=== PATIENT | female | born 1960 | race Caucasian/White ===

== ENCOUNTER 2021-06-16 12:15 | Outpatient (CLI) | payer MEDICARE, MEDICAID, SELFPAY ==
--- NOTE | 2021-06-16 | ECG_ITS ---
Measurements Intervals [place] Rate: 64 P: 33 MS: 177 QRS: -11 QRSD: 85 T: 49 QT: 413 QTc: 428 Interpretive Statements SINUS RHYTHM BORDERLINE ST ABNORMALITY- HIGH LATERAL LEADS BASELINE ARTIFACT- V6 BORDERLINE ECG Electronically Signed On 06-16-2021 13:31:46 CDT by Moncho Hidalgo D.O.
[2021-06-16 13:38] LABS: Albumin Level 4.3 g/dL (3.5-5.1); Estimated Glomerular Filt Rate 45
[2021-06-16 13:58] LABS: Urine Cotinine NEGATIVE
== END 2021-06-16 12:16 | disposition home or self-care (01) ==
PROVIDERS: PCP Family Medicine; Visit Provider Orthopaedic Surgery
DX: Z01.818 Encounter for other preprocedural examination (principal); M17.12 Unilateral primary osteoarthritis, left knee; I11.9 Hypertensive heart disease without heart failure; D64.9 Anemia, unspecified; J45.909 Unspecified asthma, uncomplicated
CPT/HCPCS: 80307; 82040; 82565; 85014; 85018; 93005

== ENCOUNTER 2021-09-06 14:18 | Outpatient (CLI) | payer MEDICARE, MEDICAID, SELFPAY ==
[2021-09-06 15:52] LABS: Basophils Percent Auto 0.4 % (0.2-1.2); Eosinophils Absolute Auto 0.1 K/mm3 (0-0.3); Eosinophils Percent Auto 1.8 % (0-4.4); Hematocrit 43.5 % (37.0-47.0); Hemoglobin 13.9 g/dL (12.0-15.0); Lymphocytes Absolute Auto 1.46 K/mm3 (0.9-3.2); Lymphocytes Percent Auto 26.1 % (18.3-44.2); Mean Corpuscular Hemoglobin 31.1 pg (26-34); Mean Corpuscular Volume 97.3 fl (80-100); Mean Platelet Volume 12.5 fl (7.4-10.4); Monocytes Absolute Auto 0.5 K/mm3 (0.1-0.6); Monocytes Percent Auto 8.2 % (2.6-8.5); Neutrophils Absolute Auto 3.6 K/mm3 (1.3-6.7); Neutrophils Percent Auto 63.5 % (45.5-73.1); Platelet Count Result 162 k/mm3 (150-375); Red Blood Count 4.47 M/mm3 (4.2-5.4); Red Cell Distribution Width 14.8 % (11.5-14.5); White Blood Count 5.6 K/mm3 (4.5-10.0)
[2021-09-06 16:00] LABS: Urine Cotinine NEGATIVE
[2021-09-06 16:07] LABS: Albumin Level 4.7 g/dL (3.5-5.1)
[2021-09-06 16:11] LABS: Anion Gap 8 mmol/L (8-16); Blood Urea Nitrogen 16 mg/dL (7-17); Calcium 9.4 mg/dL (8.4-10.2); Carbon Dioxide 30 mmol/L (22-30); Chloride 105 mmol/L (98-107); Estimated Glomerular Filt Rate 56; Glucose 136 mg/dL (65-110); Potassium 4.1 mmol/L (3.4-5.0); Sodium 143 mmol/L (137-145)
[2021-09-06 17:28] LABS: Hemoglobin A1C 6.4 % (<5.7)
== END 2021-09-06 14:19 | disposition home or self-care (01) ==
LOC: ANHSURGERY 14:24
PROVIDERS: Anesthesiology; PCP Family Medicine; Visit Provider Orthopaedic Surgery
DX: Z01.812 Encounter for preprocedural laboratory examination (principal); M17.12 Unilateral primary osteoarthritis, left knee; E11.9 Type 2 diabetes mellitus without complications; Z51.81 Encounter for therapeutic drug level monitoring; Z79.899 Other long term (current) drug therapy
CPT/HCPCS: 36415; 80048; 80307; 82040; 83036; 85025; 87081

== ENCOUNTER 2021-12-16 10:26 | Outpatient (CLI) | payer MEDICARE, MEDICAID, SELFPAY ==
[2021-12-16 15:48] LABS: Urine Cotinine NEGATIVE
[2021-12-16 15:53] LABS: Hemoglobin A1C 6.6 % (<5.7)
== END 2021-12-16 10:27 | disposition home or self-care (01) ==
PROVIDERS: PCP Family Medicine; Visit Provider Orthopaedic Surgery
DX: Z01.812 Encounter for preprocedural laboratory examination (principal); M17.12 Unilateral primary osteoarthritis, left knee; Z51.81 Encounter for therapeutic drug level monitoring; Z79.899 Other long term (current) drug therapy
CPT/HCPCS: 80307; 83036; 86850; 86900; 86901; 87081

== ENCOUNTER 2021-12-22 15:45 | Observation (INO) | payer MEDICARE, MEDICAID, SELFPAY ==
[2021-09-06 14:30] VITALS: BMI 34.0
[2021-09-06 15:21] VITALS: BP 127/79; PULSE 76; RESP 16; TEMP 36.7; O2SAT 100
[2021-12-14 10:29] VITALS: BMI 34.0
--- NOTE | 2021-12-14 10:47 | PC.NURSE ---
Report to the Outpatient Waiting Room, entrance under the green pavilion located off [facility], at time _0600_ on date _12/21/21__. OR Time: _0730__. - You and your visitor will be asked a series of questions to screen for COVID 19 for your protection. - A mask is required within the hospital. - NO visitors are allowed at this time. Patient visitors will be guided where to wait when not with patient. Preoperative COVID Testing Requirements: No COVID Test needed if: (proof is required; if not received patient will have Rapid Test prior to entry) - Patient has received COVID Vaccine at least 14 days prior to procedure date or - Patient has positive COVID test result within last 90 days of surgery date. COVID Test needed if above criteria is not met If not COVID vaccinated a COVID test must be conducted within 72 hours of surgery and patient is asked to isolate self from time of testing until procedure. You will go to the [facility] for your COVID testing. The [facility] is located at the corner of [address] [facility]. You will only be called if COVID results are positive and your surgeon may reschedule your elective surgery date. Patients may have clear liquids (water, carbonated beverages, clear teas, apple juice) until 3 hours prior to surgery with a maximum of 20 ounces. (0430 AM) - No food from midnight until time of surgery - Infants may have breast milk until 4 hours before surgery, formula 6 hours prior to surgery. - Children will be allowed to drink immediately following surgery. If applicable, please bring a bottle or sippy cup to assist with drinking. Juice, water, soda, and popsicles are readily available. For infants on formula, please bring formula the day of surgery. Pacifiers are allowed. Take the following medications with a SIP of water the morning of surgery: _GABAPENTIN, ISOSORBIDE, METOPROLOL, SERTRALINE & INHALER_ Medications to discontinue per physician _XELJANZ LAST DOSE 12/14/21, ASPIRIN LAST DOSE 12/15/21, ALL VITAMINS & SUPPLEMENTS LAST DOSE 12/17/21__ Please no make-up, nail irish, hairspray, perfume, deodorant, or body powder the day of surgery. No jewelry (including any body piercings) or valuables the day of surgery, leave them at home. Please take a shower or bath the night before, or the morning of, surgery with an antibacterial soap. Wear comfortable, loose fitting clothing. Children are encouraged to wear pajamas. - Jewelry must be removed prior to entering the operating room. Rings and piercings that are not removed may be cut off. - The hospital will not accept responsibility for valuables. - Please leave all valuables, including medications, at home the day of surgery. If you are going home after surgery, a licensed hazardous materials driver must drive you home. - NO public transportation without another adult. - We recommend that an adult stay with you for 24 hours following discharge. - We also recommend that you do not drive, make important decision, drink alcoholic beverages, or take any drugs that were not prescribed by your health care provider for at least 24 hours after your discharge time. For Pediatric surgeries, we recommend two adults accompany the child home (only one inside the building at this time). Follow any additional instructions given to you from your surgeon. Telephone instructions given to ___PT and asked if any additional questions and then verbalized understanding. Patient advised to call surgeon office or pre surgery nurse liaison [phone] if any additional questions.
--- NOTE | 2021-12-20 09:18 | PCCCNOTE ---
Addendum entered by Tennille Koenig RN 12/20/21 15:38: Late entry: Original note, Madison had confirmed IP status with Dr. Santamaria and patient had pain control issues with previous surgery and reaction with anesthesia. Plan for Inpatient. Per Madison CPT no precert required. Addendum entered by Tennille Koenig RN 12/20/21 12:39: Return call received from Madison from Dr. Santamaria's office, she states that she called [facility] and spoke with Breanna, per rep Breanna at [facility] only has [employer] plan that includes home health and transportation only. Patient states that she had the chance to switch to managed medicare/medicaid plan but declined. Patient reports the same thing as the rep from [facility]/ Breanna. Original Note: Per registration notes, patient is eligible for [facility] and pre-auth is required for CPT [address]. Called to Dr. Santamaria's office and spoke with Madison, confirmed that patient will be Inpatient. Read all the pre-auth notes and asked if they had received pre-auth. Per Madison pt states that she only has [facility] for home health and transportation and has standard Medicaid, advised that per notes traditional Medicaid has been removed. Madison requesting screenshot of notes being referred to. Faxed screenshots of insurance order, and pre-reg notes to [phone], requested call back to ER wild animal caretaker phone.
[2021-12-21] VITALS (17 sets, daily range): BP systolic 107–141; BP diastolic 53–81; PULSE 65–99; RESP 10–19; TEMP 36–36.6; O2SAT 93–99
[2021-12-21] MEDS: LACTATED RINGERS 1,000 ML 30 ML IV CONT ×2 (06:45→09:20)
[2021-12-21] MEDS: ACETAMINOPHEN 500 MG TABLET 1000 MG PO (06:49)
[2021-12-21] MEDS: TRANEXAMIC ACID 1,000MG/ISO100 1,000 MG/100 ML BAG 200 MG IVPB (06:50)
[2021-12-21 06:56] LABS: Glucose Point of Care 145 mg/dl (65-105)
--- NOTE | 2021-12-21 07:05 | WPDANESEPPF ---
Anes - Initial Pre Proc Eval Procedure: Operation Date: 12/21/21 07:30 Proposed Procedures p Left Total Knee Arthroplasty - Travis Santamaria MD Date/Time: 12/21/21 07:05 Surgeon: Travis Santamaria MD Pre Op Diagnosis: Primary OA left knee Patient Data Age: 61 Gender: F Height: 1.66 m Weight: 97.2 kg Last Vital Signs Temp 36.7 C 09/06/21 15: Pulse 76 09/06/21 15:21 Resp 16 09/06/21 15:21 BP 127/79 09/06/21 15:21 Pulse Ox 100 09/06/21 15:21 Allergies Allergy/AdvReac Type Severity Reaction Status Date / Time dihydrocodeine Allergy Hives Verified 12/21/21 06:34 [From Synalgos-DC] nabumetone [From Relafen] Allergy Anaphylaxis Verified 12/21/21 06:34 caffeine AdvReac Unknown Jittery Verified 12/21/21 06:34 hydrocodone AdvReac Nausea and Verified 12/21/21 06:34 Vomiting Home Medications Medication Instructions Recorded Confirmed Type aspirin 81 mg tablet,delayed 81 mg PO DAILY 03/29/21 12/21/21 History release atorvastatin 10 mg tablet 40 mg PO DAILY 03/29/21 12/21/21 History folic acid 1 mg tablet 1 mg PO DAILY 03/29/21 12/21/21 History furosemide 20 mg tablet 20 mg PO QAM 03/29/21 12/21/21 History gabapentin 300 mg capsule 300 mg PO TID 03/29/21 12/21/21 History leucovorin calcium 5 mg tablet 5 mg PO WEEKLY 03/29/21 12/21/21 History miscellaneous medical supply 03/29/21 12/14/21 History multivitamin 1 tablet PO DAILY 03/29/21 12/21/21 History omeprazole 20 mg tablet,delayed 20 mg PO DAILY tablet 03/29/21 12/21/21 History release oxybutynin chloride 5 mg tablet 5 mg PO DAILY 03/29/21 12/21/21 History acetaminophen 300 mg-codeine 60 mg 1 tablet PO BID PRN 07/28/21 12/21/21 History tablet doxepin 10 mg capsule 10 mg PO PRN PRN 07/28/21 12/14/21 History fluticasone furoate 100 2 inh INHALATION DAILY 07/28/21 12/21/21 History mcg-vilanterol 25 mcg/dose inhalation powder glipizide 5 mg tablet 5 mg PO DAILY 07/28/21 12/21/21 History sertraline 100 mg tablet 150 mg PO DAILY tablet 07/28/21 12/21/21 History vit C,E,zinc,copper-toeae8j 250 1 cap PO DAILY 07/28/21 12/21/21 History mg-lutein 5 mg-zeaxanthin 1 mg capsule carboxymethylcellulose sodium 1 drp EACH EYE DAILY 09/06/21 12/21/21 History [Refresh Liquigel] cholecalciferol (vitamin D3) 1,250 mcg PO MONTHLY 09/06/21 12/21/21 History cyclobenzaprine 10 mg PO PRN PRN 09/06/21 12/14/21 History fluticasone propionate 1 spray INTRANASAL PRN PRN 09/06/21 12/21/21 History isosorbide mononitrate 60 mg PO DAILY 09/06/21 12/21/21 History methotrexate sodium 20 mg WEEKLY 09/06/21 12/21/21 History metoprolol succinate 25 mg PO DAILY 09/06/21 12/21/21 History montelukast 10 mg PO DAILY 09/06/21 12/21/21 History tofacitinib [Xeljanz XR] 11 mg PO DAILY 12/14/21 12/21/21 History Laboratory Tests 12/21/21 06:48 POC Capillary Glucose 145 mg/dl H mg/dl (65-105) Patient hx anesthesia problems: post op nausea/vomiting Family hx anesthesia problems: none Results Review: All pre-operative results and documents have been reviewed as part of the pre-operative evaluation. [facility] Past Medical History Medical History Anemia Anxiety Asthma Fibromyalgia GERD (gastroesophageal reflux disease) Heart disease Hypertension Migraine Neuropathy Rheumatoid arthritis involving left knee Surgical History Surgical History History of arthroscopic knee surgery (~08/25/14) Partial Lateral Menisectomy w/Synovectomy History of cataract extraction (~2014) History of tubal ligation (~1983) Status post total right knee replacement (~01/06/15) Family History Family History Other Diabetes mellitus Family history of heart disease in male family member before age 55 Family history of malignant neoplasm Hypertension Social History Socia
--- NOTE | 2021-12-21 07:17 | WPDHPUPDATE1 ---
History and Physical Update Update Date/Time: 12/21/21 07:17 History and Physical has been reviewed, including an updated exam of the patient. There are NO changes in the patient's condition. Risks, benefits, and alternatives have been discussed and questions answered. Patient agrees to proceed with procedure.
[2021-12-21] MEDS: SCOPOLAMINE 1.5 MG PATCH TRANSDERM (07:20)
[2021-12-21] MEDS: ceFAZolin 2 GM/D5W 50 ML 2 GM/50 ML BAG IVPB ×2 (07:26→14:55)
[2021-12-21] MEDS: fentaNYL CITRATE INJ (*CRX) 100 MCG/2 ML VIAL 25 MCG IV PUSH ×5 (09:50→10:45)
--- NOTE | 2021-12-21 09:51 | P.OP_ITS ---
Procedure Note - Detailed Date of Procedure 12/21/21 Pre-op Diagnosis Rheumatoid arthritis left knee Post-op Diagnosis same Procedure Performed Left total knee arthroplasty. Surgeon Travis Santamaria MD Stick Inserter Denise Ocampo PA-C Anesthesia general Indications Severe systemic rheumatoid arthritis. Progressive knee pain and dysfunction, despite conservative treatment. Findings Bone quality was quite good. No significant releases required. PCL remained intact. Standard bony resections. Femur placed at 6? valgus. Description of Procedure The patient was given a nerve block preoperatively, and then brought to the operating room. A general anesthetic was administered. The leg was prepped and draped in the usual sterile fashion. The limb was elevated and the tourniquet inflated to 300 mmHg during initial exposure. A longitudinal incision was created along the medial border of the patella and patellar tendon, and a trivector approach to the knee was performed. No significant medial release was taken. The knee was then flexed. The osteophytes were carefully removed. The intramedullary guide was placed in the femoral canal. The distal femoral resection was then taken with the oscillating saw. The collateral ligaments were carefully protected. The tibia was carefully exposed. The jig was applied, and the proximal tibia was resected according to preoperative plan. The pain really anesthetic mixture was injected into the periarticular tissues. The knee was balanced in extension, and appropriate releases were taken where needed. The anterior cruciate ligament and meniscal remnants were removed. The posterior cruciate ligament was preserved. The patella was measured. Patellar resection was carried out with the oscillating saw. The lug holes drilled. The femur was sized and rotation assessed using a combination of gap balancing, posterior referencing, and the AP axis. The 4 in 1 cutting block was used to finish the femoral cuts after equal gaps were assured. The lug holes were drilled. No osteophytes were found at the back of the knee. The knee was copiously irrigated with antibiotic solution periodically throughout the procedure. The meniscal remnants were removed. The spacer block was used to confirm equal flexion and extension gaps. Further releases were performed as needed. The tibia was sized and broached. The bony surfaces were prepared for cementing with pulsatile lavage. The real tibial component and femoral components were cemented into position. Excess cement was carefully removed. The polyethylene insert was placed. The patella component was subsequently cemented. Patellar tracking was carefully assessed. No additional releases were required. The wound was closed with #1 Vicryl suture, #2 Quill suture, 0-Strat a-fix suture, and 2-0 Strata-fix suture followed by Steri-Strips. A sterile bulky dressing was applied. Meticulous hemostasis was maintained throughout the procedure. The Aquamantys device was used. There were no complications. The patient was extubated and brought to the recovery room in stable condition after the application of sterile dressing with Lamine bandage. Implants TwinStrata Triathlon knee system, low profile cemented tibia size 3, cemented cruciate-retaining femoral component size 3 ,and an 9 mm cruciate stabilizing polyethylene insert. 35 mm asymmetric cemented patella component. Estimated Blood Loss -200.0 Drains No Pathology none sent Complications No immediate complications Condition stable Disposition PACU
--- NOTE | 2021-12-21 11:00 | SUR.PHASEI ---
1045- spoke with pt daughter earlier to update on how pt was doing.
--- NOTE | 2021-12-21 11:37 | PC.NURSE ---
This patient, Stephy Amaya, was admitted to [facility]. Patient oriented to hospital policies and general routines including ID bracelet, bed and alarms, visiting hours, pain management, procedures, bathroom and other care routines, personal items, smoking policy, room service/diet, and visiting hours. Information on how to activate the Rapid Response Team has been discussed. Patient are encouraged to report perceived risks to care and to ask questions if they do not understand what they are told or what they should do.
[2021-12-21] MEDS: SODIUM CHLORIDE 0.9% IV 1,000 ML 125 ML IV CONT (12:20)
--- NOTE | 2021-12-21 13:00 | WPDCN ---
Assessment and Plan Assessment and plan (1) Rheumatoid arthritis involving left knee: Qualifiers: Rheumatoid factor presence: with rheumatoid factor Qualified Code(s): M05.762 - Rheumatoid arthritis with rheumatoid factor of left knee without organ or systems involvement Code(s): M06.9 - Rheumatoid arthritis, unspecified Status: Acute Assessment and Plan: Postoperative day 0 status post left total knee arthroplasty. Wound care, pain control, DVT prophylaxis deferred to primary service. PT/OT consulted. (2) Rheumatoid arthritis: Code(s): M06.9 - Rheumatoid arthritis, unspecified Status: Acute Assessment and Plan: Resume methotrexate and tofacitinib when okay with primary service. (3) Type 2 diabetes mellitus: Code(s): E11.9 - Type 2 diabetes mellitus without complications Status: Acute Assessment and Plan: Well controlled with a recent hemoglobin A1c of 6.6%. Resume glipizide tomorrow morning as long as patient is tolerating diet. Initiate sliding scale insulin, Accu-Cheks, and hypoglycemic protocol. (4) Hypertension: Code(s): I10 - Essential (primary) hypertension Status: Chronic Assessment and Plan: Blood pressures were reviewed and they have been stable postoperatively. Antihypertensives will be resumed and blood pressures will be monitored daily. (5) Hyperlipidemia: Code(s): E78.5 - Hyperlipidemia, unspecified Status: Acute Assessment and Plan: Continue statin and check LFTs. (6) Gastroesophageal reflux disease: Code(s): K21.9 - Gastro-esophageal reflux disease without esophagitis Status: Acute Assessment and Plan: No current issues. Continue PPI. (7) Asthma: Code(s): J45.909 - Unspecified asthma, uncomplicated Status: Chronic Assessment and Plan: No acute issues. Continue maintenance inhalers and montelukast. Additional Plan Thank you for allowing us to participate in this patient's care. Please do not hesitate to contact us with any questions. Supervising physician for this medical consultation is Dr. Esmer Alicia. The patient was considered same day surgery at the time of consultation. HPI Data of Consult Date/Time: 12/21/21 13:00 Requesting Physician: Travis Santamaria MD Primary Care Provider: Singh LozaMD Consult Narrative Narrative: This is a 61-year-old female with rheumatoid arthritis, type 2 diabetes mellitus, hyperlipidemia, and asthma whom the hospitalist service has been consulted for help managing her medical conditions postoperatively. She has been followed by Dr. Santamaria for her left knee pain which has become worse and progressive despite conservative outpatient treatment. Due to ongoing pain with activities of daily living, she elected for replacement today. Her surgery was performed under general anesthesia with no immediate complications documented an estimated blood loss of 200 mL. At the time of my evaluation, she is sitting in a chair at the side of the bed eating lunch. She reports stabbing pain at the incision site and occasional spasms behind the knee. She denies fever, chills, sweats, nausea, vomiting, chest pain, and shortness of breath. She also denies paresthesias, skin color, and temperature changes distal to the surgical site. Review of Systems Review of Systems: Twelve systems were reviewed. No recent cold or flu symptoms. The patient lives in her own home but her daughter Leilani
[2021-12-21 13:32] LABS: Glucose Point of Care 241 mg/dl (65-105)
[2021-12-21] MEDS: GABAPENTIN 300 MG CAPSULE PO ×2 (13:52→16:58)
[2021-12-21] MEDS: oxyCODONE HCL (*CRX) 5 MG TAB IR PO ×2 (14:56→20:14)
[2021-12-21] MEDS: SENNA/DOCUSATE SODIUM TABLET 2 TAB PO (16:58)
[2021-12-21] MEDS: ASPIRIN 81 MG ENTERIC TABLET PO (16:58)
[2021-12-21 17:28] LABS: Glucose Point of Care 195 mg/dl (65-105)
[2021-12-21 20:41] LABS: Glucose Point of Care 193 mg/dl (65-105)
[2021-12-22] VITALS (7 sets, daily range): BP systolic 104–129; BP diastolic 53–79; PULSE 66–87; RESP 12–16; TEMP 36.1–36.9; O2SAT 94–98
--- NOTE | ~2021-12-22 | XR_ITS ---
EXAMINATION: XR knee LT 2V DATE: 12/21/2021 09:33 INDICATION: Total left knee arthroplasty. Postop. TECHNIQUE: 2 views of left knee were obtained. COMPARISON: Left knee radiographs 07/28/2021 FINDINGS: There is a total left knee arthroplasty without patellar resurfacing in near-anatomic align ment. No fracture. There is gas in the knee joint and soft tissues, consistent with recent surgery. T here is a small knee joint effusion. IMPRESSION: 1. Total left knee arthroplasty in near-anatomic alignment. Reviewed, dictated and finalized at location A. E SHOE RAGGER
[2021-12-22] MEDS: ceFAZolin 2 GM/D5W 50 ML 2 GM/50 ML BAG IVPB ×2 (00:11→05:57)
[2021-12-22 05:59] LABS: Hematocrit 35.9 % (37.0-47.0); Hemoglobin 11.6 g/dL (12.0-15.0); Mean Corpuscular HGB Conc 32.3 g/dl (32-36); Mean Corpuscular Hemoglobin 31.1 pg (26-34); Mean Corpuscular Volume 96.2 fl (80-100); Mean Platelet Volume 11.8 fl (7.4-10.4); Platelet Count Result 141 k/mm3 (150-375); Red Blood Count 3.73 M/mm3 (4.2-5.4); Red Cell Distribution Width 14.9 % (11.5-14.5); White Blood Count 11.5 K/mm3 (4.5-10.0)
[2021-12-22 06:22] LABS: Alanine Aminotransferase 38 U/L (4-35); Albumin Level 4.1 g/dL (3.5-5.1); Alkaline Phosphatase 78 U/L (38-126); Anion Gap 9 mmol/L (8-16); Aspartate Amino Transferase 44 U/L (14-36); Bilirubin,Total 0.7 mg/dL (0.2-1.3); Blood Urea Nitrogen 15 mg/dL (7-17); Calcium 8.7 mg/dL (8.4-10.2); Carbon Dioxide 26 mmol/L (22-30); Chloride 103 mmol/L (98-107); Estimated CRCL calculation 60 ml/min; Estimated Glomerular Filt Rate 56; Glucose 182 mg/dL (65-110); Sodium 138 mmol/L (137-145)
[2021-12-22 07:44] LABS: Glucose Point of Care 178 mg/dl (65-105)
[2021-12-22] MEDS: glipiZIDE 5 MG TABLET PO ×2 (08:36→11:07)
[2021-12-22] MEDS: oxyCODONE HCL (*CRX) 5 MG TAB IR PO (08:36)
[2021-12-22] MEDS: SENNA/DOCUSATE SODIUM TABLET 2 TAB PO ×2 (09:49→19:16)
[2021-12-22] MEDS: PANTOPRAZOLE 40 MG TABLET PO (09:49)
[2021-12-22] MEDS: ASPIRIN 81 MG ENTERIC TABLET PO ×2 (09:49→19:19)
[2021-12-22] MEDS: METOPROLOL SUCCINATE EXT REL 25 MG TABCR PO (09:49)
[2021-12-22] MEDS: polyethylene glycoL 3350 17 GM POWD.PACK PO (09:49)
[2021-12-22] MEDS: MONTELUKAST SODIUM 10 MG TABLET PO (09:50)
[2021-12-22] MEDS: GABAPENTIN 300 MG CAPSULE PO ×3 (09:50→19:19)
[2021-12-22] MEDS: ATORVASTATIN 40 MG TABLET PO (09:50)
--- NOTE | 2021-12-22 11:00 | PM.IMPN ---
Progress Note: A&P Assessment and Plan (1) Rheumatoid arthritis involving left knee: Qualifiers: Rheumatoid factor presence: with rheumatoid factor Qualified Code(s): M05.762 - Rheumatoid arthritis with rheumatoid factor of left knee without organ or systems involvement Code(s): M06.9 - Rheumatoid arthritis, unspecified Status: Acute Assessment and Plan: Postoperative day 1 status post left total knee arthroplasty. Wound care, pain control, DVT prophylaxis deferred to primary service. PT/OT consulted. (2) Rheumatoid arthritis: Code(s): M06.9 - Rheumatoid arthritis, unspecified Status: Acute Assessment and Plan: Resume methotrexate and tofacitinib when okay with primary service. (3) Type 2 diabetes mellitus: Code(s): E11.9 - Type 2 diabetes mellitus without complications Status: Acute Assessment and Plan: Well controlled with a recent hemoglobin A1c of 6.6%. Resume glipizide tomorrow morning as long as patient is tolerating diet. Initiate sliding scale insulin, Accu-Cheks, and hypoglycemic protocol. (4) Hypertension: Code(s): I10 - Essential (primary) hypertension Status: Chronic Assessment and Plan: Blood pressures were reviewed and they have been stable postoperatively. Antihypertensives have been resumed by primary service BP currently 122/79 (5) Hyperlipidemia: Code(s): E78.5 - Hyperlipidemia, unspecified Status: Acute Assessment and Plan: Continue statin and check LFTs. (6) Gastroesophageal reflux disease: Code(s): K21.9 - Gastro-esophageal reflux disease without esophagitis Status: Acute Assessment and Plan: No current issues. Continue PPI. (7) Asthma: Code(s): J45.909 - Unspecified asthma, uncomplicated Status: Chronic Assessment and Plan: No acute issues. Continue maintenance inhalers and montelukast. Time Spent With Patient Time with patient: Greater than 35 minutes Subjective Date/time seen: 12/22/21 11:00 Interval history: Date/Time: 12/21/21 13:00 Narrative: This is a 61-year-old female with rheumatoid arthritis, type 2 diabetes mellitus, hyperlipidemia, and asthma whom the hospitalist service has been consulted for help managing her medical conditions postoperatively. She has been followed by Dr. Santamaria for her left knee pain which has become worse and progressive despite conservative outpatient treatment. Due to ongoing pain with activities of daily living, she elected for replacement today. Her surgery was performed under general anesthesia with no immediate complications documented an estimated blood loss of 200 mL. At the time of my evaluation, she is sitting in a chair at the side of the bed eating lunch. She reports stabbing pain at the incision site and occasional spasms behind the knee. She denies fever, chills, sweats, nausea, vomiting, chest pain, and shortness of breath. She also denies paresthesias, skin color, and temperature changes distal to the surgical site. Date/Time 12/22/21 1100 Patient is having a lot of pain. She stated that this is a general pain. She is stating that most of this pain is from her rheumatoid arthritis. She is currently rating her pain a 10/10. She also stated that she had different kind of chest pain however she said her heel sprayer first nose because she went to a cardiology appointment and let him know. Patient denies any new findings including shortness of breath, nausea, vomiting, diarrhea, constipation, weakness, fatigue. Isabel
[2021-12-22] MEDS: SERTRALINE HCL 50 MG TABLET 150 MG PO (11:06)
[2021-12-22] MEDS: ISOSORBIDE MONONITRATE 60 MG TAB.ER.24H PO (11:07)
[2021-12-22] MEDS: FUROSEMIDE 20 MG TABLET PO (11:07)
[2021-12-22] MEDS: OXYBUTYNIN CHLORIDE 5 MG TABLET PO (11:07)
[2021-12-22] MEDS: FOLIC ACID 1 MG TABLET PO (11:07)
[2021-12-22 13:05] LABS: Glucose Point of Care 137 mg/dl (65-105)
--- NOTE | 2021-12-22 14:27 | PM.PNORT ---
Subjective Subjective Date/Time Seen: 12/22/21 8:00 Patient confused this AM stating she thought she was at [facility]. She was able to tell me a conversation she had with Dr. Santamaria prior to surgery. States this has happened her her after anesthesia in the past. She was able to tell me the year, month, and day. Patient having increased pain and difficultly ambulating. Objective Data Vital Signs Vital Signs: Vital Signs - 24 hr 12/21/21 17:09 12/21/21 20:00 12/22/21 00:00 Temperature 98 F 97.3 F L 97.4 F L Pulse Rate 65 68 66 Respiratory Rate 18 16 14 Blood Pressure 141/68 H 131/76 129/63 Pulse Oximetry 93 96 97 12/22/21 04:00 12/22/21 08:15 12/22/21 09:49 Temperature 97.8 F 98.4 F Pulse Rate 68 84 84 Respiratory Rate 14 16 Blood Pressure 123/74 104/78 Pulse Oximetry 98 94 12/22/21 14:05 Temperature 98.0 F Pulse Rate 77 Respiratory Rate 14 Blood Pressure 122/79 Pulse Oximetry 97 Intake/Output Intake/Output: Intake & Output 12/19/21 12/20/21 12/21/21 12/22/21 23:59 23:59 23:59 23:59 Intake Total 1804 150 Balance 1804 150 Meds/Results Medications: Active Medications Generic Name Dose Route Start Last Admin Trade Name Freq PRN Reason Stop Dose Admin Aspirin 81 mg 12/21/21 17:00 12/22/21 09:49 Aspirin 81 Mg Enteric Tablet PO 81 mg BID JIMMIE Administration Atorvastatin Calcium 40 mg 12/22/21 09:00 12/22/21 09:50 Atorvastatin 40 Mg Tablet PO 40 mg DAILY JIMMIE Administration Cyclobenzaprine HCl 10 mg 12/21/21 11:35 Cyclobenzaprine Hcl 10 Mg Tablet PO PRN PRN Muscle Spasm Dextrose 12.5 gm 12/21/21 13:35 Dextrose 50% 25 Gm/50 Ml Syringe IV PUSH PRN PRN Hypoglycemia Protocol Diphenhydramine HCl 25 mg 12/21/21 11:35 Diphenhydramine Hcl Inj 50 Mg/Ml Vial IV PUSH Q6H PRN Itching Doxepin HCl 10 mg 12/21/21 11:35 Doxepin Hcl 10 Mg Capsule PO PRN PRN Insomnia Fluticasone Propionate 1 spray 12/21/21 11:35 Fluticasone Propionate 0.05% Na Spr 16 Gm Btl (*Bkc) NASAL PRN PRN Allergy Symptoms Folic Acid 1 mg 12/22/21 09:00 12/22/21 11:07 Folic Acid 1 Mg Tablet PO 1 mg DAILY JIMMIE Administration Furosemide 20 mg 12/22/21 09:00 12/22/21 11:07 Furosemide 20 Mg Tablet PO 20 mg QAM JIMMIE Administration Gabapentin 300 mg 12/21/21 13:00 12/22/21 14:16 Gabapentin 300 Mg Capsule PO 300 mg TID JIMMIE Administration Glipizide 5 mg 12/22/21 08:00 12/22/21 11:07 Glipizide 5 Mg Tablet PO 5 mg DAILY@0800 JIMMIE Administration Glucagon 1 mg 12/21/21 13:35 Glucagon For Inj 1 Mg Vial IM PRN PRN Hypoglycemia Protocol Glucose 15 gm 12/21/21 13:35 Glucose Oral Gel 15 Gm Of Glucse In 37.5 Gm Tube PO PRN PRN Hypoglycemia Protocol Dextrose 1,000 mls @ 100 mls/hr 12/21/21 13:35 Dextrose 5% 1,000 Ml IVPB PRN PRN Hypoglycemia Protocol Insulin Aspart 2 - 5 units 12/21/21 17:00 12/22/21 14:11 Insulin Aspart (*Bkc) 100 Units/Ml SUB-Q Not Given TIDWM [facility] Protocol Isosorbide Mononitrate 60 mg 12/22/21 09:00 12/22/21 11:07 Isosorbide Mononitrate 60 Mg Tab.Er.24h PO 60 mg DAILY JIMMIE Administration Metoprolol Succinate 25 mg 12/22/21 09:00 12/22/21 09:49 Metoprolol Succinate Ext Rel 25 Mg Tabcr PO 25 mg DAILY JIMMIE Administration Miscellaneous Information 1 each 12/21/21 00:01 Leucovorin Nonformulary. Takes Weekly On 01/20/22 00:00 CLARIFY JIMMIE Montelukast Sodium 10 mg 12/22/21 09:00 12/22/21 09:50 Montelukast Sodium 10 Mg Tablet PO 10 mg DAILY JIMMIE Administration Naloxone HCl 0.1 mg 12/21/21 11:35 Naloxone Hcl 0.4 Mg/Ml Vial IV PUSH Q2M PRN Opiate Reversal Non-Formulary Medication 5 mg 12/28/21 09:00 Leucovorin Calcium PO 01/27/22 08:59 WEEKLY [facility] Ondansetron HCl 4 mg 12/21/21 11:35 Ondansetron Inj 4 Mg/2 Ml Vial
--- NOTE | 2021-12-22 14:54 | PM.DS ---
DS: Admitting Diagnosis Discharge Date 12/22/21 Admitting Diagnosis OA knee Left DS: Discharge Diagnosis Discharge Diagnosis (1) Status post total left knee replacement: Code(s): Z96.652 - Presence of left artificial knee joint Status: Acute Assessment and Plan: Postop day 1: Left total knee arthroplasty. Patient tolerated procedure well. Difficulty with ambulating and PT today. Will need to be discharged to SNF. Pain manageable with pain medication. No numbness or tingling. Slight confusion. States this happens to her postoperatively. We had a lengthy discussion regarding postoperative wound care, limitations, expectations, and exercises. Patient shows good understanding. He has had initial physical therapy and is tolerating it well. DVT prophylaxis: 81 mg baby aspirin b.i.d. for 14 days. Pain medication: Percocet. Patient has followup appointment with Dr. Santamaria in 3 weeks. DS: Summary Hospital Course Reason for hospitalization: Total knee arthroplasty Hospital Course: Patient tolerated procedure well. Has had initial PT/OT. Had trouble with ambulating. Status at Discharge Functional status at discharge: uses cane/walker Overall status at discharge: patient is progressing back to baseline Time Spent with Patient Time attestation: Total time spent providing and/or coordinating discharge services: Exam Narrative: 61-year-old overweight female. Resting comfortably in bed. Alert and oriented x3. No acute distress. Wearing compression socks bilaterally. Dressing intact without drainage. Moderate swelling. No ecchymosis. No erythema. No hematoma. Range of motion limited due to pain. Calf nontender. Neurologic status intact. No varicosities. Distal pulses palpable. DS: Data Data Completed and Pending Labs on day of discharge: Labs from last 24 hours 12/22/21 12/22/21 12/22/21 14:30 12:48 07:41 WBC RBC Hgb Hct MCV MCH MCHC RDW Plt Count MPV Sodium Potassium Chloride Carbon Dioxide Anion Gap BUN Creatinine Estim Creat Clear Calc Estimated GFR Glucose POC Capillary Glucose 137 H 178 H Calcium Magnesium Total Bilirubin AST ALT Alkaline Phosphatase Total Protein Albumin SARS-CoV-2 IgG/IgM Ag?Rapid Pending 12/22/21 12/22/21 12/21/21 05:38 05:38 20:04 WBC 11.5 H RBC 3.73 L Hgb 11.6 L Hct 35.9 L MCV 96.2 MCH 31.1 MCHC 32.3 RDW 14.9 H Plt Count 141 L MPV 11.8 H Sodium 138 Potassium 4.0 Chloride 103 Carbon Dioxide 26 Anion Gap 9 BUN 15 Creatinine 1.00 Estim Creat Clear Calc 60 Estimated GFR 56 L Glucose 182 H POC Capillary Glucose 193 H Calcium 8.7 Magnesium 2.0 Total Bilirubin 0.7 AST 44 H ALT 38 H Alkaline Phosphatase 78 Total Protein 7.0 Albumin 4.1 SARS-CoV-2 IgG/IgM Ag?Rapid 12/21/21 17:02 WBC RBC Hgb Hct MCV MCH MCHC RDW Plt Count MPV Sodium Potassium Chloride Carbon Dioxide Anion Gap BUN Creatinine Estim Creat Clear Calc Estimated GFR Glucose POC Capillary Glucose 195 H Calcium Magnesium Total Bilirubin AST ALT Alkaline Phosphatase Total Protein Albumin SARS-CoV-2 IgG/IgM Ag?Rapid Discharge Plan Discharge Patient Disposition: SNF Discharge Instructions: Remove the Scopolamine patch that was placed behind your ear in 72 hours or less. Wash your hands after touching. See green instruction sheet for orthopaedic instructions. Patient Instructions: Pain Management (DC), Precautions after Total Joint Replacement Surgery (DC), Knee Replacement (DC) Stand Alone Forms: General Discharge Instructions Follow-up/Referrals: Denise Ocampo PA [Physician Race Steward] - Discharge Medications: New aspirin 81 mg tablet,delayed release (DR/EC) 81 mg PO BID 14 Days Qty: 28 RF: 0
[2021-12-22 14:55] LABS: EDCOVIDSCREEN Positive (Negative)
[2021-12-22] MEDS: oxyCODONE HCL (*CRX) 5 MG TAB IR 10 MG PO (20:10)
[2021-12-22] MEDS: FLUTICASONE/SALMETEROL 115-21 MCG INHALER 1 PUFF 2 PUFF INHALATION (22:03)
[2021-12-23 02:00] VITALS: BP 124/73; PULSE 90; RESP 15; TEMP 37.3; O2SAT 91
[2021-12-23] MEDS: oxyCODONE HCL (*CRX) 5 MG TAB IR 10 MG PO (02:57)
[2021-12-23 05:50] VITALS: BP 124/66; PULSE 90; RESP 14; TEMP 37.4; O2SAT 96
[2021-12-23 06:53] LABS: Basophils Percent Auto 0.1 % (0.2-1.2); Hematocrit 30.8 % (37.0-47.0); Hemoglobin 9.8 g/dL (12.0-15.0); Immature Granulocyte Absolute 0.06 K/mm3 (0.00-0.031); Immature Granulocyte Percent A 0.7 % (0-0.5); Lymphocytes Absolute Auto 1.07 K/mm3 (0.9-3.2); Lymphocytes Percent Auto 11.8 % (18.3-44.2); Mean Corpuscular HGB Conc 31.8 g/dl (32-36); Mean Corpuscular Volume 94.2 fl (80-100); Mean Platelet Volume 12.1 fl (7.4-10.4); Monocytes Absolute Auto 0.9 K/mm3 (0.1-0.6); Monocytes Percent Auto 9.5 % (2.6-8.5); Neutrophils Absolute Auto 7.1 K/mm3 (1.3-6.7); Neutrophils Percent Auto 77.9 % (45.5-73.1); Platelet Count Result 120 k/mm3 (150-375); Red Blood Count 3.27 M/mm3 (4.2-5.4); White Blood Count 9.1 K/mm3 (4.5-10.0)
[2021-12-23 07:34] LABS: Alanine Aminotransferase 25 U/L (4-35); Albumin Level 3.6 g/dL (3.5-5.1); Alkaline Phosphatase 70 U/L (38-126); Anion Gap 7 mmol/L (8-16); Aspartate Amino Transferase 40 U/L (14-36); Bilirubin,Total 0.9 mg/dL (0.2-1.3); Blood Urea Nitrogen 12 mg/dL (7-17); Calcium 8.4 mg/dL (8.4-10.2); Carbon Dioxide 27 mmol/L (22-30); Chloride 100 mmol/L (98-107); Estimated CRCL calculation 60 ml/min; Estimated Glomerular Filt Rate 56; Glucose 145 mg/dL (65-110); Magnesium 2.2 mg/dL (1.6-2.3); Potassium 3.5 mmol/L (3.4-5.0); Sodium 134 mmol/L (137-145)
--- NOTE | 2021-12-23 07:45 | PM.IMPN ---
Progress Note: A&P Assessment and Plan (1) Rheumatoid arthritis involving left knee: Qualifiers: Rheumatoid factor presence: with rheumatoid factor Qualified Code(s): M05.762 - Rheumatoid arthritis with rheumatoid factor of left knee without organ or systems involvement Code(s): M06.9 - Rheumatoid arthritis, unspecified Status: Acute Assessment and Plan: Postoperative day 2 status post left total knee arthroplasty. Wound care, pain control, DVT prophylaxis deferred to primary service. PT/OT consulted. (2) Rheumatoid arthritis: Code(s): M06.9 - Rheumatoid arthritis, unspecified Status: Acute Assessment and Plan: Resume methotrexate and tofacitinib when okay with primary service. (3) Type 2 diabetes mellitus: Code(s): E11.9 - Type 2 diabetes mellitus without complications Status: Acute Assessment and Plan: Well controlled with a recent hemoglobin A1c of 6.6%. Resume glipizide tomorrow morning as long as patient is tolerating diet. Initiate sliding scale insulin, Accu-Cheks, and hypoglycemic protocol. (4) Hypertension: Code(s): I10 - Essential (primary) hypertension Status: Chronic Assessment and Plan: Blood pressures were reviewed and they have been stable postoperatively. Antihypertensives have been resumed by primary service BP currently 124/66 (5) Hyperlipidemia: Code(s): E78.5 - Hyperlipidemia, unspecified Status: Acute Assessment and Plan: Continue statin and check LFTs. (6) Gastroesophageal reflux disease: Code(s): K21.9 - Gastro-esophageal reflux disease without esophagitis Status: Acute Assessment and Plan: No current issues. Continue PPI. (7) Asthma: Code(s): J45.909 - Unspecified asthma, uncomplicated Status: Chronic Assessment and Plan: No acute issues. Continue maintenance inhalers and montelukast. Time Spent With Patient Time with patient: Greater than 35 minutes Subjective Date/time seen: 12/23/21 0745 Interval history: Date/Time: 12/21/21 13:00 Narrative: This is a 61-year-old female with rheumatoid arthritis, type 2 diabetes mellitus, hyperlipidemia, and asthma whom the hospitalist service has been consulted for help managing her medical conditions postoperatively. She has been followed by Dr. Santamaria for her left knee pain which has become worse and progressive despite conservative outpatient treatment. Due to ongoing pain with activities of daily living, she elected for replacement today. Her surgery was performed under general anesthesia with no immediate complications documented an estimated blood loss of 200 mL. At the time of my evaluation, she is sitting in a chair at the side of the bed eating lunch. She reports stabbing pain at the incision site and occasional spasms behind the knee. She denies fever, chills, sweats, nausea, vomiting, chest pain, and shortness of breath. She also denies paresthesias, skin color, and temperature changes distal to the surgical site. Date/Time 12/22/21 1100 Patient is having a lot of pain. She stated that this is a general pain. She is stating that most of this pain is from her rheumatoid arthritis. She is currently rating her pain a 10/10. She also stated that she had different kind of chest pain however she said her service electrician nose because she went to a cardiology appointment and let him know. Patient denies any new findings including shortness of breath, nausea, vomiting, diarrhea, constipation, weakness, fatigue. Date/t
[2021-12-23 07:53] LABS: SARS-CoV-2 RNA PCR Negative
[2021-12-23] MEDS: ASPIRIN 81 MG ENTERIC TABLET PO (09:35)
[2021-12-23] MEDS: PANTOPRAZOLE 40 MG TABLET PO (09:36)
[2021-12-23] MEDS: MONTELUKAST SODIUM 10 MG TABLET PO (09:36)
[2021-12-23] MEDS: polyethylene glycoL 3350 17 GM POWD.PACK PO (09:36)
[2021-12-23] MEDS: SENNA/DOCUSATE SODIUM TABLET 2 TAB PO (09:37)
[2021-12-23] MEDS: GABAPENTIN 300 MG CAPSULE PO (09:37)
[2021-12-23] MEDS: ATORVASTATIN 40 MG TABLET PO (09:37)
[2021-12-23 09:50] VITALS: PULSE 90
[2021-12-23] MEDS: METOPROLOL SUCCINATE EXT REL 25 MG TABCR PO (09:50)
[2021-12-23] MEDS: FLUTICASONE/SALMETEROL 115-21 MCG INHALER 1 PUFF 2 PUFF INHALATION (10:23)
[2021-12-23] MEDS: ISOSORBIDE MONONITRATE 60 MG TAB.ER.24H PO (10:28)
[2021-12-23] MEDS: SERTRALINE HCL 50 MG TABLET 150 MG PO (10:28)
[2021-12-23] MEDS: FUROSEMIDE 20 MG TABLET PO (10:28)
[2021-12-23] MEDS: FOLIC ACID 1 MG TABLET PO (10:29)
[2021-12-23] MEDS: OXYBUTYNIN CHLORIDE 5 MG TABLET PO (10:29)
[2021-12-23 14:19] LABS: Glucose Point of Care 137 mg/dl (65-105)
[2021-12-29 14:28] LABS: Glucose Point of Care 148 mg/dl (65-105)
== END 2021-12-23 14:10 | disposition home health service (06) ==
LOC: ANHSURGERY 16:19 → ANHSUROVER 16:20
PROVIDERS: Nurse Practitioner; Physician Assistant; Admitting Provider Orthopaedic Surgery; PCP Family Medicine; Visit Provider Orthopaedic Surgery
PROC: (CPT 27447; principal; 2021-12-21 07:30)
DX: M17.12 Unilateral primary osteoarthritis, left knee (principal); Z96.651 Presence of right artificial knee joint; I10 Essential (primary) hypertension; K21.9 Gastro-esophageal reflux disease without esophagitis; M06.9 Rheumatoid arthritis, unspecified; E11.9 Type 2 diabetes mellitus without complications; E78.5 Hyperlipidemia, unspecified; J45.909 Unspecified asthma, uncomplicated; Z79.82 Long term (current) use of aspirin; Z79.84 Long term (current) use of oral hypoglycemic drugs; Z20.822 Contact with and (suspected) exposure to COVID-19
CPT/HCPCS: 27447; 36415; 73560; 80053; 82948; 83735; 85025; 85027; 87426; 94640; 97110; 97116; 97161; 97165; 97530; 97535; A9270; C1713; C1776; C9803; G0378; G0379; J0131; J0171; J0690; J1100; J2250; J2270; J2405; J2704; J2795; J3010; J7030; J7120; U0003; U0005

== ENCOUNTER 2023-12-22 10:25 | Outpatient (CLI) | payer MEDICARE, MEDICAID, SELFPAY ==
--- NOTE | ~2023-12-22 | XR_ITS ---
XR knee LT 3V 12/22/2023 11:03 Indication: Left knee pain Procedure: 3 views left knee Comparison: Comparison to multiple prior studies sequentially, with oldest reviewed study dated 07/27. Findings: There is anatomic alignment. There is a left total knee arthroplasty, well seated. No fract ure or traumatic malalignment. No significant joint effusion. Impression: 1: No acute bone or joint abnormality. Reviewed, dictated and finalized at location B. EL PILE DRIVER OPERATOR Impression: 1: No acute bone or joint abnormality.
--- NOTE | ~2023-12-22 | XR_ITS ---
EXAMINATION: XR shoulder RT min 2V DATE: 12/22/2023 11:03 INDICATION: Right shoulder pain TECHNIQUE: AP internally and externally rotated, AP oblique externally rotated and transscapular Y vi ews of the right shoulder were obtained. COMPARISON: None FINDINGS: Normal alignment. No fracture. Glenohumeral joint is normal. Mild acromioclavicular osteoarthritis. Small subacromial spurs. Soft tissues are unremarkable. /Portions of the right lung are clear. IMPRESSION: Mild acromioclavicular osteoarthritis and small subacromial spurs. Reviewed, dictated and finalized at location A. RAFT ASSEMBLER
== END 2023-12-22 10:26 | disposition home or self-care (01) ==
PROVIDERS: PCP Family Medicine; Visit Provider Orthopaedic Surgery
DX: M19.011 Primary osteoarthritis, right shoulder (principal); M25.711 Osteophyte, right shoulder; Z47.1 Aftercare following joint replacement surgery
CPT/HCPCS: 73030; 73562

== ENCOUNTER 2024-12-21 15:05 | Emergency (ER) | payer MEDICARE, MEDICAID, SELFPAY ==
--- NOTE | ~2024-12-21 | XR_ITS ---
CHEST RADIOGRAPH, PA AND LATERAL CLINICAL HISTORY: cough . COMPARISON: None available TECHNIQUE: PA and lateral views of the chest. FINDINGS The cardiomediastinal silhouette is unremarkable. The lungs are clear. Visualized osseous structures and soft tissues are unremarkable. IMPRESSION: No focal infiltrate or effusion. Reviewed, dictated and finalized at location [facility]. [facility]
--- OUTSIDE RECORDS SUMMARY | 2024-12-21 15:10 | XMS_ITS | Encounter Summary ---
Author Organization [facility] Address [address] [place] [address] Phone Care Team Providers Care Department Chairperson Name Role Phone Singh Loza MD Primary Care Provider [phone] Jose Kumar MD Unavailable [phone] Lucita Patterson APRN, EXHIBITIONS AND COLLECTIONS MANAGER Unavailable Romeo Dolan DPM Unavailable [phone] Melissa Rogers APRN, EXHIBITIONS AND COLLECTIONS MANAGER Unavailable Nessa Reid MD Unavailable [phone] Reason for Visit * Reason Comments Medication Refill Encounter Details Date Type Department Care Team (Late st Contact Info) Description 05/20/2024 Refill [facility] - Gastroenterology [facility] [address] [place] [address] Melissa Rogers APRN, EXHIBITIONS AND COLLECTIONS MANAGER [address] [place] [address] Medication Refill Social History Tobacco Use Types Packs/Day Years Used Date Smoking Tobacco: Never Smokeless Tobacco: Never Alcohol Use Standard Drinks/Week Comments No 0 (1 standard drink = 0.6 oz pur e alcohol) Sexually Active Control Partners Comments Not Currently Comments No Sex and Gender Information Value Date Recorded Sex Assigned at Not on file Legal Sex Female 8:40 PM CDT Gender Identity Not on file Sexual Orientation Not on file Occupation Industry Job Start Date Job End Date disabled Not on file Not on file Not on file documented as of this encounter Miscellaneous Notes * Telephone Encounter - Karlene Zaldivar RN - 05/21/2024 2:59 PM CDT Medication refilled and signed [facility] medication standing order for pediatric and adult patients. documented in this encounter Plan of Treatment Not on file documented as of this encounter Visit Diagnoses Not on filedocumented in this encounter Additional Health Concerns Infection Onset Date Last Indicated Resolved Time COVID - 19 08/23/2024 08/23/2024 08/23/2024 8:09 PM CDT Assessment Noted Time PHQ-9 Depression Total Score: 0 04/18/20 17 10:00 AM CDT documented as of this encounter Care Teams Department Chairperson Relationship Specialty Start Date End Date Singh Loza MD [address] [place] [address] [place] [address] PCP - General Family Medicine 04/18/16 Jose Kumar MD [address] [place] [address] [place] [address] General Surgery 04/13/17 Lucita Patterson APRN, EXHIBITIONS AND COLLECTIONS MANAGER [address] [place] [address] [place] [address] Nurse Practitioner Advanced Practice Nurse 04/18/17 Romeo Dolan DPM [address] [place] [address] [place] [address] Consulting Physician Podiatry 05/18/17 Melissa Rogers APRN, EXHIBITIONS AND COLLECTIONS MANAGER [address] [place] [address] Nurse Practitioner Advanced Practice Nurse 01/11/23 Nessa Reid MD [address] [place] [address] Consulting Physician Gastroenterology 03/15/24 documented as of this encounter
--- OUTSIDE RECORDS SUMMARY | 2024-12-21 15:10 | XMS_ITS | Clinical Summary ---
Author Organization [facility] Medical Office Building B Address [address] [place] [address] Care Team Providers Care Computer Science Intern Name Role Phone Singh Loza MD Primary Care Provider [phone] Allergies Active Allergy Reactions Criticality Noted Date Comments Aspirin Unknown Low Jvywril-Ariapgxw-Zsgahynceohvi Swelling Medium 02/19 With hives Caffeine Dihydrocodeine Bitartrate Unknown Hydrocodone-Acetaminophen Nabumetone Anaphylaxis High 04/22/2016 Medications aspirin 81 mg tablet Take 1 tablet (81 mg total) by mouth 7 Active folic acid (FOLVITE) 400 mcg tablet Take 1,500 mcg by mouth daily Active gabapentin (NEURONTIN) 300 mg capsule Take 1 capsule (300 mg total) by mouth 3 (three) times a day 8 Active montelukast (SINGULAIR) 10 mg tablet Take 1 tablet (10 mg total) by mouth 7 Active omeprazole (PriLOSEC) 20 mg capsule Take 1 capsule (20 mg total) by mouth daily 8 Active oxybutynin (DITROPAN) 5 mg tablet Take 1 tablet (5 mg total) by mouth daily 7 Active sertraline (ZOLOFT) 100 mg tablet Take 2 tablets (200 mg total) by mouth daily 100mg PO BID 7 Active mv,Ca,min-iron- FA-lycopene 8 mg iron- 200 mcg-600 mcg tablet Take by mouth daily Active cholecalciferol (VITAMIN D-3) 23363 unit capsule Take 1 capsule (50,000 Units total) by mouth every 30 (thirty) days Active fluticasone propionate (FLONASE) 50 mcg/actuation nasal spray USE 1 SPRAY IN EACH NOSTRIL EVERY DAY 16 g 1 0 Active methotrexate 2.5 mg tablet Take 7 tablets (17.5 mg total) by mouth every 7 days Active glipiZIDE (GLUCOTROL) 5 mg tabletIndicatio ns:type 2 diabetes mellitus Take 2 tablets (10 mg total) by mouth daily Active vit C/vit E/lutein/min/om ega-3 (OCUVITE ORAL) Take by mouth Active oxygenIndicatio ns:Dyspnea Administer 2 L/min into each nostril nightly Active SUMAtriptan (IMITREX) 100 mg tablet Take 1 tablet (100 mg total) by mouth once as needed Active baclofen (LIORESAL) 10 mg tablet Take 1 tablet (10 mg total) by mouth 3 (three) times a day 3 Active isosorbide mononitrate ER (IMDUR) 60 mg 24 hr tablet TAKE 1 TABLET (60 MG TOTAL) BY MOUTH DAILY 90 tablet 3 4 Active Xtampza ER 9 mg capsule,sprinkl e,ER 12hr tmprr 4 Active traMADoL (ULTRAM) 50 mg tablet Take 1-2 tablets (50-100 mg total) by mouth every 6 (six) hours as needed 4 Active atorvastatin (LIPITOR) 80 mg tablet Take 1 tablet (80 mg total) by mouth daily 90 tablet 3 4 06/19/20 25 Active evolocumab (Repatha SureClick) 140 mg/mL pen injector Inject 1 mL (140 mg total) under the skin every 2 (two) weeks 6 mL 3 4 06/19/20 25 Active albuterol HFA (PROVENTIL HFA,VENTOLIN HFA,PROAIR HFA) 90 mcg/actuation inhaler Inhale 2 puffs every 6 (six) hours as needed for wheezing or shortness of breath 1 each 4 Active furosemide (LASIX) 20 mg tablet TAKE ONE (1) TABLET BY MOUTH EVERY DAY 90 tablet 3 4 Active hydrOXYzine (ATARAX) 25 mg tablet Take 1 tablet (25 mg total) by mouth 2 (two) times a day as needed Active budesonide (PULMICORT) 0.5 mg/2 mL nebulizer solution Take 2 mL (0.5 mg total) by nebulization daily Rinse mouth with water after use. Do not swallow. 120 mL 3 4 Active arformoteroL (BROVANA) 15 mcg/2 mL nebulizer solution Take 2 mL (15 mcg total) by nebulization 2 (two) times a day 120 mL 3 4 Active Active Problems Problem Noted Date Diagnosed Date Chest pain 03/25/2022 SOB (shortness of breath) 06/10/2020 Atherosclerosis of elim ira ar teries of extremities with intermittent claudication, bilateral legs 06/10/2020 Overview (06/10/2020): Cath 03/09/2015 mild-moderate LAD disease Chronic cough 03/11/2020 Assessment & Plan (03/11/2020 11:52 AM CDT): Cough for several weeks without fever. 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 ([facility]) 02/15/201601/2021 Vitamin D deficiency 02/15/2016 021 Encounters Date Type Department Care Team Description 09/24/2024 Telephone [facility] at [address] [place] [address] Danisha Meraz LPN 09/24/2024 Orders Only [facility] at [address] [place] [address] Danisha Meraz LPN from Last 3 Months Immunizations Name Administration Dates Next Due Influenza, Quadrivalent, Spl it, Intramuscular 12/10/2018,08/22/2017,08/10/2016 Pneumococcal Conjugate PCV 13 10/04/2017 Surgical History Surgery Date Site/Laterality Comments TUBAL LIGATION Bilateral tubal ligation REPLACEMENT TOTAL KNEE 12/21/2021 Left Medical History Medical History Date Comments Hx Other Medical Headache, migra ine Anxiety disorder Anxiety Diabetes mellitus (HCC) Diabetes Depression Depression Anemia Anemia Migraine Headache, tension-type Shortness of breath Chest pain Hyperlipidemia Family History Medical History Relation Name Comments Rheum arthritis Mother Heart disease Other 1 Family history of Heart disease; Osteoarthritis Other 2 Family histor y of Osteoarthritis; Other Other 3 Family history of Cancer, cervical; Stroke Other 4 Family history of Stroke; Other Other 5 Family history of Cancer - stomach; Colon cancer Other 6 Family history of Cancer, colon; Relation Name Status Comments Mother Alive Other 1 Other 2 Other 3 Other 4 Other 5 Other 6 Social History Tobacco Use Types Packs/Day Years Used Date Smoking Tobacco: Never Smokeless Tobacco: Never Tobacco Cessation:Counseling Given: Not Answered Alcohol Use Standard Drinks/Week Comments No 0 (1 standard drink = 0.6 oz pur e alcohol) Comments Unknown Sex and Gender Information Value Date Recorded Sex Assigned at Not on file Legal Sex Female 7:58 PM WILL CALL ORDER CLERK Gender Identity Female 09/16/2021 4:34 PM CDT Sexual Orientation Not on file Obstetrics History Last Filed Vital Signs Vital Sign Reading Time Taken Comments Blood Pressure 118/73 09/12/2024 1:38 PM CDT Pulse 95 09/12/2024 1:38 PM CDT Temperature 36.3 ??C (97.3 ??F) 09/12/2024 1:38 PM CD T Respiratory Rate 18 09/12/2024 1:38 PM CDT Oxygen Saturation 98% 09/12/2024 1:38 PM CDT Inhaled Oxygen Concentration - - Weight 86.4 kg (190 lb 8 oz) 09/12/2024 1:38 PM CDT Height 166.4 cm (5' 5.5 ) 09/12/2024 1:38 PM CDT Body Mass Index 31.22 09/12/2024 1:38 PM CDT Plan of Treatment Health Maintenance Due Date Last Done Comments Albumin Creatinine Ratio, Urine 1958 Colon Cancer Screening-Colonoscopy 1958 Depression Screening 1958 Fall Risk Assessment 1958 Hemoglobin A1C 1958 eGFR 1958 Dilated Eye Exam 1958 Foot Exam 1958 DTaP/Tdap/Td Vaccine (1 - Tdap) 1969 Hepatitis B Screening 1976 Zoster Vaccine (1 of 2) 1977 Pneumococcal vaccine 65+ (2 of 2 - PPSV23 or PCV20) 11/29/2017 10/04/2017 Covid-19 Vaccine (3 - Modern a risk series) 04/05/2021 03/08/2021, 02/08/2021 Breast Cancer Screening-Mammogram 06/15/2022 06/15/2021, 06/15/2021, 05/28/2020, Additional history exists Well Visit 65+ 2023 Influenza Vaccine (#1) 2024 , 10/07/2020, 11/05/2019, Additional history exists Lipid Panel 06/18/2025 06/18/2024, 03/27/2023 Osteoporosis Screening-Bone Density Scan 06/22/2025 06/22/2023, 06/22/2023 Hepatitis C Screening Completed 07/10/2013 Procedures Procedure Name Priority Date/Time Associated Diagnosis Comments LIPID PANEL Routine 06/18/2024 3:11 PM CDT Dyslipidemia DEXA AXIAL SKELETON BONE DENSITY 1 OR MORE SITES Schedule Routine, Read Routine (OP Routine) 06/22/2023 2:03 PM CDT 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 Estee et al. J. of Clin. Lipidol. 2015;9:129-169. LDL 174(H) mg/dL (calc) [facility] Comment: Reference range: <100 Desirable range <100 mg/dL for primary prevention; ?? <70 mg/dL for patients with CHD or diabetic patients with > or = 2 CHD risk factors. LDL-C is now calculated using the Jimmie-Adamson calculation, which is a validated novel method providing better accuracy than the Friedewald equation in the estimation of LDL-C. Jimmie BUNCH et al. PAIGE. 2013;310(19): 0728-3504 (http://[employer]/faq/VEB936) Chol/HDL ratio 5.5(H) <5.0 (calc) [facility] Non-HDL, (LDL+VLDL) 216(H) <130 mg/dL (calc) [facility] Comment: For patients with diabetes plus 1 major ASCVD risk factor, treating to a non-HDL-C goal of <100 mg/dL (LDL-C of <70 mg/dL) is considered a therapeutic option. Blood 06/18/2024 3:11 PM CDT 06/18/2024 3:11 PM CDT Narrative [facility] - 06/19/2024 5:11 AM CDT FASTING:YES FASTING: YES Nguyen Puente NP LAB BLOOD ORDERABLES nal Result [facility] [address] [place] [id number] * Dexa Axial Skeleton Bone Density 1 or 2 Site (06/22/2023 2:03 PM CDT) Anatomical Region Laterality Modality Body N/A Other 06/24/2023 12:1 5 AM CDT Narrative 06/24/2023 12:16 AM CDT EXAM DESCRIPTION: DEXA AXIAL SKELETON BONE DENSITY 1 OR MORE SITES REASON FOR STUDY: 63 y/o ?? year old ??F ??with given history of: ??rheumatoid arthritis of multiple sites ?? Osteoporosis screening ??Post menopausal ? 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 Maximum height: ??66 ??inches ? Weight: ??193 ??pounds Risk factors: ??Postmenopausal, rheumatoid arthritis, asthma or emphysema COMPARISON: None available FINDINGS: AP LUMBAR SPINE L1-L4: Total BMD is 0.986 g/cm2 T-score is -0.6 LEFT HIP: Total BMD is 0.829 g/cm2 T-score is -0.9 Femoral neck BMD is 0.640 g/cm2 T-score is -1.9 ?? FRAX: 10 year risk for a major osteoporotic fracture is 12 %, 10 year risk for a hip fracture is 1.8 % IMPRESSION: Low Bone Mass. REFERENCE: Bone mineral density: ? Normal (T-score above or = -1.0) ? Low bone mass ??(T-score between -1.0 and -2.5) replaces the previously used term osteopenia ? Osteoporosis (T-score = or below -2.5) Medical evaluation for secondary causes of low bone mineral density may be appropriate. FRAX is a World Health Organization validated fracture risk assessment tool that calculates a person's 10 year probability of a major osteoporosis related fracture and hip fracture. ??According to the National Osteoporosis Foundation guidelines, postmenopausal women and men age 50 or older with low bone mass and a 10 year probability of a major osteoporosis related fracture = or greater than 20% or a 10 year probability of a hip fracture = or greater than 3% should be considered for treatment. For further information, including treatment recommendations, please refer to the 2019 ISCD Official Positions (http://www.iscd.org) and the NOF's Clinician's Guide to Prevention and Treatment of Osteoporosis (http://www.nof.org/professionals/clinical-guidelines) THIS IS AN ELECTRONICALLY VERIFIED FINAL REPORT 06/24/2023 12:16 AM - Electronically signed by ??Choco Bradley M.D. 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 REFERENCE: Bone mineral density: Normal (T-score above or = -1.0) Low bone mass (T-score between -1.0 and -2.5) replaces thepreviously used term osteopenia Osteoporosis (T-score = or below -2.5) Medical evaluation for secondary causes of low bone mineral density may be appropriate. FRAX is a World Health Organization validated fracture risk assessmenttool that calculates a person's 10 year probability of a major osteoporosisrelated fracture and hip fracture. According to the National OsteoporosisFoundation guidelines, postmenopausal women and men age 50 or older with low bonemass and a 10 year probability of a major osteoporosis related fracture = or greater than 20% or a 10 year probability of a hip fracture = or greaterthan 3% should be considered for treatment. For further information, including treatment recommendations, please referto the 2019 ISCD Official Positions (http://www.iscd.org) and the NOF's Clinician's Guide to Prevention and Treatment of Osteoporosis (http://www.nof.org/professionals/clinical-guidelines) THIS IS AN ELECTRONICALLY VERIFIED FINAL REPORT 06/24/2023 12:16 AM - Electronically signed by Choco Bradley M.D. MF: DOMINIC Report ID: [id number] Reading Location: [place] [address] [place] Dl Jones MD IMG DXA PROCEDURES Final Result * Serum Hepatitis C ab (07/10/2013 3:34 PM CDT) HCV ab Negative Negative HISTORICAL RESULTS Serum 07/10/2013 3:34 PM CDT us Tatyana Basurto MD LAB BLOOD ORDERABLES Yvonne l Result HISTORICAL RESULTS from Last 3 Months or Most Recently Relevant to Health Maintenance Insurance IDPA [facility] MEDICARE SOLUTIONS MEDICARE SOLUTIONS IDPA Care Teams Computer Science Intern Relationship Specialty Start Date End Date Singh Loza MD PCP - General 07/16/13
--- OUTSIDE RECORDS SUMMARY | 2024-12-21 15:10 | XMS_ITS | Patient Health Summary ---
Author Organization [facility] Address [address] [place] [address] Care Team Providers Care Elementary Secretary Name Role Phone Singh Singh MD Primary Care Provider [phone] [facility],non-owned Affiliates and Associated Physician Practices is amultiple site organization consisting of ambulatory clinics and hospital sitesin [place], [place], [place] and [place]. This disclosure is being madepursuant to the Care Everywhere program and may not contain all information available regarding this patient. Last updated 18.[facility] Allergies * Buprenorphine(Itching,Rash) -Medium Criticality * Nabumetone(Anaphylaxis) -High Criticality * Ondansetron(Nausea and/or Vomiting,Vomiting) -Medium Criticality * Synalgos-Dc(Swelling) -Low Criticality * Aspirin(Unknown) -Low Criticality,Inactive Medications * Be aware that medications may not be up to date on this document. Alwaysverify current medications with the patient. * atorvastatin (LIPITOR) 40 MG tablet(Started 06/13/2018) Take 2 (two) tablets by mouth once daily * isosorbide mononitrate CR 24hr (IMDUR) 60 MG tablet(Started 06/15/2018) Take 1 (one) tablet by mouth once daily * montelukast (SINGULAIR) 10 MG tablet(Started 04/24/2018) Take 1 (one) tablet by mouth once daily * aspirin EC (Ecotrin) 81 MG tablet(Started 12/19/2016) Take 1 (one) tablet by mouth * gabapentin (NEURONTIN) 300 MG capsule Take 1 (one) capsule by mouth 3 times daily * oxybutynin (DITROPAN) 5 MG tablet(Started 12/19/2016) Take 2 (two) tablets by mouth once daily Reasons: Urinary Incontinence * sertraline (ZOLOFT) 100 MG tablet(Started 12/19/2016) Take 2 (two) tablets by mouth once daily * furosemide (LASIX) 20 MG tablet(Started 07/27/2021) Take 1 (one) tablet by mouth once daily * glipiZIDE (GLUCOTROL) 5 MG tablet(Started 07/27/2021) Take 1 (one) tablet by mouth 2 times daily with morning and evening meal Reasons: Type 2 Diabetes * cyclobenzaprine (FLEXERIL) 10 MG tablet(Started 09/13/2021) Take 1 (one) tablet by mouth 3 times daily as needed * prochlorperazine (COMPAZINE) 10 MG tablet(Started 11/23/2021) Take 1 (one) tablet by mouth every 8 hours as needed * albuterol HFA (PROVENTIL; VENTOLIN; PROAIR) 108 (90 Base) MCG/ACT inhaler (Started 02/21/2022) Inhale 1 (one) puff to 2 (two) puffs by mouth every 6 hours as needed * SUMAtriptan (Imitrex) 100 MG tablet(Started 09/19/2022) Take 1 (one) tablet by mouth once as needed * [facility](Started 09/05/2022) * OneTouch Verio test strip(Started 09/05/2022) * Blood Glucose Monitoring Suppl (OneTouch Verio) w/Device KIT(Started 07/10/2022) * Oxygen Queen 2 L/min into the nose at bedtime * Symbicort 160-4.5 MCG/ACT inhaler(Started 01/31/2023) * folic acid (Folvite) 1 MG tablet(Started 02/01/2023) Take 1 (one) tablet by mouth once daily 4 refills by 02/01/2024 * Multiple Vitamins-Minerals (EQL Vision Formula) TABS Take 1 (one) tablet by mouth once daily Reasons: VISION VITAMIN * Kunxkffstky-Ipfxbour-Jstvwjfm (REFRESH OPTIVE RICA-3 OP) Instill 2 drops into both eyes once daily. Indications: MACULAR DEGENERATION * fluticasone propionate (Flonase) 50 MCG/ACT nasal spray(Started 02/15/2023) Queen 1 (one) spray into the nose once daily as needed * polyethylene glycol 3350 (Miralax) 17 GM/SCOOP powder(Started 02/15/2023) Take 17 (seventeen) g by mouth as needed for Constipation (as needed) * baclofen (Lioresal) 10 MG tablet(Started 03/19/2024) Take 1 (one) tablet by mouth 3 times daily as needed * lidocaine (Xylocaine) 5 % ointment(Started 02/14/2024) Apply to affected area 4 times daily as needed * omeprazole (PriLOSEC) 40 MG capsule(Started 03/19/2024) Take 1 (one) capsule by mouth once daily * traMADol (Ultram) 50 MG tablet Take 1 (one) tablet by mouth every 6 hours as needed for Pain * Xtampza ER 9 MG capsule(Started 05/21/2024) * Cholecalciferol 1.25 MG (79964 UT) Take 50,000 Units by mouth * evolocumab (Repatha SureClick) 140 MG/ML auto-injector(Started 06/19/2024) Inject 140 (one hundred forty) mg subcutaneously every 14 days * hydrOXYzine pamoate (Vistaril) 25 MG capsule(Started 07/24/2024) * methotrexate 2.5 MG tablet(Started 07/31/2024) Take 7 (seven) tablets by mouth every 7 days 3 refills by 07/31/2025 * predniSONE (Deltasone) 5 MG tablet(Started 12/06/2024) Take 1 (one) tablet by mouth as directed for 30 days For flare take 3 pills for 1 day, then 2 pillsfor 1 day, then 1 pill for 1 day, then stop Ended Medications* predniSONE (Deltasone) 5 MG tablet(Started 06/27/2024) (Discontinued) Take 1 (one) tablet by mouth once daily for 90 days 2 refills by 06/27/2025 Active Problems Problem Noted Date Diagnosed Date SOB (shortness of breath) 12/04/2017 Encounter for long-term (current) drug use 02/14 [facility] (current) drug therapy 03/21/201 6 Rheumatoid arthritis 02/15/2016 Fibromyalgia 02/15/2016 Vitamin D deficiency 02/15/2016 Immunizations * FLU VACCINE QUAD IIV4 SPLIT 0.25 ML IM(Given 11/05/2019, 12/10/2018, 08/22/2017, 08/10/2016, 09/22/2014) * INFLUENZA VACCINE(Given 10/12/2021) * INFLUENZA VACCINE, QUADR. (FLUZONE; FLULAVAL; FLUARIX; AFLURIA QUADRIVALENT; 6MO+), 0.5 ML (IIV4)(Given 10/07/2020) * Pneumococcal Pcv13 Conj(Given 10/04/2017) Social History Tobacco Use Types Packs/Day Years Used Date Smoking Tobacco: Never Smokeless Tobacco: Never Tobacco Cessation:Counseling Given: Not Answered Alcohol Use Standard Drinks/Week Comments No 0 (1 standard drink = 0.6 oz pur e alcohol) OASIS D0700: Social Isolation Answer Da te Recorded Frequency of experiencing loneliness or isolatio n Never 03/21/2023 OASIS A1250: Transportation Answer Date Recorded Lack of Transportation (Medical) No 03/21/2023 Lack of Transportation (Non-Medical) No 03/21/2023 Patient Unable or Declines to Respond No 03/21/2023 OASIS B1300: Health Literacy Answer Gaetano e Recorded Frequency of needing help to read materials from doctor or pharmacy Rarely 03/21/2023 PHQ-2 Answer Date Recorded Patient Health Questionnaire-2 Score 2 07/31/2024 Sex and Gender Information Value Date Recorded Sex Assigned at Not on file Gender Identity Female 05/29/2024 2:11 PM CDT Sexual Orientation Not on file Last Filed Vital Signs Vital Sign Reading Time Taken Comments Blood Pressure 124/85 08/28/2024 11:49 AM CDT Pulse 95 08/28/2024 11:49 AM CDT Temperature 36.4 ??C (97.5 ??F) 08/28/2024 11:49 AM C DT Respiratory Rate 20 07/31/2024 2:34 PM CDT Oxygen Saturation 99% 08/28/2024 11:49 AM CDT Inhaled Oxygen Concentration - - Weight 85.5 kg (188 lb 9.6 oz) 08/28/2024 11:49 AM CDT Height 165.1 cm (5' 5 ) 07/31/2024 2:34 PM CDT Body Mass Index 31.38 07/31/2024 2:34 PM CDT Procedures * COMPREHENSIVE METABOLIC PANEL(Performed 07/31/2024) Performed for 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), Therapeutic drug monitoring * CBC W AUTO DIFFERENTIAL(Performed 07/31/2024) Performed for 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), Therapeutic drug monitoring * COMPREHENSIVE METABOLIC PANEL(Performed 07/03/2024) Performed for 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), Therapeutic drug monitoring * CBC W AUTO DIFFERENTIAL(Performed 07/03/2024) Performed for 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), Therapeutic drug monitoring * CBC W AUTO DIFFERENTIAL(Performed 06/18/2024) * COMPREHENSIVE METABOLIC PANEL(Performed 06/18/2024) * COMPREHENSIVE METABOLIC PANEL(Performed 06/05/2024) Performed for 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), Therapeutic drug monitoring * CBC W AUTO DIFFERENTIAL(Performed 06/05/2024) Performed for 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), Therapeutic drug monitoring * CBC W AUTO DIFFERENTIAL(Performed 05/08/2024) * COMPREHENSIVE METABOLIC PANEL(Performed 05/08/2024) * COMPREHENSIVE METABOLIC PANEL(Performed 03/27/2024) Performed for 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), Therapeutic drug monitoring * CBC W AUTO DIFFERENTIAL(Performed 03/27/2024) Performed for 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), Therapeutic drug monitoring * GGT(Performed 03/27/2024) Performed for Therapeutic drug monitoring * CBC W AUTO DIFFERENTIAL(Performed 03/06/2024) * COMPREHENSIVE METABOLIC PANEL(Performed 03/06/2024) * C-REACTIVE PROTEIN(Performed 02/09/2024) * CBC W AUTO DIFFERENTIAL(Performed 02/09/2024) * ERYTHROCYTE SEDIMENTATION RATE(Performed 02/09/2024) * COMPREHENSIVE METABOLIC PANEL(Performed 02/09/2024) * QUANTIFERON-TB GOLD PLUS 4-TUBE(Performed 02/02/2024) Performed for 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), Tuberculosis screening * COMPREHENSIVE METABOLIC PANEL(Performed 02/02/2024) Performed for 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), Therapeutic drug monitoring * CBC W AUTO DIFFERENTIAL(Performed 02/02/2024) Performed for 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), Therapeutic drug monitoring * COMPREHENSIVE METABOLIC PANEL(Performed 12/28/2023) Performed for Immunosuppression due to drug therapy (HCC) * CBC W AUTO DIFFERENTIAL(Performed 12/28/2023) Performed for Immunosuppression due to drug therapy (HCC) * COMPREHENSIVE METABOLIC PANEL(Performed 11/02/2023) Performed for Immunosuppression due to drug therapy (HCC) * CBC W AUTO DIFFERENTIAL(Performed 11/02/2023) Performed for Immunosuppression due to drug therapy (HCC) * COMPREHENSIVE METABOLIC PANEL(Performed 08/10/2023) Performed for Immunosuppression due to drug therapy (HCC) * CBC W AUTO DIFFERENTIAL(Performed 08/10/2023) Performed for Immunosuppression due to drug therapy (HCC) * URINALYSIS W/MICROSCOPIC REFLEX TO CULTURE(Performed 07/13/2023) Performed for 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), Encounter for therapeutic drug level monitoring, Therapeutic drug monitoring * COMPREHENSIVE METABOLIC PANEL(Performed 07/13/2023) Performed for 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), Encounter for therapeutic drug level monitoring, Therapeutic drug monitoring * ERYTHROCYTE SEDIMENTATION RATE(Performed 07/13/2023) Performed for 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), Encounter for therapeutic drug level monitoring, Therapeutic drug monitoring * C-REACTIVE PROTEIN(Performed 07/13/2023) Performed for 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), Encounter for therapeutic drug level monitoring, Therapeutic drug monitoring * CBC W AUTO DIFFERENTIAL(Performed 07/13/2023) Performed for 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), Encounter for therapeutic drug level monitoring, Therapeutic drug monitoring * REF LAB-REQUEST PROBLEM(Performed 05/19/2023) * URINALYSIS W/MICROSCOPIC REFLEX TO CULTURE(Performed 05/19/2023) Performed for 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), Encounter for therapeutic drug level monitoring, Therapeutic drug monitoring * COMPREHENSIVE METABOLIC PANEL(Performed 05/19/2023) Performed for 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), Encounter for therapeutic drug level monitoring, Therapeutic drug monitoring * ERYTHROCYTE SEDIMENTATION RATE(Performed 05/19/2023) Performed for 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), Encounter for therapeutic drug level monitoring, Therapeutic drug monitoring * C-REACTIVE PROTEIN(Performed 05/19/2023) Performed for 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), Encounter for therapeutic drug level monitoring, Therapeutic drug monitoring * CBC W AUTO DIFFERENTIAL(Performed 05/19/2023) Performed for 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), Encounter for therapeutic drug level monitoring, Therapeutic drug monitoring * CULTURE URINE REFLEXED III(Performed 05/19/2023) * LAB RESULTS ORDER(Performed 02/24/2023) * US EXTREMITY RIGHT COMP JOINT(Performed 12/01/2022) Performed for 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) * US EXTREMITY LEFT COMP JOINT(Performed 12/01/2022) Performed for 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) * QUANTIFERON-TB GOLD PLUS 1-TUBE(Performed 10/03/2022) * CBC W AUTO DIFFERENTIAL(Performed 10/03/2022) Performed for 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), Therapeutic drug monitoring, Immunosuppression due to drug therapy (HCC) * COMPREHENSIVE METABOLIC PANEL(Performed 10/03/2022) Performed for 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), Therapeutic drug monitoring, Immunosuppression due to drug therapy (HCC) * HEPATITIS C AB W/RFLX TO HCV RNA QN PCR(Performed 10/03/2022) Performed for 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), Therapeutic drug monitoring, Immunosuppression due to drug therapy (HCC), Need for hepatitis C screening test * HEPATITIS B CORE ANTIBODY TOTAL(Performed 10/03/2022) Performed for 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), Therapeutic drug monitoring, Immunosuppression due to drug therapy (HCC), Need for hepatitis B screening test * HEPATITIS B SURFACE ANTIBODY(Performed 10/03/2022) Performed for 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), Therapeutic drug monitoring, Immunosuppression due to drug therapy (HCC), Need for hepatitis B screening test * HEPATITIS B SURFACE ANTIGEN W RFLX CONFIRMATION(Performed 10/03/2022) Performed for 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), Therapeutic drug monitoring, Immunosuppression due to drug therapy (HCC), Need for hepatitis B screening test * XR CERVICAL SPINE 4 OR 5VW(Performed 09/28/2022) Performed for 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), Therapeutic drug monitoring, Immunosuppression due to drug therapy (HCC) * XR FOOT LEFT 3VW OR MORE(Performed 09/28/2022) Performed for 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), Therapeutic drug monitoring, Immunosuppression due to drug therapy (HCC) * XR FOOT RIGHT 3VW OR MORE(Performed 09/28/2022) Performed for 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), Therapeutic drug monitoring, Immunosuppression due to drug therapy (HCC) * XR HAND RIGHT 3VW OR MORE(Performed 09/28/2022) Performed for 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), Therapeutic drug monitoring, Immunosuppression due to drug therapy (HCC) * XR HAND LEFT 3VW OR MORE(Performed 09/28/2022) Performed for 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), Therapeutic drug monitoring, Immunosuppression due to drug therapy (HCC) * XR WRIST LEFT 3VW OR MORE(Performed 09/28/2022) Performed for 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), Therapeutic drug monitoring, Immunosuppression due to drug therapy (HCC) * XR WRIST RIGHT 3VW OR MORE(Performed 09/28/2022) Performed for 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), Therapeutic drug monitoring, Immunosuppression due to drug therapy (HCC) * URINALYSIS W/MICROSCOPIC REFLEX TO CULTURE(Performed 06/14/2022) Performed for 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), 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, Encounter for therapeutic drug level monitoring, High risk medications (not anticoagulants) long-term use * ERYTHROCYTE SEDIMENTATION RATE(Performed 06/14/2022) Performed for 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), [facility] methotrexate user, Encounter for therapeutic drug level monitoring, High risk medications (not anticoagulants) long-term use * C-REACTIVE PROTEIN(Performed 06/14/2022) Performed for 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), [facility] methotrexate user, Encounter for therapeutic drug level monitoring, High risk medications (not anticoagulants) long-term use * COMPREHENSIVE METABOLIC PANEL(Performed 06/14/2022) Performed for 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), [facility] methotrexate user, Encounter for therapeutic drug level monitoring, High risk medications (not anticoagulants) long-term use * CBC W AUTO DIFFERENTIAL(Performed 06/14/2022) Performed for 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), [facility] methotrexate user, Encounter for therapeutic drug level monitoring, High risk medications (not anticoagulants) long-term use * CULTURE URINE REFLEXED III(Performed 06/14/2022) * C-REACTIVE PROTEIN(Performed 12/09/2021) * CBC W AUTO DIFFERENTIAL(Performed 12/09/2021) * URINALYSIS W/MICROSCOPIC REFLEX TO CULTURE(Performed 12/09/2021) * ERYTHROCYTE SEDIMENTATION RATE(Performed 12/09/2021) * COMPREHENSIVE METABOLIC PANEL(Performed 12/09/2021) * CULTURE URINE(Performed 12/09/2021) * CULTURE URINE REFLEXED(Performed 12/09/2021) * QUANTIFERON-TB GOLD PLUS 1-TUBE(Performed 07/15/2021) * C-REACTIVE PROTEIN(Performed 07/15/2021) * CBC W AUTO DIFFERENTIAL(Performed 07/15/2021) * ERYTHROCYTE SEDIMENTATION RATE(Performed 07/15/2021) * COMPREHENSIVE METABOLIC PANEL(Performed 07/15/2021) * IMAGING/RADIOLOGY/XRAY RESULTS ORDER(Performed 04/01/2021) * ERYTHROCYTE SEDIMENTATION RATE(Performed 12/30/2020) Performed for 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), Encounter for therapeutic drug level monitoring * C-REACTIVE PROTEIN(Performed 12/30/2020) Performed for 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), Encounter for therapeutic drug level monitoring * COMPREHENSIVE METABOLIC PANEL(Performed 12/30/2020) Performed for 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), Encounter for therapeutic drug level monitoring * CBC W AUTO DIFFERENTIAL(Performed 12/30/2020) Performed for 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), Encounter for therapeutic drug level monitoring * QUANTIFERON-TB GOLD PLUS 1-TUBE(Performed 08/10/2020) * C-REACTIVE PROTEIN(Performed 08/10/2020) * CBC W AUTO DIFFERENTIAL(Performed 08/10/2020) * URINALYSIS W/MICROSCOPIC NO CULTURE(Performed 08/10/2020) * ERYTHROCYTE SEDIMENTATION RATE(Performed 08/10/2020) * COMPREHENSIVE METABOLIC PANEL(Performed 08/10/2020) * LAB RESULTS ORDER(Performed 11/18/2019) * LAB RESULTS ORDER(Performed 03/21/2019) * LAB RESULTS ORDER(Performed 10/04/2018) * LAB RESULTS ORDER(Performed 09/03/2018) * LAB RESULTS ORDER(Performed 07/03/2018) * C-REACTIVE PROTEIN(Performed 12/05/2017) * ALDOLASE(Performed 12/05/2017) * B-TYPE NATRIURETIC PEPTIDE(Performed 12/05/2017) * ERYTHROCYTE SEDIMENTATION RATE(Performed 12/05/2017) * URINALYSIS W/MICROSCOPIC REFLEX TO CULTURE(Performed 12/05/2017) * URINALYSIS W/MICROSCOPIC REFLEX TO CULTURE(Performed 12/05/2017) * VITAMIN D 25-HYDROXY(Performed 12/05/2017) * LDH BLOOD(Performed 12/05/2017) * CK BLOOD(Performed 12/05/2017) * COMPREHENSIVE METABOLIC PANEL(Performed 12/05/2017) * CBC W AUTO DIFFERENTIAL(Performed 12/05/2017) * URINALYSIS W/MICROSCOPIC REFLEX TO CULTURE(Performed 01/19/2017) * COMPREHENSIVE METABOLIC PANEL(Performed 01/19/2017) * QUANTIFERON TB-GOLD(Performed 01/19/2017) * C-REACTIVE PROTEIN(Performed 01/19/2017) * ERYTHROCYTE SEDIMENTATION RATE(Performed 01/19/2017) * CBC W AUTO DIFFERENTIAL(Performed 01/19/2017) * C-REACTIVE PROTEIN(Performed 01/19/2017) * ERYTHROCYTE SEDIMENTATION RATE(Performed 01/19/2017) * CBC W AUTO DIFFERENTIAL(Performed 01/19/2017) * URINALYSIS W/MICROSCOPIC REFLEX TO CULTURE(Performed 01/19/2017) * COMPREHENSIVE METABOLIC PANEL(Performed 01/19/2017) * ERYTHROCYTE SEDIMENTATION RATE(Performed 01/19/2017) * CBC W AUTO DIFFERENTIAL(Performed 01/19/2017) * URINALYSIS W/MICROSCOPIC REFLEX TO CULTURE(Performed 01/19/2017) * COMPREHENSIVE METABOLIC PANEL(Performed 01/19/2017) * ERYTHROCYTE SEDIMENTATION RATE(Performed 01/19/2017) * CBC W AUTO DIFFERENTIAL(Performed 01/19/2017) * URINALYSIS W/MICROSCOPIC REFLEX TO CULTURE(Performed 01/19/2017) * COMPREHENSIVE METABOLIC PANEL(Performed 01/19/2017) * ERYTHROCYTE SEDIMENTATION RATE(Performed 01/19/2017) * CBC W AUTO DIFFERENTIAL(Performed 01/19/2017) * URINALYSIS W/MICROSCOPIC REFLEX TO CULTURE(Performed 01/19/2017) * ERYTHROCYTE SEDIMENTATION RATE(Performed 01/19/2017) * CBC W AUTO DIFFERENTIAL(Performed 01/19/2017) * ERYTHROCYTE SEDIMENTATION RATE(Performed 01/19/2017) * VITAMIN D 25-HYDROXY(Performed 10/11/2016) * QUANTIFERON TB-GOLD(Performed 10/11/2016) * CBC W/O DIFFERENTIAL(Performed 10/11/2016) * C-REACTIVE PROTEIN(Performed 10/11/2016) * URINALYSIS W/MICROSCOPIC REFLEX TO CULTURE(Performed 10/11/2016) * ERYTHROCYTE SEDIMENTATION RATE(Performed 10/11/2016) * COMPREHENSIVE METABOLIC PANEL(Performed 10/11/2016) * ERYTHROCYTE SEDIMENTATION RATE(Performed 10/11/2016) * URINALYSIS W/MICROSCOPIC REFLEX TO CULTURE(Performed 10/11/2016) * URINALYSIS W/MICROSCOPIC REFLEX TO CULTURE(Performed 10/11/2016) * COMPREHENSIVE METABOLIC PANEL(Performed 10/11/2016) * URINALYSIS W/MICROSCOPIC REFLEX TO CULTURE(Performed 04/19/2016) * C-REACTIVE PROTEIN(Performed 04/19/2016) * CBC W AUTO DIFFERENTIAL(Performed 04/19/2016) * URINALYSIS W/MICROSCOPIC REFLEX TO CULTURE(Performed 04/19/2016) * ERYTHROCYTE SEDIMENTATION RATE(Performed 04/19/2016) * COMPREHENSIVE METABOLIC PANEL(Performed 04/19/2016) * URINALYSIS W/MICROSCOPIC REFLEX TO CULTURE(Performed 04/19/2016) * COMPREHENSIVE METABOLIC PANEL(Performed 04/19/2016) * ERYTHROCYTE SEDIMENTATION RATE(Performed 04/19/2016) * CBC W AUTO DIFFERENTIAL(Performed 04/19/2016) * URINALYSIS W/MICROSCOPIC REFLEX TO CULTURE(Performed 04/19/2016) * XR FOOT LEFT 3VW OR MORE(Performed 02/15/2016) * XR FOOT RIGHT 3VW OR MORE(Performed 02/15/2016) * XR HAND LEFT 3VW OR MORE(Performed 02/15/2016) * XR HAND RIGHT 3VW OR MORE(Performed 02/15/2016) * QUANTIFERON TB-GOLD (CLIENT INCUBATED)(Performed 02/15/2016) * LORAINE W/REFLEX IFA PATTERN(Performed 02/15/2016) * SS-B (SJOGREN'S) ANTIBODY(Performed 02/15/2016) * SS-A (SJOGREN'S) ANTIBODY(Performed 02/15/2016) * ALDOLASE(Performed 02/15/2016) * HEPATITIS C ANTIBODY(Performed 02/15/2016) * VITAMIN D 25-HYDROXY(Performed 02/15/2016) * TSH(Performed 02/15/2016) * T4 FREE(Performed 02/15/2016) * CYCLIC CITRULLINATED PEPTIDE(CCP) AB IGG(Performed 02/15/2016) * FERRITIN(Performed 02/15/2016) * ERYTHROCYTE SEDIMENTATION RATE(Performed 02/15/2016) * CK BLOOD(Performed 02/15/2016) * COMPREHENSIVE METABOLIC PANEL(Performed 02/15/2016) * LDH BLOOD(Performed 02/15/2016) * RHEUMATOID FACTOR BLOOD QUANTITATIVE(Performed 02/15/2016) * IRON BLOOD(Performed 02/15/2016) * C-REACTIVE PROTEIN(Performed 02/15/2016) * CBC W AUTO DIFFERENTIAL(Performed 02/15/2016) * CBC W AUTO DIFFERENTIAL(Performed 02/15/2016) Results * (ABNORMAL) CBC WITH DIFFERENTIAL (07/31/2024 12:02 PM CDT) Only the most recent of31 resultswithin the time period is included. WBC 7.1 4.0 - 10.7 x10E9/L 07/31/2024 12:31 PM CDT [facility] RBC Count 4.12 3.90 - 5.20 x10E12/L 07/31/2024 12:31 PM [facility] Hemoglobin 12.4 11.9 - 15.8 g/dL 07/31/2024 12:31 PM [facility] Hematocrit 38.2 34.8 - 46.1 % 07/31/2024 12:31 PM [facility] MCV 92.7 80.0 - 98.0 fL 07/31/2024 12:31 PM [facility] MCH 30.1 26.7 - 33.6 pg 07/31/2024 12:31 PM [facility] MCHC 32.5 31.7 - 36.3 g/dL 07/31/2024 12:31 PM [facility] RDW-CV 14.8 11.3 - 14.8 % 07/31/2024 12:31 PM [facility] Platelet Count 192 150 - 420 x10E9/L 07/31/2024 12:31 PM [facility] MPV 12.7(H) 7.8 - 11.4 fL 07/31/2024 12:31 PM [facility] Preliminary Absolute Neutrophil 5.03 1.60 - 7.50 x10E9/L 07/31/2024 12:31 PM [facility] Neutrophil % 70.9 41.0 - 74.0 % 07/31/2024 12:31 PM [facility] Lymphocyte % 22.2 17.0 - 47.0 % 07/31/2024 12:31 PM [facility] Monocyte % 4.0 3.0 - 11.0 % 07/31/2024 12:31 PM [facility] Eosinophil % 2.0 0.0 - 7.0 % 07/31/2024 12:31 PM [facility] Basophil % 0.6 0.0 - 1.6 % 07/31/2024 12:31 PM [facility] Immature Granulocytes % 0.3 0.0 - 1.0 % 07/31/2024 12:31 PM [facility] Neutrophil Absolute 5.03 1.60 - 7.50 x10E9/L 07/31/2024 12:31 PM [facility] Lymphocyte Absolute 1.57 1.00 - 4.40 x10E9/L 07/31/2024 12:31 PM [facility] Monocyte Absolute 0.28 0.15 - 1.00 x10E9/L 07/31/2024 12:31 PM [facility] Eosinophil Absolute 0.14 0.00 - 0.60 x10E9/L 07/31/2024 12:31 PM [facility] Basophil Absolute 0.04 0.00 - 0.13 x10E9/L 07/31/2024 12:31 PM [facility] Blood BLOOD SPECIMEN / Unknown Venipuncture / Unknown 07/31/2024 12:02 PM CDT 07/31/2024 12:21 PM CDT Dl Jones MD LAB - HEMATOLOGY ORD ERABLES [facility] [address] [phone], [facility] [phone] * (ABNORMAL) COMPREHENSIVE METABOLIC PANEL (07/31/2024 12:02 PM CDT) Only the most recent of30 resultswithin the time period is included. BUN 17 7 - 26 mg/dL 07/31/2024 1:23 PM [facility] Creatinine 0.90 0.56 - 0.96 mg/dL 07/31/2024 1:23 PM [facility] Sodium 137 136 - 145 mmol/L 07/31/2024 1:23 PM [facility] Potassium 3.9 3.5 - 4.5 mmol/L 07/31/2024 1:23 PM [facility] Chloride 106 98 - 107 mmol/L 07/31/2024 1:23 PM [facility] CO2 25 22 - 29 mmol/L 07/31/2024 1:23 PM [facility] Glucose 227(H) 70 - 115 mg/dL 07/31/2024 1:23 PM [facility] Calcium 9.0 8.4 - 10.2 mg/dL 07/31/2024 1:23 PM [facility] Protein Total 7.4 6.0 - 8.3 g/dL 07/31/2024 1:23 PM [facility] Albumin 3.4 3.4 - 5.0 g/dL 07/31/2024 1:23 PM [facility] Bilirubin Total 0.6 0.2 - 1.2 mg/dL 07/31/2024 1:23 PM [facility] Alkaline Phosphatase 91 40 - 150 U/L 07/31/2024 1:23 PM [facility] ALT 39 5 - 55 U/L 07/31/2024 1:23 PM [facility] AST 33 5 - 34 U/L 07/31/2024 1:23 PM [facility] Anion Gap 6 6 - 16 07/31/2024 1:23 PM [facility] BUN/Creatinine Ratio 19 7 - 23 07/31/2024 1:23 PM [facility] Osmolality Calculated 293 275 - 295 mOsm/kg 07/31/2024 1:23 PM [facility] Albumin/Globulin Ratio 0.9(L) 1.1 - 2.3 07/31/2024 1:23 PM [facility] eGFR by CKD-EPI 71(L) >=90 mL/min/1.7 3 m2 07/31/2024 1:23 PM [facility] Blood BLOOD SPECIMEN / Unknown Venipuncture / Unknown 07/31/2024 12:02 PM CDT 07/31/2024 12:20 PM [facility] Dl Jones MD LAB - CHEMISTRY ANGUS CERVANTES [facility] Organization Address City/State/ZIP Co de Phone Number [facility] [address] [place] [phone], [facility] [phone] * GGT (03/27/2024 11:28 AM CDT) GGT 19 9 - 64 Units/L 03/27/2024 12:10 PM [facility] Blood BLOOD SPECIMEN / Unknown Lab Venipuncture / Unknown 03/27/2024 11:28 AM CDT 03/27/2024 11:44 AM CDT Dl Jones MD LAB - CHEMISTRY ANGUS CERVANTES Performing Organization Address City/[facility]/ZIP Co de Phone Number [place] [phone] [place] [address], [facility] [phone] * C-REACTIVE PROTEIN (02/09/2024 2:26 PM CDT) Only the most recent of14 resultswithin the time period is included. Pathologist [facility] C-Reactive Protein 4.1 <8.0 mg/L [facility] Comment: REPORT COMMENT: FASTING:NO PATIENT UNABLE TO VOID; ADVISED TO RETURN FOR COLLECTION. Test Performed at: [employer] [address] [place], [place] ??[phone] HAILEY GROSS MD 02/09/2024 2:26 PM CDT 02/09/2024 2:31 PM CDT Jayant Villa MD LAB - CHEMISTRY ANGUS CERVANTES Performing Organization Address [facility] Co de Phone Number [facility] [phone] [place] [address] * (ABNORMAL) ERYTHROCYTE SEDIMENTATION RATE (02/09/2024 2:26 PM CDT) Only the most recent of21 resultswithin the time period is included. [facility] Erythrocyte Sedimentation Rate Westergren 41(H) < OR = 30 mm/h [facility] Comment: Test Performed at: [employer] [address] [place], [place] ??[phone] HAILEY GROSS MD 02/09/2024 2:26 PM CDT 02/09/2024 2:31 PM CDT Jayant Villa MD LAB - HEMATOLOGY ASTON RENTERIA Performing Organization Address [facility] Co de Phone Number [facility] [address] [place] [address] * QUANTIFERON-TB GOLD PLUS 4-TUBE (02/02/2024 1:43 PM STAMP REDEMPTION CLERK) [facility] QuantiFERON NIL 0.01 IU/mL 3:28 AM CDT [facility]) Comment: Performed By: [email or web address] [address] [place] [id number] Teaching Aide: Jesus Pham MD, PhD CLIA Number: [id number] QuantiFERON TB Gold Plus Negative Negative 02/07/2024 3:28 AM CDT [facility]) Comment: Interpretive Data: Quantiferon TB Gold Plus Interferon gamma release is measured for specimens from each of the four collection tubes. A qualitative result (Negative, Positive, or Indeterminate) is based on interpretation of the four values, NIL, MITOGEN minus NIL (MITOGEN-NIL), TB1 minus NIL (TB1-NIL), and TB2 minus NIL (TB2-NIL). The NIL value represents nonspecific reactivity produced by the patient specimen. The MITOGEN-NIL value serves as the positive control for the patient specimen, demonstrating successful lymphocyte activity. The TB1-NIL tube specifically detects CD4+ lymphocyte reactivity, specifically stimulated by the TB1 antigens. The TB2-NIL tube detects both CD4+ and CD8+ lymphocyte reactivity, stimulated by TB2 antigens. An overall Negative result does not completely rule out TB infection. A false-positive result in the absence of other clinical evidence of TB infection is not uncommon. Refer to: Updated Guidelines for Using Interferon Gamma Release Assays to Detect Mycobacterium tuberculosis Infection --- [place], 2010 (http://www.cdc.gov/mmwr/preview/mmwrhtml/lc9573u8.htm), for more information concerning test performance in low-prevalence populations and use in occupational screening. QuantiFERON Plus TB1 Minus NIL 0.00 0.00 - 0.34 IU/mL 02/07/2024 3:28 AM CDT [facility]) QuantiFERON Plus TB2 Minus NIL 0.00 0.00 - 0.34 IU/mL 02/07/2024 3:28 AM CDT [facility]) QuantiFERON Mitogen Minus NIL >10.00 IU/mL 02/07/2024 3:28 AM CD[facility]) Blood BLOOD SPECIMEN / Unknown Venipuncture / Unknown 02/02/2024 1:43 PM STAMP REDEMPTION CLERK 02/02/2024 2:01 PM STAMP REDEMPTION CLERK Dl Jones MD LAB - CHEMISTRY ANGUS CERVANTES COUNT INCLUDES THE [facility] ([facility]) [address] [place] [phone], [facility] * (ABNORMAL) URINALYSIS W/MICROSCOPIC REFLEX TO CULTURE (07/13/2023 11:50 AM CDT) Only the most recent of18 resultswithin the time period is included. Color UA Yellow Straw, Yellow 07/13/2023 12:13 PM [facility] Clarity UA Clear Clear 07/13/2023 12:13 PM [facility] Specific [place] UA 1.014 1.005 - 1.030 07/13/2023 12:13 PM [facility] pH UA 5.0 5.0 - 8.0 pH 07/13/2023 12:13 PM [facility] Protein UA Negative Negative 07/13/2023 12:13 PM [facility] Glucose UA Negative Negative 07/13/2023 12:13 PM [facility] Ketone UA Negative Negative 07/13/2023 12:13 PM [facility] Bilirubin UA Negative Negative 07/13/2023 12:13 PM [facility] Blood UA 1+(A) Negative 07/13/2023 12:13 PM [facility] Nitrite UA Negative Negative 07/13/2023 12:13 PM [facility] Leukocyte Esterase Negative Negative 07/13/2023 12:13 PM [facility] Urobilinogen UA Negative Negative mg/dL 07/13/2023 12:13 PM [facility] RBC UA 0-2 None Seen, 0-2, 3-5 /HPF 07/13/2023 12:13 PM [facility] WBC UA 0-5 None Seen, 0-5 /HPF 07/13/2023 12:13 PM [facility] Squamous Epithelial Cells UA 0-2 None Seen, 0-2, 3-5 /HPF 07/13/2023 12:13 PM [facility] Mucus UA 1+ /LPF 07/13/2023 12:13 PM [facility] Hyaline Casts UA 0-2 None Seen, 0-2 /LPF 07/13/2023 12:13 PM CDT [facility] Urine URINE SPECIMEN OBTAINED BY CLEAN CATCH PROCEDURE / Unknown Collection / Unknown 07/13/2023 11:50 AM CDT 07/13/2023 12:07 PM CDT Narrative [facility] - 07/13/2023 12:13 PM CDT Culture Not Indicated Jayant Villa MD LAB - URINALYSIS ORD ERABLES Performing Organization Address City/[facility]/ZIP Co de Phone Number [facility] [address] [place] [address], [facility] [phone] * CULTURE URINE REFLEXED III (05/19/2023 11:09 AM CDT) Only the most recent of2 resultswithin the time period is included. Reflexive Urine Culture See Below [facility] Comment: NO CULTURE INDICATED Test Performed at: [employer] ??[phone] HAILEY GROSS MD 05/19/2023 11:0 9 AM CDT 05/19/2023 11:09 AM CDT Jayant Villa MD LAB - MICROBIOLOGY O RDERABLES Performing Organization Address [facility] Co de Phone Number [address] [address] * REF LAB-REQUEST PROBLEM (05/19/2023 11:09 AM CDT) Specimen Integrity Compromised See Below [facility] Comment: Whole blood, unspun or partially spun gel barrier tube was received more than 6 hours since collection. A false elevation of K, Phos and LD as well as a false decrease in glucose may occur due to prolonged contact with red cells. REPORT COMMENT: FASTING:YES Test Performed at: [employer] [facility] [address] [place], [place] ??[phone] HAILEY GROSS MD 05/19/2023 11:0 9 AM CDT 05/19/2023 11:09 AM CDT Jayant Villa MD LAB - CHEMISTRY ANGUS CERVANTES [facility] Organization Address City/State/ZIP Co de Phone Number [facility] [address] [place] [address] * LAB RESULTS ORDER (02/24/2023) Only the most recent of6 resultswithin the time period is included. 02/24/2023 Narrative 02/24/2023 Ordered by an unspecified provider. Scanned Document LAB - THERAPEUTIC DR JOSEPH MONITORING ORDERABLES * US EXTREMITY RIGHT COMP JOINT (12/01/2022 9:51 AM STAMP REDEMPTION CLERK) Anatomical Region Laterality Modality Upper Extremity, Lower Extremity Ultrasound 12/01/2022 1:34 PM STAMP REDEMPTION CLERK Impressions 12/01/2022 1:49 PM STAMP REDEMPTION CLERK IMPRESSION: ACTIVE SYNOVITIS INVOLVING MULTIPLE BILATERAL METACARPOPHALANGEAL JOINTS DESCRIBED ABOVE. JOINT SUBLUXATIONS RIGHT SECOND AND THIRD METACARPOPHALANGEAL JOINTS AND LEFT FIRST AND SECOND METACARPOPHALANGEAL JOINTS. Edited by Antonia Chagn on 12/01/2022 1:49 PM > Interpreting Provider: Rhett Johnson MD on 12/01/2022 1:49 PM Narrative 12/01/2022 1:49 PM STAMP REDEMPTION CLERK ULTRASOUND RIGHT HAND ULTRASOUND LEFT HAND CLINICAL INDICATION: Chronic bilateral hand pain, swelling, stiffness, and limited range of motion. COMPARISON: None available. TECHNIQUE: Multiple longitudinal and transverse grayscale and color Doppler sonographic images of the right and left hand were obtained. FINDINGS: ULTRASOUND RIGHT HAND: Abnormal synovial hypertrophy and hyperemia noted within the second metacarpophalangeal joint, third metacarpophalangeal joint, and fifth metacarpophalangeal joint. No evidence of tendon pathology or tenosynovitis. No joint effusions. Joint subluxations noted at the second and third metacarpophalangeal joints. No evidence of acute capsular or ligamentous pathology. ULTRASOUND LEFT HAND: Synovial hypertrophy and hyperemia present within the first metacarpophalangeal joint, second metacarpophalangeal joint, third metacarpophalangeal joint, fourth metacarpophalangeal joint, and fifth metacarpophalangeal joint. No tendon pathology or tenosynovitis. No joint effusions. Joint subluxations noted at the first and second metacarpophalangeal joints. No evidence of acute capsular or ligamentous pathology. Procedure Note Rhett Johnson MD - 12/01/2022 ULTRASOUND RIGHT HAND ULTRASOUND LEFT HAND CLINICAL INDICATION: Chronic bilateral hand pain, swelling, stiffness,and limited range of motion. COMPARISON: None available. TECHNIQUE: Multiple longitudinal and transverse grayscale and colorDoppler sonographic images of the right and left hand were obtained. FINDINGS: ULTRASOUND RIGHT HAND: Abnormal synovial hypertrophy and hyperemia noted within the second metacarpophalangeal joint, third metacarpophalangeal joint, and fifth metacarpophalangeal joint. No evidence of tendon pathology or tenosynovitis. No joint effusions. Joint subluxations noted at the second and third metacarpophalangeal joints. No evidence of acute capsular or ligamentous pathology. ULTRASOUND LEFT HAND: Synovial hypertrophy and hyperemia present within the first metacarpophalangeal joint, second metacarpophalangeal joint, third metacarpophalangeal joint, fourth metacarpophalangeal joint, and fifth metacarpophalangeal joint. No tendon pathology or tenosynovitis. No joint effusions. Joint subluxations noted at the first and second metacarpophalangeal joints. No evidence of acute capsular or ligamentous pathology. IMPRESSION: ACTIVE SYNOVITIS INVOLVING MULTIPLE BILATERAL METACARPOPHALANGEAL JOINTSAS DESCRIBED ABOVE. JOINT SUBLUXATIONS RIGHT SECOND AND THIRD METACARPOPHALANGEAL JOINTS AND LEFT FIRST AND SECOND METACARPOPHALANGEAL JOINTS. Edited by Antonia Chang on 12/01/2022 1:49 PM > Interpreting Provider: Rhett Johnson MD on 12/01/2022 1:49 PM Dl Jones MD US ORDERABLES * US EXTREMITY LEFT COMP JOINT (12/01/2022 9:51 AM STAMP REDEMPTION CLERK) Anatomical Region Laterality Modality Lower Extremity, Upper Extremity Ultrasound 12/01/2022 1:34 PM STAMP REDEMPTION CLERK Impressions 12/01/2022 1:49 PM STAMP REDEMPTION CLERK IMPRESSION: ACTIVE SYNOVITIS INVOLVING MULTIPLE BILATERAL METACARPOPHALANGEAL JOINTS DESCRIBED ABOVE. JOINT SUBLUXATIONS RIGHT SECOND AND THIRD METACARPOPHALANGEAL JOINTS AND LEFT FIRST AND SECOND METACARPOPHALANGEAL JOINTS. Edited by Antonia Chang on 12/01/2022 1:49 PM > Interpreting Provider: Rhett Johnson MD on 12/01/2022 1:49 PM Narrative 12/01/2022 1:49 PM STAMP REDEMPTION CLERK ULTRASOUND RIGHT HAND ULTRASOUND LEFT HAND CLINICAL INDICATION: Chronic bilateral hand pain, swelling, stiffness, and limited range of motion. COMPARISON: None available. TECHNIQUE: Multiple longitudinal and transverse grayscale and color Doppler sonographic images of the right and left hand were obtained. FINDINGS: ULTRASOUND RIGHT HAND: Abnormal synovial hypertrophy and hyperemia noted within the second metacarpophalangeal joint, third metacarpophalangeal joint, and fifth metacarpophalangeal joint. No evidence of tendon pathology or tenosynovitis. No joint effusions. Joint subluxations noted at the second and third metacarpophalangeal joints. No evidence of acute capsular or ligamentous pathology. ULTRASOUND LEFT HAND: Synovial hypertrophy and hyperemia present within the first metacarpophalangeal joint, second metacarpophalangeal joint, third metacarpophalangeal joint, fourth metacarpophalangeal joint, and fifth metacarpophalangeal joint. No tendon pathology or tenosynovitis. No joint effusions. Joint subluxations noted at the first and second metacarpophalangeal joints. No evidence of acute capsular or ligamentous pathology. Procedure Note Rhett Johnson MD - 12/01/2022 ULTRASOUND RIGHT HAND ULTRASOUND LEFT HAND CLINICAL INDICATION: Chronic bilateral hand pain, swelling, stiffness,and limited range of motion. COMPARISON: None available. TECHNIQUE: Multiple longitudinal and transverse grayscale and colorDoppler sonographic images of the right and left hand were obtained. FINDINGS: ULTRASOUND RIGHT HAND: Abnormal synovial hypertrophy and hyperemia noted within the second metacarpophalangeal joint, third metacarpophalangeal joint, and fifth metacarpophalangeal joint. No evidence of tendon pathology or tenosynovitis. No joint effusions. Joint subluxations noted at the second and third metacarpophalangeal joints. No evidence of acute capsular or ligamentous pathology. ULTRASOUND LEFT HAND: Synovial hypertrophy and hyperemia present within the first metacarpophalangeal joint, second metacarpophalangeal joint, third metacarpophalangeal joint, fourth metacarpophalangeal joint, and fifth metacarpophalangeal joint. No tendon pathology or tenosynovitis. No joint effusions. Joint subluxations noted at the first and second metacarpophalangeal joints. No evidence of acute capsular or ligamentous pathology. IMPRESSION: ACTIVE SYNOVITIS INVOLVING MULTIPLE BILATERAL METACARPOPHALANGEAL JOINTSAS DESCRIBED ABOVE. JOINT SUBLUXATIONS RIGHT SECOND AND THIRD METACARPOPHALANGEAL JOINTS AND LEFT FIRST AND SECOND METACARPOPHALANGEAL JOINTS. Edited by Antonia Chang on 12/01/2022 1:49 PM > Interpreting Provider: Rhett Johnson MD on 12/01/2022 1:49 PM Dl Jones MD ORDERABLES * QUANTIFERON-TB GOLD PLUS 1-TUBE (10/03/2022 12:44 PM STAMP REDEMPTION CLERK) Only the most recent of3 resultswithin the time period is included. [facility] QuantiFERON TB Gold Plus NEGATIVE NEGATIVE [facility] Comment: Negative test result. M. tuberculosis complex infection unlikely. NIL 0.01 IU/mL [facility] MITOGEN MINUS NIL RESULT 7.69 IU/mL [facility] TB1-NIL 0.00 IU/mL [facility] TB2-NIL 0.00 IU/mL [facility] Comment: The Nil tube value reflects the background interferon gamma immune response of the patient's blood sample. This value has been subtracted from the patient's displayed TB and Mitogen results. Lower than expected results with the Mitogen tube prevent false-negative Quantiferon readings by detecting a patient with a potential immune suppressive condition and/or suboptimal pre-analytical specimen handling. The TB1 Antigen tube is coated with the M. tuberculosis-specific antigens designed to elicit responses from TB antigen primed CD4+ helper T-lymphocytes. The TB2 Antigen tube is coated with the M. tuberculosis-specific antigens designed to elicit responses from TB antigen primed CD4+ helper and CD8+ cytotoxic T-lymphocytes. For additional information, please refer to https://education.Volance/faq/XRG162 (This link is being provided for informational/ educational purposes only.) Test Performed at: [employer] [address] [place], [place] ??[phone] CHAVA MILLS DO,MPH 10/03/2022 12:4 4 PM STAMP REDEMPTION CLERK 10/03/2022 12:44 PM STAMP REDEMPTION CLERK Dl Jones MD LAB - CHEMISTRY ANGUS CERVANTES Performing Organization Address [facility] Co de Phone Number [facility] [phone] [place] [address] * HEPATITIS C AB W/RFLX TO HCV RNA QN PCR (10/03/2022 12:44 PM STAMP REDEMPTION CLERK) Hepatitis C Antibody NON-REACTI VE NON-REACT ZULY [facility] Signal to Cut-Off 0.02 <1.00 [facility] Comment: HCV antibody was non-reactive. There is no laboratory evidence of HCV infection. In most cases, no further action is required. However, if recent HCV exposure is suspected, a test for HCV RNA (test code 68252) is suggested. For additional information please refer to http://education.Volance/faq/RPE22w6 (This link is being provided for informational/ educational purposes only.) Test Performed at: [employer] [place], [place] ??[phone] CHAVA MILLS DO,MPH Blood BLOOD SPECIMEN / Unknown 10/03/2022 12:44 PM STAMP REDEMPTION CLERK 10/03/2022 12:44 PM STAMP REDEMPTION CLERK Dl Jones MD LAB - CHEMISTRY ANGUS CERVANTES Performing Organization Address [facility] de Phone Number [facility] [address] [place] [address] * HEPATITIS B SURFACE ANTIBODY (10/03/2022 12:44 PM STAMP REDEMPTION CLERK) Hepatitis B Virus Surface Antibody NON-REACTI VE NON-REACT ZULY [facility] Comment: Test Performed at: [employer] [address] [place], [place] ??[phone] CHAVA MILLS DO,MPH Blood BLOOD SPECIMEN / Unknown 10/03/2022 12:44 PM STAMP REDEMPTION CLERK 10/03/2022 12:44 PM STAMP REDEMPTION CLERK Dl Jones MD LAB - CHEMISTRY ANGUS CERVANTES Performing Organization Address [facility] Co de Phone Number [facility] [address] [place] [address] * HEPATITIS B CORE ANTIBODY TOTAL (10/03/2022 12:44 PM STAMP REDEMPTION CLERK) Hepatitis B Core Virus Antibody Total NON-REACTI VE NON-REACT ZULY [facility] Comment: Test Performed at: [employer] [place] [address] [place], [place] ??[phone] CHAVA MILLS DO,MPH Blood BLOOD SPECIMEN / Unknown 10/03/2022 12:44 PM STAMP REDEMPTION CLERK 10/03/2022 12:44 PM STAMP REDEMPTION CLERK Dl Jones MD LAB - CHEMISTRY ANGUS CERVANTES Performing Organization Address [facility] de Phone Number [facility] [address] [place] [address] * HEPATITIS B SURFACE ANTIGEN W RFLX CONFIRMATION (10/03/2022 12:44 PM STAMP REDEMPTION CLERK) Hepatitis B Virus Surface Antigen NON-REACT ZULY NON-REACT ZULY [facility] Comment: Test Performed at: [employer] [address] [place], [place] ??[phone] CHAVA MILLS DO,MPH Confirmation [facility] Comment: Test Performed at: [employer] [address] [place], [place] ??[phone] CHAVA MILLS DO,MPH Blood BLOOD SPECIMEN / Unknown 10/03/2022 12:44 PM STAMP REDEMPTION CLERK 10/03/2022 12:44 PM STAMP REDEMPTION CLERK Dl Jones MD LAB - CHEMISTRY ANGUS CERVANTES Performing Organization Address [facility] de Phone Number [facility] [address] [place] [address] * XR FOOT RIGHT 3VW OR MORE (09/28/2022 12:50 PM CDT) Only the most recent of2 resultswithin the time period is included. Anatomical Region Laterality Modality Ankle / Foot Radiographic Sindhu ging 09/28/2022 1:11 PM CDT Impressions 09/28/2022 1:53 PM CDT IMPRESSION: 1.Hands: Erosive arthritis primarily affecting the second and third metacarpophalangeal joints with severe joint space narrowing and subluxation of the second joint. Findings are compatible with patient's known rheumatoid arthritis. 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 The arthritis has progressed compared to 02/15/2016. 2.Wrists: Moderate polyarticular arthritis bilaterally. 3.Feet: Erosive arthritis primarily affecting the first and fifth metatarsal heads. 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 Report dictated by Susi James DO (radiology rn). I, Arjun Carrillo MD have personally reviewed and interpreted this examination/study. > Interpreting Provider: Arjun Carrillo MD on 09/28/2022 1:53 PM Narrative 09/28/2022 1:53 PM CDT PROCEDURE: ??XR WRIST RIGHT 3VW OR MORE, XR FOOT LEFT 3VW OR MORE, XR HAND RIGHT 3VW OR MORE, XR HAND LEFT 3VW OR MORE, XR FOOT RIGHT 3VW OR MORE, XR WRIST LEFT 3VW OR MORE, DATE/TIME OF EXAM: ??09/28/2022 12:50 PM, LOCATION [facility] INDICATION: M05.79: 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 ([facility]) Z51.81: Therapeutic drug monitoring D84.821: Immunosuppression due to drug therapy (CMS/[facility]) Z79.899: Immunosuppression due to drug therapy ([facility]) COMPARISON: Bilateral foot and hand radiographs dated 02/15/2016 FINDINGS: Right hand: There is no fracture. Ulnar subluxation of the second proximal phalanx with respect to the metacarpal. Ulnar deviation of the second through fifth metacarpophalangeal joints is noted. Erosive changes and joint space narrowing of the second and to a lesser extent third metacarpophalangeal joints are present. Polyarticular arthritic changes with periarticular osteophytosis are most prominent in the distal interphalangeal joints and first digit interphalangeal joint. Diffuse osteopenia. Left hand: There is no fracture. Ulnar subluxation of the second proximal phalanx with respect to the metacarpal. Ulnar deviation of the second through fifth metacarpophalangeal joints is noted. Erosive changes and joint space narrowing of the second and to a lesser extent third metacarpal metacarpophalangeal joints is present. Additional erosions of the head of the first metacarpal and head of the second digit middle phalanx. Polyarticular arthritic changes with periarticular osteophytosis most prominent in the distal interphalangeal joints and first digit interphalangeal joint. Diffuse osteopenia. Right wrist: There is no fracture or dislocation. Diffuse joint space narrowing and sclerosis in the distal radioulnar, intercarpal, radiocarpal and ulnocarpal joint spaces. A cyst or erosion is noted in the scaphoid measuring 6 mm. An additional cyst or erosion is noted in the radial aspect of the lunate. Large distal radial and ulnar osteophytes are present. Narrowing and subchondral sclerosis of the first carpometacarpal joint is also noted. Left wrist: There is no fracture or dislocation. Diffuse joint space narrowing and sclerosis of the distal radioulnar, intercarpal, radiocarpal and ulnocarpal joint spaces. A cyst or erosion is noted in the scaphoid measuring 5 mm. Large distal radial and ulnar osteophytes are present. Narrowing and subchondral sclerosis at the first carpometacarpal joint is also noted. Right foot: There is no fracture. Osseous erosions of the first and fifth metatarsal heads. Polyarticular arthritic changes with asymmetric joint space narrowing most prominent in the first metatarsophalangeal and interphalangeal joints. Calcaneal spur is present. Diffuse osteopenia. Left foot: There is no fracture. Osseous erosions of the first and fifth metatarsal heads. Polyarticular arthritic changes with asymmetric joint space narrowing most prominent in the first and fifth metatarsophalangeal joints. Osteophytes of the medial cuneiform and navicular are noted. A calcaneal spur is present. Diffuse osteopenia. Procedure Note Arjun Carrillo MD - 09/28/2022 PROCEDURE: XR WRIST RIGHT 3VW OR MORE, XR FOOT LEFT 3VW OR MORE, XRHAND RIGHT 3VW OR MORE, XR HAND LEFT 3VW OR MORE, XR FOOT RIGHT 3VW OR MORE,XR WRIST LEFT 3VW OR MORE, DATE/TIME OF EXAM: 09/28/2022 12:50 PM, LOCATION [facility] INDICATION: M05.79: 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 ([facility]) Z51.81: Therapeutic drug monitoring D84.821: Immunosuppression due to drug therapy (CMS/HCC) Z79.899: Immunosuppression due to drug therapy (CMS/[facility]) COMPARISON: Bilateral foot and hand radiographs dated 02/15/2016 FINDINGS: Right hand: There is no fracture. Ulnar subluxation of the second proximal phalanxwith respect to the metacarpal. Ulnar deviation of the second through fifth metacarpophalangeal joints is noted. Erosive changes and joint space narrowing of the second and to a lesser extent third metacarpophalangeal joints are present. Polyarticular arthritic changes with periarticular osteophytosis are most prominent in the distal interphalangeal jointsand first digit interphalangeal joint. Diffuse osteopenia. Left hand: There is no fracture. Ulnar subluxation of the second proximal phalanxwith respect to the metacarpal. Ulnar deviation of the second through fifth metacarpophalangeal joints is noted. Erosive changes and joint space narrowing of the second and to a lesser extent third metacarpal metacarpophalangeal joints is present. Additional erosions of the headof the first metacarpal and head of the second digit middle phalanx. Polyarticular arthritic changes with periarticular osteophytosis most prominent in the distal interphalangeal joints and first digit interphalangeal joint. Diffuse osteopenia. Right wrist: There is no fracture or dislocation. Diffuse joint space narrowing and sclerosis in the distal radioulnar, intercarpal, radiocarpal andulnocarpal joint spaces. A cyst or erosion is noted in the scaphoid measuring 6 mm.An additional cyst or erosion is noted in the radial aspect of the lunate. Large distal radial and ulnar osteophytes are present. Narrowing and subchondral sclerosis of the first carpometacarpal joint is also noted. Left wrist: There is no fracture or dislocation. Diffuse joint space narrowing and sclerosis of the distal radioulnar, intercarpal, radiocarpal andulnocarpal joint spaces. A cyst or erosion is noted in the scaphoid measuring 5 mm. Large distal radial and ulnar osteophytes are present. Narrowing and subchondral sclerosis at the first carpometacarpal joint is also noted. Right foot: There is no fracture. Osseous erosions of the first and fifth metatarsal heads. Polyarticular arthritic changes with asymmetric joint space narrowing most prominent in the first metatarsophalangeal and interphalangeal joints. Calcaneal spur is present. Diffuse osteopenia. Left foot: There is no fracture. Osseous erosions of the first and fifth metatarsal heads. Polyarticular arthritic changes with asymmetric joint space narrowing most prominent in the first and fifth metatarsophalangealjoints. Osteophytes of the medial cuneiform and navicular are noted. A calcaneal spur is present. Diffuse osteopenia. IMPRESSION: 1.Hands: Erosive arthritis primarily affecting the second and third metacarpophalangeal joints with severe joint space narrowing and subluxation of the second joint. Findings are compatible with patient's known rheumatoid arthritis. 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 The arthritis has progressed compared to 02/15/2016. 2.Wrists: Moderate polyarticular arthritis bilaterally. 3.Feet: Erosive arthritis primarily affecting the first and fifth metatarsal heads. 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 Report dictated by Susi James DO (radiology rn). Arjun Okeefe MD have personally reviewed and interpreted this examination/study. > Interpreting Provider: Arjun Carrillo MD on 09/28/2022 1:53 PM Dl Jones MD DIAGNOSTIC IMAGING O RDERABLES * XR FOOT LEFT 3VW OR MORE (09/28/2022 12:50 PM CDT) Only the most recent of2 resultswithin the time period is included. Anatomical Region Laterality Modality Ankle / Foot Radiographic Sindhu ging 09/28/2022 1:11 PM CDT Impressions 09/28/2022 1:53 PM CDT IMPRESSION: 1.Hands: Erosive arthritis primarily affecting the second and third metacarpophalangeal joints with severe joint space narrowing and subluxation of the second joint. Findings are compatible with patient's known rheumatoid arthritis. 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 The arthritis has progressed compared to 02/15/2016. 2.Wrists: Moderate polyarticular arthritis bilaterally. 3.Feet: Erosive arthritis primarily affecting the first and fifth metatarsal heads. 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 Report dictated by Susi James DO (radiology rn). Arjun Okeefe MD have personally reviewed and interpreted this examination/study. > Interpreting Provider: Arjun Carrillo MD on 09/28/2022 1:53 PM Narrative 09/28/2022 1:53 PM CDT PROCEDURE: ??XR WRIST RIGHT 3VW OR MORE, XR FOOT LEFT 3VW OR MORE, XR HAND RIGHT 3VW OR MORE, XR HAND LEFT 3VW OR MORE, XR FOOT RIGHT 3VW OR MORE, XR WRIST LEFT 3VW OR MORE, DATE/TIME OF EXAM: ??09/28/2022 12:50 PM, LOCATION [facility] INDICATION: M05.79: 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 (CMS/HCC) Z51.81: Therapeutic drug monitoring D84.821: Immunosuppression due to drug therapy (CMS/HCC) Z79.899: Immunosuppression due to drug therapy (CMS/HCC) COMPARISON: Bilateral foot and hand radiographs dated 02/15/2016 FINDINGS: Right hand: There is no fracture. Ulnar subluxation of the second proximal phalanx with respect to the metacarpal. Ulnar deviation of the second through fifth metacarpophalangeal joints is noted. Erosive changes and joint space narrowing of the second and to a lesser extent third metacarpophalangeal joints are present. Polyarticular arthritic changes with periarticular osteophytosis are most prominent in the distal interphalangeal joints and first digit interphalangeal joint. Diffuse osteopenia. Left hand: There is no fracture. Ulnar subluxation of the second proximal phalanx with respect to the metacarpal. Ulnar deviation of the second through fifth metacarpophalangeal joints is noted. Erosive changes and joint space narrowing of the second and to a lesser extent third metacarpal metacarpophalangeal joints is present. Additional erosions of the head of the first metacarpal and head of the second digit middle phalanx. Polyarticular arthritic changes with periarticular osteophytosis most prominent in the distal interphalangeal joints and first digit interphalangeal joint. Diffuse osteopenia. Right wrist: There is no fracture or dislocation. Diffuse joint space narrowing and sclerosis in the distal radioulnar, intercarpal, radiocarpal and ulnocarpal joint spaces. A cyst or erosion is noted in the scaphoid measuring 6 mm. An additional cyst or erosion is noted in the radial aspect of the lunate. Large distal radial and ulnar osteophytes are present. Narrowing and subchondral sclerosis of the first carpometacarpal joint is also noted. Left wrist: There is no fracture or dislocation. Diffuse joint space narrowing and sclerosis of the distal radioulnar, intercarpal, radiocarpal and ulnocarpal joint spaces. A cyst or erosion is noted in the scaphoid measuring 5 mm. Large distal radial and ulnar osteophytes are present. Narrowing and subchondral sclerosis at the first carpometacarpal joint is also noted. Right foot: There is no fracture. Osseous erosions of the first and fifth metatarsal heads. Polyarticular arthritic changes with asymmetric joint space narrowing most prominent in the first metatarsophalangeal and interphalangeal joints. Calcaneal spur is present. Diffuse osteopenia. Left foot: There is no fracture. Osseous erosions of the first and fifth metatarsal heads. Polyarticular arthritic changes with asymmetric joint space narrowing most prominent in the first and fifth metatarsophalangeal joints. Osteophytes of the medial cuneiform and navicular are noted. A calcaneal spur is present. Diffuse osteopenia. Procedure Note Arjun Carrillo MD - 09/28/2022 PROCEDURE: XR WRIST RIGHT 3VW OR MORE, XR FOOT LEFT 3VW OR MORE, XRHAND RIGHT 3VW OR MORE, XR HAND LEFT 3VW OR MORE, XR FOOT RIGHT 3VW OR MORE,XR WRIST LEFT 3VW OR MORE, DATE/TIME OF EXAM: 09/28/2022 12:50 PM, LOCATION [facility] INDICATION: M05.79: 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 (CMS/HCC) Z51.81: Therapeutic drug monitoring D84.821: Immunosuppression due to drug therapy (CMS/HCC) Z79.899: Immunosuppression due to drug therapy (CMS/HCC) COMPARISON: Bilateral foot and hand radiographs dated 02/15/2016 FINDINGS: Right hand: There is no fracture. Ulnar subluxation of the second proximal phalanxwith respect to the metacarpal. Ulnar deviation of the second through fifth metacarpophalangeal joints is noted. Erosive changes and joint space narrowing of the second and to a lesser extent third metacarpophalangeal joints are present. Polyarticular arthritic changes with periarticular osteophytosis are most prominent in the distal interphalangeal jointsand first digit interphalangeal joint. Diffuse osteopenia. Left hand: There is no fracture. Ulnar subluxation of the second proximal phalanxwith respect to the metacarpal. Ulnar deviation of the second through fifth metacarpophalangeal joints is noted. Erosive changes and joint space narrowing of the second and to a lesser extent third metacarpal metacarpophalangeal joints is present. Additional erosions of the headof the first metacarpal and head of the second digit middle phalanx. Polyarticular arthritic changes with periarticular osteophytosis most prominent in the distal interphalangeal joints and first digit interphalangeal joint. Diffuse osteopenia. Right wrist: There is no fracture or dislocation. Diffuse joint space narrowing and sclerosis in the distal radioulnar, intercarpal, radiocarpal andulnocarpal joint spaces. A cyst or erosion is noted in the scaphoid measuring 6 mm.An additional cyst or erosion is noted in the radial aspect of the lunate. Large distal radial and ulnar osteophytes are present. Narrowing and subchondral sclerosis of the first carpometacarpal joint is also noted. Left wrist: There is no fracture or dislocation. Diffuse joint space narrowing and sclerosis of the distal radioulnar, intercarpal, radiocarpal andulnocarpal joint spaces. A cyst or erosion is noted in the scaphoid measuring 5 mm. Large distal radial and ulnar osteophytes are present. Narrowing and subchondral sclerosis at the first carpometacarpal joint is also noted. Right foot: There is no fracture. Osseous erosions of the first and fifth metatarsal heads. Polyarticular arthritic changes with asymmetric joint space narrowing most prominent in the first metatarsophalangeal and interphalangeal joints. Calcaneal spur is present. Diffuse osteopenia. Left foot: There is no fracture. Osseous erosions of the first and fifth metatarsal heads. Polyarticular arthritic changes with asymmetric joint space narrowing most prominent in the first and fifth metatarsophalangealjoints. Osteophytes of the medial cuneiform and navicular are noted. A calcaneal spur is present. Diffuse osteopenia. IMPRESSION: 1.Hands: Erosive arthritis primarily affecting the second and third metacarpophalangeal joints with severe joint space narrowing and subluxation of the second joint. Findings are compatible with patient's known rheumatoid arthritis. 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 The arthritis has progressed compared to 02/15/2016. 2.Wrists: Moderate polyarticular arthritis bilaterally. 3.Feet: Erosive arthritis primarily affecting the first and fifth metatarsal heads. 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 Report dictated by Susi James DO (radiology rn). Arjun Okeefe MD have personally reviewed and interpreted this examination/study. > Interpreting Provider: Arjun Carrillo MD on 09/28/2022 1:53 PM Dl Jones MD DIAGNOSTIC IMAGING O RDERABLES * XR HAND RIGHT 3VW OR MORE (09/28/2022 12:50 PM CDT) Only the most recent of2 resultswithin the time period is included. Anatomical Region Laterality Modality Wrist / Hand Radiographic Sindhu ging 09/28/2022 1:11 PM CDT Impressions 09/28/2022 1:53 PM CDT IMPRESSION: 1.Hands: Erosive arthritis primarily affecting the second and third metacarpophalangeal joints with severe joint space narrowing and subluxation of the second joint. Findings are compatible with patient's known rheumatoid arthritis. 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 The arthritis has progressed compared to 02/15/2016. 2.Wrists: Moderate polyarticular arthritis bilaterally. 3.Feet: Erosive arthritis primarily affecting the first and fifth metatarsal heads. 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 Report dictated by Susi James DO (radiology rn). Arjun Okeefe MD have personally reviewed and interpreted this examination/study. > Interpreting Provider: Arjun Carrillo MD on 09/28/2022 1:53 PM Narrative 09/28/2022 1:53 PM CDT PROCEDURE: ??XR WRIST RIGHT 3VW OR MORE, XR FOOT LEFT 3VW OR MORE, XR HAND RIGHT 3VW OR MORE, XR HAND LEFT 3VW OR MORE, XR FOOT RIGHT 3VW OR MORE, XR WRIST LEFT 3VW OR MORE, DATE/TIME OF EXAM: ??09/28/2022 12:50 PM, LOCATION [facility] INDICATION: M05.79: 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 (CMS/HCC) Z51.81: Therapeutic drug monitoring D84.821: Immunosuppression due to drug therapy (CMS/HCC) Z79.899: Immunosuppression due to drug therapy (CMS/HCC) COMPARISON: Bilateral foot and hand radiographs dated 02/15/2016 FINDINGS: Right hand: There is no fracture. Ulnar subluxation of the second proximal phalanx with respect to the metacarpal. Ulnar deviation of the second through fifth metacarpophalangeal joints is noted. Erosive changes and joint space narrowing of the second and to a lesser extent third metacarpophalangeal joints are present. Polyarticular arthritic changes with periarticular osteophytosis are most prominent in the distal interphalangeal joints and first digit interphalangeal joint. Diffuse osteopenia. Left hand: There is no fracture. Ulnar subluxation of the second proximal phalanx with respect to the metacarpal. Ulnar deviation of the second through fifth metacarpophalangeal joints is noted. Erosive changes and joint space narrowing of the second and to a lesser extent third metacarpal metacarpophalangeal joints is present. Additional erosions of the head of the first metacarpal and head of the second digit middle phalanx. Polyarticular arthritic changes with periarticular osteophytosis most prominent in the distal interphalangeal joints and first digit interphalangeal joint. Diffuse osteopenia. Right wrist: There is no fracture or dislocation. Diffuse joint space narrowing and sclerosis in the distal radioulnar, intercarpal, radiocarpal and ulnocarpal joint spaces. A cyst or erosion is noted in the scaphoid measuring 6 mm. An additional cyst or erosion is noted in the radial aspect of the lunate. Large distal radial and ulnar osteophytes are present. Narrowing and subchondral sclerosis of the first carpometacarpal joint is also noted. Left wrist: There is no fracture or dislocation. Diffuse joint space narrowing and sclerosis of the distal radioulnar, intercarpal, radiocarpal and ulnocarpal joint spaces. A cyst or erosion is noted in the scaphoid measuring 5 mm. Large distal radial and ulnar osteophytes are present. Narrowing and subchondral sclerosis at the first carpometacarpal joint is also noted. Right foot: There is no fracture. Osseous erosions of the first and fifth metatarsal heads. Polyarticular arthritic changes with asymmetric joint space narrowing most prominent in the first metatarsophalangeal and interphalangeal joints. Calcaneal spur is present. Diffuse osteopenia. Left foot: There is no fracture. Osseous erosions of the first and fifth metatarsal heads. Polyarticular arthritic changes with asymmetric joint space narrowing most prominent in the first and fifth metatarsophalangeal joints. Osteophytes of the medial cuneiform and navicular are noted. A calcaneal spur is present. Diffuse osteopenia. Procedure Note Arjun Carrillo MD - 09/28/2022 PROCEDURE: XR WRIST RIGHT 3VW OR MORE, XR FOOT LEFT 3VW OR MORE, XRHAND RIGHT 3VW OR MORE, XR HAND LEFT 3VW OR MORE, XR FOOT RIGHT 3VW OR MORE,XR WRIST LEFT 3VW OR MORE, DATE/TIME OF EXAM: 09/28/2022 12:50 PM, LOCATION [facility] INDICATION: M05.79: 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 ([facility]) Z51.81: Therapeutic drug monitoring D84.821: Immunosuppression due to drug therapy (CMS/HCC) Z79.899: Immunosuppression due to drug therapy (CMS/[facility]) COMPARISON: Bilateral foot and hand radiographs dated 02/15/2016 FINDINGS: Right hand: There is no fracture. Ulnar subluxation of the second proximal phalanxwith respect to the metacarpal. Ulnar deviation of the second through fifth metacarpophalangeal joints is noted. Erosive changes and joint space narrowing of the second and to a lesser extent third metacarpophalangeal joints are present. Polyarticular arthritic changes with periarticular osteophytosis are most prominent in the distal interphalangeal jointsand first digit interphalangeal joint. Diffuse osteopenia. Left hand: There is no fracture. Ulnar subluxation of the second proximal phalanxwith respect to the metacarpal. Ulnar deviation of the second through fifth metacarpophalangeal joints is noted. Erosive changes and joint space narrowing of the second and to a lesser extent third metacarpal metacarpophalangeal joints is present. Additional erosions of the headof the first metacarpal and head of the second digit middle phalanx. Polyarticular arthritic changes with periarticular osteophytosis most prominent in the distal interphalangeal joints and first digit interphalangeal joint. Diffuse osteopenia. Right wrist: There is no fracture or dislocation. Diffuse joint space narrowing and sclerosis in the distal radioulnar, intercarpal, radiocarpal andulnocarpal joint spaces. A cyst or erosion is noted in the scaphoid measuring 6 mm.An additional cyst or erosion is noted in the radial aspect of the lunate. Large distal radial and ulnar osteophytes are present. Narrowing and subchondral sclerosis of the first carpometacarpal joint is also noted. Left wrist: There is no fracture or dislocation. Diffuse joint space narrowing and sclerosis of the distal radioulnar, intercarpal, radiocarpal andulnocarpal joint spaces. A cyst or erosion is noted in the scaphoid measuring 5 mm. Large distal radial and ulnar osteophytes are present. Narrowing and subchondral sclerosis at the first carpometacarpal joint is also noted. Right foot: There is no fracture. Osseous erosions of the first and fifth metatarsal heads. Polyarticular arthritic changes with asymmetric joint space narrowing most prominent in the first metatarsophalangeal and interphalangeal joints. Calcaneal spur is present. Diffuse osteopenia. Left foot: There is no fracture. Osseous erosions of the first and fifth metatarsal heads. Polyarticular arthritic changes with asymmetric joint space narrowing most prominent in the first and fifth metatarsophalangealjoints. Osteophytes of the medial cuneiform and navicular are noted. A calcaneal spur is present. Diffuse osteopenia. IMPRESSION: 1.Hands: Erosive arthritis primarily affecting the second and third metacarpophalangeal joints with severe joint space narrowing and subluxation of the second joint. Findings are compatible with patient's known rheumatoid arthritis. 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 The arthritis has progressed compared to 02/15/2016. 2.Wrists: Moderate polyarticular arthritis bilaterally. 3.Feet: Erosive arthritis primarily affecting the first and fifth metatarsal heads. 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 Report dictated by Susi James DO (radiology rn). I, Arjun Carrillo MD have personally reviewed and interpreted this examination/study. > Interpreting Provider: Arjun Carrillo MD on 09/28/2022 1:53 PM Dl Jones MD DIAGNOSTIC IMAGING O RDERABLES * XR HAND LEFT 3VW OR MORE (09/28/2022 12:50 PM CDT) Only the most recent of2 resultswithin the time period is included. Anatomical Region Laterality Modality Wrist / Hand Radiographic Sindhu ging 09/28/2022 1:11 PM CDT Impressions 09/28/2022 1:53 PM CDT IMPRESSION: 1.Hands: Erosive arthritis primarily affecting the second and third metacarpophalangeal joints with severe joint space narrowing and subluxation of the second joint. Findings are compatible with patient's known rheumatoid arthritis. 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 The arthritis has progressed compared to 02/15/2016. 2.Wrists: Moderate polyarticular arthritis bilaterally. 3.Feet: Erosive arthritis primarily affecting the first and fifth metatarsal heads. 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 Report dictated by Susi James DO (radiology rn). IArjun MD have personally reviewed and interpreted this examination/study. > Interpreting Provider: Arjun Carrillo MD on 09/28/2022 1:53 PM Narrative 09/28/2022 1:53 PM CDT PROCEDURE: ??XR WRIST RIGHT 3VW OR MORE, XR FOOT LEFT 3VW OR MORE, XR HAND RIGHT 3VW OR MORE, XR HAND LEFT 3VW OR MORE, XR FOOT RIGHT 3VW OR MORE, XR WRIST LEFT 3VW OR MORE, DATE/TIME OF EXAM: ??09/28/2022 12:50 PM, LOCATION [facility] INDICATION: M05.79: 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 (CMS/HCC) Z51.81: Therapeutic drug monitoring D84.821: Immunosuppression due to drug therapy (CMS/HCC) Z79.899: Immunosuppression due to drug therapy (CMS/HCC) COMPARISON: Bilateral foot and hand radiographs dated 02/15/2016 FINDINGS: Right hand: There is no fracture. Ulnar subluxation of the second proximal phalanx with respect to the metacarpal. Ulnar deviation of the second through fifth metacarpophalangeal joints is noted. Erosive changes and joint space narrowing of the second and to a lesser extent third metacarpophalangeal joints are present. Polyarticular arthritic changes with periarticular osteophytosis are most prominent in the distal interphalangeal joints and first digit interphalangeal joint. Diffuse osteopenia. Left hand: There is no fracture. Ulnar subluxation of the second proximal phalanx with respect to the metacarpal. Ulnar deviation of the second through fifth metacarpophalangeal joints is noted. Erosive changes and joint space narrowing of the second and to a lesser extent third metacarpal metacarpophalangeal joints is present. Additional erosions of the head of the first metacarpal and head of the second digit middle phalanx. Polyarticular arthritic changes with periarticular osteophytosis most prominent in the distal interphalangeal joints and first digit interphalangeal joint. Diffuse osteopenia. Right wrist: There is no fracture or dislocation. Diffuse joint space narrowing and sclerosis in the distal radioulnar, intercarpal, radiocarpal and ulnocarpal joint spaces. A cyst or erosion is noted in the scaphoid measuring 6 mm. An additional cyst or erosion is noted in the radial aspect of the lunate. Large distal radial and ulnar osteophytes are present. Narrowing and subchondral sclerosis of the first carpometacarpal joint is also noted. Left wrist: There is no fracture or dislocation. Diffuse joint space narrowing and sclerosis of the distal radioulnar, intercarpal, radiocarpal and ulnocarpal joint spaces. A cyst or erosion is noted in the scaphoid measuring 5 mm. Large distal radial and ulnar osteophytes are present. Narrowing and subchondral sclerosis at the first carpometacarpal joint is also noted. Right foot: There is no fracture. Osseous erosions of the first and fifth metatarsal heads. Polyarticular arthritic changes with asymmetric joint space narrowing most prominent in the first metatarsophalangeal and interphalangeal joints. Calcaneal spur is present. Diffuse osteopenia. Left foot: There is no fracture. Osseous erosions of the first and fifth metatarsal heads. Polyarticular arthritic changes with asymmetric joint space narrowing most prominent in the first and fifth metatarsophalangeal joints. Osteophytes of the medial cuneiform and navicular are noted. A calcaneal spur is present. Diffuse osteopenia. Procedure Note Arjun Carrillo MD - 09/28/2022 PROCEDURE: XR WRIST RIGHT 3VW OR MORE, XR FOOT LEFT 3VW OR MORE, XRHAND RIGHT 3VW OR MORE, XR HAND LEFT 3VW OR MORE, XR FOOT RIGHT 3VW OR MORE,XR WRIST LEFT 3VW OR MORE, DATE/TIME OF EXAM: 09/28/2022 12:50 PM, LOCATION [facility] INDICATION: M05.79: 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 ([facility]) Z51.81: Therapeutic drug monitoring D84.821: Immunosuppression due to drug therapy (CMS/HCC) Z79.899: Immunosuppression due to drug therapy ([facility]) COMPARISON: Bilateral foot and hand radiographs dated 02/15/2016 FINDINGS: Right hand: There is no fracture. Ulnar subluxation of the second proximal phalanxwith respect to the metacarpal. Ulnar deviation of the second through fifth metacarpophalangeal joints is noted. Erosive changes and joint space narrowing of the second and to a lesser extent third metacarpophalangeal joints are present. Polyarticular arthritic changes with periarticular osteophytosis are most prominent in the distal interphalangeal jointsand first digit interphalangeal joint. Diffuse osteopenia. Left hand: There is no fracture. Ulnar subluxation of the second proximal phalanxwith respect to the metacarpal. Ulnar deviation of the second through fifth metacarpophalangeal joints is noted. Erosive changes and joint space narrowing of the second and to a lesser extent third metacarpal metacarpophalangeal joints is present. Additional erosions of the headof the first metacarpal and head of the second digit middle phalanx. Polyarticular arthritic changes with periarticular osteophytosis most prominent in the distal interphalangeal joints and first digit interphalangeal joint. Diffuse osteopenia. Right wrist: There is no fracture or dislocation. Diffuse joint space narrowing and sclerosis in the distal radioulnar, intercarpal, radiocarpal andulnocarpal joint spaces. A cyst or erosion is noted in the scaphoid measuring 6 mm.An additional cyst or erosion is noted in the radial aspect of the lunate. Large distal radial and ulnar osteophytes are present. Narrowing and subchondral sclerosis of the first carpometacarpal joint is also noted. Left wrist: There is no fracture or dislocation. Diffuse joint space narrowing and sclerosis of the distal radioulnar, intercarpal, radiocarpal andulnocarpal joint spaces. A cyst or erosion is noted in the scaphoid measuring 5 mm. Large distal radial and ulnar osteophytes are present. Narrowing and subchondral sclerosis at the first carpometacarpal joint is also noted. Right foot: There is no fracture. Osseous erosions of the first and fifth metatarsal heads. Polyarticular arthritic changes with asymmetric joint space narrowing most prominent in the first metatarsophalangeal and interphalangeal joints. Calcaneal spur is present. Diffuse osteopenia. Left foot: There is no fracture. Osseous erosions of the first and fifth metatarsal heads. Polyarticular arthritic changes with asymmetric joint space narrowing most prominent in the first and fifth metatarsophalangealjoints. Osteophytes of the medial cuneiform and navicular are noted. A calcaneal spur is present. Diffuse osteopenia. IMPRESSION: 1.Hands: Erosive arthritis primarily affecting the second and third metacarpophalangeal joints with severe joint space narrowing and subluxation of the second joint. Findings are compatible with patient's known rheumatoid arthritis. 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 The arthritis has progressed compared to 02/15/2016. 2.Wrists: Moderate polyarticular arthritis bilaterally. 3.Feet: Erosive arthritis primarily affecting the first and fifth metatarsal heads. 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 Report dictated by Susi James DO (radiology rn). I, Arjun Carrillo MD have personally reviewed and interpreted this examination/study. > Interpreting Provider: Arjun Carrillo MD on 09/28/2022 1:53 PM Dl Jones MD DIAGNOSTIC IMAGING O RDERABLES * XR WRIST RIGHT 3VW OR MORE (09/28/2022 12:50 PM CDT) Anatomical Region Laterality Modality Wrist / Hand Radiographic Sindhu ging 09/28/2022 1:11 PM CDT Impressions 09/28/2022 1:53 PM CDT IMPRESSION: 1.Hands: Erosive arthritis primarily affecting the second and third metacarpophalangeal joints with severe joint space narrowing and subluxation of the second joint. Findings are compatible with patient's known rheumatoid arthritis. 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 The arthritis has progressed compared to 02/15/2016. 2.Wrists: Moderate polyarticular arthritis bilaterally. 3.Feet: Erosive arthritis primarily affecting the first and fifth metatarsal heads. 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 Report dictated by Susi James DO (radiology rn). I, Arjun Carrillo MD have personally reviewed and interpreted this examination/study. > Interpreting Provider: Arjun Carrillo MD on 09/28/2022 1:53 PM Narrative 09/28/2022 1:53 PM CDT PROCEDURE: ??XR WRIST RIGHT 3VW OR MORE, XR FOOT LEFT 3VW OR MORE, XR HAND RIGHT 3VW OR MORE, XR HAND LEFT 3VW OR MORE, XR FOOT RIGHT 3VW OR MORE, XR WRIST LEFT 3VW OR MORE, DATE/TIME OF EXAM: ??09/28/2022 12:50 PM, LOCATION [facility] INDICATION: M05.79: 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 (CMS/[facility]) Z51.81: Therapeutic drug monitoring D84.821: Immunosuppression due to drug therapy (CMS/HCC) Z79.899: Immunosuppression due to drug therapy ([facility]) COMPARISON: Bilateral foot and hand radiographs dated 02/15/2016 FINDINGS: Right hand: There is no fracture. Ulnar subluxation of the second proximal phalanx with respect to the metacarpal. Ulnar deviation of the second through fifth metacarpophalangeal joints is noted. Erosive changes and joint space narrowing of the second and to a lesser extent third metacarpophalangeal joints are present. Polyarticular arthritic changes with periarticular osteophytosis are most prominent in the distal interphalangeal joints and first digit interphalangeal joint. Diffuse osteopenia. Left hand: There is no fracture. Ulnar subluxation of the second proximal phalanx with respect to the metacarpal. Ulnar deviation of the second through fifth metacarpophalangeal joints is noted. Erosive changes and joint space narrowing of the second and to a lesser extent third metacarpal metacarpophalangeal joints is present. Additional erosions of the head of the first metacarpal and head of the second digit middle phalanx. Polyarticular arthritic changes with periarticular osteophytosis most prominent in the distal interphalangeal joints and first digit interphalangeal joint. Diffuse osteopenia. Right wrist: There is no fracture or dislocation. Diffuse joint space narrowing and sclerosis in the distal radioulnar, intercarpal, radiocarpal and ulnocarpal joint spaces. A cyst or erosion is noted in the scaphoid measuring 6 mm. An additional cyst or erosion is noted in the radial aspect of the lunate. Large distal radial and ulnar osteophytes are present. Narrowing and subchondral sclerosis of the first carpometacarpal joint is also noted. Left wrist: There is no fracture or dislocation. Diffuse joint space narrowing and sclerosis of the distal radioulnar, intercarpal, radiocarpal and ulnocarpal joint spaces. A cyst or erosion is noted in the scaphoid measuring 5 mm. Large distal radial and ulnar osteophytes are present. Narrowing and subchondral sclerosis at the first carpometacarpal joint is also noted. Right foot: There is no fracture. Osseous erosions of the first and fifth metatarsal heads. Polyarticular arthritic changes with asymmetric joint space narrowing most prominent in the first metatarsophalangeal and interphalangeal joints. Calcaneal spur is present. Diffuse osteopenia. Left foot: There is no fracture. Osseous erosions of the first and fifth metatarsal heads. Polyarticular arthritic changes with asymmetric joint space narrowing most prominent in the first and fifth metatarsophalangeal joints. Osteophytes of the medial cuneiform and navicular are noted. A calcaneal spur is present. Diffuse osteopenia. Procedure Note Arjun Carrillo MD - 09/28/2022 PROCEDURE: XR WRIST RIGHT 3VW OR MORE, XR FOOT LEFT 3VW OR MORE, XRHAND RIGHT 3VW OR MORE, XR HAND LEFT 3VW OR MORE, XR FOOT RIGHT 3VW OR MORE,XR WRIST LEFT 3VW OR MORE, DATE/TIME OF EXAM: 09/28/2022 12:50 PM, LOCATION [facility] INDICATION: M05.79: 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 (CMS/HCC) Z51.81: Therapeutic drug monitoring D84.821: Immunosuppression due to drug therapy (CMS/HCC) Z79.899: Immunosuppression due to drug therapy (CMS/HCC) COMPARISON: Bilateral foot and hand radiographs dated 02/15/2016 FINDINGS: Right hand: There is no fracture. Ulnar subluxation of the second proximal phalanxwith respect to the metacarpal. Ulnar deviation of the second through fifth metacarpophalangeal joints is noted. Erosive changes and joint space narrowing of the second and to a lesser extent third metacarpophalangeal joints are present. Polyarticular arthritic changes with periarticular osteophytosis are most prominent in the distal interphalangeal jointsand first digit interphalangeal joint. Diffuse osteopenia. Left hand: There is no fracture. Ulnar subluxation of the second proximal phalanxwith respect to the metacarpal. Ulnar deviation of the second through fifth metacarpophalangeal joints is noted. Erosive changes and joint space narrowing of the second and to a lesser extent third metacarpal metacarpophalangeal joints is present. Additional erosions of the headof the first metacarpal and head of the second digit middle phalanx. Polyarticular arthritic changes with periarticular osteophytosis most prominent in the distal interphalangeal joints and first digit interphalangeal joint. Diffuse osteopenia. Right wrist: There is no fracture or dislocation. Diffuse joint space narrowing and sclerosis in the distal radioulnar, intercarpal, radiocarpal andulnocarpal joint spaces. A cyst or erosion is noted in the scaphoid measuring 6 mm.An additional cyst or erosion is noted in the radial aspect of the lunate. Large distal radial and ulnar osteophytes are present. Narrowing and subchondral sclerosis of the first carpometacarpal joint is also noted. Left wrist: There is no fracture or dislocation. Diffuse joint space narrowing and sclerosis of the distal radioulnar, intercarpal, radiocarpal andulnocarpal joint spaces. A cyst or erosion is noted in the scaphoid measuring 5 mm. Large distal radial and ulnar osteophytes are present. Narrowing and subchondral sclerosis at the first carpometacarpal joint is also noted. Right foot: There is no fracture. Osseous erosions of the first and fifth metatarsal heads. Polyarticular arthritic changes with asymmetric joint space narrowing most prominent in the first metatarsophalangeal and interphalangeal joints. Calcaneal spur is present. Diffuse osteopenia. Left foot: There is no fracture. Osseous erosions of the first and fifth metatarsal heads. Polyarticular arthritic changes with asymmetric joint space narrowing most prominent in the first and fifth metatarsophalangealjoints. Osteophytes of the medial cuneiform and navicular are noted. A calcaneal spur is present. Diffuse osteopenia. IMPRESSION: 1.Hands: Erosive arthritis primarily affecting the second and third metacarpophalangeal joints with severe joint space narrowing and subluxation of the second joint. Findings are compatible with patient's known rheumatoid arthritis. 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 The arthritis has progressed compared to 02/15/2016. 2.Wrists: Moderate polyarticular arthritis bilaterally. 3.Feet: Erosive arthritis primarily affecting the first and fifth metatarsal heads. 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 Report dictated by Susi James DO (radiology rn). IArjun MD have personally reviewed and interpreted this examination/study. > Interpreting Provider: Arjun Carrillo MD on 09/28/2022 1:53 PM Dl Jones MD DIAGNOSTIC IMAGING O RDERABLES * XR WRIST LEFT 3VW OR MORE (09/28/2022 12:50 PM CDT) Anatomical Region Laterality Modality Wrist / Hand Radiographic Sindhu ging 09/28/2022 1:11 PM CDT Impressions 09/28/2022 1:53 PM CDT IMPRESSION: 1.Hands: Erosive arthritis primarily affecting the second and third metacarpophalangeal joints with severe joint space narrowing and subluxation of the second joint. Findings are compatible with patient's known rheumatoid arthritis. 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 The arthritis has progressed compared to 02/15/2016. 2.Wrists: Moderate polyarticular arthritis bilaterally. 3.Feet: Erosive arthritis primarily affecting the first and fifth metatarsal heads. 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 Report dictated by Susi James DO (radiology rn). I, Arjun Carrillo MD have personally reviewed and interpreted this examination/study. > Interpreting Provider: Arjun Carrillo MD on 09/28/2022 1:53 PM Narrative 09/28/2022 1:53 PM CDT PROCEDURE: ??XR WRIST RIGHT 3VW OR MORE, XR FOOT LEFT 3VW OR MORE, XR HAND RIGHT 3VW OR MORE, XR HAND LEFT 3VW OR MORE, XR FOOT RIGHT 3VW OR MORE, XR WRIST LEFT 3VW OR MORE, DATE/TIME OF EXAM: ??09/28/2022 12:50 PM, LOCATION [facility] INDICATION: M05.79: 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 (CMS/HCC) Z51.81: Therapeutic drug monitoring D84.821: Immunosuppression due to drug therapy (CMS/HCC) Z79.899: Immunosuppression due to drug therapy (CMS/HCC) COMPARISON: Bilateral foot and hand radiographs dated 02/15/2016 FINDINGS: Right hand: There is no fracture. Ulnar subluxation of the second proximal phalanx with respect to the metacarpal. Ulnar deviation of the second through fifth metacarpophalangeal joints is noted. Erosive changes and joint space narrowing of the second and to a lesser extent third metacarpophalangeal joints are present. Polyarticular arthritic changes with periarticular osteophytosis are most prominent in the distal interphalangeal joints and first digit interphalangeal joint. Diffuse osteopenia. Left hand: There is no fracture. Ulnar subluxation of the second proximal phalanx with respect to the metacarpal. Ulnar deviation of the second through fifth metacarpophalangeal joints is noted. Erosive changes and joint space narrowing of the second and to a lesser extent third metacarpal metacarpophalangeal joints is present. Additional erosions of the head of the first metacarpal and head of the second digit middle phalanx. Polyarticular arthritic changes with periarticular osteophytosis most prominent in the distal interphalangeal joints and first digit interphalangeal joint. Diffuse osteopenia. Right wrist: There is no fracture or dislocation. Diffuse joint space narrowing and sclerosis in the distal radioulnar, intercarpal, radiocarpal and ulnocarpal joint spaces. A cyst or erosion is noted in the scaphoid measuring 6 mm. An additional cyst or erosion is noted in the radial aspect of the lunate. Large distal radial and ulnar osteophytes are present. Narrowing and subchondral sclerosis of the first carpometacarpal joint is also noted. Left wrist: There is no fracture or dislocation. Diffuse joint space narrowing and sclerosis of the distal radioulnar, intercarpal, radiocarpal and ulnocarpal joint spaces. A cyst or erosion is noted in the scaphoid measuring 5 mm. Large distal radial and ulnar osteophytes are present. Narrowing and subchondral sclerosis at the first carpometacarpal joint is also noted. Right foot: There is no fracture. Osseous erosions of the first and fifth metatarsal heads. Polyarticular arthritic changes with asymmetric joint space narrowing most prominent in the first metatarsophalangeal and interphalangeal joints. Calcaneal spur is present. Diffuse osteopenia. Left foot: There is no fracture. Osseous erosions of the first and fifth metatarsal heads. Polyarticular arthritic changes with asymmetric joint space narrowing most prominent in the first and fifth metatarsophalangeal joints. Osteophytes of the medial cuneiform and navicular are noted. A calcaneal spur is present. Diffuse osteopenia. Procedure Note Arjun Carrillo MD - 09/28/2022 PROCEDURE: XR WRIST RIGHT 3VW OR MORE, XR FOOT LEFT 3VW OR MORE, XRHAND RIGHT 3VW OR MORE, XR HAND LEFT 3VW OR MORE, XR FOOT RIGHT 3VW OR MORE,XR WRIST LEFT 3VW OR MORE, DATE/TIME OF EXAM: 09/28/2022 12:50 PM, LOCATION [facility] INDICATION: M05.79: 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 (CMS/HCC) Z51.81: Therapeutic drug monitoring D84.821: Immunosuppression due to drug therapy (CMS/HCC) Z79.899: Immunosuppression due to drug therapy (CMS/HCC) COMPARISON: Bilateral foot and hand radiographs dated 02/15/2016 FINDINGS: Right hand: There is no fracture. Ulnar subluxation of the second proximal phalanxwith respect to the metacarpal. Ulnar deviation of the second through fifth metacarpophalangeal joints is noted. Erosive changes and joint space narrowing of the second and to a lesser extent third metacarpophalangeal joints are present. Polyarticular arthritic changes with periarticular osteophytosis are most prominent in the distal interphalangeal jointsand first digit interphalangeal joint. Diffuse osteopenia. Left hand: There is no fracture. Ulnar subluxation of the second proximal phalanxwith respect to the metacarpal. Ulnar deviation of the second through fifth metacarpophalangeal joints is noted. Erosive changes and joint space narrowing of the second and to a lesser extent third metacarpal metacarpophalangeal joints is present. Additional erosions of the headof the first metacarpal and head of the second digit middle phalanx. Polyarticular arthritic changes with periarticular osteophytosis most prominent in the distal interphalangeal joints and first digit interphalangeal joint. Diffuse osteopenia. Right wrist: There is no fracture or dislocation. Diffuse joint space narrowing and sclerosis in the distal radioulnar, intercarpal, radiocarpal andulnocarpal joint spaces. A cyst or erosion is noted in the scaphoid measuring 6 mm.An additional cyst or erosion is noted in the radial aspect of the lunate. Large distal radial and ulnar osteophytes are present. Narrowing and subchondral sclerosis of the first carpometacarpal joint is also noted. Left wrist: There is no fracture or dislocation. Diffuse joint space narrowing and sclerosis of the distal radioulnar, intercarpal, radiocarpal andulnocarpal joint spaces. A cyst or erosion is noted in the scaphoid measuring 5 mm. Large distal radial and ulnar osteophytes are present. Narrowing and subchondral sclerosis at the first carpometacarpal joint is also noted. Right foot: There is no fracture. Osseous erosions of the first and fifth metatarsal heads. Polyarticular arthritic changes with asymmetric joint space narrowing most prominent in the first metatarsophalangeal and interphalangeal joints. Calcaneal spur is present. Diffuse osteopenia. Left foot: There is no fracture. Osseous erosions of the first and fifth metatarsal heads. Polyarticular arthritic changes with asymmetric joint space narrowing most prominent in the first and fifth metatarsophalangealjoints. Osteophytes of the medial cuneiform and navicular are noted. A calcaneal spur is present. Diffuse osteopenia. IMPRESSION: 1.Hands: Erosive arthritis primarily affecting the second and third metacarpophalangeal joints with severe joint space narrowing and subluxation of the second joint. Findings are compatible with patient's known rheumatoid arthritis. 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 The arthritis has progressed compared to 02/15/2016. 2.Wrists: Moderate polyarticular arthritis bilaterally. 3.Feet: Erosive arthritis primarily affecting the first and fifth metatarsal heads. 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 Report dictated by Susi James DO (radiology rn). I, Arjun Carrillo MD have personally reviewed and interpreted this examination/study. > Interpreting Provider: Arjun Carrillo MD on 09/28/2022 1:53 PM Dl Jones MD DIAGNOSTIC IMAGING O RDERABLES * XR CERVICAL SPINE 4 OR 5VW (09/28/2022 12:50 PM CDT) Anatomical Region Laterality Modality Spine Radiographic Sindhu ging 09/28/2022 2:30 PM CDT Impressions 09/28/2022 3:58 PM CDT IMPRESSION: No significant abnormality of the predental interval or the C1 process. No acute fracture or subluxation. No atlantoaxial stability. > Dictated by Pascual Mullins MD I, Arsh Iqbal MD have personally reviewed and interpreted this examination/study. > Interpreting Provider: Arsh Iqbal MD on 09/28/2022 3:58 PM Narrative 09/28/2022 3:58 PM CDT PROCEDURE: ??XR CERVICAL SPINE 4 OR 5VW, DATE/TIME OF EXAM: ??09/28/2022 12:50 PM, LOCATION ??[facility] INDICATION: M05.79: 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 (CMS/HCC) Z51.81: Therapeutic drug monitoring D84.821: Immunosuppression due to drug therapy (CMS/HCC) Z79.899: Immunosuppression due to drug therapy (CMS/HCC) COMPARISON: None. TECHNIQUE: AP, lateral and lateral flexion and lateral extension views are obtained FINDINGS: The vertebral height and alignment is normal. There is no fracture or subluxation. The disc spaces are maintained. 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 No abnormal prevertebral soft tissue swelling is seen. No significant widening of the predental interval. 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 TECHNIQUE: AP, lateral and lateral flexion and lateral extension viewsare obtained FINDINGS: The vertebral height and alignment is normal. There is no fracture or subluxation. The disc spaces are maintained. 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 No abnormal prevertebral soft tissue swelling is seen. No significant widening of the predental interval. IMPRESSION: No significant abnormality of the predental interval or the C1 process. No acute fracture or subluxation. No atlantoaxial stability. > Dictated by Pascual Mullins MD I, Arsh Iqbal MD have personally reviewed and interpreted this examination/study. > Interpreting Provider: Arsh Iqbal MD on 09/28/2022 3:58 PM Dl Jones MD DIAGNOSTIC IMAGING O RDERABLES * CULTURE URINE REFLEXED (12/09/2021 11:13 AM STAMP REDEMPTION CLERK) Reflexive Urine Culture See Below [facility] Comment: CULTURE INDICATED - RESULTS TO FOLLOW Test Performed at: [facility] [place] [address] [place] [address] ??[phone] CHAVA MILLS DO,MPH 12/09/2021 11:1 3 AM STAMP REDEMPTION CLERK 12/09/2021 11:15 AM STAMP REDEMPTION CLERK Jayant Villa MD LAB - MICROBIOLOGY O RDERABLES [facility] [address] [place] [address] * CULTURE URINE (12/09/2021 11:13 AM STAMP REDEMPTION CLERK) Culture [facility] Comment: ??CULTURE, URINE, ROUTINE ?Micro Number: ?[id number] ??Test Status: ? Final ??Specimen Source: ?? Urine ??Specimen Quality: ??Adequate ??Result: ?Less than 10,000 CFU/mL of single Gram positive ? organism isolated. No further testing will be ? performed. If clinically indicated, recollection ? using a method to minimize contamination, with ? prompt transfer to Urine Culture Transport Tube, ? is recommended. REPORT COMMENT: SPLIT 07/15/2021 FROM [id number] Test Performed at: [facility] ??[phone] CHAVA MILLS DO,MPH 12/09/2021 11:1 3 AM STAMP REDEMPTION CLERK 12/09/2021 11:15 AM STAMP REDEMPTION CLERK Jayant Villa MD LAB - MICROBIOLOGY O RDERABLES [facility] [address] [place] [address] * IMAGING RADIOLOGY XRAY RESULTS ORDER (04/01/2021) Anatomical Region Laterality Modality Other 04/01/2021 Narrative 04/01/2021 Ordered by an unspecified provider. Scanned Document IMAGING * (ABNORMAL) URINALYSIS W/MICROSCOPIC NO CULTURE (08/10/2020 1:25 PM CDT) Color UA DARK YELLOW YELLOW [facility] Appearance CLOUDY(A) CLEAR [facility] Specific [place] UA 1.021 1.001 - 1.035 [facility] pH UA 5.5 5.0 - 8.0 [facility] Glucose UA NEGATIVE NEGATIVE [facility] Bilirubin UA NEGATIVE NEGATIVE [facility] Ketone UA TRACE(A) NEGATIVE [facility] Blood UA NEGATIVE NEGATIVE [facility] Protein UA NEGATIVE NEGATIVE [facility] Nitrite UA NEGATIVE NEGATIVE [facility] Leukocyte UA 1+(A) NEGATIVE [facility] WBC UA 0-5 < OR = 5 /HPF [facility] RBC UA 0-2 < OR = 2 /HPF [facility] Epithelial Cell UA 10-20(A) < OR = 5 /HPF [facility] Bacteria UA MODERATE(A) NONE SEEN /HPF [facility] Calcium Oxalate Crystals MANY(A) NONE OR FEW /HPF [facility] Hyaline Casts 6-10(A) NONE SEEN /LPF [facility] Comment: Test Performed at: [facility] [address] [place], [place] ??[address] CHAVA MILLS DO,MPH 08/10/2020 1:25 PM CDT 08/10/2020 1:28 PM CDT Dallas Wilson MD LAB - URINALYSIS ORD ERABLES [facility] [address] [place] [address] * (ABNORMAL) VITAMIN D 25-HYDROXY (12/05/2017 11:02 AM STAMP REDEMPTION CLERK) Only the most recent of3 resultswithin the time period is included. Vitamin D, 25 Hydroxy Total 21(L) 30 - 100 ng/mL [facility] ([facility]) Comment: Vitamin D Status ? 25-OH Vitamin D: Deficiency: ?<20 ng/mL Insufficiency: ? 20 - 29 ng/mL Optimal: ? > or = 30 ng/mL For 25-OH Vitamin D testing on patients on D2-supplementation and patients for whom quantitation of D2 and D3 fractions is required, the QuestAssureD(TM) 25-OH VIT D, (D2,D3), LC/MS/MS is recommended: order code 08649 (patients >2yrs). For more information on this test, go to: http://education.Volance/faq/ZYF279 (This link is being provided for informational/educational purposes only.) REPORT COMMENT: COPY TO PCP, SINGH SINGH, FAX:[phone]; COPY TO Test Performed at: [facility] [place] ??[address] CHAVA MILLS DO,MPH 12/05/2017 11:0 2 AM STAMP REDEMPTION CLERK 12/05/2017 11:03 AM STAMP REDEMPTION CLERK Una Barillas MD LAB - CHEMISTRY ANGUS CERVANTES Performing Organization Address [facility] Co de Phone Number [facility] ([facility]) [id number] [place] [address] * ALDOLASE (12/05/2017 11:02 AM STAMP REDEMPTION CLERK) Only the most recent of2 resultswithin the time period is included. Aldolase 5.3 < OR = 8.1 U/L [facility] ([facility]) Comment: REPORT COMMENT: COPY TO PCP, SINGH SINGH, FAX:[phone]; COPY TO Test Performed at: [facility] [address] ??[address] CHAVA MILLS DO,MPH Blood specimen (specimen) BLOOD SPECIMEN / Unknown 12/05/2017 11:02 AM STAMP REDEMPTION CLERK 12/05/2017 11:03 AM STAMP REDEMPTION CLERK Narrative [facility] ([facility]) - 12/06/2017 11:00 AM STAMP REDEMPTION CLERK Copy to PCPSingh, fax:[phone] Una Barillas MD LAB - CHEMISTRY ANGUS CERVANTES Performing Organization Address [facility] Co de Phone Number [facility] ([facility]) [id number] [place] [address] * B-TYPE NATRIURETIC PEPTIDE (12/05/2017 11:02 AM STAMP REDEMPTION CLERK) BNP 17 <100 pg/mL [facility] ([facility]) Comment: BNP levels increase with age in the general population with the highest values seen in individuals greater than 75 years of age. Reference: J. Am. Amelia. Cardiol. 2002; 40:976-982. REPORT COMMENT: COPY TO SINGH HERR, FAX:[phone]; COPY TO Test Performed at: [facility] [address] [place] ??[address] CHAVA MILLS DO,MPH Blood specimen (specimen) BLOOD SPECIMEN / Unknown 12/05/2017 11:02 AM STAMP REDEMPTION CLERK 12/05/2017 11:03 AM STAMP REDEMPTION CLERK Narrative [facility] ([facility]) - 12/06/2017 9:00 AM STAMP REDEMPTION CLERK Copy to Singh HERR, fax:[phone] Una Barillas MD LAB - CHEMISTRY ANGUS CERVANTES Performing Organization Address [facility] de Phone Number [facility] ([facility]) [address] [place] [address] * LDH BLOOD (12/05/2017 11:02 AM STAMP REDEMPTION CLERK) Only the most recent of2 resultswithin the time period is included. LDH Total 153 120 - 250 U/L [facility] ([facility]) Comment: Test Performed at: [facility] [address] [address] [place] ??[address] CHAVA MILLS DO,MPH Blood specimen (specimen) BLOOD SPECIMEN / Unknown 12/05/2017 11:02 AM STAMP REDEMPTION CLERK 12/05/2017 11:03 AM STAMP REDEMPTION CLERK Narrative [facility] ([facility]) - 12/06/2017 4:00 AM STAMP REDEMPTION CLERK Copy to Singh HERR, fax:[phone] Una Barillas MD LAB - CHEMISTRY ANGUS CERVANTES Performing Organization Address [facility] Co de Phone Number [facility] ([facility]) [address] [place] [address] * CK BLOOD (12/05/2017 11:02 AM STAMP REDEMPTION CLERK) Only the most recent of2 resultswithin the time period is included. CK Total 56 29 - 143 U/L [facility] ([facility]) Comment: REPORT COMMENT: COPY TO SINGH HERR, FAX:[phone]; COPY TO Test Performed at: [facility] [place] [address] [place], [place] ??[address] CHAVA MILLS DO,MPH Blood specimen (specimen) BLOOD SPECIMEN / Unknown 12/05/2017 11:02 AM STAMP REDEMPTION CLERK 12/05/2017 11:03 AM STAMP REDEMPTION CLERK Narrative [facility] ([facility]) - 12/06/2017 4:00 AM STAMP REDEMPTION CLERK Copy to PCP, Singh Singh, fax:[phone] Una Nargis ACE LAB - CHEMISTRY ANGUS CERVANTES [facility] ([facility]) [address] * (ABNORMAL) QUANTIFERON TB-GOLD (01/19/2017 9:30 AM STAMP REDEMPTION CLERK) Only the most recent of2 resultswithin the time period is included. [facility] QuantiFERON TB Gold INDETERMI CIARRA(A) NEGATIVE [facility] ([facility]) Comment: Results are indeterminate for response to ESAT-6,TB7.7 and/or CFP-10 test antigens. QuantiFERON Nil Value 0.00 IU/mL [facility] ([facility]) QuantiFERON Mitogen Value 0.07 IU/mL [facility] ([facility]) QuantiFERON TB Antigen minus Nil value 0.00 IU/mL [facility] ([facility]) Comment: The Nil tube value is used to determine if the patient has a preexisting immune response which could cause a false-positive reading on the test. In order for a test to be valid, the Nil tube must have a value of less than or equal to 8.0 IU/mL. The mitogen control tube is used to assure the patient has a healthy immune status and also serves as a control for correct blood handling and incubation. It is used to detect false-negative readings. The mitogen tube must have a gamma interferon value of greater than or equal to 0.5 IU/mL higher than the value of the Nil tube. The TB antigen tube is coated with the M. tuberculosis specific antigens. For a test to be considered positive, the TB antigen tube value minus the Nil tube value must be greater than or equal to 0.35 IU/mL. For additional information, please refer to http://education.Volance/faq/QFT (This link is being provided for informational/ educational purposes only.) REPORT COMMENT: FASTING:YES Test Performed at: [facility] [employer] [facility] [address] [place] ??[address] CHAVA MILLS DO,MPH 01/19/2017 9:30 AM STAMP REDEMPTION CLERK 01/19/2017 9:19 AM STAMP REDEMPTION CLERK Una Barillas MD LAB - CHEMISTRY ORDE RABLONDON [facility] ([facility]) * (ABNORMAL) CBC W/O DIFFERENTIAL (10/11/2016 10:57 AM STAMP REDEMPTION CLERK) WBC 7.4 3.8 - 10.8 Thousand/u L [facility] ([facility]) RBC 4.30 3.80 - 5.10 Million/uL [facility] ([facility]) Hemoglobin 12.1 11.7 - 15.5 g/dL [facility] ([facility]) Hematocrit 37.2 35.0 - 45.0 % [facility] ([facility]) MCV 86.5 80.0 - 100.0 fL [facility] (H) MCH 28.2 27.0 - 33.0 pg [facility] ([facility]) MCHC 32.6 32.0 - 36.0 g/dL [facility] ([facility]) RDW-CV 16.5(H) 11.0 - 15.0 % [facility] ([facility]) Platelet 222 140 - 400 Thousand/u L [facility] ([facility]) MPV 9.8 7.5 - 11.5 fL [facility] ([facility]) Comment: Test Performed at: [employer] [facility] [address] [place], [place] ??[address] CHAVA MILLS DO,MPH Blood specimen (specimen) BLOOD SPECIMEN / Unknown 10/11/2016 10:57 AM STAMP REDEMPTION CLERK 10/11/2016 11:00 AM STAMP REDEMPTION CLERK Una Barillas MD LAB - HEMATOLOGY ORD ERABLES [facility] ([facility]) * LORAINE W/REFLEX IFA PATTERN (02/15/2016 1:41 PM CDT) LORAINE None Detected None Detected [facility] Blood specimen (specimen) BLOOD SPECIMEN / Unknown 02/15/2016 1:41 PM CDT 02/15/2016 2:14 PM CDT Una Nargis ACE LAB - SEROLOGY ORDER RAYNA [facility] [address] [phone] * QUANTIFERON TB-GOLD INC (02/15/2016 1:41 PM CDT) QuantiFERON TB Gold Negative Negative [facility] ([facility]) Comment: The specimen received for QuantiFERON testing was incubated by the ordering institution. ??Specific procedures outlined in our Directory of Services and in the package insert for the QuantiFERON Gold (In Tube) test must be followed to enable for proper stimulation of cells for the production of interferon gamma. QuantiFERON Criteria Comment [facility] ([facility]) Comment: To be considered positive a specimen should have a TB Ag minus Nil value greater than or equal to 0.35 IU/mL and in addition the TB Ag minus Nil value must be greater than or equal to 25% of the Nil value. There may be insufficient information in these values to differentiate between some negative and some indeterminate test values. QuantiFERON TB Antigen Value 0.03 IU/mL [facility] ([facility]) QuantiFERON Nil Value 0.03 IU/mL [facility] ([facility]) QuantiFERON Mitogen Value 7.48 IU/mL [facility] ([facility]) QFT TB Ag minus Nil Value 0.00 IU/mL [facility] ([facility]AKER) Interpretation Comment [facility] ([facility]) Comment: The QuantiFERON TB Gold (in Tube) assay is intended for use as an aid in the diagnosis of TB infection. Negative results suggest that there is no TB infection. In patients with high suspicion of exposure, a negative test should be repeated. A positive test indicates infection with Mycobacterium tuberculosis. Among individuals without tuberculosis infection, a positive test may be due to exposure to M. kansasii, M. szulgai or M. marinum. On the Internet, go to cdc.gov/tb for further details. Blood specimen (specimen) BLOOD SPECIMEN / Unknown 02/15/2016 1:41 PM CDT 02/15/2016 2:15 PM CDT Narrative [facility] ([place]) - 02/19/2016 6:15 AM CDT Performed at: ??[address] - [facility] ??[id number] [employer] Head Inspector And Adjuster: Lamberto Fair PhD, Phone: ??[phone] Una Barillas MD LAB - SEROLOGY ORDER RAYNA Performing Organization Address City/[facility]/ZIP Co de Phone Number [facility] ([place]) * (ABNORMAL) RHEUMATOID FACTOR BLOOD QUANTITATIVE (02/15/2016 1:41 PM CDT) Rheumatoid Factor 117(H) <30 IU/mL [facility] Blood specimen (specimen) BLOOD SPECIMEN / Unknown 02/15/2016 1:41 PM CDT 02/15/2016 2:14 PM CDT Una Barillas MD LAB - CHEMISTRY ORDE HELEN Performing Organization Address [facility]/ZIP Co de Phone Number [address] [phone] * SS-B (SJOGRENS'S) ANTIBODY (02/15/2016 1:41 PM CDT) SS-B LA Antibody 1.4 0.0 - 19.9 Units [facility] Comment: BAO Antibody Numeric Result Interpretation: ?<20.0 Units: ??Negative ?20.0 - 39.0 Units: ??Weakly Positive ?>39.0 Units: ??Positive ? Blood specimen (specimen) BLOOD SPECIMEN / Unknown 02/15/2016 1:41 PM CDT 02/15/2016 2:14 PM CDT Una Barillas MD LAB - CHEMISTRY ANGUS CERVANTES [address] [phone] * SS-A (SJOGREN'S) ANTIBODY (02/15/2016 1:41 PM CDT) [facility] SS-A (Ro) Antibody 2.1 0.0 - 19.9 Units [facility] Comment: BAO Antibody Numeric Result Interpretation: ?<20.0 Units: ??Negative ?20.0 - 39.0 Units: ??Weakly Positive ?>39.0 Units: ??Positive ? Blood specimen (specimen) BLOOD SPECIMEN / Unknown 02/15/2016 1:41 PM CDT 02/15/2016 2:14 PM CDT Una Barillas MD LAB - CHEMISTRY ANGUS CERVANTES Performing Organization Address [facility]/ZIP Co de Phone Number [address] [phone] * (ABNORMAL) CYCLIC CITRUL PEPTIDE AB IGG (CCP) (02/15/2016 1:41 PM CDT) [facility] CCP Antibody IgG 36.7(H) <5.0 U/mL [facility] Blood specimen (specimen) BLOOD SPECIMEN / Unknown 02/15/2016 1:41 PM CDT 02/15/2016 2:14 PM CDT Una Barillas MD LAB - CHEMISTRY ANGUS CERVANTES Performing Organization Address City/[facility]/ZIP Co de Phone Number [address] [phone] * IRON BLOOD (02/15/2016 1:41 PM CDT) [facility] Iron 63 40 - 150 mcg/dL [facility] Blood specimen (specimen) BLOOD SPECIMEN / Unknown 02/15/2016 1:41 PM CDT 02/15/2016 2:14 PM CDT Una Barillas MD LAB - CHEMISTRY ANGUS CERVANTES Performing Organization Address City/[facility]/ZIP Co de Phone Number [address] [phone] * TSH (02/15/2016 1:41 PM CDT) Pathologist [facility] TSH 2.289 0.350 - 4.940 uIU/mL [facility] Blood specimen (specimen) BLOOD SPECIMEN / Unknown 02/15/2016 1:41 PM CDT 02/15/2016 2:14 PM CDT Una Barillas MD LAB - CHEMISTRY ANGUS CERVANTES Performing Organization Address [facility]/ZIP Co de Phone Number [address] [phone] * T4 FREE (02/15/2016 1:41 PM CDT) Pathologist [facility] T4 Free 0.9 0.7 - 1.5 ng/dL [facility] Blood specimen (specimen) BLOOD SPECIMEN / Unknown 02/15/2016 1:41 PM CDT 02/15/2016 2:14 PM CDT Una Barillas MD LAB - CHEMISTRY ANGUS CERVANTES Performing Organization Address City/[facility]/ZIP Co de Phone Number [address] [phone] * HEPATITIS C ANTIBODY (02/15/2016 1:41 PM CDT) Pathologist [facility] Hepatitis C Antibody [facility] Comment: Hepatitis C Antibody screen indicates no serologic evidence of past or current infection with Hepatitis C Virus. Patients with unexplained liver disease who are immunocompromised or suspected of having acute Hepatitis C infection may benefit from Nucleic Acid Test (GABI) for Hepatitis C Viral RNA to confirm Hepatitis C status. Blood specimen (specimen) BLOOD SPECIMEN / Unknown 02/15/2016 1:41 PM CDT 02/15/2016 2:14 PM CDT Una Barillas MD LAB - CHEMISTRY ANGUS CERVANTES [facility] [address] [place] [address] * FERRITIN (02/15/2016 1:41 PM CDT) Ferritin 117 13 - 204 ng/mL [facility] Blood specimen (specimen) BLOOD SPECIMEN / Unknown 02/15/2016 1:41 PM CDT 02/15/2016 2:14 PM CDT Una Barillas MD LAB - CHEMISTRY ANGUS CERVANTES Performing Organization Address City/[facility]/ZIP Co de Phone Number [address] [phone] Care Teams Elementary Secretary Relationship Specialty Start Date End Date Singh Singh MD [address] [place] [phone] PCP - General 02/12/16
--- OUTSIDE RECORDS SUMMARY | 2024-12-21 15:10 | XMS_ITS | Encounter Summary ---
Author Organization [facility] Address [address] [place] [address] Care Team Providers Care [place] [employer] Lieutenant Name Role Phone Singh Loza MD Primary Care Provider [phone] Encounter Details Date Type Department Care Team (Late st Contact Info) Description 03/15/2023 Telephone [facility] [address] [place] [address] Sánchez Buitrago MD [facility] [place] [address] Social History Tobacco Use Types Packs/Day Years Used Date Smoking Tobacco: Never Smokeless Tobacco: Never Alcohol Use Standard Drinks/Week Comments No 0 (1 standard drink = 0.6 oz pur e alcohol) PHQ-2 Answer Date Recorded PHQ2 TOTAL SCORE 3 02/01/2023 Sex and Gender Information Value Date Recorded Sex Assigned at Not on file Gender Identity Female 05/29/2024 2:11 PM CDT Sexual Orientation Not on file COVID-19 Exposure Response Date Recorded In the last 10 days, have yo u been in contact with someone who was confirmed or suspected to have Coronavirus/COVID-19? No / Unsure 03/14/2023 8:15 AM CDT documented as of this encounter Miscellaneous Notes * Telephone Encounter - Bart Angel - 03/15/2023 12:45 PM CDT FYI PT'S INFUSION WENT LONG. THE INFUSION CENTER IS GETTING HER ASSISTANCE TO GET HER TO HER APPT. documented in this encounter Plan of Treatment Upcoming Encounters Date Type Department Care Team (Late st Contact Info) Description 01/01/2025 12:30 PM DATA ANALYTICS CHIEF SCIENTIST Appointment [facility] [address] [place] [address] 01/29/2025 1:30 PM DATA ANALYTICS CHIEF SCIENTIST Office Visit [facility] - Rheumatology [address] [place] [address], [place] [phone] Hu Ybarra MD [address] [place] [address] [place] [phone] documented as of this encounter Visit Diagnoses Not on filedocumented in this encounter Care Teams [place] [employer] Lieutenant Relationship Specialty Start Date End Date Singh Loza MD [address] [place] [phone] PCP - General 02/12/16 documented as of this encounter
--- OUTSIDE RECORDS SUMMARY | 2024-12-21 15:10 | XMS_ITS | Clinical Summary ---
Author Organization [facility] Address [address] [place] [address] Phone Care Team Providers Care Application Support Administrator Name Role Phone Singh Loza MD Primary Care Provider [phone] Jose Kumar MD Unavailable [phone] Lucita Patterson IN CLASSROOM TUTOR, COUNTER INTELLIGENCE AGENT Unavailable Romeo Dolan DPM Unavailable [phone] Melissa Rogers IN CLASSROOM TUTOR, COUNTER INTELLIGENCE AGENT Unavailable Nessa Reid MD Unavailable [phone] Allergies Active Allergy Reactions Criticality Noted Date Comments Aspirin Unknown Low 03/14/2024 Uncoated Buprenorphine Rash,Itching 06/14/2024 Patch Hydrocodone Nausea 02/12/2023 Nabumetone Anaphylaxis 04/22/2016 Ogaqrlo-Vyvb-Inppfvafyzykbm Unknown 03/20/20 17 Ondansetron Hcl Nausea,Vomiting 01/07/2019 Medications ASPIRIN LOW DOSE 81 MG Tablet Delayed Response Take 81 mg by mouth daily. 7 Active atorvastatin (LIPITOR) 40 MG Tablet Take 80 mg by mouth daily. 7 Active SERTRALINE HCL PO Take 200 mg by mouth daily. 7 Active metoprolol Succinate (TOPROL-XL) 25 MG TABLET SR 24 HR Take 25 mg by mouth every evening. Active gabapentin (NEURONTIN) 300 MG Capsule Take 300 mg by mouth 3 times daily. Active Multiple Vitamins-Mineral s (MULTIVITAMIN PO) Take 1 Tab by mouth daily. Active promethazine (PHENERGAN) 25 MG Tablet Take 12.5 mg by mouth 4 times daily as needed for Nausea - 1st line. Active ISOSORBIDE MONONITRATE PO Take 60 mg by mouth every evening. 9 Active montelukast (SINGULAIR) 10 MG Tablet Take 10 mg by mouth daily. Active doxepin (SINEQUAN) 10 MG Capsule Take 10 mg by mouth nightly as needed. Active glipiZIDE (GLUCOTROL) 5 MG Tablet Take 2.5 mg by mouth 2 times daily. Active furosemide (LASIX) 20 MG Tablet Take 20 mg by mouth daily. Active Carboxymeth-Glyc gerald-Polysorb (REFRESH OPTIVE RICA-3 OP) Place in affected eye(s) daily. Active methotrexate 2.5 MG Tablet Take 15 mg by mouth every 7 days Takes 6 tabs every Monday Active Multiple Vitamins-Mineral s (EQL VISION FORMULA PO) Take by mouth daily. Generic Ocuvite Active SUMAtriptan (IMITREX) 100 MG Tablet Take 100 mg by mouth once as needed. 3 Active cyclobenzaprine (FLEXERIL) 10 MG Tablet Take 10 mg by mouth 3 times daily as needed. 3 Active prochlorperazine (COMPAZINE) 10 MG Tablet Take 10 mg by mouth as needed. 3 Active OXYGEN CONCENTRATOR 2 L/min by Nasal route nightly. Active acetaminophen-co deine (TYLENOL #4) 300-60 MG Tablet Take 1 Tablet by mouth 2 times daily as needed. 3 Active albuterol 108 (90 Base) MCG/ACT Aerosol Solution take 2 Puffs by inhalation. 2 Active Blood Glucose Monitoring Suppl (OneTouch Verio) w/Device Kit 2 Active OneTouch Verio Strip 50 Strips. 3 Active TRUEplus Lancets 28G Misc 3 Active oxybutynin (DITROPAN) 5 MG Tablet Take 5 mg by mouth daily. 7 Active Tofacitinib Citrate ER (Xeljanz XR) 11 MG TABLET SR 24 HR Take 11 mg by mouth daily. 1 Active fluticasone (FLONASE) 50 MCG/ACT Suspension 1 [place] by Nasal route daily as needed for Rhinitis or Allergies. 18.2 g 3 Active Additional Information Patient taking differently:1 [place] NasalDAILY, Reported on 06/14/2024 HYDROcodone-acet aminophen (NORCO) 5-325 MG TabletIndication s:COVID-19 Take 1 Tablet by mouth every 4 hours as needed for Moderate or more severe pain. 12 Tablet 3 Active Additional Information Patient not taking.Reported on 03/14/2024 insulin detemir (Levemir) 100 UNIT/ML Solution 15 Units by Subcutaneous route nightly. 15 mL 2 3 Active Additional Information Patient not taking.Reported on 03/14/2024 ondansetron (ZOFRAN-ODT) 4 MG TABLET DISPERSIBLE Take 1 Tablet by mouth every 6 hours as needed for Nausea - 1st line. 10 Tablet 3 Active Additional Information Patient not taking.Reported on 03/14/2024 polyethylene glycol (GLYCOLAX, MIRALAX) 17 g PackIndications: Constipation Take 1 Packet by mouth 2 times daily as needed for Constipation - 1st line. Dissolve in 4-8 oz of liquid. Indications: Constipation 90 Packet 3 Active senna (SENOKOT) 8.6 MG Tablet Take 1 Tablet by mouth 2 times daily as needed for Constipation - 2nd line. 30 Tablet 3 Active Additional Information Patient not taking.Reported on 03/14/2024 traMADol (ULTRAM) 50 MG TabletIndication s:Chest wall pain Take 1-2 Tablets by mouth every 6 hours as needed for Moderate or more severe pain. 20 Tablet 4 Active Additional Information Patient taking differently: 50 mgOralPRN, Moderate or more severe pain, Reported on 06/14/2024 lidocaine (XYLOCAINE) 5 % Ointment as needed. 4 Active predniSONE (DELTASONE) 5 MG Tablet as needed. 3 Active baclofen (LIORESAL) 10 MG Tablet Take 10 mg by mouth as needed. 3 Active Symbicort 160-4.5 MCG/ACT Aerosol 2 times daily. 4 Active abatacept (ORENCIA) 125 MG/ML Solution Prefilled Syringe 125 mg by Subcutaneous route every 30 days. IVPB Active buprenorphine 7.5 MCG/HR PATCH WEEKLY 7.5 mcg by Transdermal route. 4 Active Cholecalciferol (D3-50) 84668 UNIT Capsule Take 50,000 Units by mouth once a week. Active folic acid (FOLVITE) 400 MCG Tablet Take 1,500 mcg by mouth daily. Active omeprazole (PriLOSEC) 40 MG CAPSULE DELAYED RELEASE TAKE 1 CAPSULE BY MOUTH DAILY. 90 Capsule 3 4 Active oxyCODONE ER 9 MG Capsule Extended Release 12 hour Abuse-Deterrent Take by mouth 2 times daily. Active Evolocumab (Repatha) 140 MG/ML Solution Prefilled Syringe by Subcutaneous route every 14 days. Monday Active hydrOXYzine (ATARAX) 25 MG Tablet Take 25 mg by mouth 2 times daily as needed. Active Active Problems Problem Noted Date Diagnosed Date Acute respiratory failure with hypoxia 3 Sepsis 02/13/2023 Hyponatremia 02/13/2023 Hypertension 02/13/2023 Hyperlipidemia 02/13/2023 Pneumonia due to COVID-19 virus 02/12/2023 Esophageal stenosis 03/31/2021 Gastroesophageal reflux disease 03/31/2021 Diabetic polyneuropathy asso ciated with type 2 diabetes mellitus 05/18/2017 Equinus contracture of left ankle 05/18/2017 Equinus contracture of right ankle 05/18/2017 Rheumatoid arthritis(714.0) 05/18/2017 Primary osteoarthritis of both feet 05/18/2017 Hiatal hernia 04/25/2017 Immunizations Immunization Administration Dates Next Due Covid-19, Mrna, Lnp-s, PF, 1 00 mcg/0.5 mL Dose (Moderna) 03/08/2021,02/08/2021 Influenza Vaccine, Quadrivalent, PF 10/07/2020 Influenza, Injectable, Quadrivalent 10/27,12/10/2018,08/22/2017,2015,09/22/2014 Pneumococcal Vaccine - 13 Valent 10/04/2017 Family History Medical History Relation Name Comments Heart Attack Brother Heart Disease Brother Other-comment Brother HEART MURMUR Kidney Disease Maternal Aunt Cancer Maternal Grandmother colon Colon Cancer Maternal Grandmother Cancer Mother Colon Cancer Mother Alzheimer's Disease Sister Cancer Sister Heart Attack Sister Heart Disease Sister Relation Name Status Comments Brother Father Other Maternal Aunt Maternal Grandmother Mother Alive Sister Social History Tobacco Use Types Packs/Day Years [...] file Not on file Not on file Last Filed Vital Signs Vital Sign Reading Time Taken Comments Blood Pressure 115/53 08/23/2024 8:45 PM CDT Pulse 70 08/23/2024 8:45 PM CDT Temperature 36.8 ??C (98.3 ??F) 08/23/2024 8:56 PM CD T Respiratory Rate 20 08/23/2024 8:45 PM CDT Oxygen Saturation 92% 08/23/2024 8:45 PM CDT Inhaled Oxygen Concentration - - Weight 86.2 kg (190 lb) 08/23/2024 8:56 PM CDT Height 165.1 cm (5' 5 ) 08/23/2024 8:56 PM CDT Body Mass Index 31.62 08/23/2024 8:56 PM CDT Plan of Treatment Health Maintenance Due Date Last Done Comments Diabetes: Eye Exam 1958 Diabetes: Foot Exam 1960 Hepatitis C Virus (HCV) Screening 1960 TdaP Immunization 1960 Cologuard 2008 Immunochemical Fecal Occult Blood 2008 Respiratory Syncytial Virus (RSV) Immunization (Adult) (1 - Risk 60-74 years 1-dose series) 2018 Mammogram 06/15/2023 06/15/2021, 0712/2019, 02/06/2019 Diabetes: Hemoglobin A1c 08/15/2023 02/12/2023 Influenza Immunization (#1) 2024 11/0 05/2023, 09/19/2022, 10/12/2021, Additional history exists SARS-COV-2 Immunization ( season) 2024 08/10/2022, 03/25/2022, 10/12/2021, Additional history exists DEXA Bone Density 06/22/2025 06/22/2023 Diabetes: Nephropathy Screening 08/23/2025 08/23/2024, 12/06/2023, 02/15/2023, Additional history exists Colonoscopy 05/03/2026 05/03/2021, 03/22/2017 Colorectal Cancer Screening 05/03/2026 05/03/2021, 03/22/2017 Zoster Immunization Completed 03/25/2022, Pneumococcal Immunization (50+ years) Completed 09/19/2022, 10/04/2017, 12/26/2013 Pneumococcal Immunization Combined Discontinued 09/19/2022, 10/04/2017, 12/26/2013 Hepatitis B Immunization Aged Out No longer eligible based on patient's age to complete this topic Meningococcal Immunization (ACWY) Aged Out No longer eligible based on patient's age to complete this topic Rotavirus Immunization Aged Out No lo nger eligible based on patient's age to complete this topic Procedures Procedure Name Priority Date/Time Associated Diagnosis Comments CMP (COMPREHENSIVE METABOLIC PANEL) STAT 08/23/2024 7:02 PM CDT HEMOGLOBIN A1C W/ ESTIMATED GLUCOSE Routine 02/12/2023 4:00 PM CDT OZZY SCREENING BILATERAL DIGITAL W CAD W OBDULIO Routine 06/15/2021 11:41 AM CDT Encounter for screening mammogram for malignant neoplasm of breast from Last 3 Months or Most Recently Relevant to Health Maintenance Results * (ABNORMAL) CMP (08/23/2024 7:02 PM CDT) SODIUM 139 136 - 145 mmol/L 08/23/2024 7:52 PM CDT [facility] POTASSIUM 3.8 3.5 - 5.1 mmol/L 08/23/2024 7:52 PM CDT [facility] CHLORIDE 106 98 - 107 mmol/L 08/23/2024 7:52 PM CDT [facility] CO2, VENOUS 26 22 - 30 mmol/L 08/23/2024 7:52 PM CDT [facility] ANION GAP 10.8 <18.0 mmol/L 08/23/2024 7:52 PM CDT [facility] GLUCOSE 108(H) 70 - 99 mg/dL 08/23/2024 7:52 PM CDT [facility] BUN 12 10 - 20 mg/dL 08/23/2024 7:52 PM CDT [facility] CREATININE, BLOOD 0.89 0.60 - 1.00 mg/dL 08/23/2024 7:52 PM CDT [facility] BUN/CREATININE RATIO 13 12 - 20 ratio 08/23/2024 7:52 PM CDT [facility] TOTAL PROTEIN 7.0 6.3 - 8.2 g/dL 08/23/2024 7:52 PM CDT [facility] ALBUMIN 3.6 3.5 - 5.0 g/dL 08/23/2024 7:52 PM CDT [facility] A/G RATIO 1.1 1.0 - 2.2 08/23/2024 7:52 PM CDT [facility] CALCIUM 8.8 8.7 - 10.5 mg/dL 08/23/2024 7:52 PM CDT [facility] T BILI 0.4 0.2 - 1.2 mg/dL 08/23/2024 7:52 PM CDT [facility] SGOT (AST) 22 5 - 34 U/L 08/23/2024 7:52 PM CDT [facility] SGPT (ALT) 24 0 - 55 U/L 08/23/2024 7:52 PM CDT [facility] ALKALINE PHOSPHATASE 100 40 - 150 U/L 08/23/2024 7:52 PM CDT [facility] GFR, ESTIMATED >60 >=60 08/23/2024 7:52 PM CDT [facility] Comment: Creatinine Clearance is the preferred criteria for selecting drug dose adjustments in renally impaired patients. ??The GFR is provided as additional pertinent clinical information. GFR is reported in mL/min/1.73 sq m. Calculation based on the Chronic Kidney Disease Epidemiology Collaboration (CKD- EPI) equation refit without adjustment for race. GFR, EST. >60 >=60 024 7:52 PM CDT [facility] GFR, EST. NONAFRICAN >60 >=60 08/23/2024 7:52 PM CDT [facility] Blood Venipuncture / Unknown 08/23/2024 7:02 PM CDT 08/23/2024 7:17 PM CDT us Fortino Roberts MD CHEMISTRY ORDERABLES Final Result Performing Organization Address City/[facility]/ZIP Co de Phone Number [facility] [address] [place] [address] * (ABNORMAL) Hemoglobin A1C (if indicated) (02/12/2023 4:00 PM CDT) HGB-A1C 6.8(H) 4.0 - 6.0 % 02/13/2023 6:41 AM CDT [facility] Est Average Glucose 148.5 mg/dL 02/13/2023 6:41 AM CDT [facility] Blood Venipuncture / Unknown 02/12/2023 4:00 PM CDT 02/12/2023 4:07 PM CDT Narrative [facility] - 02/13/2023 6:41 AM CDT HEMOGLOBIN A1C: DIABETIC PATIENTS: WELL-CONTROLLED: ?? 6.2 - 7.0 INTERMEDIATE WELL-CONTROLLED: ??7.0 - 9.0 POORLY-CONTROLLED: ??>9.0 us Ciara Fraga IN CLASSROOM TUTOR, COUNTER INTELLIGENCE AGENT CHEMISTRY ORDERABLES Fi nal Result [facility] [address] [place] [address] * OZZY SCREENING BILATERAL DIGITAL W CAD W OBDULIO (06/15/2021 11:41 AM CDT) Anatomical Region Laterality Modality breast Bilateral Mammography 06/15/2021 10:5 4 AM CDT Narrative 06/15/2021 1:27 PM CDT - OZZY SCREENING BILATERAL DIGITAL W CAD W OBDULIO BILATERAL DIGITAL SCREENING MAMMOGRAM 3D/2D WITH CAD WITH MEDIOLATERAL OBLIQUE CRANIOCAUDAL: 06/15/2021 The study was acquired using digital technology and interpreted from soft copy. Current study was also evaluated with [employer] version 7.2. 2D digital mammographic views, as well as 3D digital tomosynthesis were performed in the CC and MLO projections. ?? CLINICAL: Routine screening. Patient has no complaints. No personal history of cancer. No family history of breast cancer. Exam performed in a wheelchair. ?? COMPARISONS: Comparison is made to exams dated: ??05/28/2020, 02/06/2019, and 05/27/2015 [facility]. ?? BREAST TISSUE:There are scattered fibroglandular densities in both breasts. ?? FINDINGS: There is an asymmetry in the right breast anterior depth superior region seen on the mediolateral oblique view only. ?? No other significant masses, calcifications, or other findings are seen in either breast. ?? IMPRESSION: BI-RAD 0 ADDITIONAL IMAGING EVALUATION NEEDED The asymmetry in the right breast is indeterminate. ??Additional views with possible ultrasound are recommended. ?? An immediate follow-up is recommended. ?? The patient has been or will be contacted. ?? Electronically signed by: Kimberly Kang M.D. ? ts/penrad:06/15/2021 13:08:52 ?? Pie Dough Roller(s): Jeanne ?? GIGI Cotto)(Nael), [facility]: [facility] ?? Reading [facility] BI-RADS: 0 Additional Imaging Evaluation Needed Procedure Note Kimberly Kang MD - 06/15/2021 - OZZY SCREENING BILATERAL DIGITAL W CAD W OBDULIO BILATERAL DIGITAL SCREENING MAMMOGRAM 3D/2D WITH CAD WITH MEDIOLATERAL OBLIQUE CRANIOCAUDAL: 06/15/2021 The study was acquired using digital technology and interpreted from soft copy. Current study was also evaluated with ICAD version 7.2. 2D digital mammographic views, as well as 3D digital tomosynthesis were performed in the CC and MLO projections. CLINICAL: Routine screening. Patient has no complaints. No personal history of cancer. No family history of breast cancer. Exam performed in a wheelchair. COMPARISONS: Comparison is made to exams dated: 05/28/2020, 02/06/2019, and 05/27/2015 [facility]. BREAST TISSUE:There are scattered fibroglandular densities in both breasts. FINDINGS: There is an asymmetry in the right breast anterior depth superior region seen on the mediolateral oblique view only. No other significant masses, calcifications, or other findings are seen in either breast. IMPRESSION: BI-RAD 0 ADDITIONAL IMAGING EVALUATION NEEDED The asymmetry in the right breast is indeterminate. Additional views with possible ultrasound are recommended. An immediate follow-up is recommended. The patient has been or will be contacted. Electronically signed by: Kimberly Kang M.D. ts/penrad:06/15/2021 13:08:52 Pie Dough Roller(s): RT Cristino(Shanae)(M), [facility] letter sent: Additional Imaging Reading location: [facility] BI-RADS: 0 Additional Imaging Evaluation Needed Singh Loza MD IMG MAMMO ORDERABLES Final Res ult from Last 3 Months or Most Recently Relevant to Health Maintenance Insurance MEDICAID [place] MEDICARE C [facility] Advance Directives Documents on File Type Date Recorded Patient Parks Recreation Coordinator Expl anation Advance Care Planning Discussion 04/12/2018 8:48 AM ACP COVER SHEET POLST/POST/NM DNR 04/12/2018 8:48 AM POLST 04/10/18 * Full Code (Latest Code Status on File) Date Activated Date Inactivated Comments 02/12/2023 9:20 PM 02/15/2023 6:31 PM CPR-Full [place] atment: FULL ARREST: Attempt Resuscitation/CPR wit intubation and mechanical ventilation. PRE-ARREST: Use entire range of life support measures to stabilize the patient. * Full Code Date Activated Date Inactivated Comments 01/23/2019 12:37 PM 05/03/2021 8:59 AM * Full Code Date Activated Date Inactivated Comments 03/22/2018 12:43 PM 04/10/2018 3:14 PM Care Teams Application Support Administrator Relationship Specialty Start Date End Date Singh Loza MD [address] [facility] [address] [place] [address] PCP - General Family Medicine 04/18/16 Jose Kumar MD [address] [place] [address] [place] [address] General Surgery 04/13/17 Lucita Patterson APRN, COUNTER INTELLIGENCE AGENT [address] [place] [address] Nurse Practitioner Advanced Practice Nurse 04/18/17 Romeo Dolan DPM [address] [place] [address] [address] Consulting Physician Podiatry 05/18/17 Melissa Rogers APRN, COUNTER INTELLIGENCE AGENT [address] [place] [address] Nurse Practitioner Advanced Practice Nurse 01/11/23 Nessa Reid MD [address] [place] [address] Consulting Physician Gastroenterology 03/15/24
--- OUTSIDE RECORDS SUMMARY | 2024-12-21 15:10 | XMS_ITS | Referral Summary ---
Author Organization [facility] Address [address] [place] [address] Care Team Providers Care Channeler Insole Name Role Phone Singh Loza MD Primary Care Provider [phone] Encounters Date Type Department Care Team Description 09/24/2024 Telephone [facility] Pulmonary at [address] [place] [address] Danisha Meraz LPN 09/24/2024 Orders Only [facility] Pulmonary at [address] [place] [address] Danisha Meraz LPN from Last 3 Months Allergies Active Allergy Reactions Criticality Noted Date Comments Aspirin Unknown Low Bcqmvxf-Affercds-Rwvukzlqxkcwg Swelling Medium 02/19 With hives Caffeine Dihydrocodeine [...] by mouth daily Active cholecalciferol (VITAMIN D-3) 80555 unit capsule Take 1 capsule (50,000 Units [...] wheezing or shortness of breath 1 each 11 4 Active furosemide (LASIX) 20 mg tablet [...] SOB (shortness of breath) 06/10/2020 Atherosclerosis of [place] ar teries of extremities with intermittent claudication, bilateral legs 06/10/2020 Overview (06/10/2020): Cath 03/09/2015 mild-moderate LAD disease Chronic cough 03/11/2020 Assessment & Plan (03/11/2020 11:52 AM CDT): Cough for several weeks without fever. Memory loss 09/14/2018 Diabetic polyneuropathy asso ciated with type 2 diabetes mellitus ([facility]) 05/18/2017 Equinus contracture of ankle 05/18/2017 Primary osteoarthritis of both feet 05/18/2017 Hiatal hernia 04/25/2017 Encounter for therapeutic drug level monitoring 01/09/2017 Fibromyalgia 02/15/2016 Other alf (current) drug therapy 6 Resolved Problems Problem Noted Date Diagnosed Date Resolved Date Rheumatoid arthritis of mult iple sites without organ or system involvement with positive rheumatoid factor ([facility]) 02/15/201601/2021 Vitamin D deficiency 02/15/2016 021 Immunizations Name Administration Dates Next Due Influenza, Quadrivalent, Spl it, Intramuscular 12/10/2018,08/22/2017,08/10/2016 Pneumococcal Conjugate PCV 13 10/04/2017 Social History Tobacco Use Types Packs/Day Years Used Date Smoking Tobacco: Never Smokeless Tobacco: Never Tobacco Cessation:Counseling Given: Not Answered Alcohol Use Standard Drinks/Week Comments No 0 (1 standard drink = 0.6 oz pur e alcohol) Comments Unknown Sex and Gender Information Value Date Recorded Sex Assigned at Not on file Legal Sex Female 7:58 PM ACCESS SERVICE REPRESENTATIVE Gender Identity Female 09/16/2021 4:34 PM CDT [...] 09/12/2024 1:38 PM CDT Plan of Treatment Not on file Procedures Procedure Name Priority Date/Time Associated Diagnosis [...] LDL-C. Jimmie BUNCH et al. PAIGE. 2013;310(19): 8033-0043 (http://education.Numerify/faq/NRC319) Chol/HDL ratio 5.5(H) <5.0 (calc) [facility] [...] 06/19/2024 5:11 AM CDT FASTING:YES FASTING: YES us Nguyen Puente NP LAB BLOOD ORDERABLES Fi nal Result [place] [address] [address] [address] * Dexa Axial Skeleton Bone Density 1 [...] sites ?? Osteoporosis screening ??Post menopausal ? Science Specialist/Model: [employer] SL ([id number]/N [id number]) CLINICAL INFORMATION: Current height: ??65.5 ??inches ? [...] AM T: ??06/24/2023 12:16 AM Report ID: [id number] Reading Location: ??[id number] Procedure Note Choco [place] MD - 06/24/2023 EXAM DESCRIPTION: DEXA AXIAL SKELETON BONE DENSITY 1 OR MORE SITES REASON FOR STUDY: 63 y/o year old F with given history of: rheumatoid arthritis of multiple sites Osteoporosis screening Post menopausal Science Specialist/Model: J[employer] SL (S/N [id number]) CLINICAL INFORMATION: Current height: 65.5 inches Maximum [...] Choco [place] M.D. MF: DOMINIC Report ID: [id number] Reading Location: [place] [address] us Dl Jones MD IMG DXA PROCEDURES Final Result * Serum Hepatitis C ab (07/10/2013 3:34 PM CDT) HCV ab Negative Negative HISTORICAL RESULTS Serum 07/10/2013 3:34 PM CDT us Tatyana Basurto MD LAB BLOOD ORDERABLES Yvonne l Result HISTORICAL RESULTS from Last 3 Months or Most Recently Relevant to Health Maintenance Insurance IDPA [facility] MEDICARE SOLUTIONS MEDICARE SOLUTIONS IDPA Care Teams Channeler Insole Relationship Specialty Start Date End Date Singh Lzoa MD PCP - General 07/16/13
--- OUTSIDE RECORDS SUMMARY | 2024-12-21 15:10 | XMS_ITS | Clinical Summary ---
Author Organization [facility] [employer] Address [address] [place] [address] Care Team Providers Care Undraped Artist Model Name Role Phone Singh Loza MD Primary Care Provider [phone] Source Comments [facility] [employer],non-owned Affiliates and Associated Physician Practices is amultiple site organization consisting of ambulatory clinics and hospital sitesin [place], [place], [place] and [place]. This disclosure is being madepursuant to the Care Everywhere program and may not contain all information available regarding this patient. Last updated 18.[facility] [employer] Allergies Active Allergy Reactions Criticality Noted Date Comments Buprenorphine Itching,Rash Medium 06/14/2024 Patch Nabumetone Anaphylaxis High 02/15/2016 Ondansetron Nausea and/or Vomiting,Vomiting Medium 09/2019 Synalgos-Dc Swelling Low 02/19/2018 With hives Medications * Be aware that medications may not be up to date on this document. Alwaysverify current medications with the patient. Medication Sig Dispensed Refills Start Date End Date Status atorvastatin (LIPITOR) 40 MG tablet Take 2 (two) tablets by mouth once daily 06/13/2018 Active isosorbide mononitrate CR 24hr (IMDUR) 60 MG tablet Take 1 (one) tablet by mouth once daily 06/15/2018 Active montelukast (SINGULAIR) 10 MG tablet Take 1 (one) tablet by mouth once daily 04/24/2018 Active aspirin EC (Ecotrin) 81 MG tablet Take 1 (one) tablet by mouth 12/19/2016 Active gabapentin (NEURONTIN) 300 MG capsule Take 1 (one) capsule by mouth 3 times daily Active oxybutynin (DITROPAN) 5 MG tabletIndications :Urinary Incontinence Take 2 (two) tablets by mouth once daily Reasons: Urinary Incontinence 12/19/2016 Active sertraline (ZOLOFT) 100 MG tablet Take 2 (two) tablets by mouth once daily 12/19/2016 Active furosemide (LASIX) 20 MG tablet Take 1 (one) tablet by mouth once daily 07/27/2021 Active glipiZIDE (GLUCOTROL) 5 MG tabletIndications :Type 2 Diabetes Mellitus Take 1 (one) tablet by mouth 2 times daily with morning and evening meal Reasons: Type 2 Diabetes 07/27/2021 Active cyclobenzaprine (FLEXERIL) 10 MG tablet Take 1 (one) tablet by mouth 3 times daily as needed 09/13/2021 Active prochlorperazine (COMPAZINE) 10 MG tablet Take 1 (one) tablet by mouth every 8 hours as needed 11/23/2021 Active albuterol HFA (PROVENTIL; VENTOLIN; PROAIR) 108 (90 Base) MCG/ACT inhaler Inhale 1 (one) puff to 2 (two) puffs by mouth every 6 hours as needed 02/21/2022 Active SUMAtriptan (Imitrex) 100 MG tablet Take 1 (one) tablet by mouth once as needed 09/19/2022 Active TRUEplus Lancets 28G MISC 09/05/2022 Active OneTouch Verio test strip 09/05/2022 Active Blood Glucose Monitoring Suppl (OneTouch Verio) w/Device KIT 07/10/2022 Active Oxygen [place] 2 L/min into the nose at bedtime Active Symbicort 160-4.5 MCG/ACT inhaler 01/31/2023 Active folic acid (Folvite) 1 MG tabletIndications :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 Indications: MACULAR DEGENERATION Active fluticasone propionate (Flonase) 50 MCG/ACT nasal spray [place] 1 (one) spray into the nose once daily as needed 02/15/2023 Active polyethylene glycol 3350 (Miralax) 17 GM/SCOOP powder Take 17 (seventeen) g by mouth as needed for Constipation (as needed) 02/15/2023 Active baclofen (Lioresal) 10 MG tablet Take 1 (one) tablet by mouth 3 times daily as needed 03/19/2024 Active lidocaine (Xylocaine) 5 % ointment Apply to affected area 4 times daily as needed 02/14/2024 Active omeprazole (PriLOSEC) 40 MG capsule Take 1 (one) capsule by mouth once daily 03/19/2024 Active traMADol (Ultram) 50 MG tablet Take 1 (one) tablet by mouth every 6 hours as needed for Pain Active Xtampza ER 9 MG capsule 05/21/2024 Active Cholecalciferol 1.25 MG (28749 UT) Take 50,000 Units by mouth Active evolocumab (Repatha SureClick) 140 MG/ML auto-injector Inject 140 (one hundred forty) mg subcutaneously every 14 days 06/19/2024 5 Active hydrOXYzine pamoate (Vistaril) 25 MG capsule 07/24/2024 Active methotrexate 2.5 MG tabletIndications :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) Take 7 (seven) tablets by mouth every 7 days 84 tablet 3 07/31/2024 5 Active predniSONE (Deltasone) 5 MG tabletIndications :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) Take 1 (one) tablet by mouth as directed for 30 days For flare take 3 pills for 1 day, then 2 pills for 1 day, then 1 pill for 1 day, then stop 60 tablet 12/06/2024 5 Active predniSONE (Deltasone) 5 MG tabletIndications :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) Take 1 (one) tablet by mouth once daily for 90 days 30 tablet 2 06/27/2024 5 Discontinu ed(Reorder ) Active Problems Problem Noted Date Diagnosed Date SOB (shortness of breath) 12/04/2017 Encounter for long-term (current) drug use 02/14 Other pharmacy services representative (current) drug therapy 6 Rheumatoid arthritis 02/15/2016 Fibromyalgia 02/15/2016 Vitamin D deficiency 02/15/2016 Encounters Date Type Department Care Team Description 12/06/2024 Telephone [facility] - Rheumatology [address] [place] [address], [place] [address] Hu Ybarra MD Follow-up 12/06/2024 Orders Only [facility] Rheumatology [address] [place] [address], [place] [address] Hu Ybarra MD 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 (F LUZONE; FLULAVAL; FLUARIX; AFLURIA QUADRIVALENT; 6MO+), 0.5 ML (IIV4) 10/07/2020 Pneumococcal Pcv13 Conj 10/04/2017 Family History Medical History Relation Name Comments Heart Disease Brother Heart Disease Father Status: Deceas ed Diabetes Maternal Grandmother None Known Mother Status: Alive Heart Disease Sister Relation Name Status Comments Brother Father Maternal Grandmother Mother Sister Social History Tobacco Use Types Packs/Day [...] Mass Index 31.38 07/31/2024 2:34 PM CDT Plan of Treatment Upcoming Encounters Date Type Department Care Team (Late st Contact Info) Description 01/01/2025 12:30 PM FRONT END DEVELOPER JAVASCRIPT HTML CSS Appointment [facility] [address] [place] [id number] 01/29/2025 1:30 PM FRONT END DEVELOPER JAVASCRIPT HTML CSS Office Visit [facility] - Rheumatology [address] [place] [address], [place] [phone] Hu Ybarra MD [address] [place] [address] [place] [phone] Health Maintenance Due Date Last Done Comments COLOGUARD (AGES 45-75) - COLON CA SCREENING 1958 COLON MONITORING 1958 COLONOSCOPY - COLON CA SCREENING 1958 CT COLONOGRAPHY - COLON CA SCREENING 1960 Colorectal Cancer Screening 1958 FIT - COLON CA SCREENING 1958 FLEX SIG - COLON CA SCREENING 1958 DTAP/TDAP/TD VACCINES (1 - Tdap) 1977 ZOSTER VACCINE (1 of 2) 1977 PNEUMOCOCCAL VACCINE 50+ (2 of 2 - PPSV23) 11/29/2017 10/04/2017 Respiratory Syncytial Virus (RSV) Vaccine Pt: or over 60 yrs (1 - Risk 60-74 years 1-dose series) 2018 MAMMOGRAM 06/15/2023 06/15/2021, 05/28, 05/28/2020, Additional history exists COVID-19 VACCINE ( season) 2024 08/10/2022, 03/25/2022, 10/12/2021, Additional history exists INFLUENZA VACCINE (#1) 2024 2, 10/12/2021, 10/07/2020, Additional history exists DEPRESSION SCREENING 11/27/2024 07/31/2024, 02/01/2023, 09/28/2022 MEDICARE AWV ? CALENDAR YEAR 2024 SCREENING FOR DIABETES 07/31/2027 4, 07/03/2024, 06/18/2024, Additional history exists HEPATITIS C SCREENING Completed 10/03/2022, 016 BONE DENSITY TESTING Completed 06/22/2023 HEPATITIS B VACCINE Aged Out No longe r eligible based on patient's age to complete this topic HIB VACCINE Aged Out No longer eligi ble based on patient's age to complete this topic HPV VACCINE Aged Out No longer eligi ble based on patient's age to complete this topic MENINGOCOCCAL (Group B) VACCINE Aged Out No longer eligible based on patient's age to complete this topic MENINGOCOCCAL VACCINE Aged Out No divya sebastien eligible based on patient's age to complete this topic Procedures Procedure Name Priority Date/Time Associated Diagnosis Comments COMPREHENSIVE METABOLIC PANEL Routine 07/31/2024 12:02 PM CDT 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) Therapeutic drug monitoring HEPATITIS C AB W/RFLX TO HCV RNA QN PCR Routine 10/03/2022 12:44 PM FRONT END DEVELOPER JAVASCRIPT HTML CSS 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) Therapeutic drug monitoring Immunosuppression due to drug therapy (HCC) Need for hepatitis C screening test from Last 3 Months or Most Recently Relevant to Health Maintenance Results * (ABNORMAL) COMPREHENSIVE METABOLIC PANEL (07/31/2024 12:02 PM T) BUN 17 7 - 26 mg/dL 07/31/2024 1:23 PM [facility] Creatinine 0.90 0.56 - 0.96 mg/dL 07/31/2024 1:23 PM [facility] Sodium 137 136 - 145 mmol/L 07/31/2024 1:23 PM [facility] Potassium 3.9 3.5 - 4.5 mmol/L 07/31/2024 1:23 PM [facility] Chloride 106 98 - 107 mmol/L 07/31/2024 1:23 PM [facility] CO2 25 22 - 29 mmol/L 07/31/2024 1:23 PM [facility] Glucose 227(H) 70 - 115 mg/dL 07/31/2024 1:23 PM [facility] Calcium 9.0 8.4 - 10.2 mg/dL 07/31/2024 1:23 PM [facility] Protein Total 7.4 6.0 - 8.3 g/dL 07/31/2024 1:23 PM [facility] Albumin 3.4 3.4 - 5.0 g/dL 07/31/2024 1:23 PM [facility] Bilirubin Total 0.6 0.2 - 1.2 mg/dL 07/31/2024 1:23 PM [facility] Alkaline Phosphatase 91 40 - 150 U/L 07/31/2024 1:23 PM [facility] ALT 39 5 - 55 U/L 07/31/2024 1:23 PM [facility] AST 33 5 - 34 U/L 07/31/2024 1:23 PM CDT [facility] Anion Gap 6 6 - 16 07/31/2024 1:23 PM CDT [facility] BUN/Creatinine Ratio 19 7 - 23 07/31/2024 1:23 PM CDT [facility] Osmolality Calculated 293 275 - 295 mOsm/kg 07/31/2024 1:23 PM T [facility] Albumin/Globulin Ratio 0.9(L) 1.1 - 2.3 07/31/2024 1:23 PM T [facility] eGFR by CKD-EPI 71(L) >=90 mL/min/1.7 3 m2 07/31/2024 1:23 PM T [facility] Blood BLOOD SPECIMEN / Unknown Venipuncture / Unknown 07/31/2024 12:02 PM CDT 07/31/2024 12:20 PM CDT Dl Jones MD LAB - CHEMISTRY ANGUS CERVANTES Performing Organization Address City/[facility]/ZIP Co de Phone Number [facility] [address] [place] [address], [facility] [phone] * HEPATITIS C AB W/RFLX TO HCV RNA QN PCR (10/03/2022 12:44 PM FRONT END DEVELOPER JAVASCRIPT HTML CSS) Hepatitis C Antibody NON-REACTI VE NON-REACT [facility] Signal to Cut-Off 0.02 <1.00 [facility] Comment: HCV antibody was non-reactive. There is no laboratory evidence of HCV infection. In most cases, no further action is required. However, if recent HCV exposure is suspected, a test for HCV RNA (test code 19179) is suggested. For additional information please refer to http://education.[employer]/faq/ATZ50w5 (This link is being provided for informational/ educational purposes only.) Test Performed at: [facility] [id number] [place] [address] ??[phone] CHAVA MILLS DO,MPH Blood BLOOD SPECIMEN / Unknown 10/03/2022 12:44 PM FRONT END DEVELOPER JAVASCRIPT HTML CSS 10/03/2022 12:44 PM FRONT END DEVELOPER JAVASCRIPT HTML CSS Dl Jones MD LAB - CHEMISTRY ANGUS CERVANTES [facility] [address] [place] [address] from Last 3 Months or Most Recently Relevant to Health Maintenance Advance Directives Documents on File Type Date Recorded Patient Single Wire Saw Operator Expl anation Healthcare Power of Brand Activation Manager 02/17/2023 7:34 AM laure amaya orders [id number] Care Teams Undraped Artist Model Relationship Specialty Start Date End Date Singh Loza MD [address] [place] [phone] PCP - General 02/12/16
--- OUTSIDE RECORDS SUMMARY | 2024-12-21 15:10 | XMS_ITS | Referral Summary ---
Author Organization [facility] Address [address] [place] [address] Care Team Providers Care Robotics Mechanic Name Role Phone Singh Loza MD Primary Care Provider [phone] Source Comments [facility],non-owned Affiliates and Associated Physician Practices is amultiple site organization consisting of ambulatory clinics and hospital sitesin [place], [place], [place] and [place]. This disclosure is being madepursuant to the Care Everywhere program and may not contain all information available regarding this patient. 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] MG capsule 05/21/2024 Active Cholecalciferol 1.25 MG (91278 UT) Take 50,000 Units by mouth Active evolocumab (Repatha SureClick) 140 MG/ML auto-injector Inject 140 (one hundred forty) mg subcutaneously every 14 days 06/19/2024 Active hydrOXYzine pamoate (Vistaril) 25 MG capsule [...] for long-term (current) drug use 02/14 Other retirement (current) drug therapy 6 Rheumatoid arthritis 02/15/2016 Fibromyalgia 02/15/2016 Vitamin D deficiency 02/15/2016 Immunizations Name Administration Dates Next Due FLU VACCINE QUAD IIV4 SPLIT 0.25 ML IM 11/05/2019,12/10/2018,08/22/2017,2015,09/22/2014 INFLUENZA VACCINE 10/12/2021 INFLUENZA VACCINE, QUADR. (F LUZONE; FLULAVAL; FLUARIX; AFLURIA QUADRIVALENT; 6MO+), 0.5 ML (IIV4) 10/07/2020 Pneumococcal Pcv13 Conj 10/04/2017 Social History Tobacco Use Types Packs/Day [...] st Contact Info) Description 01/01/2025 12:30 PM SUGAR BOILER Appointment [facility] [place] [facility] [address] [place] [address] 01/29/2025 1:30 PM SUGAR BOILER Office Visit [facility] - Rheumatology [address] [place] [address], [place] [phone] Hu Ybarra MD [address] [place] [address] [place] [phone] Procedures Procedure Name Priority Date/Time Associated Diagnosis Comments COMPREHENSIVE METABOLIC PANEL Routine 07/31/2024 12:02 PM CDT 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) Therapeutic drug monitoring HEPATITIS C AB W/RFLX TO HCV RNA QN PCR Routine 10/03/2022 12:44 PM SUGAR BOILER 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) Therapeutic drug monitoring Immunosuppression due to drug therapy (HCC) Need for hepatitis C screening test from Last 3 Months or Most Recently Relevant to Health Maintenance Results * (ABNORMAL) COMPREHENSIVE METABOLIC PANEL (07/31/2024 12:02 PM [facility]) BUN 17 7 - 26 mg/dL 07/31/2024 1:23 PM [facility] Creatinine 0.90 0.56 - 0.96 mg/dL 07/31/2024 1:23 PM [facility] Sodium 137 136 - 145 mmol/L 07/31/2024 1:23 PM [facility] Potassium 3.9 3.5 - 4.5 mmol/L 07/31/2024 1:23 PM [facility] Chloride 106 98 - 107 mmol/L 07/31/2024 1:23 PM [facility] CO2 25 22 - 29 mmol/L 07/31/2024 1:23 PM [facility] Glucose 227(H) 70 - 115 mg/dL 07/31/2024 1:23 PM [facility] Calcium 9.0 8.4 - 10.2 mg/dL 07/31/2024 1:23 PM [facility] Protein Total 7.4 6.0 - 8.3 g/dL 07/31/2024 1:23 PM [facility] Albumin 3.4 3.4 - 5.0 g/dL 07/31/2024 1:23 PM [facility] Bilirubin Total 0.6 0.2 - 1.2 mg/dL 07/31/2024 1:23 PM [facility] Alkaline Phosphatase 91 40 - 150 U/L 07/31/2024 1:23 PM [facility] ALT 39 5 - 55 U/L 07/31/2024 1:23 PM [facility] AST 33 5 - 34 U/L 07/31/2024 1:23 PM [facility] Anion Gap 6 6 - 16 07/31/2024 1:23 PM [facility] BUN/Creatinine Ratio 19 7 - 23 07/31/2024 1:23 PM CDT [facility] [place] [facility] Osmolality Calculated 293 275 - 295 mOsm/kg 07/31/2024 1:23 PM T [facility] Albumin/Globulin Ratio 0.9(L) 1.1 - 2.3 07/31/2024 1:23 PM CDT [facility] eGFR by CKD-EPI 71(L) >=90 mL/min/1.7 3 m2 07/31/2024 1:23 PM CDT [facility] Blood BLOOD SPECIMEN / Unknown Venipuncture / Unknown 07/31/2024 12:02 PM CDT 07/31/2024 12:20 PM CDT Dl Jones MD LAB - CHEMISTRY ANGUS CERVANTES [facility] [address] [place] [address], [facility] [phone] * HEPATITIS C AB W/RFLX TO HCV RNA QN PCR (10/03/2022 12:44 PM SUGAR BOILER) Hepatitis C Antibody NON-REACTI VE NON-REACT [facility] Signal to Cut-Off 0.02 <1.00 [facility] Comment: HCV antibody was non-reactive. There is no laboratory evidence of HCV infection. In most cases, no further action is required. However, if recent HCV exposure is suspected, a test for HCV RNA (test code 29359) is suggested. For additional information please refer to http://education.[employer]/faq/TTB03d3 (This link is being provided for informational/ educational purposes only.) Test Performed at: [facility] [address] [place], [place] ??[phone] CHAVA MILLS DO,MPH Blood BLOOD SPECIMEN / Unknown 10/03/2022 12:44 PM SUGAR BOILER 10/03/2022 12:44 PM SUGAR BOILER Dl Jones MD LAB - CHEMISTRY ANGUS CERVANTES [facility] [address] [place] [address] from Last 3 Months or Most Recently Relevant to Health Maintenance Administered Medications Advance Directives Documents on File Type Date Recorded Patient Wharf Builder Expl anation Healthcare Power of Sorter Upholstery Parts 02/17/2023 7:34 AM laure amaya orders [id number] Care Teams Robotics Mechanic Relationship Specialty Start Date End Date Singh Loza MD [address] [facility] [place] [phone] PCP - General 02/12/16
[2024-12-21 15:27] VITALS: BP 111/85; PULSE 92; RESP 16; TEMP 36.4; O2SAT 98
--- NOTE | 2024-12-21 16:15 | ED.GENADULT ---
HPI - General Adult General Chief complaint: Upper Respiratory Infection Stated complaint: chest leatha,vomiting, diahrrea,ears hurting,weak Source: patient Mode of arrival: ambulatory Limitations: no limitations History of Present Illness HPI narrative: Patient presents for evaluation of sick symptoms. She states her symptoms started on 11/21/2024. She reports nausea, vomiting, diarrhea as he initial symptoms. She now has an intermittently productive cough of yellow sputum and SOB. She feels like her ears are going to explode and she has something infesting (her) brain . She lives in [place] and states that several individuals there have COVID. She does not smoke. Related Data Home Medications ?Medication ?Instructions ?Recorded ?Confirmed ?Last Taken ?Type atorvastatin 10 mg tablet 40 mg PO DAILY 03/29/21 12/28/23 12/19/21 History folic acid 1 mg tablet 1 mg PO DAILY 03/29/21 12/28/23 12/18/21 History furosemide 20 mg tablet (Lasix) 20 mg PO QAM 03/29/21 12/28/23 12/19/21 History gabapentin 300 mg capsule 300 mg PO TID 03/29/21 12/28/23 12/19/21 History multivitamin 1 tablet PO DAILY 03/29/21 12/28/23 12/18/21 History omeprazole 20 mg tablet,delayed 20 mg PO DAILY 03/29/21 12/28/23 12/21/21 History release oxybutynin chloride 5 mg tablet 5 mg PO DAILY 03/29/21 12/28/23 12/19/21 History acetaminophen 300 mg-codeine 60 mg 1 tablet PO BID PRN pain 07/28/21 12/28/23 12/19/21 History tablet fluticasone furoate 100 2 inh inhalation DAILY 07/28/21 12/28/23 12/20/21 History mcg-vilanterol 25 mcg/dose inhalation powder (Breo Ellipta) glipizide 5 mg tablet 5 mg PO DAILY 07/28/21 12/28/23 12/19/21 History carboxymethylcellulose sodium 1 % 1 drp EACH EYE DAILY 09/06/21 12/28/23 12/18/21 History eye liquid gel drops (Refresh Liquigel) cholecalciferol (vitamin D3) 1,250 1,250 mcg PO MONTHLY 09/06/21 12/28/23 11/30/21 History mcg (50,000 unit) capsule cyclobenzaprine 10 mg tablet 10 mg PO PRN PRN Muscle Spasm 09/06/21 12/28/23 Unknown History fluticasone propionate 50 1 spray intranasal PRN PRN Allergy 09/06/21 12/28/23 12/19/21 History mcg/actuation nasal Symptoms spray,suspension isosorbide mononitrate 60 mg 60 mg PO DAILY 09/06/21 12/28/23 12/19/21 History tablet,extended release 24 hr montelukast 10 mg tablet 10 mg PO DAILY 09/06/21 12/28/23 12/12/21 History methotrexate (PF) 7.5 mg/0.15 mL 7.5 mg subcut WEEKLY 02/08/23 12/28/23 Unknown History subcutaneous auto-injector abatacept 87.5 mg/0.7 mL mg subcut 12/22/23 12/28/23 Unknown History subcutaneous syringe (Orencia) sertraline 100 mg tablet (Zoloft) 200 mg PO DAILY 12/22/23 12/28/23 Unknown History Allergies Allergy/AdvReac Type Severity Reaction Status Date / Time No Known Drug Allergies Allergy Unknown Unknown Verified 12/22/23 11:44 dihydrocodeine (From Allergy Hives Verified 12/22/23 11:44 Synalgos-DC) nabumetone (From Relafen) Allergy Anaphylaxis Verified 12/22/23 11:44 caffeine AdvReac Unknown Jittery Verified 12/22/23 11:44 hydrocodone AdvReac Nausea and Verified 12/22/23 11:44 Vomiting Review of Systems Review of Systems: CONSTITUTIONAL: Denies fever, chills, or sweats. EYES: Denies visual changes, redness, or discharge. ENT: Reports nasal congestion/drainage, and sensation that her ears are going to explode CARDIOVASCULAR: Denies chest pain, palpitations, or edema. RESPIRATORY: Reports cough and shortness of GASTROINTESTINAL: Denies abdominal pain, nausea, vomiting, or diarrhea. GENITOURINARY: Denies dysuria or hematuria. SKIN: Denies rash or itching. MUSCULOSKELETAL: Denies back pain, joint pain, or myalgia. NEUROLOGIC: Denies headache, numbness, dizziness, or weakness. PSYCHIATRIC: Denies anxiety or depression. COUNTS INCLUDE 234 BEDS AT THE [facility] Past Medical History Medical History Depression Hyperlipidemia Diabetic neuropathy Type 2 diabetes mellitus Rheumatoid arthritis Gastroesophageal reflux disease Fibromyalgia Hypertension Migraine Anxiety Asthma Anemia Surgical History Surgical History History of cardiac catheterization (2015) History of arthroplasty of left knee (12/21/21) History of arthroplasty of right knee (01/06/15) History of arthroscopic knee surgery (08/25/14) Partial lateral meniscectomy with synovectomy. History of cataract extraction (2014) History of tubal ligation (1983) Family History Family History Other Diabetes mellitus Family history of heart disease in male family member before age 55 Family history of malignant neoplasm Hypertension Social History Social History Social History: Surrogate decision maker: Karlene Amaya, daughter. Code status: Full code. Smoking status: Never smoker Alcohol intake: former Substance use: former Do You Feel Safe in your Home?: Yes Lack of Transportation: YES Lack of Food: Never True Current Housing: I Have Housing Concerned About Future Housing: No Difficulty Paying Gas/Electric Bills: No Difficulty Paying for Meds: No Currently Unemployed: No Education: High School Diploma/GED Difficulty w/ Childcare or Family Care: No Living arrangements: alone Additional occupation/education comments: Disabled Exam Narrative: GENERAL: Well-appearing, well-nourished, and in no acute distress. HEAD: Normocephalic, atraumatic. EYES: PERRLA and EOMI. ENT: Nares clear, no rhinorrhea or epistaxis. Mucous membranes moist. Oropharynx without tonsillar hypertrophy exudate or other lesions. Bilateral TMs pearly aden nonbulging NECK: Supple. No adenopathy or masses. No carotid bruits or JVD CHEST: Clear to auscultation. No respiratory distress. No wheezes rales or rhonchi HEART: Regular rate and rhythm. No murmur heard. Normal peripheral pulses. ABDOMEN: Soft, nontender, nondistended, normal active bowel sounds. EXTREMITIES: Normal range of motion. No edema. SKIN: Warm, dry, no rash. NEURO: No focal deficits. Alert and oriented x3. PSYCH: Normal mood and affect. Course Course Emergency Course: This is a 64-year-old female who presented for evaluation of sick symptoms. Chest x-ray was normal. Patient appears well clinically. She feels well enough to be discharged home. She ready has antiemetics. Will discharge with Lomotil. Increase hydration. Mpwv-gao-kpecczy agents for symptom management. Follow up with primary provider. Go to the ER for worsening symptoms. Patient in agreement with plan of care. Level of Care: Express Care Visit Vital Signs Vital signs: Vital Signs Temperature 36.4 C L 12/21/24 15: Pulse Rate 92 12/21/24 15:27 Respiratory Rate 16 12/21/24 15:27 Blood Pressure 111/85 12/21/24 15:27 Pulse Oximetry 98 12/21/24 15:27 Oxygen Delivery Room Air 12/21/24 15:27 Temperature 36.4 C L 12/21/24 15:27 Pulse Rate 92 12/21/24 15:27 Respiratory Rate 16 12/21/24 15:27 Blood Pressure 111/85 12/21/24 15:27 Pulse Oximetry 98 12/21/24 15:27 Oxygen Delivery Room Air 12/21/24 15:27 Medical Decision Making Vital Signs Vital Signs: Vital Signs Temperature 36.4 C L 12/21/24 15:27 Pulse Rate 92 12/21/24 15:27 Respiratory Rate 16 12/21/24 15:27 Blood Pressure 111/85 12/21/24 15:27 Pulse Oximetry 98 12/21/24 15:27 Oxygen Delivery Room Air 12/21/24 15:27 Temperature 36.4 C L 12/21/24 15:27 Pulse Rate 92 12/21/24 15:27 Respiratory Rate 16 12/21/24 15:27 Blood Pressure 111/85 12/21/24 15:27 Pulse Oximetry 98 12/21/24 15:27 Oxygen Delivery Room Air 12/21/24 15:27 Imaging Data Radiologist's impression: CHEST RADIOGRAPH, PA AND LATERAL CLINICAL HISTORY: cough . COMPARISON: None available TECHNIQUE: PA and lateral views of the chest. FINDINGS The cardiomediastinal silhouette is unremarkable. The lungs are clear. Visualized osseous structures and soft tissues are unremarkable. IMPRESSION: No focal infiltrate or effusion. Discharge Plan Discharge Clinical Impression: Acute viral syndrome Patient Disposition: Home, Self-Care Condition: Stable Instructions: Antibiotic Form, Viral Syndrome (ED) Patient Language: Malay Prescriptions: New diphenoxylate-atropine [Lomotil] 2.5-0.025 mg tablet 1 tablet PO TID PRN (Reason: diarrhea) Qty: 15 0RF No Action Orencia 87.5 mg/0.7 mL syringe subcut atorvastatin 10 mg tablet 40 mg PO DAILY gabapentin 300 mg capsule 300 mg PO TID oxybutynin chloride 5 mg tablet 5 mg PO DAILY furosemide [Lasix] 20 mg tablet 20 mg PO QAM omeprazole 20 mg tablet,delayed release (DR/EC) 20 mg PO DAILY folic acid 1 mg tablet 1 mg PO DAILY multivitamin Tablet 1 tablet PO DAILY acetaminophen-codeine 300-60 mg tablet 1 tablet PO BID PRN (Reason: pain) sertraline [Zoloft] 100 mg tablet 200 mg PO DAILY glipizide 5 mg tablet 5 mg PO DAILY Breo Ellipta 100-25 mcg/dose blister with device 2 inh inhalation DAILY oxycodone-acetaminophen 5-325 mg tablet 1 tablet PO Q6H MDD 4 PRN (Reason: pain) Qty: 30 0RF methotrexate (PF) 7.5 mg/0.15 mL auto-injector 7.5 mg subcut WEEKLY cholecalciferol (vitamin D3) 1,250 mcg (50,000 unit) Capsule 1,250 mcg PO MONTHLY Patient Comments: FIRST MONDAY OF THE MONTH isosorbide mononitrate 60 mg Tablet Extended Release 24 Hr 60 mg PO DAILY montelukast 10 mg tablet 10 mg PO DAILY cyclobenzaprine 10 mg tablet 10 mg PO PRN PRN (Reason: Muscle Spasm) fluticasone propionate 50 mcg/actuation spray,suspension 1 spray INTRANASAL PRN PRN (Reason: Allergy Symptoms) Refresh Liquigel 1 % Drops, Liquid Gel 1 drp EACH EYE DAILY aspirin 81 mg tablet,delayed release (DR/EC) 81 mg PO BID 14 Days Qty: 28 0RF Follow-up/Referrals: Dago,Singh West MD [Primary Care Provider] - Time of Disposition: 17:35
== END 2024-12-21 17:46 | disposition home or self-care (01) ==
PROVIDERS: Emergency Provider Nurse Practitioner; PCP Family Medicine
DX: B34.9 Viral infection, unspecified (principal); E11.40 Type 2 diabetes mellitus with diabetic neuropathy, unspecified; Z79.84 Long term (current) use of oral hypoglycemic drugs; E78.5 Hyperlipidemia, unspecified; K21.9 Gastro-esophageal reflux disease without esophagitis; I10 Essential (primary) hypertension; J45.909 Unspecified asthma, uncomplicated; M06.9 Rheumatoid arthritis, unspecified; M79.7 Fibromyalgia; F32.A Depression, unspecified; F41.9 Anxiety disorder, unspecified
CPT/HCPCS: 71046; 99213; G0463

== ENCOUNTER 2025-04-11 13:22 | Outpatient (CLI) | payer MEDICARE, MEDICAID, SELFPAY ==
--- NOTE | ~2025-04-11 | XR_ITS ---
Left Knee Technique: AP, lateral, and sunrise views were obtained. Clinical History: Arthritis Findings: No fracture or dislocation is seen. Left knee arthroplasty in place. No hardware complicati on seen. Soft tissues are unremarkable. No joint effusion is seen. Impression: No acute abnormality. Left knee arthroplasty. Reviewed, dictated and finalized at location . Impression: No acute abnormality. Left knee arthroplasty.
--- OUTSIDE RECORDS SUMMARY | 2025-04-11 13:30 | XMS_ITS | Encounter Summary ---
Author Organization [facility] Address [address] [place] [address] Phone Care Team Providers Care Press Department Manager Name Role Phone Singh Loza MD Primary Care Provider [phone] Jose Kumar MD Unavailable [phone] Lucita Patterson APRN, [employer] Unavailable Romeo Dolan DPM Unavailable [phone] Melissa Rogers APRN, [employer] Unavailable Nessa Reid MD Unavailable [phone] Reason for Visit * Reason Comments Medication Refill Encounter Details Date Type Department Care Team (Late st Contact Info) Description 05/20/2024 Refill [facility] - G[facility]enter[facility] [address] [place] [address] Melissa Rogers APRN, [employer] [address] [place] [address] Medication Refill Social History Tobacco Use Types [...] PM CDT Medication refilled and signed per [facility] chronic medication standing order for pediatric and adult patients. documented in this encounter Plan of Treatment Upcoming Encounters Date Type Department Care Team (Late st Contact Info) Description 04/16/2025 1:45 PM CDT Physical Therapy [facility] at [address], [address] [place] [address] Singh Loza MD [address] [place] [address] Hu Edwards, PT [place] 04/18/2025 11:00 AM CDT Physical Therapy [facility] at [address], [address] [place] [address] Singh Loza MD [address] [place] [address] Britni Sarabia, PT [place] 04/22/2025 2:30 PM CDT Physical [facility] at [address], [address] [place] [address] Singh Loza MD [address] [place] [address] Britni Sarabia, PT [place] 05/13/2025 2:30 PM CDT Appointment [facility] [address] [place] [id number] Melissa Rogers APRN, [employer] [address] [place] [address] Discharge Disposition: Discharged to home or Selfcare documented as of this encounter Visit Diagnoses Not on filedocumented in this encounter Additional Health Concerns Infection Onset Date Last Indicated Resolved Time COVID - 19 08/23/2024 08/23/2024 08/23/2024 8:09 PM CDT Assessment Noted Time PHQ-9 Depression Total Score: 0 04/18/20 10:00 AM CDT documented as of this encounter Care Teams Press Department Manager Relationship Specialty Start Date End Date Singh Loza MD [address] [place] [address] PCP - General Family Medicine 04/18/16 Jose uKmar MD [address] [place] [address] [place] [address] General Surgery 04/13/17 Lucita Patterson APRN, [employer] [address] [place] [address] [place] [address] Nurse Practitioner Advanced Practice Nurse 04/18/17 Romeo Dolan DPM [address] [place] [address] [place] [address] Consulting Physician Podiatry 05/18/17 Melissa Rogers APRN, [place] [place] [address] Nurse Practitioner Advanced Practice Nurse 01/11/23 Nessa Reid MD [address] [place] [address] Consulting Physician Gastroenterology 03/15/24 documented as of this encounter
--- OUTSIDE RECORDS SUMMARY | 2025-04-11 13:31 | XMS_ITS | Encounter Summary ---
Author Organization [facility] Address [address] [place] [address] Care Team Providers Care Financial Counselor Name Role Phone Singh Loza MD Primary Care Provider [phone] Encounter Details Date Type Department Care Team (Late st Contact Info) Description 03/15/2023 Telephone [facility] [address] [place] [address] Sánchez Buitrago MD [address] [place] [address] Social History Tobacco Use Types Packs/Day Years Used Date Smoking Tobacco: Never Smokeless Tobacco: Never Alcohol Use Standard Drinks/Week Comments No 0 (1 standard drink = 0.6 oz pur e alcohol) PHQ-2 Answer Date Recorded PHQ2 TOTAL SCORE 3 02/01/2023 Comments No Sex and Gender Information Value Date Recorded Sex Assigned at Not on file 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 Gender Identity Female 05/29/2024 2:11 PM CDT Sexual Orientation Straight 02/20/2025 11 :36 AM CDT COVID-19 Exposure Response Date Recorded In the [...] Care Team (Late st Contact Info) Description 07/09/2025 2:00 PM CDT Office Visit [facility] - Rheumatology [address] [place] [address], [place] [phone] Hu Ybarra MD [address] [place] [address] [place] [phone] documented as of this encounter Visit Diagnoses Not on filedocumented in this encounter Care Teams Financial Counselor Relationship Specialty Start Date End Date Singh Loza MD [address] [place] [phone] PCP - General 02/12/16 documented as of this encounter
--- OUTSIDE RECORDS SUMMARY | 2025-04-11 13:31 | XMS_ITS | Clinical Summary ---
Author Organization [facility] Address [address] [place] [address] Care Team Providers Care Packing Machine Tender Name Role Phone Singh Loza MD Primary Care Provider [phone] Allergies Active Allergy Reactions Criticality Noted Date Comments Aspirin Unknown Low Mtctznf-Urpfuxzd-Susnyngslbqrg Swelling Medium 02/19 With hives Caffeine Dihydrocodeine [...] by mouth daily Active cholecalciferol (VITAMIN D-3) 19379 unit capsule Take 1 capsule (50,000 Units [...] SOB (shortness of breath) 06/10/2020 Atherosclerosis of [place] of extremities with intermittent claudication, bilateral legs 06/10/2020 Overview (06/10/2020): Cath 03/09/2015 mild-moderate LAD disease Chronic cough 03/11/2020 Assessment & Plan (03/11/2020 11:52 AM CDT): Cough for several weeks without fever. Memory loss 09/14/2018 Diabetic polyneuropathy asso ciated with type 2 diabetes mellitus 05/18/2017 Equinus contracture of ankle 05/18/2017 Primary osteoarthritis of both feet 05/18/2017 Hiatal hernia 04/25/2017 Encounter for therapeutic drug level monitoring 01/09/2017 Fibromyalgia 02/15/2016 Other senior living (current) drug therapy 6 Resolved Problems Problem Noted Date Diagnosed Date Resolved Date Rheumatoid arthritis of mult iple sites without organ or system involvement with positive rheumatoid factor 02/15/2016 12/30/2020 Vitamin D deficiency 02/15/2016 021 Encounters Date Type Department Care Team Description 02/10/2025 1:15 PM CDT Office Visit [facility] Pulmonary at [address] [place] [address] Jose Farooq MD Moderate persistent asthma without complication (Primary Dx); Chronic cough; Seasonal allergic rhinitis, unspecified trigger; Rheumatoid arthritis involving multiple sites, unspecified whether rheumatoid factor present (HCC); Pulmonary nodule 01/13/2025 Telephone [facility] Pulmonary at [address] [place] [address] Zaina Soni LPN Prior Auth (Nebulizer medication ) from Last 3 Months Immunizations Immunization Administration Dates Next Due Influenza, Quadrivalent, Spl [...] drink = 0.6 oz pur e alcohol) AUDIT-C Answer Date Recorded Q1: How often do you have a drink containing alcohol? Patient declined 02/10/2025 Q2: How many drinks containi ng alcohol do you have on a typical day when you are drinking? 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 Gender Identity Female 09/16/2021 4:34 PM CDT Sexual Orientation Not on file Obstetrics History Last Filed Vital Signs Vital Sign Reading Time Taken Comments Blood Pressure 122/74 02/10/2025 1:19 PM CDT Pulse 102 02/10/2025 1:19 PM CDT Temperature 36.3 C (97.4 F) 02/10/2025 1:19 PM CDT Respiratory Rate 18 02/10/2025 1:19 PM CDT Oxygen Saturation 99% 02/10/2025 1:19 PM CDT Inhaled Oxygen Concentration - - Weight 82.6 kg (182 lb) 02/10/2025 1:19 PM CDT Height 166.4 cm (5' 5.5 ) 02/10/2025 1:19 PM CDT Body Mass Index 29.83 02/10/2025 1:19 PM CDT Plan of Treatment Health Maintenance Due Date Last Done Comments Albumin Creatinine Ratio, Urine 1958 Colon Cancer Screening-Colonoscopy 1958 Depression Screening 1958 Fall Risk Assessment 1958 Hemoglobin A1C 1958 eGFR 1958 Dilated Eye Exam 1958 Foot Exam 1958 DTaP/Tdap/Td Vaccine (1 - Tdap) 1969 Hepatitis B Screening 1976 Zoster Vaccine (1 of 2) 1977 Pneumococcal vaccine 65+ (2 of 2 - PPSV23) 11/29/2017 10/04/2017 Covid-19 Vaccine (3 - Modern a risk series) 04/05/2021 03/08/2021, 02/08/2021 Breast Cancer Screening-Mammogram 06/15/2022 06/15/2021, 06/15/2021, 05/28/2020, Additional history exists Well Visit 65+ 2023 Lipid Panel 06/18/2025 06/18/2024, 03/27/2023 Osteoporosis Screening-Bone Density Scan 06/22/2025 06/22/2023, 06/22/2023 Influenza Vaccine (Season Ended) 2025 10/12/2021, 10/07/2020, 11/05/2019, Additional history exists Hepatitis C Screening Completed 07/10/2013 Procedures Procedure Name Priority Date/Time Associated Diagnosis Comments LIPID PANEL Routine 06/18/2024 3:11 PM CDT Dyslipidemia DEXA AXIAL SKELETON BONE DENSITY 1 OR MORE SITES Schedule Routine, Read Routine (OP Routine) 06/22/2023 2:03 PM CDT 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) Adverse effect of corticosteroids, sequela SERUM [...] Desirable range <100 mg/dL for primary prevention; <70 mg/dL for patients with CHD or diabetic patients with > or = 2 CHD risk factors. LDL-C is now calculated using the Jimmie-Adamson calculation, which is a validated novel method providing better accuracy than the Friedewald equation in the estimation of LDL-C. Jimmie SS et al. PAIGE. 2013;310(19): 8595-4642 (http://education.Enevate.Moodswiing/faq/BVV295) Chol/HDL ratio 5.5(H) <5.0 (calc) [facility] [...] NP LAB BLOOD ORDERABLES Fi nal Result [facility] [id number] [id number] * Dexa Axial Skeleton Bone Density 1 or 2 Site (06/22/2023 2:03 PM CDT) Anatomical Region Laterality Modality Body N/A Other 06/24/2023 12:1 5 AM CDT Narrative 06/24/2023 12:16 AM CDT EXAM DESCRIPTION: DEXA AXIAL SKELETON BONE DENSITY 1 OR MORE SITES REASON FOR STUDY: 63 y/o year old F with given history of: rheumatoid arthritis of multiple sites Osteoporosis screening 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 FRAX is a World Health Organization validated fracture risk assessment tool that calculates a person's 10 year probability of a major osteoporosis related fracture and hip fracture. According to the National Osteoporosis Foundation guidelines, postmenopausal [...] Choco Bradley M.D. MF: DOMINIC Report ID: [id number] Reading Location: [place] [address] Procedure Note Choco Bradley MD - 06/24/2023 EXAM DESCRIPTION: DEXA AXIAL SKELETON BONE DENSITY 1 OR MORE SITES REASON FOR STUDY: 63 y/o year old F with given history of: rheumatoid arthritis of multiple sites Osteoporosis screening Post menopausal Communications And Signals Supervisor/Model: [email or web address] SL (S/N [id number]) CLINICAL INFORMATION: Current height: 65.5 inches Maximum [...] Choco Bradley M.D. MF: DOMINIC Report ID: [id number] Reading Location: [place] [address] us Dl Jones MD IMG DXA PROCEDURES Final Result * Serum Hepatitis C ab (07/10/2013 3:34 PM CDT) HCV ab Negative Negative HISTORICAL RESULTS Serum 07/10/2013 3:34 PM CDT us Tatyana Basurto MD LAB BLOOD ORDERABLES Yvonne l Result HISTORICAL RESULTS from Last 3 Months or Most Recently Relevant to Health Maintenance Insurance [facility] MEDICARE ADVANTAGE [facility] MEDICARE ADVANTAGE [employer] Care Teams Packing Machine Tender Relationship Specialty Start Date End Date Singh Loza MD [address] [place] [address] [address] PCP - General Family Medicine 01/02/25
--- OUTSIDE RECORDS SUMMARY | 2025-04-11 13:31 | XMS_ITS | Encounter Summary ---
Author Organization [facility] Address [address] [place] [address] Phone Care Team Providers Care Gang Miner Name Role Phone Singh Loza MD Primary Care Provider [phone] Jose Kumar MD Unavailable [phone] Lucita Patterson CAR DRIVER, INSULATION CUTTER Unavailable Romeo Dolan DPM Unavailable [phone] Melissa Rogers CAR DRIVER, INSULATION CUTTER Unavailable Nessa Reid MD Unavailable [phone] Reason for Referral * PT/OT/ST (Routine) - Authorized Specialty Diagnoses / Procedures Referred By Inez t Referred To Contact Physical Therapy Diagnoses Muscle weakness (generalized) Singh Loza MD [address] [place] [address] [address] [place] [address] Phone: tel: fax: [facility] at [facility] [address] [place] [address] Phone: tel: fax: Referral ID Status Reason Start Date Expiration Date V isits Requested Visits Authorized [id number] Authorized 02/10/2025 50 11 Scheduling Instructions Encounter Details Date Type Department Care Team (Late st Contact Info) Description 02/10/2025 Transcribe Orders [facility] [address] [place] [address] Singh Loza MD [address] [place] [address] [place] [address] Muscle weakness (generalized) (Primary Dx) Social History Tobacco Use Types Packs/Day Years [...] on file documented as of this encounter Plan of Treatment Upcoming Encounters Date Type Department Care Team (Late st Contact Info) Description 04/16/2025 1:45 PM CDT Physical Therapy [facility] [address] [facility], [address] [place] [address] Singh Loza MD [address] [place] [address] [place] [address] Hu Edwards, PT MS 04/18/2025 11:00 AM CDT Physical Therapy [facility] at [facility] [address] [place] [phone] Singh Loza MD [address] [place] [address] [place] [address] Britni Sarabia, PT MS 04/22/2025 2:30 PM CDT Physical Therapy [facility] at [facility] [address], [address] [place] [address] Singh Loza MD [address] [facility] [place] [address] Stu Sarabiaisabelle Nayak, PT MS 05/13/2025 2:30 PM CDT Appointment [facility] Ul[facility]ound [address] [place] [phone] Melissa Rogers APRN, INSULATION CUTTER [address] [place] [address] Discharge Disposition: Discharged to home or Selfcare Scheduled Referrals Name Type Priority Associated Diagnoses Orde r Schedule PHYSICAL THERAPY REFERRAL Outpatient Referral Routine Muscle weakness (generalized) Expected: 02/10/2025, Expires: 02/10/2026 documented as of this encounter Visit Diagnoses Diagnosis Muscle weakness (generalized)- Primary documented in this encounter Additional Health Concerns Assessment Noted Time PHQ-9 Depression Total Score: 0 04/18/20 17 10:00 AM CDT documented as of this encounter Care Teams Gang Miner Relationship Specialty Start Date End Date Singh Loza MD [address] [facility] [address] [place] [address] PCP - General Family Medicine 04/18/16 Jose Kumar MD [address] [place] [address] [place] [address] General Surgery 04/13/17 Lucita Patterson APRN, INSULATION CUTTER [address] [place] [address] Nurse Practitioner Advanced Practice Nurse 04/18/17 Romeo Dolan DPM [address] [place] [address] [place] [address] Consulting Physician Podiatry 05/18/17 Melissa Rogers APRN, INSULATION CUTTER [address] [place] [address] Nurse Practitioner Advanced Practice Nurse 01/11/23 Nessa Reid MD [address] [place] [address] Consulting Physician Gastroenterology 03/15/24 documented as of this encounter
--- OUTSIDE RECORDS SUMMARY | 2025-04-11 13:31 | XMS_ITS | Referral Summary ---
Author Organization [facility] Address [address] [place] [address] Care Team Providers Care Fixed Wing Aircraft Flight Engineer Name Role Phone Singh Loza MD Primary Care Provider [phone] Encounters Date Type Department Care Team Description 02/10/2025 1:15 PM CDT Office Visit [facility] Pulmonary at [address] [place] [address] Jose Farooq MD Moderate persistent asthma without complication (Primary Dx); Chronic cough; Seasonal allergic rhinitis, unspecified trigger; Rheumatoid arthritis involving multiple sites, unspecified whether rheumatoid factor present (HCC); Pulmonary nodule 01/13/2025 Telephone [facility] Pulmonary at [address] [place] [address] Zaina Soni LPN Prior Auth (Nebulizer medication ) from Last 3 Months Allergies Active Allergy Reactions Criticality Noted Date Comments Aspirin Unknown Low Srwaeej-Bpufaxtj-Qdfokhjeabgib Swelling Medium 02/19 With hives Caffeine Dihydrocodeine [...] by mouth daily Active cholecalciferol (VITAMIN D-3) 93272 unit capsule Take 1 capsule (50,000 Units [...] SOB (shortness of breath) 06/10/2020 Atherosclerosis of campo ar teries of extremities with intermittent claudication, [...] drug level monitoring 01/09/2017 Fibromyalgia 02/15/2016 Other half-way (current) drug therapy 6 Resolved Problems Problem Noted Date Diagnosed Date Resolved Date Rheumatoid arthritis of mult iple sites without organ or system involvement with positive rheumatoid factor 02/15/2016 12/30/2020 Vitamin D deficiency 02/15/2016 021 Immunizations Immunization Administration Dates Next Due Influenza, [...] on file Legal Sex Female 7:58 PM MANAGER MEETING Gender Identity Female 09/16/2021 4:34 PM CDT [...] 02/10/2025 1:19 PM CDT Plan of Treatment Not on [...] LDL-C. Jimmie SS et al. PAIGE. 2013;310(19): 8339-3041 (http://education.[employer].Bangcle/faq/QTI593) Chol/HDL ratio 5.5(H) <5.0 (calc) [facility] [...] AM CDT FASTING:YES FASTING: YES us Nguyen Chikis Datillo RELIEF CHARGE NURSE LAB BLOOD ORDERABLES Fi nal Result [facility] [address] [address] * Dexa Axial Skeleton Bone Density 1 or 2 Site (06/22/2023 2:03 PM CDT) Anatomical Region Laterality Modality Body N/A Other 06/24/2023 12:1 5 AM CDT Narrative 06/24/2023 12:16 AM CDT EXAM DESCRIPTION: DEXA AXIAL SKELETON BONE DENSITY 1 OR MORE SITES REASON FOR STUDY: 63 y/o year old F with given history of: rheumatoid arthritis of multiple sites Osteoporosis screening Post menopausal Reforestation Worker/Model: Ryla SL (S/N [id number]) CLINICAL INFORMATION: Current height: 65.5 inches Maximum [...] Choco Bradley M.D. MF: DOMINIC Report ID: [id number] Reading Location: [place] [address] Procedure Note Choco Bradley MD - 06/24/2023 EXAM DESCRIPTION: DEXA AXIAL SKELETON BONE DENSITY 1 OR MORE SITES REASON FOR STUDY: 63 y/o year old F with given history of: rheumatoid arthritis of multiple sites Osteoporosis screening Post menopausal Reforestation Worker/Model: Ryla SL ([id number]/N [id number]) CLINICAL INFORMATION: Current height: 65.5 inches Maximum [...] Choco Bradley M.D. MF: DOMINIC Report ID: [id number] Reading Location: [place] [address] us Dl Jones MD IMG DXA PROCEDURES Final Result * Serum Hepatitis C ab (07/10/2013 3:34 PM CDT) HCV ab Negative Negative HISTORICAL RESULTS Serum 07/10/2013 3:34 PM CDT us Tatyana Basurto MD LAB BLOOD ORDERABLES Yvonne l Result HISTORICAL RESULTS from Last 3 Months or Most Recently Relevant to Health Maintenance Insurance [facility] MEDICARE ADVANTAGE [facility] MEDICARE ADVANTAGE IDPA Care Teams Fixed Wing Aircraft Flight Engineer Relationship Specialty Start Date End Date Singh Loza MD [address] [facility] [address] [place] [address] PCP - General Family Medicine 01/02/25
--- OUTSIDE RECORDS SUMMARY | 2025-04-11 13:31 | XMS_ITS | Clinical Summary ---
Author Organization [facility] Address [address] [place] [address] Phone Care Team Providers Care Rag Washer Name Role Phone Singh Loza MD Primary Care Provider Jose Kumar MD Unavailable [phone] Lucita Patterson COMMERCIAL PROPERTY MANAGER, SENIOR SYSTEMS ANALYST Unavailable Romeo Dolan DPM Unavailable [phone] Melissa Rogers COMMERCIAL PROPERTY MANAGER, SENIOR SYSTEMS ANALYST Unavailable Nessa Reid MD Unavailable [phone] Allergies Active Allergy Reactions Criticality Noted Date Comments Aspirin Unknown Low 03/14/2024 Uncoated Buprenorphine Rash,Itching 06/14/2024 Patch Hydrocodone Nausea 02/12/2023 Nabumetone Anaphylaxis 04/22/2016 Orpfdon-Xcbs-Xxyreqnpdikbyb Unknown 03/20/20 17 Ondansetron Hcl Nausea,Vomiting 01/07/2019 [...] Active fluticasone (FLONASE) 50 MCG/ACT Suspension 1 Gypsum by Nasal route daily as needed for Rhinitis or Allergies. 18.2 g 3 Active Additional Information Patient taking differently:1 Gypsum NasalDAILY, Reported on 06/14/2024 HYDROcodone-acet aminophen (NORCO) [...] by Transdermal route. 4 Active Cholecalciferol (D3-50) 98776 UNIT Capsule Take 50,000 Units by mouth [...] of both feet 05/18/2017 Hiatal hernia 04/25/2017 Encounters Date Type Department Care Team Description 04/09/2025 1:45 PM CDT Physical Therapy [facility] [address] [place] [address], [address] [phone] Singh Loza MD Kutchma, Joshua J, PT Muscle weakness (generalized) (Primary Dx) Discharge Disposition: Discharged to home or Selfcare 04/09/2025 Travel 04/04/2025 Telephone [facility] at [facility] [address], [address] [place] [address] Britni Sarabia, PT Appointment 04/02/2025 1:45 PM CDT Physical Therapy [facility] [address] [place] [address] Singh Loza MD Middleton, Trisha M, PT Muscle weakness (generalized) (Primary Dx) Discharge Disposition: Discharged to home or Selfcare 04/02/2025 Travel 03/28/2025 1:45 PM CDT Physical Therapy [facility] at [address] [place] [address] Singh Loza MD Middleton, Trisha M, PT Muscle weakness (generalized) (Primary Dx) Discharge Disposition: Discharged to home or Selfcare 2025 1:45 PM CDT Physical Therapy [facility] at [address] [place] [address] Singh Loza MD Middleton, Trisha M, PT Muscle weakness (generalized) (Primary Dx) Discharge Disposition: Discharged to home or Selfcare 2025 Travel 03/14/2025 1:45 PM CDT Physical Therapy [facility] [address] [place] [address] Singh Loza MD Middleton, Trisha M, PT Muscle weakness (generalized) (Primary Dx) Discharge Disposition: Discharged to home or Selfcare 03/12/2025 Plan of Care Documentation [facility] at [facility] [address] [place] [address] 03/11/2025 3:15 PM CDT Physical Therapy [facility] at [facility] [address] [place] [address] Singh Loza MD Middleton, Trisha M, PT Muscle weakness (generalized) (Primary Dx) Discharge Disposition: Discharged to home or Selfcare 03/11/2025 Travel 02/26/2025 Telephone [facility] at [facility] [address] [place] [address] [place] [address] Hu Edwards, PT Appointment (Cancel) 02/18/2025 Telephone [facility] [place] [address] [place] [phone] Melissa Rogers APRN, SENIOR SYSTEMS ANALYST Procedure 02/10/2025 Transcribe Orders [facility] [address] [place] [address] Singh Loza MD Muscle weakness (generalized) (Primary Dx) from Last 3 Months Immunizations Immunization Administration Dates Next Due Covid-19, [...] 70 08/23/2024 8:45 PM CDT Temperature 36.8 C (98.3 F) 08/23/2024 8:56 PM CDT Respiratory Rate 20 08/23/2024 8:45 PM CDT Oxygen Saturation 92% 08/23/2024 8:45 PM CDT Inhaled Oxygen Concentration - - Weight 86.2 kg (190 lb) 08/23/2024 8:56 PM CDT Height 165.1 cm (5' 5 ) 08/23/2024 8:56 PM CDT Body Mass Index 31.62 08/23/2024 8:56 PM CDT Plan of Treatment Upcoming Encounters Date Type Department Care Team (Late st Contact Info) Description 04/16/2025 1:45 PM CDT Physical [facility] at [address], [address] [phone] Singh Loza MD [address] [place] [address] [place] [address] Hu Edwards, PT MA 04/18/2025 11:00 AM CDT Physical Therapy [facility] at [address], [place] [address] Singh Loza MD [address] [facility] [place] [address] Britni Sarabia, PT MA 04/22/2025 2:30 PM CDT Physical Therapy [facility] at [facility] [address] [facility], [facility] [address] [place] [phone] Singh Loza MD [address] [facility] [place] [address] Britni Sarabia PT MA 05/13/2025 2:30 PM CDT Appointment [facility] Ultrasound 1 [place] [phone] Melissa Rogers APRN, SENIOR SYSTEMS ANALYST [address] [place] [address] Discharge Disposition: Discharged to home or Selfcare Health Maintenance Due Date Last Done Comments Diabetes: Eye Exam 1958 Diabetes: Foot Exam 1960 Hepatitis C Virus (HCV) Screening 1960 TdaP Immunization 1960 Cologuard 2008 Immunochemical Fecal Occult Blood 2008 Respiratory Syncytial Virus (RSV) Immunization (Adult) (1 - Risk 60-74 years 1-dose series) 2018 Mammogram 06/15/2022 06/15/2021, 0712/2019, 02/06/2019 Diabetes: Hemoglobin A1c 08/15/2023 02/12/2023 SARS-COV-2 Immunization ( season) 2024 08/10/2022, 03/25/2022, 10/12/2021, Additional history exists DEXA Bone Density 06/22/2025 06/22/2023 Diabetes: Nephropathy Screening 08/23/2025 08/23/2024, 12/06/2023, 02/15/2023, Additional history exists Colonoscopy 05/03/2026 05/03/2021, 03/22/2017 Colorectal Cancer Screening 05/03/2026 05/03/2021, 03/22/2017 Zoster Immunization Completed 03/25/2022, Pneumococcal Immunization (50+ years) Completed 09/19/2022, 10/04/2017, 12/26/2013 Pneumococcal Immunization Combined Discontinued 09/19/2022, 10/04/2017, 12/26/2013 Influenza Immunization Completed , 10/03/2023, 09/19/2022, Additional history exists Hepatitis B Immunization Aged Out No longer eligible based on patient's age to complete this topic Human Papillomavirus (HPV) Immunization Aged Out No longer eligible based [...] - 145 mmol/L 08/23/2024 7:52 PM CDT [facility] POTASSIUM 3.8 3.5 - 5.1 mmol/L 08/23/2024 7:52 PM CDT [facility] CHLORIDE 106 98 - 107 mmol/L 08/23/2024 7:52 PM CDT [facility] CO2, VENOUS 26 22 - 30 mmol/L 08/23/2024 7:52 PM CDT [facility] ANION GAP 10.8 <18.0 mmol/L 08/23/2024 7:52 PM CDT [facility] GLUCOSE 108(H) 70 - 99 mg/dL 08/23/2024 7:52 PM CDT [facility] BUN 12 10 - 20 mg/dL 08/23/2024 7:52 PM CDT [facility] CREATININE, BLOOD 0.89 0.60 - 1.00 mg/dL 08/23/2024 7:52 PM CDT [facility] BUN/CREATININE RATIO 13 12 - 20 ratio 08/23/2024 7:52 PM CDT [facility] TOTAL PROTEIN 7.0 6.3 - 8.2 g/dL 08/23/2024 7:52 PM CDT [facility] ALBUMIN 3.6 3.5 - 5.0 g/dL 08/23/2024 7:52 PM CDT [facility] A/G RATIO 1.1 1.0 - 2.2 08/23/2024 7:52 PM CDT [facility] CALCIUM 8.8 8.7 - 10.5 mg/dL 08/23/2024 7:52 PM CDT [facility] T BILI 0.4 0.2 - 1.2 mg/dL 08/23/2024 7:52 PM CDT [facility] SGOT (AST) 22 5 - 34 U/L 08/23/2024 7:52 PM CDT [facility] SGPT (ALT) 24 0 - 55 U/L 08/23/2024 7:52 PM CDT [facility] ALKALINE PHOSPHATASE 100 40 - 150 U/L 08/23/2024 7:52 PM CDT [facility] GFR, ESTIMATED >60 >=60 08/23/2024 7:52 PM CDT [facility] Comment: Creatinine Clearance is the preferred criteria for selecting drug dose adjustments in renally impaired patients. The GFR is provided as additional pertinent clinical information. GFR is reported in mL/min/1.73 sq m. Calculation based on the Chronic Kidney Disease Epidemiology Collaboration (CKD- EPI) equation refit without adjustment for race. GFR, EST. >60 >=60 024 7:52 PM CDT [facility] GFR, EST. NONAFRICAN >60 >=60 08/23/2024 7:52 PM CDT [facility] Blood Venipuncture / Unknown 08/23/2024 7:02 PM CDT 08/23/2024 7:17 PM CDT us Fortino Roberts MD CHEMISTRY ORDERABLES Final Result Performing Organization Address City/[facility]/ZIP Co de Phone Number [facility] [address] [place] [address] * (ABNORMAL) Hemoglobin A1C (if indicated) (02/12/2023 4:00 PM CDT) HGB-A1C 6.8(H) 4.0 - 6.0 % 02/13/2023 6:41 AM CDT [facility] Est Average Glucose 148.5 mg/dL 02/13/2023 6:41 AM CDT [facility] Blood Venipuncture / Unknown 02/12/2023 4:00 PM CDT 02/12/2023 4:07 PM CDT Narrative [facility] - 02/13/2023 6:41 AM CDT HEMOGLOBIN A1C: DIABETIC PATIENTS: WELL-CONTROLLED: 6.2 - 7.0 INTERMEDIATE WELL-CONTROLLED: 7.0 - 9.0 POORLY-CONTROLLED: >9.0 us Ciara Fraga COMMERCIAL PROPERTY MANAGER, SENIOR SYSTEMS ANALYST CHEMISTRY ORDERABLES Fi nal Result Performing Organization Address [facility] Co de Phone Number [facility] [address] [place] [address] * OZZY SCREENING BILATERAL DIGITAL W CAD [...] to exams dated: 05/28/2020, 02/06/2019, and 05/27/2015 [facility]. BREAST TISSUE:There are scattered fibroglandular densities in [...] will be contacted. Electronically signed by: Kimberly silver/aundrea:06/15/2021 13:08:52 Copy Manager(s): RT Cristino(R)(M), [facility] letter sent: Additional Imaging Reading location: [facility] BI-RADS: 0 Additional Imaging Evaluation Needed Procedure [...] to exams dated: 05/28/2020, 02/06/2019, and 05/27/2015 [facility]. BREAST TISSUE:There are scattered fibroglandular densities in [...] signed by: Kimberly Kang M.D. ts/penrad:06/15/2021 13:08:52 Copy Manager(s): RT Cristino(R)(M), [facility] letter sent: Additional Imaging Reading location: [facility] BI-RADS: 0 Additional Imaging Evaluation Needed us Singh Loza MD IMG MAMMO ORDERABLES Final Res ult from Last 3 Months or Most Recently Relevant to Health Maintenance Insurance MEDICAID [place] MEDICARE C [employer] Advance Directives Documents on File Type Date Recorded Patient Sporting Goods Salesperson Expl anation Advance Care Planning Discussion 04/12/2018 8:48 AM ACP COVER SHEET POLST/POST/PA DNR 04/12/2018 8:48 AM POLST 04/10/18 * [...] 12:43 PM 04/10/2018 3:14 PM Care Teams Rag Washer Relationship Specialty Start Date End Date Singh Loza MD [address] [facility] [address] [place] [address] PCP - General Family Medicine 04/18/16 Jose Kumar MD [address] [facility] [address] [place] [address] General Surgery 04/13/17 Lucita Patterson APRN, SENIOR SYSTEMS ANALYST [address] [facility] [address] [place] [address] Nurse Practitioner Advanced Practice Nurse 04/18/17 Romeo Dolan DPM [address] [facility] [address] [place] [address] Consulting Physician Podiatry 05/18/17 Melissa Rogers APRN, SENIOR SYSTEMS ANALYST [address] [place] [address] Nurse Practitioner Advanced Practice Nurse 01/11/23 Nessa Reid MD [address] [place] [address] Consulting Physician Gastroenterology 03/15/24
--- OUTSIDE RECORDS SUMMARY | 2025-04-11 13:32 | XMS_ITS | Clinical Summary ---
Author Organization [facility] Address [address] [place] [address] Care Team Providers Care Sales Office Assistant Name Role Phone Singh Loza MD Primary Care Provider [phone] Source Comments [facility],non-owned Affiliates and Associated Physician Practices is amultiple site organization consisting of ambulatory clinics and hospital sitesin [place], [place] and [place]. This disclosure is being madepursuant to the Care Everywhere program and may not contain all information available regarding this patient. Last updated 18.[facility] Allergies Active Allergy Reactions Criticality Noted Date Comments Buprenorphine Itching,Rash Medium 06/14/2024 Patch Nabumetone Anaphylaxis High 02/15/2016 Ondansetron Nausea and/or Vomiting,Vomiting Medium 09/2019 Synalgos-Dc Swelling Low 02/19/2018 With hives Medications * Be aware that medications may not be up to date on this document. Alwaysverify current medications with the patient. atorvastatin (LIPITOR) 40 MG tablet Take 2 (two) tablets by mouth once daily 06/13/20 18 Active isosorbide mononitrate CR 24hr (IMDUR) 60 MG tablet Take 1 (one) tablet by mouth once daily 06/15/20 18 Active montelukast (SINGULAIR) 10 MG tablet Take 1 (one) tablet by mouth once daily 04/24/20 18 Active aspirin EC (Ecotrin) 81 MG tablet Take 1 (one) tablet by mouth 12/19/19 17 Active gabapentin (NEURONTIN) 300 MG capsule Take 1 (one) capsule by mouth 3 times daily Active oxybutynin (DITROPAN) 5 MG tabletIndication s:Urinary Incontinence Take 2 (two) tablets by mouth once daily Reasons: Urinary Incontinence 12/19/19 17 Active sertraline (ZOLOFT) 100 MG tablet Take 2 (two) tablets by mouth once daily 12/19/19 17 Active furosemide (LASIX) 20 MG tablet Take 1 (one) tablet by mouth once daily 07/27/20 21 Active glipiZIDE (GLUCOTROL) 5 MG tabletIndication s:Type 2 Diabetes Mellitus Take 1 (one) tablet by mouth 2 times daily with morning and evening meal Reasons: Type 2 Diabetes 07/27/20 21 Active cyclobenzaprine (FLEXERIL) 10 MG tablet Take 1 (one) tablet by mouth 3 times daily as needed 09/13/20 21 Active prochlorperazine (COMPAZINE) 10 MG tablet Take 1 (one) tablet by mouth every 8 hours as needed 11/23/20 21 Active albuterol HFA (PROVENTIL; VENTOLIN; PROAIR) 108 (90 Base) MCG/ACT inhaler Inhale 1 (one) puff to 2 (two) puffs by mouth every 6 hours as needed 02/22/20 22 Active SUMAtriptan (Imitrex) 100 MG tablet Take 1 (one) tablet by mouth once as needed 09/19/20 22 Active TRUEplus Lancets 28G MISC 09/05/20 22 Active OneTouch Verio test strip 09/05/20 22 Active Blood Glucose Monitoring Suppl (OneTouch Verio) w/Device KIT 07/10/20 22 Active Oxygen [place] 2 L/min into the nose at bedtime Active folic acid (Folvite) 1 MG tabletIndication s: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 Indications: MACULAR DEGENERATION Active fluticasone propionate (Flonase) 50 MCG/ACT nasal spray [place] 1 (one) spray into the nose once daily as needed 02/16/20 23 Active polyethylene glycol 3350 (Miralax) 17 GM/SCOOP powder Take 17 (seventeen) g by mouth as needed for Constipation (as needed) 02/16/20 23 Active baclofen (Lioresal) 10 MG tablet Take 1 (one) tablet by mouth 3 times daily as needed 03/19/20 24 Active lidocaine (Xylocaine) 5 % ointment Apply to affected area 4 times daily as needed 02/14/20 24 Active omeprazole (PriLOSEC) 40 MG capsule Take 1 (one) capsule by mouth once daily 03/19/20 24 Active traMADol (Ultram) 50 MG tablet Take 1 (one) tablet by mouth every 6 hours as needed for Pain Active Xtampza ER 9 MG capsule 05/21/20 24 Active Cholecalciferol 1.25 MG (24801 UT) Take 50,000 Units by mouth Active evolocumab (Repatha SureClick) 140 MG/ML auto-injector Inject 140 (one hundred forty) mg subcutaneously every 14 days 06/19/20 24 025 Active hydrOXYzine pamoate (Vistaril) 25 MG capsule 07/24/20 24 Active methotrexate 2.5 MG tabletIndication s: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) Take 7 (seven) tablets by mouth every 7 days 84 tablet 3 07/31/20 24 025 Active arformoterol (Brovana) 15 MCG/2ML nebulizer solution Inhale 2 mL by mouth 2 times daily 09/25/20 24 Active predniSONE (Deltasone) 5 MG tabletIndication s: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) TAKE 1 (ONE) TABLET BY MOUTH ONCE DAILY NEEDED 18 tablet 02/18/20 25 Active Active Problems Problem Noted Date Diagnosed Date SOB (shortness of breath) 12/04/2017 Encounter for long-term (current) drug use 02/14 Other mcc (current) drug therapy 6 Rheumatoid arthritis 02/15/2016 Fibromyalgia 02/15/2016 Vitamin D deficiency 02/15/2016 Encounters Date Type Department Care Team Description 02/17/2025 Refill [facility] - Rheumatology [address] [facility], [place] [address] Hu Ybarra MD Refill Request 01/29/2025 1:30 PM ASSISTANT PROJECT MANAGER Office Visit [facility] - Rheumatology [address] [facility], [place] [address] Hu Ybarra MD 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 (Primary Dx); Therapeutic drug monitoring; Immunosuppression due to drug therapy; Fibromyalgia 01/29/2025 Travel from Last 3 Months Immunizations Immunization Administration Dates Next Due FLU VACCINE QUAD [...] Recorded Patient Health Questionnaire-2 Score 2 07/31/2024 Comments No Sex and Gender Information Value Date Recorded Sex Assigned at Not on file Legal Sex Female 5:18 PM ASSISTANT PROJECT MANAGER Gender Identity Female 05/29/2024 2:11 PM CDT Sexual Orientation Straight 02/20/2025 11 :36 AM CDT Last Filed Vital Signs Vital Sign Reading Time Taken Comments Blood Pressure 118/88 01/29/2025 1:25 PM ASSISTANT PROJECT MANAGER Pulse 98 01/29/2025 1:25 PM ASSISTANT PROJECT MANAGER Temperature 36 C (96.8 F) 01/29/2025 1:25 PM ASSISTANT PROJECT MANAGER Respiratory Rate 20 07/31/2024 2:34 PM CDT Oxygen Saturation 99% 08/28/2024 11:49 AM CDT Inhaled Oxygen Concentration - - Weight 82.7 kg (182 lb 6.4 oz) 01/29/2025 1:25 P M ASSISTANT PROJECT MANAGER Height 165.1 cm (5' 5 ) 01/29/2025 1:25 PM ASSISTANT PROJECT MANAGER Body Mass Index 30.35 01/29/2025 1:25 PM ASSISTANT PROJECT MANAGER Plan of Treatment Upcoming Encounters Date Type Department Care Team (Late st Contact Info) Description 07/09/2025 2:00 PM CDT Office Visit [facility] - Rheumatology [address] [place] [address], [place] [phone] Hu Ybarra MD [address] [place] [address] [place] [address] Health Maintenance Due Date Last Done Comments [...] 2024 08/10/2022, 03/25/2022, 10/12/2021, Additional history exists DEPRESSION SCREENING 11/27/2024 07/31/2024, 02/01/2023, 09/28/2022 MEDICARE AWV CALENDAR YEAR 2024 INFLUENZA VACCINE (Season Ended) 2025 09/19/2022, 10/12/2021, 10/07/2020, Additional history exists SCREENING FOR DIABETES 07/31/2027 , 07/03/2024, 06/18/2024, Additional history exists HEPATITIS C [...] complete this topic MENINGOCOCCAL (Group B) VACCINE SHARED DECISION-MAKING Aged Out No longer eligible based on patient's age to complete this topic MENINGOCOCCAL GROUPS A/C/Y/W VACCINE Aged Out No longer eligible based on patient's age to complete this topic Procedures Procedure Name Priority Date/Time Associated Diagnosis Comments LAB RESULTS ORDER 03/31/2025 LAB RESULTS ORDER 02/03/2025 COMPREHENSIVE METABOLIC PANEL Routine 07/31/2024 12:02 PM CDT 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 Therapeutic drug monitoring HEPATITIS C AB W/RFLX TO HCV RNA QN PCR Routine 10/03/2022 12:44 PM ASSISTANT PROJECT MANAGER 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 Therapeutic drug monitoring Immunosuppression due to drug therapy Need for hepatitis C screening test from Last 3 Months or Most Recently Relevant to Health Maintenance Results * LAB RESULTS ORDER (03/31/2025) Only the most recent of2 resultswithin the time period is included. 03/31/2025 Narrative 03/31/2025 Ordered by an unspecified provider. us Scanned Document LAB - THERAPEUTIC DRUG MONITORI NG ORDERABLES Final Result * (ABNORMAL) COMPREHENSIVE METABOLIC PANEL (07/31/2024 12:02 PM [facility]) BUN 17 7 - 26 mg/dL 07/31/2024 1:23 PM [facility] Creatinine 0.90 0.56 - 0.96 mg/dL 07/31/2024 1:23 PM [facility] Sodium 137 136 - 145 mmol/L 07/31/2024 1:23 PM [facility] Potassium 3.9 3.5 - 4.5 mmol/L 07/31/2024 1:23 PM [facility] Chloride 106 98 - 107 mmol/L 07/31/2024 1:23 PM [facility] CO2 25 22 - 29 mmol/L 07/31/2024 1:23 PM [facility] Glucose 227(H) 70 - 115 mg/dL 07/31/2024 1:23 PM [facility] Calcium 9.0 8.4 - 10.2 mg/dL 07/31/2024 1:23 PM [facility] Protein Total 7.4 6.0 - 8.3 g/dL 07/31/2024 1:23 PM [facility] Albumin 3.4 3.4 - 5.0 g/dL 07/31/2024 1:23 PM [facility] Bilirubin Total 0.6 0.2 - 1.2 mg/dL 07/31/2024 1:23 PM [facility] Alkaline Phosphatase 91 40 - 150 U/L 07/31/2024 1:23 PM [facility] ALT 39 5 - 55 U/L 07/31/2024 1:23 PM [facility] AST 33 5 - 34 U/L 07/31/2024 1:23 PM [facility] Anion Gap 6 6 - 16 07/31/2024 1:23 PM CDT [facility] BUN/Creatinine Ratio 19 7 - 23 07/31/2024 1:23 PM T [facility] Osmolality Calculated 293 275 - 295 mOsm/kg 07/31/2024 1:23 PM [facility] Albumin/Globulin Ratio 0.9(L) 1.1 - 2.3 07/31/2024 1:23 PM [facility] eGFR by CKD-EPI 71(L) >=90 mL/min/1.7 3 m2 07/31/2024 1:23 PM [facility] Blood BLOOD SPECIMEN / Unknown Venipuncture / Unknown 07/31/2024 12:02 PM CDT 07/31/2024 12:20 PM CDT Dl Jones MD LAB - CHEMISTRY ORDERABLES Final Result Performing Organization Address City/[facility]/ZIP Co de Phone Number [facility] [address] [place] [address], [facility] [phone] * HEPATITIS C AB W/RFLX TO HCV RNA QN PCR (10/03/2022 12:44 PM ASSISTANT PROJECT MANAGER) Hepatitis C Antibody NON-REACTI VE NON-REACT [facility] Signal to Cut-Off 0.02 <1.00 [facility] Comment: HCV antibody was non-reactive. There is no laboratory evidence of HCV infection. In most cases, no further action is required. However, if recent HCV exposure is suspected, a test for HCV RNA (test code 80990) is suggested. For additional information please refer to http://education.PolicyStat/faq/TZF73i9 (This link is being provided for informational/ educational purposes only.) Test Performed at: [facility] [address] [place] [address] CHAVA MILLS DO,MPH Blood BLOOD SPECIMEN / Unknown 10/03/2022 12:44 PM ASSISTANT PROJECT MANAGER 10/03/2022 12:44 PM ASSISTANT PROJECT MANAGER Dl Jones MD LAB - CHEMISTRY ORDERABLES Final Result [facility] [id number] [place] [address] from Last 3 Months or Most Recently Relevant to Health Maintenance Insurance [facility] MANAGED MEDICARE ADV Advance Directives Documents on File Type Date Recorded Patient Tinsmith Helper Expl anation Healthcare Power of Ultrasonic Solderer 02/17/2023 7:34 AM laure amaya orders [id number] Care Teams Sales Office Assistant Relationship Specialty Start Date End Date Singh Loza MD [address] [place] [phone] PCP - General 02/12/16
== END 2025-04-11 13:23 | disposition home or self-care (01) ==
PROVIDERS: PCP Family Medicine; Visit Provider Orthopaedic Surgery
DX: M17.12 Unilateral primary osteoarthritis, left knee (principal)
CPT/HCPCS: 73564

== ENCOUNTER 2025-05-02 13:01 | Outpatient (CLI) | payer MEDICARE, MEDICAID, SELFPAY ==
--- NOTE | ~2025-05-02 | XR_ITS ---
XR hip LT 2V w AP pelvis 05/02/2025 13:31 Indication: Left hip pain Procedure: AP pelvis and 2 views left hip Comparison: No prior studies for comparison. Findings: There is mild bilateral osteoarthritis of the hips. There are 2 linear radiopacities overly ing the right ilium, suspicious for foreign bodies. Pelvic rings intact. No acute fracture or traumat ic malalignment. There are benign-appearing pelvic calcifications. Impression: 1: Mild bilateral osteoarthritis of the hips. 2: Linear metallic densities overlying the right ilium and gluteal region, suspicious for foreign veronica dies. Alternatively, these could represent artifact. Reviewed, dictated and finalized at location A. Impression: 1: Mild bilateral osteoarthritis of the hips. 2: Linear metallic densities overlying the right ilium and gluteal region, deanne picious for foreign bodies. Alternatively, these could represent artifact.
--- OUTSIDE RECORDS SUMMARY | 2025-05-02 13:04 | XMS_ITS | Encounter Summary ---
Author Organization [facility] Address [address] [place] [address] Phone Care Team Providers Care Head Of Operation And Logistics Name Role Phone Singh Loza MD Primary Care Provider [phone] Jose Kumar MD Unavailable [phone] Lucita Patterson APRN, FINISHING ROOM SUPERVISOR Unavailable Romeo Dolan DPM Unavailable [phone] Melissa Rogers APRN, FINISHING ROOM SUPERVISOR Unavailable Nessa Reid MD Unavailable [phone] Reason for Visit * Reason Comments Medication Refill Encounter Details Date Type Department Care Team (Late st Contact Info) Description 05/20/2024 Refill [facility] - Gastroenterology [facility] [address] [place] [address] Melissa Rogers APRN, FINISHING ROOM SUPERVISOR [address] [place] [address] Medication Refill Social History Tobacco Use Types [...] PM CDT Medication [facility] and [facility] standing order for pediatric and adult patients. documented in this encounter Plan of Treatment Upcoming Encounters Date Type Department Care Team (Late st Contact Info) Description 05/13/2025 2:30 PM CDT [facility]ment [facility] [address] [place] [address] Melissa Rogers APRN, FINISHING ROOM SUPERVISOR [address] [place] [address] Discharge Disposition: Discharged to home or Selfcare 05/26/2025 1:00 PM CDT Physical Therapy [facility] at [address], [place] [address] [phone] Singh Loza MD [address] [place] [address] Britni Sarabia, PT [place] Discharge Disposition: Discharged to home or Selfcare 05/28/2025 2:30 PM CDT [facility] at [address] [place] [address] [place] [phone] Singh Loza MD [address] [facility] [place] [address] Hu Edwards, PT [place] 06/09/2025 1:00 PM CDT [facility] [address] [facility], [place] [address] [place] [address] Singh Loza MD [address] [place] [place] [address] Hu Edwards, PT [place] 06/18/2025 1:45 PM CDT [facility] [address], [place] [address] [place] [address] Singh Loza MD [address] [place] [address] [place] [address] Britni Sarabia, PT [place] 06/23/2025 1:00 PM CDT [facility] [address], [place] [address] [place] [phone] Singh Loza MD [address] [facility] [place] [address] Hu Edwards, PT [place] 07/03/2025 1:00 PM CDT [facility] [address] [facility], [place] [address] [place] [address] Singh Loza MD [address] [facility] [place] [address] Britni Sarabia, PT [place] 07/07/2025 1:00 PM CDT [facility] [address] [facility], [place] [address] [place] [phone] Singh Loza MD [address] [place] [address] [place] [address] Britni Sarabia, PT [place] documented as of this encounter Visit Diagnoses Not on filedocumented in this encounter Additional Health Concerns Infection Onset Date Last Indicated Resolved Time COVID - 19 08/23/2024 08/23/2024 08/23/2024 8:09 PM CDT Assessment Noted Time PHQ-9 Depression Total Score: 0 04/18/20 17 10:00 AM CDT documented as of this encounter Care Teams Head Of Operation And Logistics Relationship Specialty Start Date End Date Singh Loza MD [address] [place] [address] PCP - General Family Medicine 04/18/16 Jose Kumar MD [address] [place] [address] [place] [address] General Surgery 04/13/17 Lucita Patterson APRN, FINISHING ROOM SUPERVISOR [address] [place] [address] [place] [address] Nurse Practitioner Advanced Practice Nurse 04/18/17 Romeo Dolan DPM [address] [place] [address] [place] [address] Consulting Physician Podiatry 05/18/17 Melissa Rogers APRN, FINISHING ROOM SUPERVISOR [address] [place] [address] Nurse Practitioner Advanced Practice Nurse 01/11/23 Nessa Reid MD [address] [place] [address] Consulting Physician Gastroenterology 03/15/24 documented as of this encounter
--- OUTSIDE RECORDS SUMMARY | 2025-05-02 13:05 | XMS_ITS | Clinical Summary ---
[facility] Organization [facility] Address [address] [place] [address] Care Team Providers Care Frit Mixer And Burner Name Role Phone Singh Loza MD Primary Care Provider [phone] Allergies Active Allergy Reactions Criticality Noted Date Comments Aspirin Unknown Low Vlxxoxq-Ngueqvhe-Kmrryzxuafeik Swelling Medium 02/19 With hives Caffeine Dihydrocodeine Bitartrate Unknown Hydrocodone-Acetaminophen Nabumetone Anaphylaxis High 04/22/2016 Medications aspirin 81 mg tablet Take 1 tablet (81 mg total) by mouth 017 Active folic acid (FOLVITE) 400 mcg tablet Take 1,500 mcg by mouth daily Active gabapentin (NEURONTIN) 300 mg capsule Take 1 capsule (300 mg total) by mouth 3 (three) times a day 018 Active montelukast (SINGULAIR) 10 mg tablet Take 1 tablet (10 mg total) by mouth 017 Active omeprazole (PriLOSEC) 20 mg capsule Take 1 capsule (20 mg total) by mouth daily 018 Active oxybutynin (DITROPAN) 5 mg tablet Take 1 tablet (5 mg total) by mouth daily 017 Active sertraline (ZOLOFT) 100 mg tablet Take 2 tablets (200 mg total) by mouth daily 100mg PO BID 017 Active mv,Ca,min-iron- FA-lycopene 8 mg iron- 200 mcg-600 mcg tablet Take by mouth daily Active cholecalciferol (VITAMIN D-3) 20917 unit capsule Take 1 capsule (50,000 Units total) by mouth every 30 (thirty) days Active fluticasone propionate (FLONASE) 50 mcg/actuation nasal spray USE 1 SPRAY IN EACH NOSTRIL EVERY DAY 16 g 1 020 Active methotrexate 2.5 mg tablet Take 7 [...] by mouth 3 (three) times a day Active Xtampza ER 9 mg capsule,sprinkl e,ER 12hr tmprr Active traMADoL (ULTRAM) 50 mg tablet Take 1-2 tablets (50-100 mg total) by mouth every 6 (six) hours as needed Active atorvastatin (LIPITOR) 80 mg tablet Take 1 tablet (80 mg total) by mouth daily 90 tablet 3 024 2024 Active evolocumab (Repatha SureClick) 140 mg/mL pen injector Inject 1 mL (140 mg total) under the skin every 2 (two) weeks 6 mL 3 024 2024 Active albuterol HFA (PROVENTIL HFA,VENTOLIN HFA,PROAIR HFA) 90 mcg/actuation inhaler Inhale 2 puffs every 6 (six) hours as needed for wheezing or shortness of breath 1 each 11 Active furosemide (LASIX) 20 mg tablet TAKE ONE (1) TABLET BY MOUTH EVERY DAY 90 tablet 3 Active hydrOXYzine (ATARAX) 25 mg tablet Take 1 tablet (25 mg total) by mouth 2 (two) times a day as needed Active arformoteroL (BROVANA) 15 mcg/2 mL nebulizer solution Take 2 mL (15 mcg total) by nebulization 2 (two) times a day 120 mL 3 024 Active budesonide (PULMICORT) 0.5 mg/2 mL nebulizer solutionIndicat ions:Moderate persistent asthma without complication Take 2 mL (0.5 mg total) by nebulization 2 (two) times a day Rinse mouth with water after use. Do not swallow. 120 mL 11 025 Active isosorbide mononitrate ER (IMDUR) 60 mg 24 hr tablet TAKE ONE (1) TABLET BY MOUTH DAILY 210 tablet 025 Active isosorbide mononitrate ER (IMDUR) 60 mg 24 hr tablet TAKE 1 TABLET (60 MG TOTAL) BY MOUTH DAILY 90 tablet 3 024 2024 Discontinued budesonide (PULMICORT) 0.5 mg/2 mL nebulizer solution Take 2 mL (0.5 mg total) by nebulization daily Rinse mouth with water after use. Do not swallow. 120 mL 3 024 2024 Discontinued(R eorder) isosorbide mononitrate ER (IMDUR) 60 mg 24 hr tablet TAKE ONE (1) TABLET BY MOUTH DAILY 90 tablet 3 025 2024 Discontinued Active Problems Problem Noted Date Diagnosed Date Chest pain 03/25/2022 SOB (shortness of breath) 06/10/2020 Atherosclerosis of [place] ter[place] of extremities with intermittent claudication, [...] drug level monitoring 01/09/2017 Fibromyalgia 02/15/2016 Other engine cleaner (current) drug therapy 6 Resolved Problems Problem Noted Date Diagnosed Date Resolved Date Rheumatoid arthritis of mult iple sites without organ or system involvement with positive rheumatoid factor 02/15/2016 12/30/2020 Vitamin D deficiency 02/15/2016 021 Encounters Date Type Department Care Team Description 02/10/2025 1:15 PM CDT Office Visit [facility] Pulmonary at [address] [place] [address] Jose Farooq MD Moderate persistent asthma without complication (Primary Dx); Chronic cough; Seasonal allergic rhinitis, unspecified trigger; Rheumatoid arthritis involving multiple sites, unspecified whether rheumatoid factor present (HCC); Pulmonary nodule from Last 3 Months Immunizations Immunization Administration [...] on file Legal Sex Female 7:58 PM CUPOLA LINER Gender Identity Female 09/16/2021 4:34 PM CDT [...] 1:19 PM CDT Height 166.4 cm (5' 5.5) 02/10/2025 1:19 PM CDT Body Mass Index [...] LDL-C. Jimmie BUNCH et al. PAIGE. 2013;310(19): 3315-7607 (http://education.PowerInbox/faq/UFB558) Chol/HDL ratio 5.5(H) <5.0 (calc) [facility] [...] 5:11 AM CDT FASTING:YES FASTING: YES Nguyen Chikis Puente NP LAB BLOOD ORDERABLES Fi nal Result JOON [facility] [id number] [facility] QU[place] [address] * Dexa Axial Skeleton Bone Density 1 or 2 Site (06/22/2023 2:03 PM CDT) Anatomical Region Laterality Modality Body N/A Other 06/24/2023 12:1 5 AM CDT Narrative 06/24/2023 12:16 AM CDT EXAM DESCRIPTION: DEXA AXIAL SKELETON BONE DENSITY 1 OR MORE SITES REASON FOR STUDY: 63 y/o year old F with given history of: rheumatoid arthritis of multiple sites Osteoporosis screening Post menopausal Aws Architect/Model: Revivn (S/N [id number]) CLINICAL INFORMATION: Current height: 65.5 inches Maximum [...] 12:16 AM - Electronically signed by Choco Bradlye M.D. MF: DOMINIC Report ID: [id number] Reading Location: [place] [address] Procedure Note Choco Bradley MD - 06/24/2023 EXAM DESCRIPTION: DEXA AXIAL SKELETON BONE DENSITY 1 OR MORE SITES REASON FOR STUDY: 63 y/o year old F with given history of: rheumatoid arthritis of multiple sites Osteoporosis screening Post menopausal Aws Architect/Model: Blippar Discovery SL (S/N [id number]) CLINICAL INFORMATION: Current height: 65.5 inches Maximum [...] Choco Bradley M.D. MF: DOMINIC Report ID: [id number] Reading Location: [place] [address] Dl Jones MD IMG DXA PROCEDURES Final Result * Serum Hepatitis C ab (07/10/2013 3:34 PM CDT) HCV ab Negative Negative HISTORICAL RESULTS Serum 07/10/2013 3:34 PM CDT us Tatyana Basurto MD LAB BLOOD ORDERABLES Yvonne l Result HISTORICAL RESULTS from Last 3 Months or Most Recently Relevant to Health Maintenance Insurance IDPA [facility] MEDICARE ADVANTAGE [facility] MEDICARE ADVANTAGE IDPA Care Teams Frit Mixer And Burner Relationship Specialty Start Date End Date Singh Loza MD [address] [place] [address] [address] [place] [address] PCP - General Family Medicine 01/02/25
--- OUTSIDE RECORDS SUMMARY | 2025-05-02 13:05 | XMS_ITS | Encounter Summary ---
Author Organization [facility] Address [address] [place] [address] Phone Care Team Providers Care Police Detention Attendant Name Role Phone Singh Loza MD Primary Care Provider [phone] Jose Kumar MD Unavailable [phone] Lucita Patterson LOSS PREVENTION OPERATIONS MANAGER, SHREDDED FILLER CIGAR MAKER MACHINE Unavailable Romeo Dolan DPM Unavailable [phone] Melissa Rogers LOSS PREVENTION OPERATIONS MANAGER, SHREDDED FILLER CIGAR MAKER MACHINE Unavailable Nessa Reid MD Unavailable [phone] Reason for Referral * PT/OT/ST (Routine) - Authorized Specialty Diagnoses / Procedures Referred By Inez t Referred To Contact Physical Therapy Diagnoses Muscle weakness (generalized) Singh Loza MD [address] [place] [address] [address] [place] [address] Phone: tel: fax: [facility] [address] [place] [address] Phone: tel: fax: Referral ID Status Reason Start Date Expiration Date V isits Requested Visits Authorized [id number] Authorized 02/10/2025 50 11 Scheduling Instructions Encounter Details Date Type Department Care Team (Late st Contact Info) Description 02/10/2025 Transcribe Orders [facility] [address] [place] [address] Singh Loza MD [address] [facility] [place] [place] [address] Muscle weakness (generalized) (Primary Dx) Social History [...] Info) Description 05/13/2025 2:30 PM CDT [facility] [address] [place] [address] Melissa Rogers APRN, SHREDDED FILLER CIGAR MAKER MACHINE [address] [place] [address] Discharge Disposition: Discharged to home or Selfcare 05/26/2025 1:00 PM CDT Physical Therapy [facility] [address] [facility], [address] [place] [address] Singh Loza MD [address] [facility] [address] [place] [address] Britni Sarabia, PT [place] Discharge Disposition: Discharged to home or Selfcare 05/28/2025 2:30 PM CDT Physical Therapy [facility] [address] [facility], [address] [place] [address] Singh Loza MD [address] [facility] [place] [place] [address] Hu Edwards, PT [place] 06/09/2025 1:00 PM CDT Physical Therapy [facility] at [address], [address] [place] [address] Singh Loza MD [address] [facility] [place] [place] [address] Hu Edwards, PT [place] 06/18/2025 1:45 PM CDT Physical Therapy [facility] at [address], [address] [place] [address] Singh Loza MD [address] [facility] [place] [place] [address] Britni Sarabia, PT [place] 06/23/2025 1:00 PM CDT Physical Therapy [facility] [address], [address] [place] [address] Singh Loza MD [address] [facility] [place] [place] [address] Hu Edwards, PT [place] 07/03/2025 1:00 PM CDT Physical Therapy [facility] at [address], [address] [place] [address] Singh Lzoa MD [address] [facility] [place] [place] [address] Britni Sarabia, PT [place] 07/07/2025 1:00 PM CDT Physical Therapy [facility] [address] [facility], [address] [place] [address] Singh Loza MD [address] [place] [address] [address] [place] [address] Britni Sarabia, PT [place] Scheduled Referrals Name Type Priority Associated Diagnoses Orde r Schedule PHYSICAL THERAPY REFERRAL Outpatient Referral Routine Muscle weakness (generalized) Expected: 02/10/2025, Expires: 02/10/2026 documented as of this encounter Visit Diagnoses Diagnosis Muscle weakness (generalized)- Primary documented in this encounter Additional Health Concerns Assessment Noted Time PHQ-9 Depression Total Score: 0 04/18/20 10:00 AM CDT documented as of this encounter Care Teams Police Detention Attendant Relationship Specialty Start Date End Date Singh Loza MD [address] [place] [address] [place] [address] PCP - General Family Medicine 04/18/16 Jose Kumar MD [address] [facility] [place] [address] General Surgery 04/13/17 Lucita Patterson LOSS PREVENTION OPERATIONS MANAGER, SHREDDED FILLER CIGAR MAKER MACHINE [address] [place] [address] [place] [address] Nurse Practitioner Advanced Practice Nurse 04/18/17 Romeo Dolan DPM [address] [place] [address] [place] [address] Consulting Physician Podiatry 05/18/17 ScheMlissa vásquez APRN, SHREDDED FILLER CIGAR MAKER MACHINE [address] [place] [address] Nurse Practitioner Advanced Practice Nurse 01/11/23 Nessa Reid MD [address] [place] [address] Consulting Physician Gastroenterology 03/15/24 documented as of this encounter
--- OUTSIDE RECORDS SUMMARY | 2025-05-02 13:05 | XMS_ITS | Clinical Summary ---
Author Organization [facility] Address [address] [place] [address] Phone Care Team Providers Care Correctional Captain Name Role Phone Singh Loza MD Primary Care Provider [phone] Jose Kumar MD Unavailable [phone] Lucita Patterson PLASTIC TOOL MAKER, FRUIT OR NUT CROPS FARM MANAGER Unavailable Romeo Dolan DPM Unavailable [phone] Melissa Rogers PLASTIC TOOL MAKER, FRUIT OR NUT CROPS FARM MANAGER Unavailable Nessa Reid MD Unavailable [phone] Allergies Active Allergy Reactions Criticality Noted Date Comments Aspirin Unknown Low 03/14/2024 Uncoated Buprenorphine Rash,Itching 06/14/2024 Patch Hydrocodone Nausea 02/12/2023 Nabumetone Anaphylaxis 04/22/2016 Jlzkubw-Smuv-Ffozlopgpviapz Unknown 03/20/20 17 Ondansetron Hcl Nausea,Vomiting 01/07/2019 [...] Active fluticasone (FLONASE) 50 MCG/ACT Suspension 1 [place] by Nasal route daily as needed for Rhinitis or Allergies. 18.2 g 3 Active Additional Information Patient taking differently:1 [place] NasalDAILY, Reported on 06/14/2024 HYDROcodone-acet aminophen (NORCO) [...] by Transdermal route. 4 Active Cholecalciferol (D3-50) 76070 UNIT Capsule Take 50,000 Units by mouth [...] Encounters Date Type Department Care Team Description 04/22/2025 2:30 PM CDT [facility] [address], [address] [place] [address] Singh Loza MD Middleton, Britni M, PT Muscle weakness (generalized) (Primary Dx) Discharge Disposition: Discharged to home or Selfcare 04/22/2025 Travel 04/18/2025 Telephone [facility] [address], [address] [place] [address] Britni Sarabia, PT Appointment 04/16/2025 1:45 PM CDT Physical Therapy [facility] at [facility] [address] [place] [address], [address] [place] [address] Singh Loza MD Kutchma, Joshua J, PT Muscle weakness (generalized) (Primary Dx) Discharge Disposition: Discharged to home or Selfcare 04/16/2025 Travel 04/09/2025 1:45 PM CDT Physical Therapy [facility] at [address], [address] [place] [address] Singh Loza, Hu Carrillo, PT Muscle weakness (generalized) (Primary Dx) Discharge Disposition: Discharged to home or Selfcare 04/09/2025 Travel 04/04/2025 [facility]phone [facility] [address], [address] [place] [address] Britni Sarabia, PT Appointment 04/02/2025 1:45 PM CDT [facility] [address], [address] [place] [address] Singh Loza MD Middleton, Trisha M, PT Muscle weakness (generalized) (Primary Dx) Discharge Disposition: Discharged to home or Selfcare 04/02/2025 Travel 03/28/2025 1:45 PM CDT Physical [facility] [address] [place] [address], [address] [place] [address] Singh Loza, Britni Mayberry, PT Muscle weakness (generalized) (Primary Dx) Discharge Disposition: Discharged to home or Selfcare 2025 1:45 PM CDT Physical [facility] [address], [address] [place] [address] Singh Loza, Britni Mayberry, PT Muscle weakness (generalized) (Primary Dx) Discharge Disposition: Discharged to home or Selfcare 2025 Travel 03/14/2025 1:45 PM CDT Physical [facility] [address], [address] [place] [address] Singh Loza, Britni Mayberry, PT Muscle weakness (generalized) (Primary Dx) Discharge Disposition: Discharged to home or Selfcare 03/12/2025 Plan of Care Documentation [facility] [address], [address] [place] [address] 03/11/2025 3:15 PM CDT Physical [facility] at [address], [address] [place] [address] Singh Loza, Britni Mayberry, PT Muscle weakness (generalized) (Primary Dx) Discharge Disposition: Discharged to home or Selfcare 03/11/2025 Travel 02/26/2025 Telephone [facility] [address], [address] [place] [address] Hu Edwards, PT Appointment (Cancel) 02/18/2025 Telephone [facility] [address] [place] [address] Melissa Rogers APRN, FRUIT OR NUT CROPS FARM MANAGER Procedure 02/10/2025 Transcribe Orders [facility] [address] [place] [address] Singh Loza MD Muscle weakness (generalized) (Primary [...] 8:56 PM CDT Height 165.1 cm (5' 5) 08/23/2024 8:56 PM CDT Body Mass Index 31.62 08/23/2024 8:56 PM CDT Plan of Treatment Upcoming Encounters Date Type Department Care Team (Late st Contact Info) Description 05/13/2025 2:30 PM CDT Appointment [facility] [address] [place] [address] Melissa Rogers APRN, FRUIT OR NUT CROPS FARM MANAGER [address] [place] [address] Discharge Disposition: Discharged to home or Selfcare 05/26/2025 1:00 PM CDT [facility] [address], [address] [address] Singh Loza MD [address] [place] [address] [place] [address] Britni Sarabia, PT [place] Discharge Disposition: Discharged to home or Selfcare 05/28/2025 2:30 PM CDT Physical Therapy [facility] Re[facility] at [address], [address] [address] Singh Loza MD [address] [place] [address] [place] [address] Hu Edwards, PT [place] 06/09/2025 1:00 PM CDT Physical [facility] at [address], [address] [address] Singh Loza MD [address] [place] [address] [place] [address] Hu Edwards, PT [place] 06/18/2025 1:45 PM CDT [facility] at [address], [address] [place] [address] Singh Loza MD [address] [place] [address] [place] [address] Britni Sarabia, PT [place] 06/23/2025 1:00 PM CDT Physical Therapy [facility] [address] [place] [address], [address] [place] [address] Singh Loza MD [address] [facility] [place] [address] Hu Edwards, PT [place] 07/03/2025 1:00 PM CDT Physical Therapy [facility] at [facility] [address] [place] [address], [address] [place] [address] Singh Loza MD [address] [facility] [place] [place] [address] Britni Sarabia, PT [place] 07/07/2025 1:00 PM CDT Physical [facility] [address] [place] [address], [address] [place] [address] Singh Loza MD [address] [facility] [place] [address] Britni Sarabia, PT [place] Health Maintenance Due Date Last Done Comments [...] 145 mmol/L 08/23/2024 7:52 PM CDT [facility] POTASSIUM 3.8 3.5 - 5.1 mmol/L 08/23/2024 7:52 PM CDT [facility] CHLORIDE 106 98 - 107 mmol/L 08/23/2024 7:52 PM CDT [facility] CO2, VENOUS 26 22 - 30 mmol/L 08/23/2024 7:52 PM CDT [facility] ANION GAP 10.8 <18.0 mmol/L 08/23/2024 7:52 PM CDT [facility] GLUCOSE 108(H) 70 - 99 mg/dL 08/23/2024 7:52 PM CDT [facility] BUN 12 10 - 20 mg/dL 08/23/2024 7:52 PM CDT [facility] CREATININE, BLOOD 0.89 0.60 - 1.00 mg/dL 08/23/2024 7:52 PM CDT [facility] BUN/CREATININE RATIO 13 12 - 20 ratio 08/23/2024 7:52 PM CDT [facility] TOTAL PROTEIN 7.0 6.3 - 8.2 g/dL 08/23/2024 7:52 PM CDT [facility] ALBUMIN 3.6 3.5 - 5.0 g/dL 08/23/2024 7:52 PM CDT [facility] A/G RATIO 1.1 1.0 - 2.2 08/23/2024 7:52 PM CDT [facility] CALCIUM 8.8 8.7 - 10.5 mg/dL 08/23/2024 7:52 PM CDT [facility] T BILI 0.4 0.2 - 1.2 mg/dL 08/23/2024 7:52 PM CDT [facility] SGOT (AST) 22 5 - 34 U/L 08/23/2024 7:52 PM CDT [facility] SGPT (ALT) 24 0 - 55 U/L 08/23/2024 7:52 PM CDT [facility] ALKALINE PHOSPHATASE 100 40 - 150 U/L 08/23/2024 7:52 PM CDT [facility] GFR, ESTIMATED >60 >=60 08/23/2024 7:52 PM CDT [facility] Comment: Creatinine Clearance is the preferred criteria for selecting drug dose adjustments in renally impaired patients. The GFR is provided as additional pertinent clinical information. GFR is reported in mL/min/1.73 sq m. Calculation based on the Chronic Kidney Disease Epidemiology Collaboration (CKD- EPI) equation refit without adjustment for race. GFR, EST. >60 >=60 024 7:52 PM CDT [facility] GFR, EST. NONAFRICAN >60 >=60 08/23/2024 7:52 PM CDT [facility] Blood Venipuncture / Unknown 08/23/2024 7:02 PM CDT 08/23/2024 7:17 PM CDT us Fortino Roberts MD CHEMISTRY ORDERABLES Final Result Performing Organization Address City/[facility] [[email or web address]] Co de Phone Number [facility] [address] [place] [address] * (ABNORMAL) Hemoglobin A1C (if indicated) (02/12/2023 4:00 PM CDT) HGB-A1C 6.8(H) 4.0 - 6.0 % 02/13/2023 6:41 AM CDT [facility] Est Average Glucose 148.5 mg/dL 02/13/2023 6:41 AM CDT [facility] Blood Venipuncture / Unknown 02/12/2023 4:00 PM CDT 02/12/2023 4:07 PM CDT Narrative [facility] - 02/13/2023 6:41 AM CDT HEMOGLOBIN A1C: DIABETIC PATIENTS: WELL-CONTROLLED: 6.2 - 7.0 INTERMEDIATE WELL-CONTROLLED: 7.0 - 9.0 POORLY-CONTROLLED: >9.0 us Ciara Fraga PLASTIC TOOL MAKER, FRUIT OR NUT CROPS FARM MANAGER CHEMISTRY ORDERABLES Fi nal Result [facility] [address] [place] [address] * OZZY SCREENING BILATERAL DIGITAL W CAD [...] copy. Current study was also evaluated with Iconixx SoftwareD version 7.2. 2D digital mammographic views, as well as 3D digital tomosynthesis were performed in the CC and MLO projections. CLINICAL: Routine screening. Patient has no complaints. No personal history of cancer. No family history of breast cancer. Exam performed in a wheelchair. COMPARISONS: Comparison is made to exams dated: 05/28/2020, [facility]06[facility]2019, [facility] BREAST TISSUE:There are scattered fibroglandular densities [...] contacted. Electronically signed by: Kimberly silver/aundrea:06/15/2021 13:08:52 Mat Sewer(s): RT Cristino(R)(M), [facility] letter sent: Additional Imaging Reading location: SIN BI-RADS: 0 Additional Imaging Evaluation Needed Procedure [...] to exams dated: 05/28/2020, 02/06/2019, and 05/27/2015 [facility]. BREAST TISSUE:There are scattered fibroglandular densities in [...] contacted. Electronically signed by: Kimberly silver/aundrea:06/15/2021 13:08:52 Mat Sewer(s): RT Cristino(R)(M), [facility] letter sent: Additional Imaging Reading location: SIN BI-RADS: 0 Additional Imaging Evaluation Needed Singh Loza MD [facility] [place] Final Res ult from Last 3 Months or Most Recently Relevant to Health Maintenance Insurance MEDICAID [place] MEDICARE C [employer] Advance Directives Documents on File Type Date Recorded Patient [employer] Combination Teacher Expl anation Advance Care Planning Discussion 04/12/2018 8:48 AM ACP COVER SHEET POLST/POST/RI DNR 04/12/2018 8:48 AM POLST 04/10/18 * [...] 12:43 PM 04/10/2018 3:14 PM Care Teams Correctional Captain Relationship Specialty Start Date End Date Singh Loza MD [address] [facility] [place] [address] PCP - General Family Medicine 04/18/16 Jose Kumar MD [address] [facility] [place] [address] General Surgery 04/13/17 Lucita Patterson APRN, FRUIT OR NUT CROPS FARM MANAGER [address] [facility] [place] [address] Nurse Practitioner Advanced Practice Nurse 04/18/17 Romeo Dolan DPM [address] [facility] [place] [address] Consulting Physician Podiatry 05/18/17 Melissa Rogers APRN, FRUIT OR NUT CROPS FARM MANAGER [address] [place] [address] Nurse Practitioner Advanced Practice Nurse 01/11/23 Nessa Reid MD [address] [place] [address] Consulting Physician Gastroenterology 03/15/24
--- OUTSIDE RECORDS SUMMARY | 2025-05-02 13:05 | XMS_ITS | Clinical Summary ---
Author Organization [facility] Address [address] [place] [address] Care Team Providers Care Pathology Manager Name Role Phone Singh Loza MD Primary Care Provider [phone] Source Comments [facility],non-owned Affiliates and Associated Physician Practices is amultiple site organization consisting of ambulatory clinics and hospital sitesin [place], [place], [place] and [place]. This disclosure is being madepursuant to the Care Everywhere program and may not contain all information available regarding this patient. Last updated 18.[facility] Allergies Active Allergy Reactions Criticality Noted Date [...] Verio) w/Device KIT 07/10/20 22 Active Oxygen [place] 2 L/min into the nose at bedtime [...] fluticasone propionate (Flonase) 50 MCG/ACT nasal spray [place] 1 (one) spray into the nose once [...] capsule 05/21/20 24 Active Cholecalciferol 1.25 MG (97851 UT) Take 50,000 Units by mouth Active [...] Type Department Care Team Description 02/17/2025 Refill [facility] - Rheumatology [address] [facility], [place] [address] Hu Ybarra MD Refill Request from Last 3 Months Immunizations Immunization Administration Dates Next Due FLU VACCINE QUAD IIV4 SPLIT 0.25 ML IM 11/05/2019,12/10/2018,08/22/2017,2015,09/22/2014 INFLUENZA VACCINE 10/12/2021 INFLUENZA VACCINE, QUADR. (F LUZONE; FLULAVAL; FLUARIX; AFLURIA QUADRIVALENT; 6MO+), 0.5 ML (IIV4) 10/07/2020 Pneumococcal Pcv13 Conj 10/04/2017 Family History Medical History Relation Name Comments Heart Disease Brother Heart Disease Father Status: Dece ed Diabetes Maternal Grandmother None Known Mother [...] on file Legal Sex Female 5:18 PM FLY WINDER Gender Identity Female 05/29/2024 2:11 PM CDT Sexual Orientation Straight 02/20/2025 11 :36 AM CDT Last Filed Vital Signs Vital Sign Reading Time Taken Comments Blood Pressure 118/88 01/29/2025 1:25 PM FLY WINDER Pulse 98 01/29/2025 1:25 PM FLY WINDER Temperature 36 C (96.8 F) 01/29/2025 1:25 PM FLY WINDER Respiratory Rate 20 07/31/2024 2:34 PM CDT Oxygen Saturation 99% 08/28/2024 11:49 AM CDT Inhaled Oxygen Concentration - - Weight 82.7 kg (182 lb 6.4 oz) 01/29/2025 1:25 P M FLY WINDER Height 165.1 cm (5' 5) 01/29/2025 1:25 PM FLY WINDER Body Mass Index 30.35 01/29/2025 1:25 PM FLY WINDER Plan of Treatment Upcoming Encounters Date Type Department Care Team (Late st Contact Info) Description 07/09/2025 2:00 PM CDT Office Visit [facility] - Rheumatology [address] [place] [address], [place] [address] Hu Ybarra MD [address] [place] [address] [place] [address] Health Maintenance Due Date Last [...] years 1-dose series) 2018 MAMMOGRAM 06/15/2023 06/15/2021, 07, 05/28/2020, Additional history exists COVID-19 VACCINE ( season) 2024 08/10/2022, 03/25/2022, 10/12/2021, Additional history exists DEPRESSION SCREENING 11/27/2024 07/31/2024, 02/01/2023, 09/28/2022 MEDICARE AWV CALENDAR YEAR 2024 INFLUENZA VACCINE (Season Ended) 2025 09/19/2022, 10/12/2021, 10/07/2020, Additional history exists SCREENING FOR DIABETES 08/23/2027 , 08/23/2024, 07/31/2024, Additional history exists HEPATITIS C SCREENING Completed [...] RNA QN PCR Routine 10/03/2022 12:44 PM FLY WINDER Rheumatoid arthritis of multiple sites without organ [...] COMPREHENSIVE METABOLIC PANEL (07/31/2024 12:02 PM CDT) BUN 17 7 - 26 mg/dL 07/31/2024 1:[address] [facility] Creatinine 0.90 0.56 - 0.96 mg/dL 07/31/2024 1:23 PM [facility] Sodium 137 136 - 145 mmol/L 07/31/2024 1:23 PM [facility] Potassium 3.9 3.5 - 4.5 mmol/L 07/31/2024 1:23 PM [facility] Chloride 106 98 - 107 mmol/L 07/31/2024 1:23 PM [facility] CO2 25 22 - 29 mmol/L 07/31/2024 1:23 PM [facility] Glucose 227(H) 70 - 115 mg/dL 07/31/2024 1:23 PM [facility] Calcium 9.0 8.4 - 10.2 mg/dL 07/31/2024 1:23 PM [facility] Protein Total 7.4 6.0 - 8.3 g/dL 07/31/2024 1:23 PM [facility] Albumin 3.4 3.4 - 5.0 g/dL 07/31/2024 1:23 PM [facility] Bilirubin Total 0.6 0.2 - 1.2 mg/dL 07/31/2024 1:23 PM [facility] Alkaline Phosphatase 91 40 - 150 U/L 07/31/2024 1:23 PM [facility] ALT 39 5 - 55 U/L 07/31/2024 1:23 PM [facility] AST 33 5 - 34 U/L 07/31/2024 1:23 PM [facility] Anion Gap 6 6 - 16 07/31/2024 1:23 PM [facility] BUN/Creatinine Ratio 19 7 - 23 07/31/2024 1:23 PM [facility] Osmolality Calculated 293 275 - 295 mOsm/kg 07/31/2024 1:23 PM [facility] Albumin/Globulin Ratio 0.9(L) 1.1 - 2.3 07/31/2024 1:23 PM [facility] eGFR by CKD-EPI 71(L) >=90 mL/min/1.7 3 m2 07/31/2024 1:23 PM CDT [facility] Blood BLOOD SPECIMEN / Unknown Venipuncture / Unknown 07/31/2024 12:02 PM CDT 07/31/2024 12:20 PM CDT Dl Jones MD LAB - CHEMISTRY ORDERABLES Final Result Performing Organization Address City/[facility]/ZIP Co de Phone Number [facility] [address] [place] [address], [facility] [phone] * HEPATITIS C AB W/RFLX TO HCV RNA QN PCR (10/03/2022 12:44 PM FLY WINDER) Hepatitis C Antibody NON-REACTI VE NON-REACT [facility] Signal to Cut-Off 0.02 <1.00 [facility] Comment: HCV antibody was non-reactive. There is no laboratory evidence of HCV infection. In most cases, no further action is required. However, if recent HCV exposure is suspected, a test for HCV RNA (test code 39604) is suggested. For additional information please refer to http://education.Blottr/faq/AXT49w6 (This link is being provided for informational/ educational purposes only.) Test Performed at: [facility] [address] [place] [address] CHAVA MILLS DO,MPH Blood BLOOD SPECIMEN / Unknown 10/03/2022 12:44 PM FLY WINDER 10/03/2022 12:44 PM FLY WINDER Dl Jones MD LAB - CHEMISTRY ORDERABLES Final Result [facility] [address] [place] [address] from Last 3 Months or Most Recently Relevant to Health Maintenance Insurance [facility] MANAGED MEDICARE [facility] Advance Directives Documents on File Type Date Recorded Patient Stitcher Utility Expl anation [facility] Power of Compensation And Benefits Administrator 02/17/2023 7:34 AM laure amaya orders [id number].pdf Care Teams Pathology Manager Relationship Specialty Start Date End Date Singh Loza MD [address] [place] [address] [place] [phone] PCP - General 02/12/16
--- OUTSIDE RECORDS SUMMARY | 2025-05-02 13:05 | XMS_ITS | Referral Summary ---
Author Organization [facility] Address [address] [place] [address] Care Team Providers Care Double Cut Off Saw Operator Name Role Phone Singh Loza MD Primary Care Provider [phone] Encounters Date Type Department Care Team Description 02/10/2025 1:15 PM CDT Office Visit [facility] Pulmonary at [address] [place] [address] Jose Farooq MD Moderate persistent asthma without complication (Primary Dx); Chronic cough; Seasonal allergic rhinitis, unspecified trigger; Rheumatoid arthritis involving multiple sites, unspecified whether rheumatoid factor present (HCC); Pulmonary nodule from Last 3 Months Allergies Active Allergy Reactions Criticality Noted Date Comments Aspirin Unknown Low Fyritrj-Efmiwrcv-Romdsuusvvsno Swelling Medium 02/19 With hives Caffeine Dihydrocodeine [...] total) by mouth daily 100mg PO BID Active mv,Ca,min-iron- FA-lycopene 8 mg iron- 200 mcg-600 mcg tablet Take by mouth daily Active cholecalciferol (VITAMIN D-3) 31359 unit capsule Take 1 capsule (50,000 Units total) by mouth every 30 (thirty) days Active fluticasone propionate (FLONASE) 50 mcg/actuation nasal spray USE 1 SPRAY IN EACH NOSTRIL EVERY DAY 16 g 1 Active methotrexate 2.5 mg tablet Take 7 [...] by mouth 3 (three) times a day 023 Active Xtampza ER 9 mg capsule,sprinkl e,ER 12hr tmprr 024 Active traMADoL (ULTRAM) 50 mg tablet Take [...] or shortness of breath 1 each 11 024 Active furosemide (LASIX) 20 mg tablet TAKE ONE (1) TABLET BY MOUTH EVERY DAY 90 tablet 3 024 Active hydrOXYzine (ATARAX) 25 mg tablet Take [...] SOB (shortness of breath) 06/10/2020 Atherosclerosis of rosebud ar teries of extremities with intermittent claudication, [...] drug level monitoring 01/09/2017 Fibromyalgia 02/15/2016 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 Jimmie SS et al. PAIGE. 2013;310(19): 0230-0551 (http://education.TapCanvas/faq/IND174) Chol/HDL ratio 5.5(H) <5.0 (calc) [facility] [...] YES Nguyen Puente NP LAB BLOOD ORDERABLES Fi nal Result [facility] [address] [address] [address] * Dexa Axial Skeleton Bone Density 1 or 2 Site (06/22/2023 2:03 PM CDT) Anatomical Region Laterality Modality Body N/A Other 06/24/2023 12:1 5 AM CDT Narrative 06/24/2023 12:16 AM CDT EXAM DESCRIPTION: DEXA AXIAL SKELETON BONE DENSITY 1 OR MORE SITES REASON FOR STUDY: 63 y/o year old F with given history of: rheumatoid arthritis of multiple sites Osteoporosis screening Post menopausal [employer]/Model: [employer] [place] (S/N [id number]) CLINICAL INFORMATION: Current height: 65.5 inches Maximum [...] Choco Bradley M.D. MF: DOMINIC Report ID: [id number] Reading Location: [place] [address] Procedure Note Choco Bradley MD - 06/24/2023 EXAM DESCRIPTION: DEXA AXIAL SKELETON BONE DENSITY 1 OR MORE SITES REASON FOR STUDY: 63 y/o year old F with given history of: rheumatoid arthritis of multiple sites Osteoporosis screening Post menopausal [employer]/Model: [employer] [place] (S/N [id number]) CLINICAL INFORMATION: Current height: 65.5 inches Maximum [...] Choco Bradley M.D. MF: DOMINIC Report ID: [id number] Reading Location: [place] [address] Dl Jones MD IMG DXA PROCEDURES Final Result * Serum Hepatitis C ab (07/10/2013 3:34 PM CDT) Pathologist [facility] HCV ab Negative Negative HISTORICAL RESULTS Serum 07/10/2013 3:34 PM CDT us Tatyana Basurto MD LAB BLOOD ORDERABLES Yvonne l Result HISTORICAL RESULTS from Last 3 Months or Most Recently Relevant to Health Maintenance Insurance IDPA [facility]IC[facility] Address: [address] [address] [place] [address] [facility] MEDICARE ADVANTAGE [facility] MEDIC[facility] Address: [address] [address] [place] [address] [place] [address] Care Teams Double Cut Off Saw Operator Relationship Specialty Start Date End Date Singh Loza MD [address] [facility] [address] [place] [address] PCP - General Family Medicine 01/02/25
--- OUTSIDE RECORDS SUMMARY | 2025-05-02 13:05 | XMS_ITS | Encounter Summary ---
Author Organization [facility] Address [address] [place] [address] Care Team Providers Care Marketing Consultant Name Role Phone Singh Loza MD Primary Care Provider [phone] Encounter Details Date Type Department Care Team (Late st Contact Info) Description 03/15/2023 Telephone [facility] [address] [place] [address] Sánchez Buitrago MD [address] [place] [address] Social History Tobacco Use Types Packs/Day Years Used Date Smoking Tobacco: Never Smokeless Tobacco: Never Alcohol Use Standard Drinks/Week Comments No 0 (1 standard drink = 0.6 oz pur e alcohol) PHQ-2 Answer Date Recorded PHQ2 TOTAL SCORE 3 02/01/2023 Comments No Sex and Gender Information Value Date Recorded Sex Assigned at Not on file 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
== END 2025-05-02 13:02 | disposition home or self-care (01) ==
PROVIDERS: PCP Family Medicine; Visit Provider Orthopaedic Surgery
DX: M16.0 Bilateral primary osteoarthritis of hip (principal)
CPT/HCPCS: 73502

== ENCOUNTER 2025-07-18 10:00 | Outpatient (CLI) | payer MEDICARE, MEDICAID, SELFPAY ==
--- NOTE | ~2025-07-18 | NM_ITS ---
EXAMINATION: NM bone scan whole body DATE: 07/18/2025 13:19 INDICATION: Left knee pain TECHNIQUE: 23.6 mCi Tc-99m HDP was administered intravenously. Delayed whole- body scintigrams were obtained. COMPARISON: Left knee radiograph dated 04/11/2025 FINDINGS: Photopenic defects associated with bilateral total knee arthroplasties. There is normal distribution of uptake about the arthroplasties which more prominent on the left likely due to to the more recent placement of the arthroplasty. There is likely degenerative joint centered uptake at the bilateral acromioclavicular and sternoclavicular joints. There is prominent uptake at the bilateral hands and wrists, right greater than left. The degree of uptake is significantly prominent than typical for osteoarthritis and may be related to reported rheumatoid arthritis. There is also relatively symmetric mild likely degenerative uptake at the medial aspect of the bilateral ankles. Asymmetric uptake at the left maxilla likely related to dental disease. No other suspicious foci of abnormal bone uptake. IMPRESSION: 1. Typical distribution of uptake along the margins of bilateral total knee arthroplasties which is more prominent on the left likely due to the more recent placement of the arthroplasty. Reviewed, dictated and finalized at location A. IMPRESSION: 1. Typical distribution of uptake along the margins of bilateral total knee art hroplasties which is more prominent on the left likely due to the more recent p lacement of the arthroplasty.
--- OUTSIDE RECORDS SUMMARY | 2025-07-18 10:04 | XMS_ITS | Encounter Summary ---
Author Organization [facility] Address [address] [place] [address] Phone Care Team Providers Care Fashion Stylist Name Role Phone Singh Loza MD Primary Care Provider [phone] Jose Kumar MD Unavailable [phone] Lucita Patterson APRN, UNIT AIDE TECH Unavailable Romeo Dolan DPM Unavailable [phone] Melissa Rogers APRN, UNIT AIDE TECH Unavailable Nessa Reid MD Unavailable [phone] Encounter Details Date Type Department Care Team (Late st Contact Info) Description 05/29/2025 Results Follow-Up [facility] - Neurology - [place] [address] [place] [phone] Melissa Rogers APRN, UNIT AIDE TECH [address] [place] [address] [place] ABDOMEN LIMITED, LEVEL 1 - SINGLE ORGAN OR SOFT TISSUE Social History Tobacco Use Types Packs/Day Years [...] as of this encounter Plan of Treatment Not on file documented as of this encounter Visit Diagnoses Not on filedocumented in this encounter Additional Health Concerns Assessment Noted Time PHQ-9 Depression Total Score: 0 04/18/20 17 10:00 AM CDT documented as of this encounter Care Teams Fashion Stylist Relationship Specialty Start Date End Date Singh Loza MD [address] [place] [address] [place] [address] PCP - General Family Medicine 04/18/16 Jose Kumar MD [address] [place] [address] [place] [address] General Surgery 04/13/17 Lcuita Patterson APRN, UNIT AIDE TECH [address] [place] [address] [place] [address] Nurse Practitioner Advanced Practice Nurse 04/18/17 Romeo Dolan DPM [address] [place] [address] [place] [address] Consulting Physician Podiatry 05/18/17 Melissa Rogers APRN, UNIT AIDE TECH [address] [facility] [place] [address] Nurse Practitioner Advanced Practice Nurse 01/11/23 Nessa Reid MD [address] [place] [address] Consulting Physician Gastroenterology 03/15/24 documented as of this encounter
--- OUTSIDE RECORDS SUMMARY | 2025-07-18 10:04 | XMS_ITS | Encounter Summary ---
Author Organization [facility] Address [address] [place] [address] Care Team Providers Care Personal Lines Insurance Advisor Name Role Phone Singh Loza MD Primary Care Provider [phone] Encounter Details Date Type Department Care Team (Late st Contact Info) Description 07/17/2025 Results Follow-Up [facility] Nurse at [address] [place] [phone] Nguyen Puente NP [address] [place] [address] [address] [place] [address] MCT Mobile Cardiac Telemetry Event Monitor Social History Tobacco Use Types Packs/Day Years Used Date Smoking Tobacco: Never Smokeless Tobacco: Never Alcohol Use Standard Drinks/Week Comments No 0 (1 standard drink = 0.6 oz pur e alcohol) AUDIT-C Answer Date Recorded Q1: How often do you have a drink containing alcohol? Patient declined 06/12/2025 Q2: How many drinks containi ng alcohol do you have on a typical day when you are drinking? 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
--- OUTSIDE RECORDS SUMMARY | 2025-07-18 10:04 | XMS_ITS | Clinical Summary ---
Author Organization [facility] Address [address] [place] [address] Care Team Providers Care Digital Tech Name Role Phone Singh Loza MD Primary Care Provider [phone] Allergies Active Allergy Reactions Criticality Noted Date Comments Aspirin Unknown Low Jgsrvyd-Swnkphts-Piljqoabiqppt Swelling Medium 02/19 With hives Buprenorphine Itching,Rash Medium 06/14/2024 Patch Caffeine Dihydrocodeine Bitartrate Unknown Hydrocodone-Acetaminophen Nabumetone Anaphylaxis [...] by mouth daily Active cholecalciferol (VITAMIN D-3) 63731 unit capsule Take 1 capsule (50,000 Units [...] mouth every 6 (six) hours as needed 024 Active hydrOXYzine (ATARAX) 25 mg tablet [...] not swallow. 120 mL 11 025 Active atorvastatin (LIPITOR) 80 mg tablet TAKE 1 TABLET (80 MG TOTAL) BY MOUTH DAILY 90 tablet 3 025 2025 Active ezetimibe (ZETIA) 10 mg tablet Take 1 tablet (10 mg total) by mouth daily 90 tablet 3 025 2025 Active hydrOXYzine (VISTARIL) 25 mg capsule Active lidocaine (XYLOCAINE) 5 % ointment Apply topically 4 (four) times a day as needed Active omeprazole (PriLOSEC) 40 mg capsule Active albuterol 2.5 mg /3 mL (0.083 %) nebulizer solutionIndicat ions:Moderate persistent asthma, unspecified whether complicated Take 3 mL (2.5 mg total) by nebulization 4 (four) times a day as needed for wheezing or shortness of breath 360 mL 11 2025 Active furosemide (LASIX) 20 mg tablet TAKE 1 TABLET BY MOUTH EVERY DAY 30 tablet 12 Active isosorbide mononitrate ER (IMDUR) 60 mg 24 hr tabletIndicatio ns:Other chest pain Take 1 tablet (60 mg total) by mouth daily 90 tablet 3 Active evolocumab (Repatha SureClick) 140 mg/mL pen injector Inject 1 mL (140 mg total) under the skin every 2 (two) weeks 6 mL 3 024 2024 Additional Information Patient not taking.Reported on 06/12/2025 furosemide (LASIX) 20 mg tablet TAKE ONE (1) TABLET BY MOUTH EVERY DAY 90 tablet 3 024 2024 Discontinued isosorbide mononitrate ER (IMDUR) 60 mg 24 hr tablet TAKE ONE (1) TABLET BY MOUTH DAILY 210 tablet 025 2024 Discontinued isosorbide mononitrate ER (IMDUR) 60 mg 24 hr tablet TAKE 1 TABLET (60 MG TOTAL) BY MOUTH DAILY 90 tablet 3 025 2024 Discontinued(R eorder) Active Problems Problem Noted Date Diagnosed Date Chest pain 03/25/2022 SOB (shortness of breath) 06/10/2020 Atherosclerosis of [place] ar teries of extremities with intermittent claudication, [...] drug level monitoring 01/09/2017 Fibromyalgia 02/15/2016 Other termite helper (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) drug therapy 6 Resolved Problems Problem Noted Date Diagnosed Date Resolved Date Rheumatoid arthritis of mult iple sites without organ or system involvement with positive rheumatoid factor 02/15/2016 12/30/2020 Vitamin D deficiency 02/15/2016 021 Encounters Date Type Department Care Team Description 07/17/2025 Results Follow-Up [facility] at [address] [place] [address] Nguyen Candelario NP MCT Mobile Cardiac Telemetry Event Monitor 06/30/2025 1:00 PM CDT - 06/30/2025 11:59 PM CDT Hospital Encounter [facility] Nutrition and Diabetic Education [address] [place] [address] [address] [place] [address] Cochran, Felicita Nguyen RD Dietary counseling and surveillance Discharge Disposition: Discharge to home or self care 06/25/[address] [facility] at [address] [place] [address] Nguyen Candelario NP 06/16/2025 12:34 PM CDT - 06/16/2025 11:59 PM CDT Hospital Encounter [facility] Cardiology [address] [place] [address] Palpitations Discharge Disposition: Discharge to home or self care 06/13/2025 Telephone [facility] Pulmonary at [address] [place] [address] Britni Aguero LPN 06/12/2025 1:30 PM CDT Office Visit [facility] Pulmonary at [address] [place] [address] Jose Farooq MD Moderate persistent asthma without complication (Primary Dx); Hiatal hernia with GERD without esophagitis; Seasonal allergic rhinitis, unspecified trigger; Rheumatoid arthritis involving multiple sites, unspecified whether rheumatoid factor present (HCC); Pulmonary nodule 06/12/2025 Orders Only [facility] Pulmonary at [address] [place] [address] Danisha Meraz LPN Moderate persistent asthma, unspecified whether complicated (Primary Dx) 06/06/2025 1:00 PM CDT Office Visit [facility] at [address] [place] [address] Nguyen Candelario NP Atherosclerosis of [place] arteries of extremities with intermittent claudication, bilateral legs (Primary Dx); Hyperlipidemia, unspecified hyperlipidemia type; Palpitations 05/18/2025 9:43 PM CDT - 05/18/2025 11:59 PM CDT Hospital Encounter [facility] Emergency, Room R Discharge Disposition: Discharge to home or self care from Last 3 Months Immunizations Immunization Administration [...] on file 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 Gender Identity Female 09/16/2021 4:34 PM CDT Sexual Orientation Not on file Obstetrics History Last Filed Vital Signs Vital Sign Reading Time Taken Comments Blood Pressure 124/82 06/12/2025 1:39 PM CDT Pulse 85 06/12/2025 1:39 PM CDT Temperature 36.5 C (97.7 F) 06/12/2025 1:39 PM CDT Respiratory Rate 16 06/12/2025 1:39 PM CDT Oxygen Saturation 99% 06/12/2025 1:3 9 PM CDT Inhaled Oxygen Concentration - - Weight 83 kg (183 lb) 06/12/2025 1:39 PM CDT patient weight was from cardiology Height 166.4 cm (5' 5.5) 06/30/2025 3: 06 PM CDT Body Mass Index 30.45 06/12/2025 1:39 PM CDT Plan of Treatment Health Maintenance Due Date Last Done Comments Albumin Creatinine Ratio, Urine 1960 Colon Cancer Screening-Colonoscopy 1960 Depression Screening 1958 Fall Risk Assessment 1960 Hemoglobin A1C 1960 eGFR 1960 Dilated Eye Exam 1958 Foot Exam 1960 DTaP/Tdap/Td Vaccine (1 - Tdap) 1969 Hepatitis B Screening 1976 Zoster Vaccine (1 of 2) 1977 Pneumococcal vaccine 65+ (2 of 2 - PPSV23, PCV20, or PCV21) 11/29/2017 10/04/2017 Covid-19 Vaccine (3 - Modern a risk series) 04/05/2021 03/08/2021, 02/08/2021 Breast Cancer Screening-Mammogram 06/15/2022 06/15/2021, 06/15/2021, 05/28/2020, Additional history exists Well Visit 65+ 2023 Lipid Panel 06/18/2025 06/18/2024, 03/27/2023 Osteoporosis Screening-Bone Density Scan 06/22/2025 06/22/2023 Influenza Vaccine (#1) 2025 , 10/07/2020, 11/05/2019, Additional history exists Hepatitis C Screening Completed 07/10/2013 Procedures Procedure Name Priority Date/Time Associated Diagnosis Comments MCT - MOBILE CARDIAC TELEMETRY EVENT MONITOR Routine 06/16/2025 12:35 PM CDT Palpitations LIPID PANEL Routine 06/18/2024 3:11 PM CDT [...] Recently Relevant to Health Maintenance Results * [facility]CT Mobile Cardiac Telemetry Event Monitor (06/16/2025 12:35 PM CDT) Anatomical Region Laterality Modality Electrocardiogra phy 07/02/2025 11:5 9 PM CDT Narrative 07/04/2025 10:16 AM CDT [address] [address] EVENT MONITOR Patient Name: STEPHY AVILES Jamal : 1960 Study Date: 07/02/2025 11:59:00 PM Gender: F Tech: Ref Provider: NGUYEN CANDELARIO Height(Cm): BSA: Weight(Kg): Order Provider: NGUYEN CANDELARIO PROCEDURES: Event Report: Event Monitor Report. INDICATIONS: R00.2 Palpitations. FINDINGS: CONCLUSIONS: 1. Predominant rhythm is normal sinus rhythm with a minimum heart rate of 59 beats per minute in sinus and a maximum heart rate of 144 beats per minute also in sinus. Average heart rate of 82 beats per minute. Heart rate was controlled 90% of the time and was rapid 10% of the time. Total monitoring time of 9 days 7 hours 38 minutes. 2. Heart rate and rate variability is appropriate. 3. No prolonged pauses. 4. Rare PACs with only 151 PACs corresponding to less than 1% of total beats. 5. Rare PVCs with only 181 PVCs corresponding to less than 1% of total beats. 6. There were 3 patient activated events with no symptoms and all noted to be in sinus rhythm ranging in heart rate from 85-131 beats per minute with no significant findings. 7. There was only 1 auto triggered event and it was in sinus tachycardia at 114 beats per minute with no significant findings. Electronically Signed By: Dr Fortino Barraza 07/04/2025 9:37:42 AM CDT Procedure Note Fortino Barraza MD - 07/04/[address] [place] [address] EVENT MONITOR Patient Name: STEPHY AVILES A : 1960 Study Date: 07/02/2025 11:59:00 PM Gender: F Tech: Ref Provider: NGUYEN CANDELARIO Height(Cm): BSA: Weight(Kg): Order Provider: NGUYEN CANDELARIO PROCEDURES: Event Report: Event Monitor Report. INDICATIONS: R00.2 Palpitations. FINDINGS: CONCLUSIONS: 1. Predominant rhythm is normal sinus rhythm with a minimum heart rate of59 beats per minute in sinus and a maximum heart rate of 144 beats per minute also insinus. Average heart rate of 82 beats per minute. Heart rate was controlled 90% of the time and was rapid 10% of the time. Total monitoring time of 9 days 7 hours 38 minutes. 2. Heart rate and rate variability is appropriate. 3. No prolonged pauses. 4. Rare PACs with only 151 PACs corresponding to less than 1% of totalbeats. 5. Rare PVCs with only 181 PVCs corresponding to less than 1% of totalbeats. 6. There were 3 patient activated events with no symptoms and all noted maycol in sinus rhythm ranging in heart rate from 85-131 beats per minute with nosignificant findings. 7. There was only 1 auto triggered event and it was in sinus tachycardiaat 114 beats per minute with no significant findings. Electronically Signed By: Dr Fortino Barraza 07/04/2025 9:37:42 AM CDT Nguyen Candelario NP [facility] PRO CEDURES Final Result * (ABNORMAL) Lipid panel (06/18/2024 3:11 PM CDT) Pathologist [facility] Cholesterol 264(H) <200 mg/dL [facility] [...] factors. LDL-C is now calculated using the Ashleigh calculation, which is a validated novel method providing better accuracy than the Friedewald equation in the estimation of LDL-C. Jimmie BUNCH et al. PAIGE. 2013;310(87): 4631-8508 (http://education.Bring Light/faq/JHL594) Chol/HDL ratio 5.5(H) <5.0 (calc) [facility] [...] 5:11 AM CDT FASTING:YES FASTING: YES Nguyen Candelario NP LAB BLOOD ORDERABLES nal Result [facility] [address] [place] [address] * Dexa Axial Skeleton Bone Density 1 or 2 Site (06/22/2023 2:03 PM CDT) Anatomical Region Laterality Modality Body N/A Other 06/24/2023 12:1 5 AM CDT Narrative 06/24/2023 12:16 AM CDT EXAM DESCRIPTION: DEXA AXIAL SKELETON BONE DENSITY 1 OR MORE SITES REASON FOR STUDY: 63 y/o year old F with given history of: rheumatoid arthritis of multiple sites Osteoporosis screening 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 MF: DOMINIC Report ID: [id number] Reading Location: [place] [address] us Dl Jones MD IMG DXA PROCEDURES Final Result * Serum Hepatitis C ab (07/10/2013 3:34 PM CDT) [facility] HCV ab Negative Negative HISTORICAL RESULTS Serum 07/10/2013 3:34 PM CDT us Tatyana Basurto MD LAB BLOOD ORDERABLES Yvonne l Result HISTORICAL RESULTS from Last 3 Months or Most Recently Relevant to Health Maintenance Insurance IDPA [facility] MEDIC[facility] ADVANTAGE [facility] ADVANTAGE IDPA Care Teams Digital Tech Relationship Specialty Start Date End Date Singh Loza MD [address] [facility] [address] S[address] B [address] [address] PCP - General Family Medicine 01/02/25
--- OUTSIDE RECORDS SUMMARY | 2025-07-18 10:04 | XMS_ITS | Encounter Summary ---
Author Organization [facility] Address [address] [place] [address] Phone Care Team Providers Care Drafting Layout Worker Name Role Phone Singh Loza MD Primary Care Provider [phone] Jose Kumar MD Unavailable [phone] Lucita Patterson APRN, RESOURCE ENGINEER Unavailable Romeo Dolan DPM Unavailable [phone] Melissa Rogers APRN, RESOURCE ENGINEER Unavailable Nessa Reid MD Unavailable [phone] Reason for Visit * Reason Comments Medication Refill Encounter Details Date Type Department Care Team (Late st Contact Info) Description 05/20/2024 Refill [facility] [address] [place] [address] Melissa Rogers APRN, RESOURCE ENGINEER [address] [place] [address] Medication Refill Social History Tobacco Use Types [...] PM CDT Medication [facility] medication standing order for pediatric and [...] documented as of this encounter Care Teams Drafting Layout Worker Relationship Specialty Start Date End Date Singh Loza MD [address] [place] [address] [place] [address] PCP - General Family Medicine 04/18/16 Jose Kumar MD [address] [place] [address] [place] [address] General Surgery 04/13/17 Lucita Patterson APRN, RESOURCE ENGINEER [address] [place] [address] [place] [address] Nurse Practitioner Advanced Practice Nurse 04/18/17 Romeo Dolan DPM [address] [place] [address] [place] [address] Consulting Physician Podiatry 05/18/17 Melissa Rogers APRN, RESOURCE ENGINEER [address] [place] [address] Nurse Practitioner Advanced Practice Nurse 01/11/23 Nessa Reid MD [address] [place] [address] Consulting Physician Gastroenterology 03/15/24 documented as of this encounter
--- OUTSIDE RECORDS SUMMARY | 2025-07-18 10:04 | XMS_ITS | Encounter Summary ---
Author Organization [facility] Address [address] [place] [address] Phone Care Team Providers Care Hardboard Press Operator Name Role Phone Singh Loza MD Primary Care Provider [phone] Jose Kumar MD Unavailable [phone] Lucita Patterson BASE MANAGER, ORACLE DATABASE CONSULTANT Unavailable Romeo Dolan DPM Unavailable [phone] Melissa Rogers BASE MANAGER, ORACLE DATABASE CONSULTANT Unavailable Nessa Reid MD Unavailable [phone] Reason for Referral * PT/OT/ST (Routine) - Closed Specialty Diagnoses / Procedures Referred By Inez carter Referred To Contact Physical Therapy Diagnoses Muscle weakness (generalized) Singh Loza MD [address] [place] [address] [address] [place] [address] Phone: tel: fax: [facility] [address] [place] [address] Phone: tel: fax: Referral ID Status Reason Start Date Expiration Date Visits Re quested Visits Authorized [id number] Closed 02/10/2025 50 19 Scheduling Instructions Encounter Details Date Type Department Care Team (Late st Contact Info) Description 02/10/2025 Transcribe Orders [facility] [address] [place] [address] Singh Loza MD [address] [facility] [place] [address] Muscle weakness (generalized) (Primary Dx) Social History [...] as of this encounter Plan of Treatment Scheduled Referrals Name Type Priority Associated Diagnoses Orde r Schedule PHYSICAL THERAPY REFERRAL Outpatient Referral Routine Muscle weakness (generalized) Expected: 02/10/2025, Expires: 02/10/2026 documented as of this encounter Visit Diagnoses Diagnosis Muscle weakness (generalized)- Primary documented in this encounter Additional Health Concerns Assessment Noted Time PHQ-9 Depression Total Score: 0 04/18/20 17 10:00 AM CDT documented as of this encounter Care Teams Hardboard Press Operator Relationship Specialty Start Date End Date Singh Loza MD [address] [facility] [place] [address] PCP - General Family Medicine 04/18/16 Jose Kumar MD [address] [place] [address] [place] [address] General Surgery 04/13/17 Lucita Patterson, BASE MANAGER, ORACLE DATABASE CONSULTANT [address] [facility] [place] [address] Nurse Practitioner Advanced Practice Nurse 04/18/17 Romeo Dolan DPM [address] [place] [address] [place] [address] Consulting Physician Podiatry 05/18/17 Melissa Rogers APRN, ORACLE DATABASE CONSULTANT [address] [place] [address] Nurse Practitioner Advanced Practice Nurse 01/11/23 Nessa Reid MD [address] [place] [address] Consulting Physician Gastroenterology 03/15/24 documented as of this encounter
--- OUTSIDE RECORDS SUMMARY | 2025-07-18 10:04 | XMS_ITS | Encounter Summary ---
Author Organization [facility] Address [address] [place] [address] Care Team Providers Care Steel Handler Name Role Phone Singh Loza MD Primary Care Provider [phone] Encounter Details Date Type Department Care Team (Late st Contact Info) Description 03/15/2023 Telephone [facility] [address] [place] [address] Sánchez Buitrago MD [address] [place] [address] Social History Tobacco Use Types Packs/Day Years Used Date Smoking Tobacco: Never Smokeless Tobacco: Never Alcohol Use Standard Drinks/Week Comments No 0 (1 standard drink = 0.6 oz pur e alcohol) PHQ-2 Answer Date Recorded PHQ2 TOTAL SCORE 3 02/01/2023 Comments No Sex and Gender Information Value Date Recorded Sex Assigned at Not on file Legal Sex Female 5:18 PM FITNESS SUPERVISOR Gender Identity Female 05/29/2024 2:11 PM CDT [...] Care Team (Late st Contact Info) Description 12/17/2025 1:30 PM FITNESS SUPERVISOR Office Visit [facility] - Rheumatology [address] [place] [address], [place] [address] Hu Ybarra MD [address] [place] [address] [place] [address] documented as of this encounter Visit Diagnoses Not on filedocumented in this encounter Care Teams Steel Handler Relationship Specialty Start Date End Date Singh Loza MD [address] [place] [address] [place] [address] PCP - General 02/12/16 documented as of this encounter
--- OUTSIDE RECORDS SUMMARY | 2025-07-18 10:04 | XMS_ITS | Clinical Summary ---
Author Organization [facility] Address [address] [place] [address] Care Team Providers Care Knotting Machine Operator Portable Name Role Phone Singh Loza MD Primary Care Provider [phone] Source Comments [facility],non-owned Affiliates and Associated Physician Practices is amultiple site organization consisting of ambulatory clinics and hospital sitesin [place], [place], [place] and [place]. This disclosure is being madepursuant to the Care Everywhere program and may not contain all information available regarding this patient. Last updated 18.[facility] Allergies Active Allergy Reactions Criticality Noted Date [...] Verio) w/Device KIT 07/10/20 22 Active Oxygen Soso 2 L/min into the nose at bedtime [...] fluticasone propionate (Flonase) 50 MCG/ACT nasal spray Soso 1 (one) spray into the nose once [...] capsule 05/21/20 24 Active Cholecalciferol 1.25 MG (89246 UT) Take 50,000 Units by mouth Active evolocumab (Repatha SureClick) 140 MG/ML auto-injector Inject 140 (one hundred forty) mg subcutaneously every 14 days 06/19/20 24 Active hydrOXYzine pamoate (Vistaril) 25 MG capsule [...] DAILY NEEDED 18 tablet 02/18/20 25 Active budesonide (Pulmicort) 0.5 MG/2ML nebulizer suspension Inhale 2 mL by mouth 2 times daily 04/16/20 25 Active ezetimibe (Zetia) 10 MG tablet Take 1 (one) tablet by mouth once daily 06/06/20 25 07/11/2 026 Active Active Problems Problem Noted Date Diagnosed Date SOB (shortness of breath) 12/04/2017 Encounter for long-term (current) drug use 02/14 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 6 Rheumatoid arthritis 02/15/2016 Fibromyalgia 02/15/2016 Vitamin D deficiency 02/15/2016 Encounters Date Type Department Care Team Description 07/09/2025 2:00 PM CDT Office Visit [facility] - Rheumatology [address] [place] [address] [phone] [facility] 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) (Primary Dx); Therapeutic drug monitoring; Immunosuppression due to drug therapy (HCC) 07/09/2025 Travel from Last 3 Months Immunizations Immunization [...] Answer Date Recorded Patient Health Questionnaire-2 Score 0 07/09/2025 Comments No Sex and Gender Information Value Date Recorded Sex Assigned at Not on file Legal Sex Female 5:18 PM SEATER GRINDER Gender Identity Female 05/29/2024 2:11 PM CDT Sexual Orientation Straight 02/20/2025 11 :36 AM CDT Last Filed Vital Signs Vital Sign Reading Time Taken Comments Blood Pressure 114/74 07/09/2025 1:47 PM CDT Pulse 108 07/09/2025 1:47 PM CDT Temperature 36.5 C (97.7 F) 07/09/2025 1:47 PM CDT Respiratory Rate 20 07/31/2024 2:34 PM CDT Oxygen Saturation 96% 07/09/2025 1:47 PM CDT Inhaled Oxygen Concentration - - Weight 82.1 kg (181 lb) 07/09/2025 1:47 PM CDT Height 165.1 cm (5' 5) 07/09/2025 1:47 PM CDT Body Mass Index 30.12 07/09/2025 1:47 PM CDT Plan of Treatment Upcoming Encounters Date Type Department Care Team (Late st Contact Info) Description 12/17/2025 1:30 PM SEATER GRINDER Office Visit [facility] - Rheumatology [address] [place] [address], [place] [address] Hu Ybarra MD [address] [place] [address] [place] [phone] Health Maintenance Due Date Last Done Comments [...] PNEUMOCOCCAL VACCINE 50+ (2 of 2 - PPSV23, PCV20, or PCV21) 11/29/2017 10/04/2017 Respiratory Syncytial Virus (RSV) Vaccine Pt: or over 60 yrs (1 - Risk 60-74 years 1-dose series) 2018 MAMMOGRAM 06/15/2023 06/15/2021, 05/28, 05/28/2020, Additional history exists COVID-19 VACCINE ( season) 2024 08/10/2022, 03/25/2022, 10/12/2021, Additional history exists MEDICARE AWV CALENDAR YEAR 2024 INFLUENZA VACCINE (#1) 2025 2, 10/12/2021, 10/07/2020, Additional history exists SCREENING FOR DIABETES 05/18/2028 5, 05/18/2025, 08/23/2024, Additional history exists HEPATITIS C SCREENING Completed 10/03/2022, 016 BONE DENSITY TESTING Completed 06/22/2023 DEPRESSION SCREENING Completed 07/09/2025, 07/31/2024, 02/01/2023, Additional history exists HEPATITIS B VACCINE Aged Out No longe [...] RNA QN PCR Routine 10/03/2022 12:44 PM SEATER GRINDER 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 Therapeutic drug monitoring Immunosuppression due to drug therapy Need for hepatitis C screening test from Last 3 Months or Most Recently Relevant to Health Maintenance Results * (ABNORMAL) COMPREHENSIVE METABOLIC PANEL (07/31/2024 12:02 PM CDT) BUN 17 7 - 26 mg/dL 07/31/2024 1:23 PM [facility] Creatinine 0.90 0.56 - 0.96 mg/dL 07/31/2024 1:23 PM [facility] Sodium 137 136 - 145 mmol/L 07/31/2024 1:23 PM [facility] Potassium 3.9 3.5 - 4.5 mmol/L 07/31/2024 1:23 PM [facility] Chloride 106 98 - 107 mmol/L 07/31/2024 1:23 PM [facility] CO2 25 22 - 29 mmol/L 07/31/2024 1:23 PM [facility] Glucose 227(H) 70 - 115 mg/dL 07/31/2024 1:23 PM [facility] Calcium 9.0 8.4 - 10.2 mg/dL 07/31/2024 1:23 PM [facility] Protein Total 7.4 6.0 - 8.3 g/dL 07/31/2024 1:23 PM [facility] Albumin 3.4 3.4 - 5.0 g/dL 07/31/2024 1:23 PM [facility] Bilirubin Total 0.6 0.2 - 1.2 mg/dL 07/31/2024 1:23 PM [facility] Alkaline Phosphatase 91 40 - 150 U/L 07/31/2024 1:23 PM [facility] ALT 39 5 - 55 U/L 07/31/2024 1:23 PM [facility] AST 33 5 - 34 U/L 07/31/2024 1:23 PM [facility] Anion Gap 6 6 - 16 07/31/2024 1:23 PM [facility] BUN/Creatinine Ratio 19 7 - 23 07/31/2024 1:23 PM [facility] Osmolality Calculated 293 275 - 295 mOsm/kg 07/31/2024 1:23 PM [facility] Albumin/Globulin Ratio 0.9(L) 1.1 - 2.3 07/31/2024 1:23 PM [facility] eGFR by CKD-EPI 71(L) >=90 mL/min/1.7 3 m2 07/31/2024 1:23 PM CDT [facility] Blood BLOOD SPECIMEN / Unknown Venipuncture / Unknown 07/31/2024 12:02 PM CDT 07/31/2024 12:20 PM CDT Dl Jones MD LAB - CHEMISTRY ORDERABLES Final Result [facility] [address] [place] [address], [facility] [phone] * HEPATITIS C AB W/RFLX TO HCV RNA QN PCR (10/03/2022 12:44 PM SEATER GRINDER) Hepatitis C Antibody NON-REACTI VE NON-REACT [facility] Signal to Cut-Off 0.02 <1.00 [facility] Comment: HCV antibody was non-reactive. There is no laboratory evidence of HCV infection. In most cases, no further action is required. However, if recent HCV exposure is suspected, a test for HCV RNA (test code 93938) is suggested. For additional information please refer to http://education.[employer]/faq/QJH64t6 (This link is being provided for informational/ educational purposes only.) Test Performed at: [facility] [address] [place] [address] CHAVA MILLS DO,MPH Blood BLOOD SPECIMEN / Unknown 10/03/2022 12:44 PM SEATER GRINDER 10/03/2022 12:44 PM SEATER GRINDER Dl Jones MD LAB - CHEMISTRY ORDERABLES Final Result [facility] [id number] [place] [address] from Last 3 Months or Most Recently Relevant to Health Maintenance Insurance [facility] MANAGED MEDICARE ADV Advance Directives Documents on File Type Date Recorded [facility] Power [facility] Control Tech Raw Materials 02/17/2023 7:34 AM laure amaya orders [id number] Care Teams Knotting Machine Operator Portable Relationship Specialty Start Date End Date Singh Loza MD [address] [phone] PCP - General 02/12/16
--- OUTSIDE RECORDS SUMMARY | 2025-07-18 10:04 | XMS_ITS | Clinical Summary ---
Author Organization [facility] Address [address] [place] [address] Phone Care Team Providers Care Mooner Name Role Phone Singh Loza MD Primary Care Provider [phone] Jose Kmuar MD Unavailable [phone] Lucita Patterson CELLOPHANE TESTER, RESUME WRITER Unavailable Romeo Dolan DPM Unavailable [phone] Melissa Rogers CELLOPHANE TESTER, RESUME WRITER Unavailable Nessa Reid MD Unavailable [phone] Allergies Active Allergy Reactions Criticality Noted Date Comments Aspirin Unknown Low 03/14/2024 Uncoated Buprenorphine Rash,Itching 06/14/2024 Patch Hydrocodone Nausea 02/12/2023 Nabumetone Anaphylaxis 04/22/2016 Ekjknab-Dmny-Xhiakywhtofiqw Unknown 03/20/20 17 Ondansetron Hcl Nausea,Vomiting 01/07/2019 Medications ASPIRIN LOW DOSE 81 MG Tablet Delayed Response Take 81 mg by mouth daily. 12/19/19 17 Active atorvastatin (LIPITOR) 40 MG Tablet Take 80 mg by mouth daily. 12/04/19 17 Active SERTRALINE HCL PO Take 200 mg by mouth daily. 12/19/19 17 Active metoprolol Succinate (TOPROL-XL) 25 MG TABLET SR 24 HR Take 25 mg by mouth every evening. Active gabapentin (NEURONTIN) 300 MG Capsule Take 300 mg by mouth 3 times daily. Active Multiple Vitamins-Minera ls (MULTIVITAMIN PO) Take 1 Tab by mouth daily. Active promethazine (PHENERGAN) 25 MG Tablet Take 12.5 mg by mouth 4 times daily as needed for Nausea - 1st line. Active ISOSORBIDE MONONITRATE PO Take 60 mg by mouth every evening. 01/15/20 19 Active montelukast (SINGULAIR) 10 MG Tablet Take 10 mg by mouth daily. Active doxepin (SINEQUAN) 10 MG Capsule Take 10 mg by mouth nightly as needed. Active glipiZIDE (GLUCOTROL) 5 MG Tablet Take 2.5 mg by mouth 2 times daily. Active furosemide (LASIX) 20 MG Tablet Take 20 mg by mouth daily. Active Carboxymeth-Gly cerin-Polysorb (REFRESH OPTIVE RICA-3 OP) Place in affected eye(s) daily. Active methotrexate 2.5 MG Tablet Take 15 mg by mouth every 7 days Takes 6 tabs every Monday Active Multiple Vitamins-Minera ls (EQL VISION FORMULA PO) Take by mouth daily. Generic Ocuvite Active SUMAtriptan (IMITREX) 100 MG Tablet Take 100 mg by mouth once as needed. 01/05/20 23 Active cyclobenzaprine (FLEXERIL) 10 MG Tablet Take 10 mg by mouth 3 times daily as needed. 12/07/19 23 Active prochlorperazin e (COMPAZINE) 10 MG Tablet Take 10 mg by mouth as needed. 01/05/20 23 Active OXYGEN CONCENTRATOR 2 L/min by Nasal route nightly. Active acetaminophen-c odeine (TYLENOL #4) 300-60 MG Tablet Take 1 Tablet by mouth 2 times daily as needed. 12/06/19 23 Active albuterol 108 (90 Base) MCG/ACT Aerosol Solution take 2 Puffs by inhalation. 02/22/20 22 Active Blood Glucose Monitoring Suppl (edenesTouch Verio) w/Device Kit 07/10/20 22 Active OneTouch Verio Strip 50 Strips. 01/05/20 23 Active TRUEplus Lancets 28G Misc 01/05/20 23 Active oxybutynin (DITROPAN) 5 MG Tablet Take 5 mg by mouth daily. 12/19/19 Active Tofacitinib Citrate ER (Xeljanz XR) 11 MG TABLET SR 24 HR Take 11 mg by mouth daily. 08/30/20 Active fluticasone (FLONASE) 50 MCG/ACT Suspension 1 Martin by Nasal route daily as needed for Rhinitis or Allergies. 18.2 g 02/16/20 Active Additional Information Patient taking differently:1 Martin NasalDAILY, Reported on 06/14/2024 HYDROcodone-sarita taminophen (NORCO) 5-325 MG TabletIndicatio ns:COVID-19 Take 1 Tablet by mouth every 4 hours as needed for Moderate or more severe pain. 12 Tablet 02/16/20 Active Additional Information Patient not taking.Reported on 03/14/2024 insulin detemir (Levemir) 100 UNIT/ML Solution 15 Units by Subcutaneous route nightly. 15 mL 2 02/16/20 Active Additional Information Patient not taking.Reported on 03/14/2024 ondansetron (ZOFRAN-ODT) 4 MG TABLET DISPERSIBLE Take 1 Tablet by mouth every 6 hours as needed for Nausea - 1st line. 10 Tablet 02/16/20 Active Additional Information Patient not taking.Reported on 03/14/2024 polyethylene glycol (GLYCOLAX, MIRALAX) 17 g PackIndications :Constipation Take 1 Packet by mouth 2 times daily as needed for Constipation - 1st line. Dissolve in 4-8 oz of liquid. Indications: Constipation 90 Packet 02/16/20 Active senna (SENOKOT) 8.6 MG Tablet Take 1 Tablet by mouth 2 times daily as needed for Constipation - 2nd line. 30 Tablet 02/16/20 Active Additional Information Patient not taking.Reported on 03/14/2024 traMADol (ULTRAM) 50 MG TabletIndicatio ns:Chest wall pain Take 1-2 Tablets by mouth every 6 hours as needed for Moderate or more severe pain. 20 Tablet 12/06/19 Active Additional Information Patient taking differently: 50 mgOralPRN, Moderate or more severe pain, Reported on 06/14/2024 lidocaine (XYLOCAINE) 5 % Ointment as needed. 02/14/20 Active predniSONE (DELTASONE) 5 MG Tablet as needed. 03/15/20 Active baclofen (LIORESAL) 10 MG Tablet Take 10 mg by mouth as needed. 09/01/20 Active Symbicort 160-4.5 MCG/ACT Aerosol 2 times daily. 02/08/20 Active abatacept (ORENCIA) 125 MG/ML Solution Prefilled Syringe 125 mg by Subcutaneous route every 30 days. IVPB Active buprenorphine 7.5 MCG/HR PATCH WEEKLY 7.5 mcg by Transdermal route. 03/21/20 24 Active Cholecalciferol (D3-50) 62583 UNIT Capsule Take 50,000 Units by mouth once a week. Active folic acid (FOLVITE) 400 MCG Tablet Take 1,500 mcg by mouth daily. Active oxyCODONE ER 9 MG Capsule Extended Release 12 hour Abuse-Deterrent Take by mouth 2 times daily. Active Evolocumab (Repatha) 140 MG/ML Solution Prefilled Syringe by Subcutaneous route every 14 days. Monday Active hydrOXYzine (ATARAX) 25 MG Tablet Take 25 mg by mouth 2 times daily as needed. Active omeprazole (PriLOSEC) 40 MG CAPSULE DELAYED RELEASE TAKE 1 CAPSULE BY MOUTH DAILY. 90 Capsule 3 06/23/20 25 Active omeprazole (PriLOSEC) 40 MG CAPSULE DELAYED RELEASE TAKE 1 CAPSULE BY MOUTH DAILY. 90 Capsule 3 05/21/20 24 2024 Discontinued Active Problems Problem Noted Date Diagnosed Date Acute respiratory failure with hypoxia Sepsis 02/13/2023 Hyponatremia 02/13/2023 Hypertension 02/13/2023 Hyperlipidemia 02/13/2023 Pneumonia due to COVID-19 virus 02/12/2023 Esophageal stenosis 03/31/2021 Gastroesophageal reflux disease 03/31/2021 Diabetic polyneuropathy asso ciated with type 2 diabetes mellitus 05/18/2017 Equinus contracture of left ankle 05/18/2017 Equinus contracture of right ankle 05/18/2017 Rheumatoid arthritis(714.0) 05/18/2017 Primary osteoarthritis of both feet 05/18/2017 Hiatal hernia 04/25/2017 Encounters Date Type Department Care Team Description 06/21/2025 Refill [facility] - [facility]ology - [place] [address] [place] [address] Melissa Rogers APRN, RESUME WRITER Medication Refill 05/29/2025 10:00 AM CDT [facility] [place] [address], [address] [place] [address] Singh Loza, Britni Mayberry, PT Muscle weakness (generalized) (Primary Dx) Discharge Disposition: Discharged to home or Selfcare 05/29/2025 Results [facility] [place] [address] [place] [address] Melissa Rogers APRN, RESUME WRITER US ABDOMEN LIMITED, LEVEL 1 - SINGLE ORGAN OR SOFT TISSUE 05/29/2025 Telephone [facility] - Gastroenterology - [place] [address] [place] [address] Melissa Rogers APRN, RESUME WRITER 05/26/2025 1:00 PM CDT [facility] [address], [address] [place] [address] Singh Loza MD Middleton, Trisha M, PT Muscle weakness (generalized) (Primary Dx) Discharge Disposition: Discharged to home or Selfcare 05/26/2025 Travel 05/18/2025 9:59 PM CDT - 05/19/2025 6:14 AM CDT [facility] [address] [place] [address] Chuy Joseph MD Fever Discharge Disposition: Discharged to home or Selfcare 05/18/2025 Travel 05/13/2025 1:57 PM CDT - 05/13/2025 11:59 PM CDT [facility] [address] [place] [address] Melissa Rogers APRN, RESUME WRITER Discharge Disposition: Discharged to home or Selfcare 05/13/2025 Travel 04/22/2025 2:30 PM CDT [facility] [address], [address] [place] [address] Singh Loza MD Middleton, Trisha M, PT Muscle weakness (generalized) (Primary Dx) Discharge Disposition: Discharged to home or Selfcare 04/22/2025 Travel 04/18/2025 Telephone [facility] at [facility] [address], [address] [place] [address] Britni Sarabia, PT Appointment from Last 3 Months Immunizations Immunization Administration [...] Sign Reading Time Taken Comments Blood Pressure 151/80 05/19/2025 6:06 AM CDT Pulse 87 05/19/2025 6:06 AM CDT Temperature 37.1 C (98.8 F) 05/19/2025 5:55 AM CDT Respiratory Rate 21 05/19/2025 6:06 AM CDT Oxygen Saturation 96% 05/19/2025 6:06 AM CDT Inhaled Oxygen Concentration - - Weight 82.1 kg (181 lb) 05/18/2025 10:06 PM CDT Height 165.1 cm (5' 5) 05/18/2025 10:06 PM CDT Body Mass Index 30.12 05/18/2025 10:06 PM CDT Plan of Treatment Health Maintenance Due Date Last Done Comments Diabetes: Eye Exam 1958 Diabetes: Foot Exam 1960 Hepatitis C Virus (HCV) Screening 1960 TdaP Immunization 1960 Cologuard 2003 Immunochemical Fecal Occult Blood 2003 Respiratory Syncytial Virus (RSV) Immunization (Adult) (1 - Risk 60-74 years 1-dose series) 2018 Mammogram 06/15/2022 06/15/2021, 12/2019, 02/06/2019 Diabetes: Hemoglobin A1c 08/15/2023 02/12/2023 SARS-COV-2 Immunization ( season) 2024 08/10/2022, 03/25/2022, 10/12/2021, Additional history exists DEXA Bone Density 06/22/2025 06/22/2023 Influenza Immunization (#1) 07/28/202508/27, 10/03/2023, 09/19/2022, Additional history exists Colonoscopy 05/03/2026 05/03/2021, 03/22/2017 Colorectal Cancer Screening 05/03/2026 Diabetes: Nephropathy Screening 05/18/2026 05/18/2025, 08/23/2024, 12/06/2023, Additional history exists Zoster Immunization Completed 03/25/2022, Pneumococcal Immunization (50+ [...] Procedure Name Priority Date/Time Associated Diagnosis Comments XR CHEST SINGLE VIEW PORTABLE STAT 05/19/2025 2:15 AM CDT URINALYSIS REFLEX IF INDICATED BY ABNORMAL RESULTS STAT 05/19/2025 1:08 AM CDT CULTURE, BLOOD STAT 05/18/2025 11:31 PM CDT CBC WITH AUTO DIFFERENTIAL STAT 05/18/2025 11:18 PM CDT CREATINE KINASE (CK) TOTAL STAT 05/18/2025 11:18 PM CDT LACTIC ACID (LACTATE) STAT 05/18/2025 11:18 PM CDT CMP (COMPREHENSIVE METABOLIC PANEL) STAT 05/18/2025 11:18 PM CDT COMPLETE BLOOD COUNT (CBC) WITH DIFF STAT 05/18/2025 11:18 PM CDT CULTURE, BLOOD STAT 05/18/2025 11:18 PM CDT EKG 12 LEAD STAT 05/18/2025 11:09 PM CDT EKG SCAN 05/18/2025 12:00 AM CDT US ABDOMEN LIMITED, LEVEL 1 - SINGLE ORGAN Routine 05/13/2025 2:21 PM CDT Lesion of spleen HEMOGLOBIN A1C W/ ESTIMATED GLUCOSE Routine 02/12/2023 4:00 PM CDT OZZY SCREENING BILATERAL DIGITAL W CAD W OBDULIO Routine 06/15/2021 11:41 AM CDT Encounter for screening mammogram for malignant neoplasm of breast from Last 3 Months or Most Recently Relevant to Health Maintenance Results * XR CHEST SINGLE VIEW PORTABLE (05/19/2025 2:15 AM CDT) Anatomical Region Laterality Modality Chest N/A Computed Radiogr aphy 05/19/2025 2:32 AM CDT Impressions 05/19/2025 2:35 AM CDT IMPRESSION: No acute abnormality identified. Narrative 05/19/2025 2:35 AM CDT EXAM DESCRIPTION: XR CHEST SINGLE VIEW PORTABLE REASON FOR STUDY: Fever TECHNIQUE: Portable upright AP view of the chest. COMPARISON: 08/23/2024 FINDINGS: LUNGS AND PLEURA: No focal opacity, large effusion, or pneumothorax identified. HEART/MEDIASTINUM: Trachea midline. Cardiac silhouette normal in size. Mediastinal contours appear normal. BONES: Unremarkable. CHEST WALL: Unremarkable. UPPER ABDOMEN: Unremarkable. THIS IS AN ELECTRONICALLY VERIFIED FINAL REPORT 05/19/2025 2:32 AM - Electronically signed by Chad Garvin M.D. AR: ED Report ID: [id number] Reading Location: [id number] Procedure Note Chad Garvin MD - 05/19/2025 EXAM DESCRIPTION: XR CHEST SINGLE VIEW PORTABLE REASON FOR STUDY: Fever TECHNIQUE: Portable upright AP view of the chest. COMPARISON: 08/23/2024 FINDINGS: LUNGS AND PLEURA: No focal opacity, large effusion, or pneumothorax identified. HEART/MEDIASTINUM: Trachea midline. Cardiac silhouette normal in size. Mediastinal contours appear normal. BONES: Unremarkable. CHEST WALL: Unremarkable. UPPER ABDOMEN: Unremarkable. THIS IS AN ELECTRONICALLY VERIFIED FINAL REPORT 05/19/2025 2:32 AM - Electronically signed by Chad Garvin M.D. AR: ED Report ID: [id number] Reading Location: [id number] IMPRESSION: No acute abnormality identified. Chuy Joseph MD [facility] DIAGNOSTIC ORDERABLES Final Result * (ABNORMAL) Urinalysis with Reflex (05/19/2025 1:08 AM CDT) SPECIFIC GRAVITY 1.010 1.003 - 1.030 05/19/2025 1:39 AM CDT [facility] URINE PH 7.0 5.0 - 9.0 05/19/2025 1:39 AM CDT [facility] WBC ESTERASE Negative Negative 05/19/2025 1:39 AM CDT [facility] NITRITE Negative Negative 05/19/2025 1:39 AM CDT [facility] PROTEIN, RANDOM URINE Negative Negative 05/19/2025 1:39 AM CDT [facility] URINE GLUCOSE, QUAL 250 mg/dL(A) Negative 05/19/2025 1:39 AM CDT [facility] URINE KETONES Negative Negative 05/19/2025 1:39 AM CDT [facility] UROBILINOGEN Normal Normal mg/dL 05/19/2025 1:39 AM CDT [facility] URINE BLOOD 10 /uL(A) Negative pam/ul 05/19/2025 1:39 AM CDT [facility] URINALYSIS COLOR Yellow 05/19/2025 1:39 AM CDT [facility] URINALYSIS CLARITY Clear 05/19/2025 1:39 AM CDT [facility] WBC (Urine) Negative Negative, 0-5 /hpf 05/19/2025 1:39 AM CDT [facility] URINE RBC'S 0-2 Negative, 0-2 /hpf 05/19/2025 1:39 AM CDT [facility] EPITHELIAL CELLS Occasional /lpf 05/19/2025 1:39 AM CDT [facility] BACTERIA, URINE Few(A) Negative /hpf 05/19/2025 1:39 AM [facility] Urine URINE SPECIMEN / Unknown Non-Phlebotomy Collection / Unknown 05/19/2025 1:08 AM CDT 05/19/2025 1:18 AM CDT Chuy Joseph MD URINE ORDERABLES Final Re sult [facility] [address] [facility] [place] [address] * Blood Culture #1 (05/18/2025 11:31 PM CDT) Only the most recent of2 resultswithin the time period is included. CULTURE RESULTS NO GROWTH WITHIN 5 DAYS, FINAL RESULT 05/24/2025 1:00 AM CDT [facility] Culture BLOOD SPECIMEN / Unknown Venipuncture / Unknown 05/18/2025 11:31 PM CDT 05/19/2025 12:16 AM CDT Chuy Joseph MD MICROBIOLOGY - GENERAL OR DERABLES Final Result Performing Organization Address City/[facility]/ZIP Co de Phone Number [facility] [address] [place] [address], * (ABNORMAL) CBC with Auto Differential (05/18/2025 11:18 PM CDT) WBC 8.97 4.00 - 12.00 10(3)/mcL 05/18/2025 11:32 PM CDT [facility] RBC 4.00 3.80 - 5.30 10(6)/mcL 05/18/2025 11:32 PM CDT [facility] HEMOGLOBIN (HGB) 12.1 12.0 - 15.8 g/dL 05/18/2025 11:32 PM CDT [facility] HEMATOCRIT (HCT) 36.8 36.0 - 47.0 % 05/18/2025 11:32 PM CDT [facility] MCV 92.0 82.0 - 96.0 fL 05/18/2025 11:32 PM CDT [facility] MCH 30.3 26.0 - 34.0 pg 05/18/2025 11:32 PM CDT [facility] MCHC 32.9 31.0 - 36.0 g/dL 05/18/2025 11:32 PM CDT [facility] PLATELET COUNT 193 140 - 440 10(3)/[facility] 05/18/2025 11:32 PM CDT [facility] RDW 14.3 11.8 - 15.5 % 05/18/2025 11:32 [address] [facility] MPV 11.8 9.7 - 12.4 fL 05/18/2025 11:32 PM CDT [facility] NEUTROPHILS 85.6(H) 47.0 - 73.0 % 05/18/2025 11:32 PM CDT [facility] LYMPHOCYTES 10.7(L) 18.0 - 42.0 % 05/18/2025 11:32 PM [facility] MONOCYTES 2.7(L) 4.0 - 12.0 % 05/18/2025 11:32 PM [facility] EOSINOPHILS 0.3 0.0 - 5.0 % 05/18/2025 11:32 PM CDT [facility] BASOPHILS 0.3 0.0 - 1.0 % 05/18/2025 11:32 PM [facility] IMMATURE GRANULOCYTE 0.4 0.0 - 0.4 % 05/18/2025 11:32 PM [facility] Comment:Immature Granulocyte s includes Metamyelocytes, Myelocytes, and Promyelocytes. ABSOLUTE NEUTROPHILS 7.67 1.60 - 7.70 10(3)/[facility] 05/18/2025 11:32 PM [facility] ABSOLUTE LYMPHOCYTES 0.96(L) 1.30 - 3.20 10(3)/[facility] 05/18/2025 11:32 PM [facility] ABSOLUTE MONOCYTES 0.24 0.20 - 1.00 10(3)/[facility] 05/18/2025 11:32 PM [facility] ABSOLUTE EOSINOPHIL 0.03 0.00 - 0.40 10(3)/mcL 05/18/2025 11:32 PM [facility] ABSOLUTE BASOPHILS 0.03 0.00 - 0.10 10(3)/[facility] 05/18/2025 11:32 PM CDT [facility] ABSOLUTE IMMATURE GRANULOCYTE 0.04(H) 0.00 - 0.03 10 (3) mcL. 05/18/2025 11:32 PM CDT [facility] NRBC PER 100 WBC 0 05/18/20 11:32 PM CDT [facility] Blood Venipuncture / Unknown 05/18/2025 11:18 PM CDT 05/18/2025 11:29 PM CDT Chuy Joseph MD HEMATOLOGY ORDERABLES Fin al Result Performing Organization Address City/[facility]/ZIP Co de Phone Number [facility] [address] [place] [address] * Lactic Acid (Lactate) (05/18/2025 11:18 PM CDT) LACTIC ACID 1.8 0.7 - 2.0 mmol/L 05/18/2025 11:51 PM CDT [facility] Blood Venipuncture / Unknown 05/18/2025 11:18 PM CDT 05/18/2025 11:30 PM CDT Chuy Joseph MD CHEMISTRY ORDERABLES Yvonne l Result [facility] [address] [place] [address] * Creatine Kinase (CK) Total (05/18/2025 11:18 PM CDT) CK (CPK) 29 29 - 168 U/L 05/19/2025 12:20 AM CDT [facility] Blood Venipuncture / Unknown 05/18/2025 11:18 PM CDT 05/18/2025 11:30 PM CDT Chuy Joseph MD CHEMISTRY ORDERABLES Yvonne l Result [facility] [address] [place] [address] * (ABNORMAL) CMP (Comprehensive Metabolic Panel) (05/18/2025 11:18 PM CDT) SODIUM 137 136 - 145 mmol/L 05/18/2025 11:52 PM CDT [facility] POTASSIUM 4.0 3.5 - 5.1 mmol/L 05/18/2025 11:52 PM CDT [facility] CHLORIDE 106 98 - 107 mmol/L 05/18/2025 11:52 PM CDT [facility] CO2, VENOUS 22 22 - 30 mmol/L 05/18/2025 11:52 PM CDT [facility] ANION GAP 13.0 <18.0 mmol/L 05/18/2025 11:52 PM CDT [facility] GLUCOSE 234(H) 70 - 99 mg/dL 05/18/2025 11:52 PM CDT [facility] BUN 16 10 - 20 mg/dL 05/18/2025 11:52 PM CDT [facility] CREATININE, BLOOD 0.92 0.60 - 1.00 mg/dL 05/18/2025 11:52 PM CDT [facility] BUN/CREATININE RATIO 17 12 - 20 ratio 05/18/2025 11:52 PM CDT [facility] TOTAL PROTEIN 7.6 6.0 - 8.0 g/dL 05/18/2025 11:52 PM CDT [facility] ALBUMIN 3.7 3.5 - 5.0 g/dL 05/18/2025 11:52 PM CDT [facility] A/G RATIO 0.9(L) 1.0 - 2.2 05/18/2025 11:52 PM CDT [facility] CALCIUM 8.7 8.7 - 10.5 mg/dL 05/18/2025 11:52 PM CDT [facility] T BILI 0.3 0.2 - 1.2 mg/dL 05/18/2025 11:52 PM CDT [facility] SGOT (AST) 25 <43 U/L 05/18/2025 11:52 PM CDT [facility] SGPT (ALT) 20 <56 U/L 05/18/2025 11:52 PM CDT [facility] ALKALINE PHOSPHATASE 82 40 - 150 U/L 05/18/2025 11:52 PM CDT [facility] GFR, ESTIMATED >60 >=60 05/18/2025 11:52 PM CDT [facility] Comment: Creatinine Clearance is the preferred criteria for selecting drug dose adjustments in renally impaired patients. The GFR is provided as additional pertinent clinical information. GFR is reported in mL/min/1.73 sq m. Calculation based on the Chronic Kidney Disease Epidemiology Collaboration (CKD- EPI) equation refit without adjustment for race. GFR, EST. >60 >=60 025 11:52 PM CDT [facility] GFR, EST. NONAFRICAN >60 >=60 05/18/2025 11:52 PM CDT [facility] Blood Venipuncture / Unknown 05/18/2025 11:18 PM CDT 05/18/2025 11:30 PM CDT us Chuy Joseph MD CHEMISTRY ORDERABLES Yvonne spring Result [facility] [address] [place] [address] * EKG 12 LEAD (05/18/2025 11:09 PM CDT) Ventricular Rate 98 BPM EXTERNAL EKG Atrial Rate 98 BPM EXTERNAL EKG P-R Interval 166 ms EXTERNAL EKG QRS Duration 84 ms EXTERNAL EKG Q-T Duration 348 ms EXTERNAL EKG QTC CALCULATION 444 ms EXTERNAL EKG P Sparks 15 degrees EXTERNAL EKG R Sparks -12 degrees EXTERNAL EKG T Sparks 57 degrees EXTERNAL EKG 05/18/2025 11:0 9 PM CDT Impressions EXTERNAL EKG - 05/19/2025 10:20 PM CDT Normal sinus rhythm Poor R-wave progression ; consider anterior infarct, lead placement, or normal variant Abnormal ECG When compared with ECG of 23-AUG-2024 18:44, Nonspecific T wave abnormality no longer evident in Inferior leads Confirmed by Florencia Ying ([id number]) on 05/19/2025 10:20:36 PM Narrative Procedure Note Florencia Ying DO - 05/19/2025 IMPRESSION: Normal sinus rhythm Poor R-wave progression ; consider anterior infarct, lead placement, ornormal variant Abnormal ECG When compared with ECG of 23-AUG-2024 18:44, Nonspecific T wave abnormality no longer evident in Inferior leads Confirmed by Florencia Ying ([id number]) on 05/19/2025 10:20:36 PM Chuy Joseph MD IMG ECG ORDERABLES Final Result EXTERNAL EKG * EKG SCAN (05/18/2025 12:00 AM CDT) 05/18/2025 Provider Scan IMG ECG ORDERABLES Final Result RESULTING AGENCY * US ABDOMEN LIMITED, LEVEL 1 - SINGLE ORGAN OR SOFT TISSUE (05/13/2025 2:21 PM CDT) Anatomical Region Laterality Modality Abdomen N/A Ultrasound 05/29/2025 10:2 2 AM CDT Impressions 05/29/2025 10:25 AM CDT IMPRESSION: 1. Interval stability in size of technically indeterminate lesion within the inferior aspect of the spleen. Lesion has remained grossly stable in size dating back to September 2021, which favors a benign etiology. Narrative 05/29/2025 10:25 AM CDT EXAM DESCRIPTION: US ABDOMEN LIMITED, LEVEL 1 - SINGLE ORGAN OR SOFT TISSUE REASON FOR STUDY: Follow-up splenic lesion TECHNIQUE: Grayscale ultrasound images acquired of the spleen. Additional color Doppler images acquired. COMPARISON: Ultrasound 05/10/[address] 12/06/2023. FINDINGS: The spleen measures 9.7 cm in maximum dimension, previously 10.7. Within the inferior aspect of the spleen there is a 1.6 x 1.5 x 1.6 cm lesion, previously 1.7 x 1.6 x 1.7 cm. Lesion is mildly heterogeneous in echogenicity, stable in size dating back to a prior CT examination from 10/25/2021. Though indeterminate, the stability in size favors benign etiology. No new lesion is noted. THIS IS AN ELECTRONICALLY VERIFIED FINAL REPORT 05/29/2025 10:22 AM - Electronically signed by Simran Martinez M.D. TW: TW Report ID: [id number] Reading Location: [id number] Procedure Note Simran Martinez MD - 05/29/2025 EXAM DESCRIPTION: US ABDOMEN LIMITED, LEVEL 1 - SINGLE ORGAN OR SOFT TISSUE REASON FOR STUDY: Follow-up splenic lesion TECHNIQUE: Grayscale ultrasound images acquired of the spleen. Additional color Doppler images acquired. COMPARISON: Ultrasound 05/10/[address] 12/06/2023. FINDINGS: The spleen measures 9.7 cm in maximum dimension, previously 10.7. Within the inferior aspect of the spleen there is a 1.6 x 1.5 x 1.6 cm lesion, previously 1.7 x 1.6 x 1.7 cm. Lesion is mildly heterogeneous in echogenicity, stable in size dating back to a prior CT examination from 10/25/2021. Though indeterminate, the stability in size favors benign etiology. No new lesion is noted. THIS IS AN ELECTRONICALLY VERIFIED FINAL REPORT 05/29/2025 10:22 AM - Electronically signed by Simran aMrtinez M.D. TW: TW Report ID: [id number] Reading Location: [id number] IMPRESSION: 1. Interval stability in size of technically indeterminate lesion within the inferior aspect of the spleen. Lesion has remained grossly stable in size dating back to September 2021, which favors a benign etiology. Melissa Rogers [employer] TESTER, RESUME WRITER [facility] ORDERABLES Final Result * (ABNORMAL) Hemoglobin A1C (if indicated) (02/12/2023 4:00 PM CDT) HGB-A1C 6.8(H) 4.0 - 6.0 % 02/13/2023 6:41 AM CDT [facility] Est Average Glucose 148.5 mg/dL 02/13/2023 6:41 AM CDT [facility] Blood Venipuncture / Unknown 02/12/2023 4:00 PM CDT 02/12/2023 4:07 PM CDT Narrative [facility] - 02/13/2023 6:41 AM CDT HEMOGLOBIN A1C: DIABETIC PATIENTS: WELL-CONTROLLED: 6.2 - 7.0 INTERMEDIATE WELL-CONTROLLED: 7.0 - 9.0 POORLY-CONTROLLED: >9.0 Ciara Fraga APRN, RUFINO CHEMISTRY ORDERABLES Fi nal Result [facility] [address] [place] [address] * OZZY SCREENING BILATERAL DIGITAL W CAD [...] to exams dated: 05/28/2020, 02/06/2019, and 05/27/2015 [facility]. BREAST TISSUE:There are scattered fibroglandular densities in [...] contacted. Electronically signed by: Kimberly silver/aundrea:06/15/2021 13:08:52 [employer] Boards Beveler(s): RT Cristino(R)(M), [facility] letter sent: Additional Imaging Reading location: [facility] BI-RADS: 0 Additional Imaging Evaluation Needed Procedure [...] to exams dated: 05/28/2020, 02/06/2019, and 05/27/2015 [facility]. BREAST TISSUE:There are scattered fibroglandular densities in [...] signed by: Kimberly Kang M.D. ts/penrad:06/15/2021 13:08:52 [employer] Boards Beveler(s): RT Cristino(R)(M), [facility] letter sent: Additional Imaging Reading location: [facility] BI-RADS: 0 Additional Imaging Evaluation Needed us Singh Loza MD IMG MAMMO ORDERABLES Final Res ult from Last 3 Months or Most Recently Relevant to Health Maintenance Insurance MEDICAID [place] MEDICARE C [employer] Advance Directives Documents on File Type Date Recorded Patient Prefabricator Expl anation Advance Care Planning Discussion 04/12/2018 8:48 AM ACP COVER SHEET POLST/POST/OR DNR 04/12/2018 8:48 AM POLST 04/10/18 * [...] 12:43 PM 04/10/2018 3:14 PM Care Teams Mooner Relationship Specialty Start Date End Date Singh Loza MD [address] [address] PCP - General Family Medicine 04/18/16 Jose Kumar MD [address] [place] [address] General Surgery 04/13/17 Lucita Patterson APRN, RESUME WRITER [address] [place] [address] Nurse Practitioner Advanced Practice Nurse 04/18/17 Romeo Dolan DPM [address] [place] [address] Consulting Physician Podiatry 05/18/17 Melissa Rogers APRN, RESUME WRITER [address] [place] [address] Nurse Practitioner Advanced Practice Nurse 01/11/23 Nessa Reid MD [address] [place] [address] Consulting Physician Gastroenterology 03/15/24
== END 2025-07-18 10:01 | disposition home or self-care (01) ==
PROVIDERS: PCP Family Medicine; Visit Provider Orthopaedic Surgery
DX: M25.562 Pain in left knee (principal); G89.29 Other chronic pain; Z96.652 Presence of left artificial knee joint; M25.559 Pain in unspecified hip
CPT/HCPCS: 78306; A9503

== ENCOUNTER 2025-08-25 09:28 | Emergency (ER) | payer MEDICARE, MEDICAID, SELFPAY ==
--- NOTE | ~2025-08-25 | XR_ITS ---
Examination: XR thoracic spine 3V Clinical History: fall Comparison: None Technique: 2 views thoracic spine, 6 films Findings: No fracture. No listhesis. Mild degenerative changes. Osteopenia. IMPRESSION: 1. No acute findings. Reviewed, dictated and finalized at location R. IMPRESSION: 1. No acute findings.
--- NOTE | ~2025-08-25 | XR_ITS ---
EXAMINATION: XR ribs RT 2V, 08/25/2025 10:00 CDT HISTORY: fall COMPARISON: No comparisons available. Findings: No acute fracture or malalignment. No significant degenerative changes. Soft tissues unremarkable. Impression: No acute fracture or malalignment. Reviewed, dictated and finalized at location P. Impression: No acute fracture or malalignment.
[2025-08-25 09:36] VITALS: BP 121/74; PULSE 100; RESP 20; TEMP 36.6; O2SAT 100
--- NOTE | 2025-08-25 09:43 | ED.FALL ---
HPI - Fall General Chief Complaint: Fall Stated Complaint: Fall Injury/Low Back/Head Time Seen by Provider: 08/25/25 09:40 Source: patient and RN notes reviewed Mode of arrival: ambulatory Limitations: no limitations History of Present Illness HPI Narrative: 65-year-old female with history of rheumatoid arthritis presents with concern for fall 1 week ago. Reports she slipped down 3 steps and landed on her butt and her low back. Reports she also rolled to her side and hit the side of her head on the stair rail. She reports she has had low back and right rib pain since that time. She denies any headache, nausea or vomiting. She denies any new weakness in any extremity. She denies loss of bowel or bladder function. She reports that 1st the pain was intermittent and now the low back is persistent. She takes hydrocodone every day at baseline for her chronic pain from rheumatoid arthritis, she also takes tramadol as needed, she has been taking it for the back pain. She has Flexeril ill as needed but she has not taken that. MD complaint: fall Related Data Home Medications ?Medication ?Instructions ?Recorded ?Confirmed ?Last Taken ?Type folic acid 1 mg tablet 1 mg PO DAILY 03/29/21 07/30/25 12/18/21 History furosemide 20 mg tablet (Lasix) 20 mg PO QAM 03/29/21 07/30/25 12/19/21 History gabapentin 300 mg capsule 300 mg PO TID 03/29/21 07/30/25 12/19/21 History multivitamin 1 tablet PO DAILY 03/29/21 07/30/25 12/18/21 History oxybutynin chloride 5 mg tablet 5 mg PO DAILY 03/29/21 07/30/25 12/19/21 History glipizide 5 mg tablet 5 mg PO DAILY 07/28/21 07/30/25 12/19/21 History carboxymethylcellulose sodium 1 % 1 drp EACH EYE DAILY 09/06/21 07/30/25 12/18/21 History eye liquid gel drops (Refresh Liquigel) cholecalciferol (vitamin D3) 1,250 1,250 mcg PO MONTHLY 09/06/21 07/30/25 11/30/21 History mcg (50,000 unit) capsule cyclobenzaprine 10 mg tablet 10 mg PO PRN PRN Muscle Spasm 09/06/21 07/30/25 Unknown History fluticasone propionate 50 1 spray intranasal PRN PRN Allergy 09/06/21 07/30/25 12/19/21 History mcg/actuation nasal Symptoms spray,suspension isosorbide mononitrate 60 mg 60 mg PO DAILY 09/06/21 07/30/25 12/19/21 History tablet,extended release 24 hr montelukast 10 mg tablet 10 mg PO DAILY 09/06/21 07/30/25 12/12/21 History sertraline 100 mg tablet (Zoloft) 200 mg PO DAILY 12/22/23 07/30/25 Unknown History atorvastatin 80 mg tablet (Lipitor) 80 mg PO DAILY 04/11/25 07/30/25 Unknown History hydroxyzine HCl 25 mg tablet 25 mg PO BID PRN 04/11/25 07/30/25 Unknown History omeprazole 20 mg tablet,delayed 40 mg PO DAILY 04/11/25 07/30/25 Unknown History release oxycodone myristate 9 mg capsule 9 mg PO BID 04/11/25 07/30/25 Unknown History sprinkle extended release 12 hr(DON'T CRUSH) tramadol 50 mg tablet 50 mg PO Q6H PRN 04/11/25 07/30/25 Unknown History albuterol sulfate 90 mcg/actuation 1 inh inhalation Q4H 07/30/25 07/30/25 Unknown History aerosol inhaler (Ventolin HFA) budesonide 0.5 mg/2 mL suspension 0.5 mg inhalation DAILY 07/30/25 07/30/25 Unknown History for nebulization ezetimibe 10 mg tablet 10 mg PO DAILY 07/30/25 07/30/25 Unknown History methotrexate (PF) 7.5 mg/0.15 mL 17.5 mg subcut WEEKLY 07/30/25 07/30/25 Unknown History subcutaneous auto-injector Allergies Allergy/AdvReac Type Severity Reaction Status Date / Time dihydrocodeine (From Allergy Hives Verified 08/25/25 09:45 Synalgos-DC) nabumetone (From Relafen) Allergy Anaphylaxis Verified 08/25/25 09:45 caffeine AdvReac Unknown Jittery Verified 08/25/25 09:45 hydrocodone AdvReac Nausea and Verified 08/25/25 09:45 Vomiting Review of Systems Review of Systems: CONSTITUTIONAL: Denies malaise, chills, sweats, or fever. CARDIOVASCULAR: Denies chest pain, palpitations, or edema. RESPIRATORY: Denies cough or dyspnea. GASTROINTESTINAL: Denies abdominal pain, nausea, vomiting, diarrhea, loss of bowel function GENITOURINARY: Denies dysuria, hematuria, frequency, loss of bladder function. SKIN: Denies rash or itching. MUSCULOSKELETAL: Reports low back pain and right rib pain NEUROLOGIC: Denies numbness, weakness, or headache. All systems reviewed & are unremarkable except as noted in HPI and below PMFSH Past Medical History Medical History Depression Hyperlipidemia Diabetic neuropathy Type 2 diabetes mellitus Rheumatoid arthritis Gastroesophageal reflux disease Fibromyalgia Hypertension Migraine Anxiety Asthma Anemia Surgical History Surgical History History of cardiac catheterization (2015) History of arthroplasty of left knee (12/21/21) History of arthroplasty of right knee (01/06/15) History of arthroscopic knee surgery (08/25/14) Partial lateral meniscectomy with synovectomy. History of cataract extraction (2014) History of tubal ligation (1983) Family History Family History Other Diabetes mellitus Family history of heart disease in male family member before age 55 Family history of malignant neoplasm Hypertension Social History Social History Social History: Surrogate decision maker: Karlene Amaya, daughter. Code status: Full code. Smoking status: Never smoker Alcohol intake: former Substance use: former Do You Feel Safe in your Home?: Yes Lack of Transportation: No Lack of Food: Never True Current Housing: I Have Housing Concerned About Future Housing: No Difficulty Paying Gas/Electric Bills: No Difficulty Paying for Meds: No Currently Unemployed: No Education: High School Diploma/GED Difficulty w/ Childcare or Family Care: No Living arrangements: alone Additional occupation/education comments: Disabled Comments At time of signature, agree with nursing past medical, surgical, social and family history. There is no relevant family history pertinent to the presenting complaint Exam Narrative: GENERAL: Well-appearing, well-nourished, and in no acute distress. HEAD: Normocephalic, atraumatic. EYES: PERRLA and EOMI. NECK: Supple. No lymphadenopathy. CHEST: Clear to auscultation. No respiratory distress. HEART: Regular rate and rhythm. Distal pulses palpable and equal, cap refill <3 seconds MUSCULOSKELETAL: Normal range of motion and strength in all extremities; 5/5 strength with hip flexion and extension, dorsiflexion and extension, knee flexion and extension, plantar flexion and extension. Normal sensation in dermatomal distributions with sensitivity to light touch and pain. Mid back midline back tenderness to palpation. No paraspinal tenderness. Transfers from sitting to standing. SKIN: Warm, dry, no rash. No ecchymosis, erythema, open wounds to back. NEURO: No focal deficits. Alert and oriented x3. Reflexes intact. Baseline gait patient uses cane. PSYCH: Normal mood and affect Course Course Emergency Course: Patient is aware of diagnosis, understands and agrees to treatment plan. Anticipatory guidance given. Patient agrees to follow-up as directed and is aware of reasons to seek care at the emergency department. Portions of this record may have been created with voice recognition software Level of Care: Express Care Visit Vital Signs Vital signs: Vital Signs Temperature 97.8 F 08/25/25 09:36 Pulse Rate 100 08/25/25 09:36 Respiratory Rate 20 08/25/25 09:36 Blood Pressure 121/74 08/25/25 09:36 Pulse Oximetry 100 08/25/25 09:36 Oxygen Delivery Room Air 08/25/25 09:36 Temperature 97.8 F 08/25/25 09:36 Pulse Rate 100 08/25/25 09:36 Respiratory Rate 20 08/25/25 09:36 Blood Pressure 121/74 08/25/25 09:36 Pulse Oximetry 100 08/25/25 09:36 Oxygen Delivery Room Air 08/25/25 09:36 Reviewed. MDM - Fall MDM Narrative Medical decision making narrative: I evaluated this patient in the express care. History is obtained from patient who is an independent historian and physical exam was performed.? Available medical records were reviewed. ? Exam findings and relevant testing show no acute concerns or changes; patient is non-toxic appearing and is in no distress. ? Differential diagnosis and treatment plan were discussed with the patient. Patient agrees with discussion and after shared medical decision making agrees with plan of care. All questions were answered to the patient's satisfaction. Patient is appropriate for outpatient treatment and follow-up. Imaging Data Radiologist's impression: EXAMINATION: XR ribs RT 2V, 08/25/2025 10:00 CDT HISTORY: fall COMPARISON: No comparisons available. Findings: No acute fracture or malalignment. No significant degenerative changes. Soft tissues unremarkable. Impression: No acute fracture or malalignment. Examination: XR thoracic spine 3V Clinical History: fall Comparison: None Technique: 2 views thoracic spine, 6 films Findings: No fracture. No listhesis. Mild degenerative changes. Osteopenia. IMPRESSION: 1. No acute findings. Critical Care Time Critical Care Time Critical Care Time: No Discharge Plan Discharge Clinical Impression: Back pain, Rib pain on right side Patient Disposition: Home Condition: Stable Instructions: Acute Low Back Pain (ED) Additional Instructions: Please follow up with your Primary Care Doctor within 48-72 hours - call for an appointment. Walking and other gentle exercising several times a week has been shown to improve back pain; bed rest is not recommended. Take prednisone as directed, take muscle relaxers every 8 hours as needed for muscle spasm- do not drive or make any important decisions while on this medication for it can make you drowsy. You may apply ice to the area as needed. If you experience any worsening pain, swelling, numbness, weakness please go to ER. Contact your doctor or go to the emergency department if you develop problems with bladder or bowel function, weakness or loss of feeling in one or both of your legs, or any other serious concerns. Patient Language: Chadian Prescriptions: New methocarbamol 750 mg tablet 750 mg PO TID PRN (Reason: muscle spasm) Qty: 30 0RF prednisone 50 mg tablet 50 mg PO DAILY 5 Days Qty: 5 0RF No Action diphenoxylate-atropine [Lomotil] 2.5-0.025 mg tablet 1 tablet PO TID PRN (Reason: diarrhea) Qty: 15 0RF budesonide 0.5 mg/2 mL suspension for nebulization 0.5 mg inhalation DAILY albuterol sulfate [Ventolin HFA] 90 mcg/actuation HFA aerosol inhaler 1 inh inhalation Q4H ezetimibe 10 mg tablet 10 mg PO DAILY gabapentin 300 mg capsule 300 mg PO TID oxybutynin chloride 5 mg tablet 5 mg PO DAILY furosemide [Lasix] 20 mg tablet 20 mg PO QAM folic acid 1 mg tablet 1 mg PO DAILY multivitamin Tablet 1 tablet PO DAILY sertraline [Zoloft] 100 mg tablet 200 mg PO DAILY omeprazole 20 mg tablet,delayed release (DR/EC) 40 mg PO DAILY glipizide 5 mg tablet 5 mg PO DAILY methotrexate (PF) 7.5 mg/0.15 mL auto-injector 17.5 mg subcut WEEKLY atorvastatin [Lipitor] 80 mg tablet 80 mg PO DAILY oxycodone myristate 9 mg cap,sprinkl,ER12hr(DONT CRUSH) 9 mg PO BID Rx Instructions: must administer with a meal/food tramadol 50 mg tablet 50 mg PO Q6H PRN hydroxyzine HCl 25 mg tablet 25 mg PO BID PRN cholecalciferol (vitamin D3) 1,250 mcg (50,000 unit) Capsule 1,250 mcg PO MONTHLY Patient Comments: FIRST MONDAY OF THE MONTH isosorbide mononitrate 60 mg Tablet Extended Release 24 Hr 60 mg PO DAILY montelukast 10 mg tablet 10 mg PO DAILY cyclobenzaprine 10 mg tablet 10 mg PO PRN PRN (Reason: Muscle Spasm) fluticasone propionate 50 mcg/actuation spray,suspension 1 spray INTRANASAL PRN PRN (Reason: Allergy Symptoms) Refresh Liquigel 1 % Drops, Liquid Gel 1 drp EACH EYE DAILY aspirin 81 mg tablet,delayed release (DR/EC) 81 mg PO BID 14 Days Qty: 28 0RF Follow-up/Referrals: Estela,Singh West MD [Primary Care Provider] Time of Disposition: 10:41
--- OUTSIDE RECORDS SUMMARY | 2025-08-25 09:58 | XMS_ITS | Encounter Summary ---
Author Organization [facility] Health Address [address] [place] [address] Care Team Providers Care Dieing Out Machine Operator Name Role Phone Singh Loza MD Primary Care Provider [phone] Reason for Visit * Reason Onset Date Comments Medication Issue 08/25/2025 Referral proble m with infusions Encounter Details Date Type Department Care Team (Late st Contact Info) Description 08/25/2025 Telephone [facility] - Rheumatology [address] [place] [address], [facility] [place] [address] Hu Ybarra MD [address] [place] [address] [place] [address] Medication Issue (Referral problem with infusions ) Social History Tobacco Use Types Packs/Day Years [...] on file 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 ( Resume Orencia infusion and monitor for infectious complications while on Immunosuppressives) Plan states - Plan to restart Orencia infusions 750 mg q4 weeks, orders sent to infusion center today but order is not visible according to infusion center. Patient would also like Labs to be sent to [facility] in [place] since it is closer. Fax# documented in this encounter Plan of Treatment Upcoming Encounters Date Type Department Care Team (Late st Contact Info) Description 12/17/2025 1:30 PM BRAND DESIGNER Office Visit [facility] - Rheumatology [address] [place] [address], [place] [id number] Hu Ybarra MD [address] [place] [address] [place] [address] Scheduled Orders Name Type Priority Associated Diagnoses Orde r Schedule CBC WITH DIFFERENTIAL Lab Routine 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) Therapeutic drug monitoring E-4Weeks for 12 Occurrences starting 08/25/2025 until 09/24/2026 COMPREHENSIVE METABOLIC PANEL Lab Routine 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) Therapeutic drug monitoring E-4Weeks for 12 Occurrences starting 08/25/2025 until 09/24/2026 ERYTHROCYTE SEDIMENTATION RATE Lab Routine 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) Therapeutic drug monitoring E-4Weeks for 12 Occurrences starting 08/25/2025 until 09/24/2026 C-REACTIVE PROTEIN Lab Routine 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) Therapeutic drug monitoring E-4Weeks for 12 Occurrences starting 08/25/2025 until 09/24/2026 CBC WITH DIFFERENTIAL Lab Routine 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) Therapeutic drug monitoring Once weekly for 1 Occurrences starting 08/25/2025 until 09/24/2026 COMPREHENSIVE METABOLIC PANEL Lab Routine 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) Therapeutic drug monitoring Once weekly for 1 Occurrences starting 08/25/2025 until 09/24/2026 ERYTHROCYTE SEDIMENTATION RATE Lab Routine 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) Therapeutic drug monitoring Once weekly for 1 Occurrences starting 08/25/2025 until 09/24/2026 C-REACTIVE PROTEIN Lab Routine 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) Therapeutic drug monitoring Once weekly for 1 Occurrences starting 08/25/2025 until 09/24/2026 HEPATITIS B CORE ANTIBODY TOTAL Lab Routine 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) Therapeutic drug monitoring Once weekly for 1 Occurrences starting 08/25/2025 until 09/24/2026 HEPATITIS B SURFACE ANTIGEN W RFLX CONFIRMATION Lab Routine 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) Therapeutic drug monitoring Once weekly for 1 Occurrences starting 08/25/2025 until 09/24/2026 QUANTIFERON-TB GOLD PLUS 4-TUBE Lab Routine 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) Therapeutic drug monitoring Once weekly for 1 Occurrences starting 08/25/2025 until 09/24/2026 HEPATITIS C AB W/RFLX TO HCV RNA QN PCR Lab Routine 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) Therapeutic drug monitoring Once weekly for 1 Occurrences starting 08/25/2025 until 09/24/2026 documented as of this encounter Visit Diagnoses Diagnosis 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)- Primary Therapeutic drug monitoring Encounter for therapeutic drug monitoring documented in this encounter Care Teams Dieing Out Machine Operator Relationship Specialty Start Date End Date Olza, Singh E, MD [address] [place] [id number] PCP - General 02/12/16 documented as of this encounter
--- OUTSIDE RECORDS SUMMARY | 2025-08-25 09:58 | XMS_ITS | Encounter Summary ---
Author Organization [facility] Healthcare Address [address] [place] [address] Care Team Providers Care Tightener Name Role Phone Singh Loza MD Primary Care Provider [phone] Encounter Details Date Type Department Care Team (Late st Contact Info) Description 07/17/2025 Results Follow-Up [place] Charge Account Identification Clerk at [address] [place] [id number] Nguyen Puente NP [address] [place] [address] [address] [place] [address] [facility] Mobile Cardiac Telemetry Event Monitor Social [...] on file 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
--- OUTSIDE RECORDS SUMMARY | 2025-08-25 09:58 | XMS_ITS | Clinical Summary ---
Author Organization [facility] Address [address] [place] [address] Care Team Providers Care Four H Club Agent Name Role Phone Singh Loza MD Primary Care Provider [phone] Allergies Active Allergy Reactions Criticality Noted Date Comments Aspirin Unknown Low Zoswkjp-Tvjzcnqp-Ndzugpjgaektr Swelling Medium 02/19 With hives Buprenorphine Itching,Rash [...] mouth daily 100mg PO BID 017 Active mv,Ca,min-iron-FA -lycopene 8 mg iron- 200 mcg-600 mcg tablet Take by mouth daily Active cholecalciferol (VITAMIN D-3) 79983 unit capsule Take 1 capsule (50,000 Units total) by mouth every 30 (thirty) days Active fluticasone propionate (FLONASE) 50 mcg/actuation nasal spray USE 1 SPRAY IN EACH NOSTRIL EVERY DAY 16 g 1 020 Active methotrexate 2.5 mg tablet Take 7 tablets (17.5 mg total) by mouth every 7 days Active glipiZIDE (GLUCOTROL) 5 mg tabletIndications :type 2 diabetes mellitus Take 2 tablets (10 mg total) by mouth daily Active vit C/vit E/lutein/min/omeg a-3 (OCUVITE ORAL) Take by mouth Active oxygenIndications :Dyspnea Administer 2 L/min into each nostril nightly Active SUMAtriptan (IMITREX) 100 mg tablet Take 1 tablet (100 mg total) by mouth once as needed Active baclofen (LIORESAL) 10 mg tablet Take 1 tablet (10 mg total) by mouth 3 (three) times a day 023 Active Xtampza ER 9 mg capsule,sprinkle, ER 12hr tmprr 024 Active traMADoL (ULTRAM) 50 [...] Active budesonide (PULMICORT) 0.5 mg/2 mL nebulizer solutionIndicatio ns:Moderate persistent asthma without complication Take 2 mL [...] 2.5 mg /3 mL (0.083 %) nebulizer solutionIndicatio ns:Moderate persistent asthma, unspecified whether complicated Take 3 mL (2.5 mg total) by nebulization 4 (four) times a day as needed for wheezing or shortness of breath 360 mL 025 2025 Active isosorbide mononitrate ER (IMDUR) 60 mg 24 hr tabletIndications :Other chest pain Take 1 tablet (60 mg total) by mouth daily 90 tablet 3 Active predniSONE (DELTASONE) 5 mg tablet Active inclisiran (Leqvio) 284 mg/1.5 mL syringeIndication s:mixed hyperlipidemia First injection 1.5 ml subcutaneously, then repeat 1.5 ml @ 3 months, then 1.5 ml every 6 months 4 mL 3 Active furosemide (LASIX) 20 mg tablet TAKE ONE (1) TABLET BY MOUTH EVERY DAY 90 tablet 025 Active furosemide (LASIX) 20 mg tablet TAKE 1 TABLET BY MOUTH EVERY DAY 30 tablet 12 025 2024 Discontinued evolocumab (Shannon Sarabia) 140 mg/mL pen injector Inject 1 mL (140 mg total) under the skin every 2 (two) weeks 2 mL 025 2024 Discontinued(E rror) inclisiran (Leqvio) 284 mg/1.5 mL syringeIndication s:mixed hyperlipidemia First injection 1.5 ml subcutaneously, then repeat 1.5 ml @ 3 months, then 1.5 ml every 6 months 4 mL 3 025 2024 Discontinued Active Problems Problem Noted Date Diagnosed Date Mixed hyperlipidemia 08/08/2025 Chest pain 03/25/2022 SOB (shortness of breath) 06/10/2020 Atherosclerosis of [place] ar teries of extremities with intermittent claudication, [...] drug level monitoring 01/09/2017 Fibromyalgia 02/15/2016 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 6 Resolved Problems Problem Noted Date Diagnosed Date Resolved Date Rheumatoid arthritis of mult iple sites without organ or system involvement with positive rheumatoid factor 02/15/2016 12/30/2020 Vitamin D deficiency 02/15/2016 021 Encounters Date Type Department Care Team Description 08/19/2025 Results Follow-Up [facility] at [address] [address] Nguyen Candelario NP Lipid panel 08/11/[address] [place] [address] Aileen Vyas RN 08/08/2025 1:15 PM CDT Office Visit [facility] at [address] [address] Nguyen Candelario NP Atherosclerosis of [place] arteries of extremities with intermittent claudication, bilateral legs (Primary Dx); Hyperlipidemia, unspecified hyperlipidemia type; Palpitations; SOB (shortness of breath); Other chest pain; Coronary artery disease involving [place] heart, unspecified vessel or lesion type, unspecified whether angina present 08/08/2025 Orders Only [address] [place] [address] Jaspreet Metz MD 07/17/2025 Results Follow-Up [facility] at [address] [place] [address] Nguyen Candelario NP [facility] Mobile Cardiac Telemetry Event Monitor 06/30/2025 1:00 PM CDT - 06/30/2025 11:59 PM CDT Hospital Encounter [facility] [address] [place] [address] Ranjith Wing [address] [place] [address] Cochran, Felicita Nguyen RD Dietary counseling and surveillance Discharge Disposition: Discharge to home or self care 06/25/2025 Telephone [facility] at [address] [address] Nguyen Candelario NP 06/16/2025 12:34 PM CDT - 06/16/2025 11:59 PM CDT Hospital Encounter [facility] [address] [place] [address] Palpitations Discharge Disposition: Discharge to home or self care 06/13/[address] [facility] at [address] [address] Britni Aguero LPN 06/12/2025 1:30 PM CDT Office Visit [facility] at [address] [phone] Jose Farooq MD Moderate persistent asthma without complication (Primary Dx); Hiatal hernia with GERD without esophagitis; Seasonal allergic rhinitis, unspecified trigger; Rheumatoid arthritis involving multiple sites, unspecified whether rheumatoid factor present (HCC); Pulmonary nodule 06/12/[address] [facility] at [address] [address] Danisha Meraz LPN Moderate persistent asthma, unspecified whether complicated (Primary Dx) 06/06/2025 1:00 PM CDT Office Visit [facility] at [address] [place] [address] Nguyen Candelario NP Atherosclerosis of [place] arteries of extremities with intermittent claudication, bilateral legs (Primary Dx); Hyperlipidemia, unspecified hyperlipidemia type; Palpitations from Last 3 Months Immunizations Immunization Administration Dates Next Due Influenza, Quadrivalent, Spl it, Intramuscular 12/10/2018,08/22/2017,08/10/2016 Pneumococcal Conjugate PCV 13 10/04/2017 Surgical History Surgery Date Site/Laterality Comments TUBAL LIGATION Bilateral tubal ligation REPLACEMENT TOTAL KNEE 12/21/2021 Left Medical History Medical History Date Comments Hx Other Medical Headache, migra ine Anxiety disorder Anxiety Diabetes mellitus Diabetes Depression Depression Anemia Anemia Migraine Headache, [...] on file Legal 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 Gender Identity Female 09/16/2021 4:34 PM CDT Sexual Orientation Not on file Obstetrics History Last Filed Vital Signs Vital Sign Reading Time Taken Comments Blood Pressure 106/70 08/08/2025 1:18 PM CDT Pulse 94 08/08/2025 1:18 PM CDT Temperature 36.5 C (97.7 F) 06/12/2025 1:39 PM CDT Respiratory Rate 18 08/08/2025 1:18 PM CDT Oxygen Saturation 99% 06/12/2025 1:39 PM CDT Inhaled Oxygen Concentration - - Weight 83.5 kg (184 lb) 08/08/2025 1:18 PM CDT Height 165.1 cm (5' 5) 08/08/2025 1:18 PM CDT Body Mass Index 30.62 08/08/2025 1:18 PM CDT Plan of Treatment Health Maintenance [...] - PPSV23, PCV20, or PCV21) 11/29/2017 10/04/2017 Breast Cancer Screening-Mammogram 06/15/2022 06/15/2021, 06/15/2021, 05/28/2020, Additional history exists Well Visit 65+ 2023 Osteoporosis Screening-Bone Density Scan 06/22/2025 06/22/2023 Covid-19 Vaccine ( - 2024-2 6 season) 2025 10/12/2021, 03/08/2021, 02/08/2021 Influenza Vaccine (#1) 2025 , 10/07/2020, 11/05/2019, Additional history exists Lipid Panel 08/18/2026 08/18/2025, 07/2 01/2024, 03/27/2023 Hepatitis C Screening Completed 07/10/2013 Procedures Procedure Name Priority Date/Time Associated Diagnosis Comments LIPID PANEL Routine 08/18/2025 12:41 PM CDT Hyperlipidemia, unspecified hyperlipidemia type MCT - MOBILE CARDIAC TELEMETRY EVENT MONITOR Routine 06/16/2025 12:35 PM CDT Palpitations DEXA AXIAL SKELETON BONE DENSITY 1 OR [...] Health Maintenance Results * (ABNORMAL) Lipid panel (08/18/2025 12:41 PM CDT) Pathologist [facility] Cholesterol 227(H) <200 mg/dL [facility] HDL 45(L) > OR = 50 mg/dL [facility] Triglycerides 236(H) <150 mg/dL [facility] Comment: If a non-fasting specimen was collected, consider repeat triglyceride testing on a fasting specimen if clinically indicated. Estee et al. J. of Clin. Lipidol. 2015;9:129-169. LDL 144(H) mg/dL (calc) [facility] Comment: Reference [...] LDL-C. Jimmie SS et al. PAIGE. 2013;310(19): 2963-1325 (http://education.E[employer] Devices/faq/TZO380) Chol/HDL ratio 5.0(H) <5.0 (calc) [facility] Non-HDL, (LDL+VLDL) 182(H) <130 mg/dL (calc) [facility] Comment: For patients with diabetes plus 1 major ASCVD risk factor, treating to a non-HDL-C goal of <100 mg/dL (LDL-C of <70 mg/dL) is considered a therapeutic option. Blood 08/18/2025 12:4 1 PM CDT 08/18/2025 12:42 PM CDT Narrative [facility] - 08/19/2025 5:17 AM CDT FASTING:YES FASTING: YES Nguyen Candelario NP LAB BLOOD ORDERABLES Fi nal Result [employer] [address] [address] * MCT Mobile Cardiac Telemetry Event Monitor (06/16/2025 12:35 PM CDT) Anatomical Region Laterality Modality Electrocardiogra phy 07/02/2025 11:5 9 PM CDT Narrative 07/04/2025 10:16 AM CDT [address] [address] EVENT MONITOR Patient Name: STEPHY AVILES A [...] Procedure Note Fortino Barraza MD - 07/04/[address] [place] [address] EVENT MONITOR Patient Name: STEPHY AVILES A [...] CARDIAC SERVICES PRO CEDURES Final Result * Dexa Axial Skeleton Bone Density 1 or 2 Site (06/22/2023 2:03 PM CDT) Anatomical Region Laterality Modality Body N/A Other 06/24/2023 12:1 5 AM CDT Narrative 06/24/2023 12:16 AM CDT EXAM DESCRIPTION: DEXA AXIAL SKELETON BONE DENSITY 1 OR MORE SITES REASON FOR STUDY: 63 y/o year old F with given history of: rheumatoid arthritis of multiple sites Osteoporosis screening 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 MF: DOMINIC Report ID: [id number] Reading Location: [place] [address] us Dl Jones MD IMG DXA PROCEDURES Final Result * Serum Hepatitis C ab (07/10/2013 3:34 PM CDT) HCV ab Negative Negative HISTORICAL RESULTS Serum 07/10/2013 3:34 PM CDT us Tatyana Basurto MD LAB BLOOD ORDERABLES Yvonne l Result HISTORICAL RESULTS from Last 3 Months or Most Recently Relevant to Health Maintenance Insurance [facility] MEDICARE ADVANTAGE [facility] MEDICARE ADVANTAGE IDPA Care Teams Four H Club Agent Relationship Specialty Start Date End Date Singh Loza MD [address] [place] [address] DR SÁNCHEZ B [address] [address] PCP - General Family Medicine 01/02/25
--- OUTSIDE RECORDS SUMMARY | 2025-08-25 09:58 | XMS_ITS | Encounter Summary ---
Author Organization [facility] Address [address] [place] [address] Phone Care Team Providers Care Supervisor Malted Milk Name Role Phone Singh Loza MD Primary Care Provider [phone] Jose Kumar MD Unavailable [phone] Lucita Patterson PROTECTION MANAGER, SUPERVISOR SAWMILL Unavailable Romeo Dolan DPM Unavailable [phone] Melissa Rogers PROTECTION MANAGER, SUPERVISOR SAWMILL Unavailable Nessa Reid MD Unavailable [phone] Reason for Referral * PT/OT/ST (Routine) - Closed Specialty Diagnoses / Procedures Referred By Inez flaherty Referred To Contact Physical Therapy Diagnoses Muscle weakness (generalized) Singh Loza MD [address] [place] [address] [address] [place] [address] Phone: tel: fax: [facility] [address] [place] [address] Phone: tel: fax: Referral ID Status Reason Start Date Expiration Date Visits Re quested Visits Authorized [id number] Closed 02/10/2025 50 19 Scheduling Instructions Encounter Details Date Type Department Care Team (Late Contact Info) Description 02/10/2025 Transcribe Orders [facility] [address] [place] [address] Singh Loza MD [address] [facility] [place] [address] Muscle weakness (generalized) (Primary Dx) Social History [...] Encounters Date Type Department Care Team (Late Contact Info) Description 09/08/2025 2:00 PM CDT Appointment [facility] Mammography [address] [place] [address] Singh Loza MD [address] [facility] [place] [address] Discharge Disposition: Discharged to home or Selfcare [...] documented as of this encounter Care Teams Supervisor Malted Milk Relationship Specialty Start Date End Date Singh Loza MD [address] [facility] [place] [address] PCP - General Family Medicine 04/18/16 Jose Kuamr MD [address] [place] [address] DR [address] [place] [address] General Surgery 04/13/17 Lucita Patterson APRN, SUPERVISOR SAWMILL [address] [place] [address] [place] [address] Nurse Practitioner Advanced Practice Nurse 04/18/17 Romeo Dolan DPM [address] [facility] [place] [address] Consulting Physician Podiatry 05/18/17 Melissa Rogers APRN, SUPERVISOR SAWMILL [address] [place] [address] Nurse Practitioner Advanced Practice Nurse 01/11/23 Nessa Reid MD [address] [place] [address] Consulting Physician Gastroenterology 03/15/24 documented as of this encounter
--- OUTSIDE RECORDS SUMMARY | 2025-08-25 09:58 | XMS_ITS | Clinical Summary ---
Author Organization [facility] [employer] Address [address] [place] [address] Care Team Providers Care Property Supervisor Name Role Phone Singh Loza MD Primary Care Provider [phone] Source Comments [facility] [employer],non-owned Affiliates and Associated Physician Practices is amultiple site organization consisting of ambulatory clinics and hospital sitesin [place], [place] and [place]. This disclosure is being madepursuant to the Care Everywhere program and may not contain all information available regarding this patient. Last updated 18.[facility] [employer] Allergies Active Allergy Reactions Criticality Noted Date [...] Verio) w/Device KIT 07/10/20 22 Active Oxygen [place] 2 L/min into the nose at bedtime [...] fluticasone propionate (Flonase) 50 MCG/ACT nasal spray [place] 1 (one) spray into the nose once [...] capsule 05/21/20 24 Active Cholecalciferol 1.25 MG (56911 UT) Take 50,000 Units by mouth Active [...] 7 days 84 tablet 3 07/31/20 24 Active arformoterol (Brovana) 15 MCG/2ML nebulizer solution Inhale 2 mL by mouth 2 times daily 09/25/20 24 Active budesonide (Pulmicort) 0.5 MG/2ML nebulizer suspension Inhale 2 mL by mouth 2 times daily 04/16/20 25 Active ezetimibe (Zetia) 10 MG tablet Take 1 (one) tablet by mouth once daily 06/06/20 25 026 Active predniSONE (Deltasone) 5 MG tabletIndication s: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) Take 1 (one) tablet by mouth once daily 18 tablet 08/06/20 25 Active predniSONE (Deltasone) 5 MG tabletIndication s: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) TAKE 1 (ONE) TABLET BY MOUTH ONCE DAILY NEEDED 18 tablet 02/18/20 25 025 Discontin ued(Reord er) Active Problems Problem Noted Date Diagnosed Date SOB (shortness of breath) 12/04/2017 Encounter for long-term (current) drug use 02/14 Other prison (current) drug therapy 6 Rheumatoid arthritis 02/15/2016 Fibromyalgia 02/15/2016 Vitamin D deficiency 02/15/2016 Encounters Date Type Department Care Team Description 08/25/2025 Telephone [facility] - Rheumatology [address] [place] [phone] Hu Ybarra MD Medication Issue (Referral problem with infusions ) 08/06/2025 Telephone [facility] - Rheumatology [address] [place] [phone] Hu Ybarra MD Follow-up 08/06/2025 Telephone [facility] - Rheumatology [address] [place] [phone] Hu Ybarra MD Follow-up 07/09/2025 2:00 PM CDT Office Visit [facility] - Rheumatology [address] [place] [phone] Hu Ybarra MD Rheumatoid arthritis of multiple [...] on file Legal Sex Female 5:18 PM PT SKILLED Gender Identity Female 05/29/2024 2:11 PM CDT [...] st Contact Info) Description 12/17/2025 1:30 PM PT SKILLED Office Visit [facility] - Rheumatology [address] [place] [address], [place] [address] Hu Ybarra MD [address] [facility] [address] Health Maintenance Due Date Last Done Comments [...] 06/15/2023 06/15/2021, 05/28, 05/28/2020, Additional history exists MEDICARE AWV CALENDAR YEAR 2024 COVID-19 VACCINE ( season) 2025 08/10/2022, 03/25/2022, 10/12/2021, Additional history exists INFLUENZA VACCINE (#1) 2025 2, 10/12/2021, 10/07/2020, Additional history exists SCREENING FOR DIABETES 07/31/2027 4, 07/03/2024, 06/18/2024, [...] RNA QN PCR Routine 10/03/2022 12:44 PM PT SKILLED 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 Therapeutic drug monitoring Immunosuppression due to drug therapy Need for hepatitis C screening test from Last 3 Months or Most Recently Relevant to Health Maintenance Results * (ABNORMAL) COMPREHENSIVE METABOLIC PANEL (07/31/2024 12:02 PM CDT) BUN 17 7 - 26 mg/dL 07/31/2024 1:23 PM [facility] Creatinine 0.90 0.56 - 0.96 mg/dL 07/31/2024 1:23 PM [facility] Sodium 137 136 - 145 mmol/L 07/31/2024 1:23 PM [facility] Potassium 3.9 3.5 - 4.5 mmol/L 07/31/2024 1:23 PM [facility] Chloride 106 98 - 107 mmol/L 07/31/2024 1:23 PM [facility] CO2 25 22 - 29 mmol/L 07/31/2024 1:23 PM [facility] Glucose 227(H) 70 - 115 mg/dL 07/31/2024 1:23 PM [facility] Calcium 9.0 8.4 - 10.2 mg/dL 07/31/2024 1:23 PM [facility] Protein Total 7.4 6.0 - 8.3 g/dL 07/31/2024 1:23 PM [facility] Albumin 3.4 3.4 - 5.0 g/dL 07/31/2024 1:23 PM [facility] Bilirubin Total 0.6 0.2 - 1.2 mg/dL 07/31/2024 1:23 PM [facility] Alkaline Phosphatase 91 40 - 150 U/L 07/31/2024 1:23 PM [facility] ALT 39 5 - 55 U/L 07/31/2024 1:23 PM [facility] AST 33 5 - 34 U/L 07/31/2024 1:23 PM [facility] Anion Gap 6 6 - 16 07/31/2024 1:23 PM [facility] BUN/Creatinine Ratio 19 7 - 23 07/31/2024 1:23 PM [facility] Osmolality Calculated 293 275 - 295 mOsm/kg 07/31/2024 1:23 PM [facility] Albumin/Globulin Ratio 0.9(L) 1.1 - 2.3 07/31/2024 1:23 PM [facility] eGFR by CKD-EPI 71(L) >=90 mL/min/1.7 3 m2 07/31/2024 1:23 PM [facility] Blood BLOOD SPECIMEN / Unknown Venipuncture / Unknown 07/31/2024 12:02 PM CDT 07/31/2024 12:20 PM T Dl Jones MD LAB - CHEMISTRY ORDERABLES Final Result [facility] [address] [place] [address], [facility] [phone] * HEPATITIS C AB W/RFLX TO HCV RNA QN PCR (10/03/2022 12:44 PM PT SKILLED) Hepatitis C Antibody NON-REACTI VE NON-REACT [facility] Signal to Cut-Off 0.02 <1.00 [facility] Comment: HCV antibody was non-reactive. There is no laboratory evidence of HCV infection. In most cases, no further action is required. However, if recent HCV exposure is suspected, a test for HCV RNA (test code 73309) is suggested. For additional information please refer to http://education.[employer]/faq/KLQ43x3 (This link is being provided for informational/ educational purposes only.) Test Performed at: [facility] [address] [place] [address] CHAVA MILLS DO,MPH Blood BLOOD SPECIMEN / Unknown 10/03/2022 12:44 PM PT SKILLED 10/03/2022 12:44 PM PT SKILLED Dl Jones MD LAB - CHEMISTRY ORDERABLES Final Result [facility] [id number] [place] [address] from Last 3 Months or Most Recently Relevant to Health Maintenance Insurance [facility] MANAGED MEDICARE ADV MEDICAID - [place] Advance Directives Documents on File Type Date Recorded Patient Automotive Exhaust Emissions Technician Expl anation [facility] Power of Cloth Laminating Supervisor 02/17/2023 7:34 AM laure amaya orders [id number] Care Teams Property Supervisor Relationship Specialty Start Date End Date Singh Loza MD [address] [place] [address] [place] [phone] PCP - General 02/12/16
--- OUTSIDE RECORDS SUMMARY | 2025-08-25 09:58 | XMS_ITS | Encounter Summary ---
Author Organization [facility] Address [address] [place] [address] Phone Care Team Providers Care Fugitive Detective Name Role Phone Singh Loza MD Primary Care Provider [phone] Jose Kumar MD Unavailable [phone] Lucita Patterson APRN, ACCOUNTS PAYABLE REPRESENTATIVE Unavailable Romeo Dolan DPM Unavailable [phone] Melissa Rogers APRN, ACCOUNTS PAYABLE REPRESENTATIVE Unavailable Nessa Reid MD Unavailable [phone] Reason for Visit * Reason Comments Medication Refill Encounter Details Date Type Department Care Team (Late st Contact Info) Description 05/20/2024 Refill [facility] [address] [place] [address] Melissa Rogers APRN, ACCOUNTS PAYABLE REPRESENTATIVE [address] [place] [address] Medication Refill Social History Tobacco Use Types [...] PM CDT Medication refilled and signed per [facility] chronic medication standing order for pediatric and adult patients. documented in this encounter Plan of Treatment Upcoming Encounters Date Type Department Care Team (Late st Contact Info) Description 09/08/2025 2:00 PM CDT Appointment [facility] [address] [place] [address] Singh Loza MD [address] [place] [address] [place] [address] Discharge Disposition: Discharged to home or Selfcare documented as of this encounter Visit Diagnoses Not on filedocumented in this encounter Additional Health Concerns Infection Onset Date Last Indicated Resolved Time COVID - 19 08/23/2024 08/23/2024 08/23/2024 8:09 PM CDT Assessment Noted Time PHQ-9 Depression Total Score: 0 04/18/20 17 10:00 AM CDT documented as of this encounter Care Teams Fugitive Detective Relationship Specialty Start Date End Date Singh Loza MD [address] [place] [address] [place] [address] PCP - General Family Medicine 04/18/16 Jose Kumar MD [address] [place] [address] [place] [address] General Surgery 04/13/17 Lucita Patterson APRN, ACCOUNTS PAYABLE REPRESENTATIVE [address] [place] [address] [address] [place] [address] Nurse Practitioner Advanced Practice Nurse 04/18/17 Romeo Dolan DPM [address] [place] [address] [address] [place] [address] Consulting Physician Podiatry 05/18/17 Melissa Rogers APRN, RUFINO [address] [place] [address] Nurse Practitioner Advanced Practice Nurse 01/11/23 Nessa Reid MD [address] [place] [address] Consulting Physician Gastroenterology 03/15/24 documented as of this encounter
--- OUTSIDE RECORDS SUMMARY | 2025-08-25 09:58 | XMS_ITS | Clinical Summary ---
Author Organization [facility] Address [address] [place] [address] Phone Care Team Providers Care Adult Education Instructor Name Role Phone Singh Loza MD Primary Care Provider [phone] Jose Kumar MD Unavailable [phone] Lucita Patterson NECKTIE STITCHER, MIXOLOGIST Unavailable Romeo Dolan DPM Unavailable [phone] Melissa Rogers NECKTIE STITCHER, MIXOLOGIST Unavailable Nessa Reid MD Unavailable [phone] Allergies Active Allergy Reactions Criticality Noted Date Comments Aspirin Unknown Low 03/14/2024 Uncoated Buprenorphine Rash,Itching 06/14/2024 Patch Hydrocodone Nausea 02/12/2023 Nabumetone Anaphylaxis 04/22/2016 Mggagil-Cczj-Luafwblmtuhgmm Unknown 03/20/20 17 Ondansetron Hcl Nausea,Vomiting 01/07/2019 [...] Active fluticasone (FLONASE) 50 MCG/ACT Suspension 1 [place] by Nasal route daily as needed for Rhinitis or Allergies. 18.2 g 3 Active Additional Information Patient taking differently:1 [place] NasalDAILY, Reported on 06/14/2024 HYDROcodone-acet aminophen (NORCO) [...] by Transdermal route. 4 Active Cholecalciferol (D3-50) 67893 UNIT Capsule Take 50,000 Units by mouth [...] CAPSULE BY MOUTH DAILY. 90 Capsule 3 5 Active Active Problems Problem Noted Date Diagnosed [...] Encounters Date Type Department Care Team Description 08/18/[address] [facility] Scheduling [address] [place] [address] Singh Loza MD Encounter for screening mammogram for malignant neoplasm of breast (Primary Dx) 06/21/2025 Refill [facility] [address] [place] [phone] Melissa Rogers APRN, MIXOLOGIST Medication Refill 05/29/2025 10:00 AM CDT Physical Therapy [facility] [address], [address] [place] [address] Singh Loza, Britni Mayberry, PT Muscle weakness (generalized) (Primary Dx) Discharge Disposition: Discharged to home or Selfcare 05/29/2025 [facility] [place] [address] [place] [address] Melissa Rogers APRN, MIXOLOGIST US ABDOMEN LIMITED, LEVEL 1 - SINGLE ORGAN OR SOFT TISSUE 05/29/2025 Telephone [facility] Gastroenterology - [address] [place] [address] Melissa Rogers APRN, MIXOLOGIST 05/26/2025 1:00 PM CDT Physical Therapy [facility] [address] [place] [address] Singh Loza, Britni Mayberry, PT Muscle weakness (generalized) (Primary Dx) Discharge Disposition: Discharged to home or Selfcare 05/26/2025 Travel from Last 3 Months Immunizations Immunization [...] 05/18/2025 10:06 PM CDT Plan of Treatment Upcoming Encounters Date Type Department Care Team (Late st Contact Info) Description 09/08/2025 2:00 PM CDT Appointment [facility] Mammography 1 [place] [address] Singh Loza MD [address] [facility] [address] [place] [address] Discharge Disposition: Discharged to home or Selfcare Health Maintenance Due Date Last Done Comments Diabetes: Eye Exam 1960 Diabetes: Foot Exam 1960 Hepatitis C Virus (HCV) Screening 1960 TdaP Immunization 1960 Cologuard 2003 Immunochemical Fecal Occult Blood 2003 Medicare Initial AWV G0438 12/28/2017 Respiratory Syncytial Virus (RSV) Immunization (Adult) (1 - Risk 60-74 years 1-dose series) 2018 Mammogram 06/15/2022 06/15/2021, 07/0 12/2019, 02/06/2019 Diabetes: Hemoglobin A1c 08/15/2023 02/12/2023 DEXA Bone Density 06/22/2025 06/22/2023 Influenza Immunization (#1) 07/28/202508/27, 10/03/2023, 09/19/2022, Additional history exists SARS-COV-2 Immunization ( season) 2025 08/10/2022, 03/25/2022, 10/12/2021, Additional history exists Colonoscopy 05/03/2026 05/03/2021, 03/22/2017 [...] Diagnosis Comments CMP (COMPREHENSIVE METABOLIC PANEL) STAT 05/18/2025 11:18 PM CDT HEMOGLOBIN A1C W/ ESTIMATED GLUCOSE Routine 02/12/2023 4:00 PM CDT OZZY SCREENING BILATERAL DIGITAL W CAD W OBDULIO Routine 06/15/2021 11:41 AM CDT Encounter for screening mammogram for malignant neoplasm of breast from Last 3 Months or Most Recently Relevant to Health Maintenance Results * (ABNORMAL) CMP (Comprehensive Metabolic Panel) (05/18/2025 11:18 PM CDT) SODIUM 137 136 - 145 mmol/L 05/18/2025 11:52 PM CDT [facility] POTASSIUM 4.0 3.5 - 5.1 mmol/L 05/18/2025 11:52 PM CDT [facility] CHLORIDE 106 98 - 107 mmol/L 05/18/2025 11:52 PM CDT [facility] CO2, VENOUS 22 22 - 30 mmol/L 05/18/2025 11:52 PM CDT [facility] ANION GAP 13.0 <18.0 mmol/L 05/18/2025 11:52 PM CDT [facility] GLUCOSE 234(H) 70 - 99 mg/dL 05/18/2025 11:52 PM CDT [facility] BUN 16 10 - 20 mg/dL 05/18/2025 11:52 PM CDT [facility] CREATININE, BLOOD 0.92 0.60 - 1.00 mg/dL 05/18/2025 11:52 PM CDT [facility] BUN/CREATININE RATIO 17 12 - 20 ratio 05/18/2025 11:52 PM CDT [facility] TOTAL PROTEIN 7.6 6.0 - 8.0 g/dL 05/18/2025 11:52 PM CDT [facility] ALBUMIN 3.7 3.5 - 5.0 g/dL 05/18/2025 11:52 PM CDT [facility] A/G RATIO 0.9(L) 1.0 - 2.2 05/18/2025 11:52 PM CDT [facility] CALCIUM 8.7 8.7 - 10.5 mg/dL 05/18/2025 11:52 PM CDT [facility] T BILI 0.3 0.2 - 1.2 mg/dL 05/18/2025 11:52 PM CDT [facility] SGOT (AST) 25 <43 U/L 05/18/2025 11:52 PM CDT [facility] SGPT (ALT) 20 <56 U/L 05/18/2025 11:52 PM CDT [facility] ALKALINE PHOSPHATASE 82 40 - 150 U/L 05/18/2025 11:52 PM CDT [facility] GFR, ESTIMATED >60 >=60 05/18/2025 11:52 PM CDT [facility] Comment: Creatinine Clearance is the preferred criteria for selecting drug dose adjustments in renally impaired patients. The GFR is provided as additional pertinent clinical information. GFR is reported in mL/min/1.73 sq m. Calculation based on the Chronic Kidney Disease Epidemiology Collaboration (CKD- EPI) equation refit without adjustment for race. GFR, EST. >60 >=60 025 11:52 PM CDT [facility] GFR, EST. NONAFRICAN >60 >=60 05/18/2025 11:52 PM CDT [facility] Blood Venipuncture / Unknown 05/18/2025 11:18 PM CDT 05/18/2025 11:30 PM CDT us Chuy Joseph MD CHEMISTRY ORDERABLES Yvonne l Result [facility] [address] [place] [address] * (ABNORMAL) Hemoglobin A1C (if indicated) (02/12/2023 4:00 PM CDT) HGB-A1C 6.8(H) 4.0 - 6.0 % 02/13/2023 6:41 AM CDT [facility] Est Average Glucose 148.5 mg/dL 02/13/2023 6:41 AM CDT [facility] Blood Venipuncture / Unknown 02/12/2023 4:00 PM CDT 02/12/2023 4:07 PM CDT Narrative [facility] - 02/13/2023 6:41 AM CDT HEMOGLOBIN A1C: DIABETIC PATIENTS: WELL-CONTROLLED: 6.2 - 7.0 INTERMEDIATE WELL-CONTROLLED: 7.0 - 9.0 POORLY-CONTROLLED: >9.0 us Ciara Fraga APRN, RUFINO CHEMISTRY ORDERABLES Fi nal Result [facility] [address] [place] [address] * OZZY SCREENING BILATERAL DIGITAL W CAD [...] to exams dated: 05/28/2020, 02/06/2019, and 05/27/2015 [facility]. BREAST TISSUE:There are scattered fibroglandular densities [...] contacted. Electronically signed by: Kimberly silver/aundrea:06/15/2021 13:08:52 Last Remodeler Repairer(s): RT Cristino(R)(M), [facility] letter sent: Additional Imaging Reading location: [facility] [...] to exams dated: 05/28/2020, 02/06/2019, and 05/27/2015 [facility]. BREAST TISSUE:There are scattered fibroglandular densities [...] contacted. Electronically signed by: Kimberly Kang M.D. 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 Advance Care Planning Discussion 04/12/2018 8:48 AM ACP COVER SHEET POLST/POST/VT DNR 04/12/2018 8:48 AM POLST 04/10/18 * [...] 12:43 PM 04/10/2018 3:14 PM Care Teams Adult Education Instructor Relationship Specialty Start Date End Date Singh Loza MD [address] [place] [address] [place] [address] PCP - General Family Medicine 04/18/16 Jose Kumar MD [address] [place] [address] [place] [address] General Surgery 04/13/17 Lucita Patterson, NECKTIE STITCHER, MIXOLOGIST [address] [place] [address] [place] [address] Nurse Practitioner Advanced Practice Nurse 04/18/17 Romeo Dolan DPM [address] [place] [address] [address] [place] [address] Consulting Physician Podiatry 05/18/17 Melissa Rogers APRN, MIXOLOGIST [address] [place] [address] Nurse Practitioner Advanced Practice Nurse 01/11/23 Nessa Reid MD [address] [place] [address] Consulting Physician Gastroenterology 03/15/24
--- OUTSIDE RECORDS SUMMARY | 2025-08-25 09:58 | XMS_ITS | Encounter Summary ---
Author Organization 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
--- OUTSIDE RECORDS SUMMARY | 2025-08-25 09:58 | XMS_ITS | Encounter Summary ---
Author Organization [facility] Address [address] [place] [address] Care Team Providers Care Seed Sorter Name Role Phone Singh Loza MD Primary Care Provider [phone] Encounter Details Date Type Department Care Team (Late st Contact Info) Description 03/15/2023 Telephone [facility] [address] [place] [address] Sánchez Buitrago MD [address] [place] [address] Social History Tobacco Use Types Packs/Day Years Used Date Smoking Tobacco: Never Smokeless Tobacco: Never Alcohol Use Standard Drinks/Week Comments No 0 (1 standard drink = 0.6 oz pur e alcohol) PHQ-2 Answer Date Recorded PHQ2 TOTAL SCORE 3 02/01/2023 Comments No Sex and Gender Information Value Date Recorded Sex Assigned at Not on file 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 Gender Identity Female 05/29/2024 2:11 PM CDT [...] st Contact Info) Description 12/17/2025 1:30 PM FINANCE VICE PRESIDENT Office Visit [facility] - Rheumatology [address] [place] [address], [place] [phone] Hu Ybarra MD [address] [place] [address] [place] [address] documented as of this encounter Visit Diagnoses Not on filedocumented in this encounter Care Teams Seed Sorter Relationship Specialty Start Date End Date Singh Loza MD [address] [place] [address] [place] [address] PCP - General 02/12/16 documented as of this encounter
== END 2025-08-25 10:46 | disposition home or self-care (01) ==
PROVIDERS: Emergency Provider Nurse Practitioner; PCP Family Medicine
DX: M54.50 Low back pain, unspecified (principal); R07.89 Other chest pain; E11.42 Type 2 diabetes mellitus with diabetic polyneuropathy; Z79.84 Long term (current) use of oral hypoglycemic drugs; E78.5 Hyperlipidemia, unspecified; I10 Essential (primary) hypertension; M06.9 Rheumatoid arthritis, unspecified; K21.9 Gastro-esophageal reflux disease without esophagitis; M79.7 Fibromyalgia; J45.909 Unspecified asthma, uncomplicated; Z96.653 Presence of artificial knee joint, bilateral; F41.9 Anxiety disorder, unspecified; F32.A Depression, unspecified
CPT/HCPCS: 71100; 72072; 99213; G0463